=== PATIENT | male | born 1960 | race Caucasian/White ===

== ENCOUNTER 2018-08-31 09:31 | Observation (INO) | payer OTHER ==
--- OUTSIDE RECORDS SUMMARY | 2018-08-31 09:34 | XMS REPORT | Clinical Summary ---
:1960 Author Organization [facility] Address [address] [place] [address] Care Team Providers Name Role Phone Jorge Jo MD Primary Care Provider Allergies No Known Allergies Medications Medication Sig Dispensed Refills Start Date End Date Status TORSEMIDE ORAL Take 20 mg by 0 Active mouth 2 (two) times daily . sacubitril-valsarta Take 1 tablet 60 tablet 11 05/09/2018 Active n (ENTRESTO) 49-51 by mouth 2 mg Tab (two) times daily. atorvastatin Take 20 mg by 0 Discontinued (LIPITOR) 20 MG mouth daily. 8 tablet carvedilol (COREG) Take 1 tablet 60 tablet 3 07/30/2017 25 MG tablet (25 mg total) 9 by mouth 2 (two) times daily with breakfast and dinner. atorvastatin Take 1 tablet 30 tablet 2 07/30/2017 (LIPITOR) 20 MG (20 mg total) 9 tablet by mouth daily. acetaminophen Take 2 tablets 30 tablet 1 07/30/2017 Discontinued (TYLENOL) 325 MG (650 mg total) 9 tablet by mouth every 6 (six) hours as needed for up to 360 days. warfarin (COUMADIN) Take 1 tablet 30 tablet 2 07/30/2017 5 MG tablet (5 mg total) by 9 mouth every evening. losartan (COZAAR) Take 25 mg by 0 Discontinued 25 MG tablet mouth daily. 9 varenicline Take 1 mg by 0 Discontinued (CHANTIX) 1 mg mouth 2 (two) 9 tablet times daily Give with meals and with a full glass of water. . sacubitril-valsarta Take 1 tablet 60 tablet 11 04/21/2018 Discontinued n (ENTRESTO) 24-26 by mouth 2 9 mg Tab (two) times daily. 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 Encounters Date Type Specialty Care Team Description 06/03/2018 Documentation Central Scheduling Lashell Merino 05/23/2018 Documentation Transplant Lashell Merino 05/09/2018 Documentation Transplant Juan C Boucher RN 05/09/2018 Orders Only Transplant Juan C Boucher RN 04/21/2018 Office Visit Transplant Christopher Gongora Chronic systolic congestive heart failure (HCC) (Primary Dx); MD Prema NICAndria (nonischemic cardiomyopathy) (HCC); Essential hypertension; H/O mechanical aortic valve replacement; Chronic anticoagulation 04/21/2018 Orders Only Transplant Juan C Boucher RN 03/26/2018 Surgery Christopher Gongora R & L CATH / CORONARY MD Prema ANGIOS / PCI 03/26/2018 - Hospital Encounter Cardiology Christopher Gongora Acute diverticulitis; 03/27/2018 MD Prema Chronic systolic heart failure (HCC); Stage 3 chronic kidney disease (HCC); Coronary artery disease involving venetie ira heart without angina pectoris , unspecified vessel or lesion type; NICM (nonischemic cardiomyopathy) (HCC) after 08/30/2017 Social History Tobacco Use Types Packs/Day Years Used Date Former Smoker Cigarettes 1 40 Smokeless Tobacco: Never Used Tobacco Cessation: Ready to Quit: Yes; Counseling Given: Yes Comments: Quit 11/2016-05/2017 Alcohol Use Drinks/Week oz/Week Comments Yes 6 Cans of beer 3.6 Sex Assigned at Date Recorded Not on file Job Start Date Occupation Industry Not on file Not on file Not on file Travel History Travel Start Travel End No recent travel history available. Last Filed Vital Signs Vital Sign Reading Time Taken Blood Pressure 117/70 04/21/2018 10:07 AM CAMPAIGN MANAGER Pulse 69 04/21/2018 10:07 AM CAMPAIGN MANAGER Temperature 36.9 C (98.5 F) 04/21/2018 10:07 AM CAMPAIGN MANAGER Respiratory Rate 20 04/21/2018 10:07 AM CAMPAIGN MANAGER Oxygen Saturation 95% 04/21/2018 10:07 AM CAMPAIGN MANAGER Inhaled Oxygen Concentration 30% 03/27/2018 3:43 AM CAMPAIGN MANAGER Weight 102.3 kg (225 lb 9.6 oz) 04/21/2018 10:07 AM CAMPAIGN MANAGER Height 167.6 cm (5' 6") 04/21/2018 10:07 AM CAMPAIGN MANAGER Body Mass Index 36.41 04/21/2018 10:07 AM CAMPAIGN MANAGER Plan of Treatment Not on file Procedures Procedure Name Priority Date/Time Associated Diagnosis Comments RHYTHM STRIP - SCAN 07/18/2018 5:42 AM CDT ECG 12-LEAD Routine 04/21/2018 11:23 AM CAMPAIGN MANAGER Procedure Note - Interface, External Ris In - 04/21/2018 2:55 PM CAMPAIGN MANAGER Ventricular Rate 67 BPM Atrial Rate 67 BPM P-R Interval 170 ms QRS Duration 92 ms Q-T Interval 414 ms QTC Calculation(Bazett) 437 ms P [place] 49 degrees R [place] -29 degrees T [place] 116 degrees Normal sinus rhythm T wave abnormality, consider lateral ischemia Abnormal ECG When compared with ECG of 26-MAR-2018 12:25, No significant change was found ECG 12-LEAD Routine 04/21/2018 11:23 Chronic systolic Results for this AM CAMPAIGN MANAGER congestive heart procedure are in failure ([facility]) the results section. CBC W/PLT COUNT & AUTO STAT 04/21/2018 10:15 Chronic systolic Results for this DIFFERENTIAL AM CAMPAIGN MANAGER congestive heart procedure are in failure (HCC) the results section. COMPREHENSIVE STAT 04/21/2018 10:15 Chronic systolic Results for this METABOLIC PANEL AM CAMPAIGN MANAGER congestive heart procedure are in failure (HCC) the results section. B-TYPE NATRIURETIC STAT 04/21/2018 10:15 Chronic systolic Results for this FACTOR (BNP) AM CAMPAIGN MANAGER congestive heart procedure are in failure (HCC) the results section. TSH/FREE T4 IF Routine 04/21/2018 10:15 Chronic systolic Results for this INDICATED AM CAMPAIGN MANAGER congestive heart procedure are in failure ([facility]) the results Essential section. hypertension PREALBUMIN STAT 04/21/2018 10:15 Chronic systolic Results for this AM CAMPAIGN MANAGER congestive heart procedure are in failure (HCC) the results H/O mechanical section. aortic valve replacement MAGNESIUM STAT 04/21/2018 10:15 Chronic systolic Results for this AM CAMPAIGN MANAGER congestive heart procedure are in failure ([facility]) the results section. HEMOGLOBIN A1C Routine 04/21/2018 10:15 Chronic systolic Results for this AM CAMPAIGN MANAGER congestive heart procedure are in failure (HCC) the results NICM (nonischemic section. cardiomyopathy) (HCC) LIPID PANEL STAT 04/21/2018 10:15 Chronic systolic Results for this AM CAMPAIGN MANAGER congestive heart procedure are in failure (HCC) the results Essential section. hypertension URIC ACID STAT 04/21/2018 10:15 Chronic systolic Results for this AM CAMPAIGN MANAGER congestive heart procedure are in failure (HCC) the results section. PROTHROMBIN TIME/INR STAT 04/21/2018 10:15 Chronic systolic Results for this AM CAMPAIGN MANAGER congestive heart procedure are in failure (HCC) the results section. CBC W/PLT COUNT & AUTO STAT 04/21/2018 10:15 Chronic systolic Results for this DIFFERENTIAL AM CAMPAIGN MANAGER congestive heart procedure are in failure (HCC) the results section. VASCULAR DIAGRAM -SCAN 04/03/2018 10:01 AM CAMPAIGN MANAGER RHYTHM STRIP - SCAN 04/03/2018 10:01 AM CAMPAIGN MANAGER CARDIAC CATH REPORT - 04/03/2018 10:01 SCAN AM CAMPAIGN MANAGER TRANSFUSION SERVICE 03/27/2018 6:02 REPORT - SCAN PM CAMPAIGN MANAGER R & L CATH / CORONARY 03/26/2018 7:46 Chronic combined ANGIOS / PCI PM CAMPAIGN MANAGER systolic and diastolic heart failure (HCC) Cardiomyopathy, unspecified type ([facility]) Case Notes POP6 ECG 12-LEAD JOSEFA 03/26/2018 12:25 PM CAMPAIGN MANAGER CBC W/PLT COUNT & AUTO STAT 03/26/2018 11:57 AM CAMPAIGN MANAGER Results for this DIFFERENTIAL procedure are in the results section. TYPE AND SCREEN, AUTOMATED Routine 03/26/2018 11:57 AM CAMPAIGN MANAGER CBC W/PLT COUNT & AUTO STAT 03/26/2018 11:57 AM CAMPAIGN MANAGER Results for this DIFFERENTIAL procedure are in the results section. BASIC METABOLIC PANEL (7) STAT 03/26/2018 11:57 AM CAMPAIGN MANAGER PROTHROMBIN TIME/INR STAT 03/26/2018 11:57 AM CAMPAIGN MANAGER after 08/30/2017 Results RHYTHM STRIP - SCAN (07/18/2018 5:42 AM CDT)Only the most recent of2 resultswithin the time period is included. Narrative Performed At ECG 12 lead (04/21/2018 11:23 AM CAMPAIGN MANAGER)Only the most recent of2 resultswithin the time period is included. Specimen Narrative Performed At Ventricular Rate 67 BPM GE MUSE Atrial Rate 67 BPM P-R Interval 170 ms QRS Duration 92 ms Q-T Interval 414 ms QTC Calculation(Bazett) 437 ms P [place] 49 degrees R Montez[place] -29 degrees T [place] 116 degrees Normal sinus rhythm T wave inversion lateral leads consider postischemic changes Abnormal ECG When compared with ECG of 26-MAR-2018 12:25, No significant change was found Confirmed by MD CARRERO YOCHAI ([id number]) on 04/22/2018 6:15:24 AM Procedure Note Interface, External Ris In - 04/22/2018 6:15 AM CAMPAIGN MANAGER Ventricular Rate 67 BPM Atrial Rate 67 BPM P-R Interval 170 ms QRS Duration 92 ms Q-T Interval 414 ms QTC Calculation(Bazett) 437 ms P [place] 49 degrees R Montez[place] -29 degrees T [place] 116 degrees Normal sinus rhythm T wave inversion lateral leads consider postischemic changes Abnormal ECG When compared with ECG of 26-MAR-2018 12:25, No significant change was found Confirmed by MD CARRERO YOCHAI ([id number]) on 04/22/2018 6:15:24 AM Performing Organization Address City/State/Zipcode Phone Number GE MUSE TSH/Free T4 If Indicated (04/21/2018 10:15 AM CAMPAIGN MANAGER) TSH 1.36 0.35 - 4.94 uIU/mL [facility] Specimen Blood Performing Organization Address City/State/Zipcode Phone Number [facility] [address] [place] [address] [phone] CENTER CBC with platelet count + automated diff (04/21/2018 10:15 AM CAMPAIGN MANAGER)Only the most recent of2 resultswithin the time period is included. WBC 6.8 3.5 - 10.5 K/L [facility] RBC 4.40 (L) 4.63 - 6.08 M/L [facility] Hemoglobin 13.9 13.7 - 17.5 GM/DL [facility] Hematocrit 40.8 40.1 - 51.0 % [facility] MCV 92.7 (H) 79.0 - 92.2 fL [facility] MCH 31.6 25.7 - 32.2 pg [facility] MCHC 34.1 32.3 - 36.5 GM/DL [facility] RDW 13.2 11.6 - 14.4 % [facility] Platelets 225 150 - 450 K/CU MM [facility] MPV 9.7 9.4 - 12.4 fL [facility] nRBC 0 0 - 0 /100 WBC [facility] % Neutros 75 % [facility] % Lymphs 10 % [facility] % Monos 11 % [facility] % Eos 3 % [facility] % Baso 1 % [facility] # Neutros 5.10 1.78 - 5.38 K/L [facility] # Lymphs 0.71 (L) 1.32 - 3.57 K/L [facility] # Monos 0.74 0.30 - 0.82 K/L [facility] # Eos 0.20 0.04 - 0.54 K/L [facility] # Baso 0.05 0.01 - 0.08 K/L [facility] Immature Granulocytes-Relative 0 0 - 1 % [facility] Specimen Blood Performing Organization Address City/State/Zipcode Phone Number [facility] [address] [place] [address] CENTER Prothrombin time/INR (04/21/2018 10:15 AM CAMPAIGN MANAGER)Only the most recent of2 resultswithin the time period is included. Protime 29.4 (H) 11.7 - 14.7 seconds [facility] INR 2.8 <=5.9 [facility] Specimen Blood Narrative Performed At RECOMMENDED COUMADIN/WARFARIN INR THERAPY [facility] RANGES STANDARD DOSE: 2.0 - 3.0 Includes: PROPHYLAXIS for venous thrombosis, systemic embolization; TREATMENT for venous thrombosis and/or pulmonary embolus. HIGH RISK: Target INR is 2.5-3.5 for patients with mechanical heart valves. Performing Organization Address City/State/[facility] Phone Number [address] [address] CENTER Uric acid (04/21/2018 10:15 AM CAMPAIGN MANAGER) Uric Acid 12.7 (H) 2.6 - 7.2 mg/dL [facility] Specimen Blood Performing Organization Address [facility] Phone Number [address] [address] CENTER Prealbumin (04/21/2018 10:15 AM CAMPAIGN MANAGER) Prealbumin 27Comment: Specimen slightly 14 - 45 mg/dL [facility] hemolyzed [facility] Specimen Blood Performing Organization Address [facility] Phone Number [address] [address] CENTER B-type Natriuretic Factor (BNP) (04/21/2018 10:15 AM CAMPAIGN MANAGER) BNP 443 (H) 0 - 100 pg/mL [facility] Specimen Blood Performing Organization Address [facility] Cent[facility]ode Phone Number [address] [address] CENTER Magnesium (04/21/2018 10:15 AM CAMPAIGN MANAGER) Magnesium 2.1 1.6 - 2.6 mg/dL [facility] Specimen Blood Performing Organization Address [facility] Cent[facility]ode Phone Number [address] [address] [phone] CENTER Hemoglobin A1c (04/21/2018 10:15 AM CAMPAIGN MANAGER) Hemoglobin A1C 5.7 4.3 - 6.1 % [facility] Specimen Blood Performing Organization Address City/[facility]/Zipcode Phone Number [address] [address] [phone] [place] Lipid panel (04/21/2018 10:15 AM CAMPAIGN MANAGER) Triglycerides 166 mg/dL [facility] Cholesterol 203 mg/dL [facility] HDL 47 mg/dL [facility] LDL Calculated 123 mg/dL [facility] Specimen Blood Narrative Performed At Triglyceride Reference Range: [facility] Low Risk <150 [id number] High Risk 200-499 Very High Risk>=500 Cholesterol Reference Range: Low Risk <200 [id number] High Risk>240 HDL Cholesterol Reference Range: Low Risk >=60 High Risk <40 LDL Cholesterol Reference Range: Optimal<100 Near [id number] Very High >=190 Performing Organization Address City/[facility]/Zipcode Phone Number [place] [phone] [place] [address] [place] Comprehensive metabolic panel (04/21/2018 10:15 AM CAMPAIGN MANAGER) Protein, Total 7.6 6.0 - 8.3 gm/dL [facility] Albumin 3.3 (L) 3.5 - 5.0 g/dL [facility] Alkaline Phosphatase 85 40 - 150 U/L [facility] Total Bilirubin 0.9 0.2 - 1.2 mg/dL [facility] Sodium 136 136 - 145 meq/L [facility] Potassium 4.4 3.5 - 5.1 meq/L [facility] Chloride 100 98 - 107 meq/L [facility] CO2 31 (H) 22 - 29 meq/L [facility] BUN 39 (H) 7 - 21 mg/dL [facility] Creatinine 1.93 (H) 0.57 - 1.25 mg/dL [facility] Glucose 104 70 - 105 mg/dL [facility] Calcium 9.2 8.4 - 10.2 mg/dL [facility] AST 59 (H) 5 - 34 U/L [facility] ALT 34 6 - 55 U/L [facility] EGFR 36Comment: ESTIMATED GFR mL/min/1.73 sq m [facility] IS NOT ACCURATE [facility] CREATININE CLEARANCE IN PREDICTING GLOMERULAR FILTRATION RATE. ESTIMATED GFR IS NOT APPLICABLE FOR DIALYSIS PATIENTS. Specimen Blood Performing Organization Address City/[facility]/Zipcode Phone Number [address] [address] [phone] CENTER VASCULAR DIAGRAM -SCAN (04/03/2018 10:01 AM CAMPAIGN MANAGER) Narrative Performed At CARDIAC CATH REPORT - SCAN (04/03/2018 10:01 AM CAMPAIGN MANAGER) Narrative Performed At TRANSFUSION SERVICE REPORT - SCAN (03/27/2018 6:02 PM CAMPAIGN MANAGER) Narrative Performed At Type and screen, automated (03/26/2018 11:57 AM CAMPAIGN MANAGER) ABO/RH AUTOMATED (BEAKER) O POSITIVE [facility] Ab Scrn NEGATIVE [facility] Specimen Blood Performing Organization Address City/State/Zipcode Phone Number [facility] [address] [place] [address] [phone] Basic Metabolic Panel (03/26/2018 11:57 AM CAMPAIGN MANAGER) Sodium 136 136 - 145 meq/L [facility] Potassium 4.1 3.5 - 5.1 meq/L [facility] Chloride 100 98 - 107 meq/L [facility] CO2 27 22 - 29 meq/L [facility] BUN 36 (H) 7 - 21 mg/dL [facility] Creatinine 1.66 (H) 0.57 - 1.25 mg/dL [facility] Glucose 103 70 - 105 mg/dL [facility] Calcium 9.5 8.4 - 10.2 mg/dL [facility] EGFR 43Comment: ESTIMATED GFR IS mL/min/1.73 sq m [facility] NOT ACCURATE [facility] CLEARANCE IN PREDICTING GLOMERULAR FILTRATION RATE. ESTIMATED GFR IS NOT APPLICABLE FOR DIALYSIS PATIENTS. Specimen Blood Performing Organization Address City/State/Zipcode Phone Number [facility] [address], [place] [phone] CENTER after 08/30/2017 Insurance Payer Benefit Plan / Subscriber ID Type Phone Address Group MEDICAID - MEDICAID [employer] xxxxxxxxx Medicaid Contracted MGD CARE PLAN Advance Directives For more information, please contact:[address] [phone] Code Status Date Activated Date Inactivated Comments Full Code 03/26/2018 11:04 AM This code status was determined by: Patient Full Code 07/18/2017 5:10 PM 07/19/2017 2:43 PM This code status was determined by: Patient Full Code 03/27/2017 2:12 AM 04/08/2017 10:28 PM This code status was determined by: Patient
--- OUTSIDE RECORDS SUMMARY | 2018-08-31 09:39 | XMS REPORT ---
:1960 [facility] Address [address] [place] [address] Care Team Providers Name Role Phone LUCIA OLIVARES Prema Unavailable Unavailable KATHI BENTON Unavailable Unavailable HASMUKH CRANDALL Unavailable Unavailable Problems This patient has no known problems. Allergies, Adverse Reactions, Alerts This patient has no known allergies or adverse reactions. Medications This patient has no known medications. Results Test Description Test Time Test Comments Text Results Atomic Results Result Comments HEMOGLOBIN A1C 2018-04-21 12:46:00 Test Item Value Reference Range Comments HEMOGLOBIN A1C (BEAKER) (test moqd=358) 5.7 % 4.3-6.1 TSH/FREE T4 IF [id number] 12:35:00 Test Item Value Reference Range Comments THYROID STIMULATING HORMONE (BEAKER) (test 1.36 uIU/mL 0.35-4.94 jnzf=201) [id number] 11:07:00 Test Item Value Reference Range Comments PREALBUMIN (BEAKER) (test 27 mg/dL 14-45 Specimen slightly hemolyzed xbae=271) URIC [id number] 11:05:00 Test Item Value Reference Range Comments URIC ACID (BEAKER) (test lsfi=834) 12.7 mg/dL 2.6-7.2 [id number] 11:05:00 Test Item Value Reference Range Comments MAGNESIUM (BEAKER) (test fztd=827) 2.1 mg/dL 1.6-2.6 COMPREHENSIVE METABOLIC [id number] 11:05:00 Test Item Value Reference Range Comments TOTAL PROTEIN (BEAKER) 7.6 gm/dL 6.0-8.3 (test dklr=603) ALBUMIN (BEAKER) (test 3.3 g/dL 3.5-5.0 qqke=2292) ALKALINE PHOSPHATASE 85 U/L 40-150 (BEAKER) (test lvlo=015) BILIRUBIN TOTAL (BEAKER) 0.9 mg/dL 0.2-1.2 (test mljh=997) SODIUM (BEAKER) (test 136 meq/L 136-145 zfvm=666) POTASSIUM (BEAKER) (test 4.4 meq/L 3.5-5.1 rmzl=630) CHLORIDE (BEAKER) (test 100 meq/L 98-107 snod=253) CO2 (BEAKER) (test 31 meq/L 22-29 velf=270) BLOOD UREA NITROGEN 39 mg/dL 7-21 (BEAKER) (test fbyj=162) CREATININE (BEAKER) (test 1.93 mg/dL 0.57-1.25 ktrs=875) GLUCOSE RANDOM (BEAKER) 104 mg/dL 70-105 (test ljfs=933) CALCIUM (BEAKER) (test 9.2 mg/dL 8.4-10.2 dfxe=699) AST (SGOT) (BEAKER) (test 59 U/L 5-34 nkmb=499) ALT (SGPT) (BEAKER) (test 34 U/L 6-55 vckm=034) EGFR (BEAKER) (test 36 mL/min/1.73 sq m ESTIMATED GFR IS NOT sgew=2625) ACCURATE CREATININE CLEARANCE IN PREDICTING GLOMERULAR FILTRATION RATE. ESTIMATED GFR IS NOT APPLICABLE FOR DIALYSIS PATIENTS. LIPID [id number] 11:05:00 Test Item Value Reference Range Comments TRIGLYCERIDES (BEAKER) (test utcz=879) 166 mg/dL CHOLESTEROL (BEAKER) (test fikn=696) 203 mg/dL HDL CHOLESTEROL (BEAKER) (test cktm=583) 47 mg/dL LDL CHOLESTEROL CALCULATED (BEAKER) (test 123 mg/dL qcng=711) Triglyceride Reference Range: Low Risk <150 Borderline 150- 199 High Risk 200-499 Very High Risk >=500Cholesterol Reference Range: Low Risk <200 Borderline 200-239 High Risk > 240HDL Cholesterol Reference Range: Low Risk >=60 High Risk <40LDL Cholesterol Reference Range: Optimal <100 Near Optimal 100-129 Borderline 130-159 High 160-189 Very High >=190B-TYPE NATRIURETIC FACTOR (BNP)2018-04-21 11:01:00 Test Item Value Reference Range Comments B-TYPE NATRIURETIC PEPTIDE (BEAKER) (test 443 pg/mL 0-100 wpjx=390) PROTHROMBIN [id number] 10:48:00 Test Item Value Reference Range Comments PROTIME (BEAKER) (test tgkd=040) 29.4 seconds 11.7-14.7 INR (BEAKER) (test olsz=504) 2.8 <=5.9 RECOMMENDED COUMADIN/WARFARIN INR THERAPY RANGESSTANDARD DOSE: 2.0 - 3.0 Includes: PROPHYLAXIS forvenous thrombosis, systemic embolization; TREATMENT for venous thrombosis and/or pulmonary embolus.HIGH RISK: Target INR is 2.5-3.5 for patients with mechanical heart valves.CBC W/PLT COUNT & AUTO [id number] 10:38:00 Test Item Value Reference Range Comments WHITE BLOOD CELL COUNT (BEAKER) (test aufi=226) 6.8 K/ L 3.5-10.5 RED BLOOD CELL COUNT (BEAKER) (test eggb=226) 4.40 M/ L 4.63-6.08 HEMOGLOBIN (BEAKER) (test rzwe=927) 13.9 GM/DL 13.7-17.5 HEMATOCRIT (BEAKER) (test aeei=591) 40.8 % 40.1-51.0 MEAN CORPUSCULAR VOLUME (BEAKER) (test vqjd=492) 92.7 fL 79.0-92.2 MEAN CORPUSCULAR HEMOGLOBIN (BEAKER) (test 31.6 pg 25.7-32.2 qzgr=312) MEAN CORPUSCULAR HEMOGLOBIN CONC (BEAKER) (test 34.1 GM/DL 32.3-36.5 ytwa=989) RED CELL DISTRIBUTION WIDTH (BEAKER) (test 13.2 % 11.6-14.4 xdmv=182) PLATELET COUNT (BEAKER) (test xkub=488) 225 K/CU MM 150-450 MEAN PLATELET VOLUME (BEAKER) (test qlzh=169) 9.7 fL 9.4-12.4 NUCLEATED RED BLOOD CELLS (BEAKER) (test 0 /100 WBC 0-0 woqa=181) NEUTROPHILS RELATIVE PERCENT (BEAKER) (test 75 % vehw=901) LYMPHOCYTES RELATIVE PERCENT (BEAKER) (test 10 % gdpe=108) MONOCYTES RELATIVE PERCENT (BEAKER) (test 11 % hdqe=675) EOSINOPHILS RELATIVE PERCENT (BEAKER) (test 3 % utrd=380) BASOPHILS RELATIVE PERCENT (BEAKER) (test 1 % dash=885) NEUTROPHILS ABSOLUTE COUNT (BEAKER) (test 5.10 K/ L 1.78-5.38 rzds=376) LYMPHOCYTES ABSOLUTE COUNT (BEAKER) (test 0.71 K/ L 1.32-3.57 msox=720) MONOCYTES ABSOLUTE COUNT (BEAKER) (test 0.74 K/ L 0.30-0.82 xmng=095) EOSINOPHILS ABSOLUTE COUNT (BEAKER) (test 0.20 K/ L 0.04-0.54 leav=858) BASOPHILS ABSOLUTE COUNT (BEAKER) (test 0.05 K/ L 0.01-0.08 ujkv=478) IMMATURE GRANULOCYTES-RELATIVE PERCENT (BEAKER) 0 % 0-1 (test btsj=8312) BASIC METABOLIC [id number] 12:22:00 Test Item Value Reference Range Comments SODIUM (BEAKER) (test 136 meq/L 136-145 ppqt=115) POTASSIUM (BEAKER) (test 4.1 meq/L 3.5-5.1 myus=123) CHLORIDE (BEAKER) (test 100 meq/L 98-107 ctnv=187) CO2 (BEAKER) (test 27 meq/L 22-29 sqjz=398) BLOOD UREA NITROGEN 36 mg/dL 7-21 (BEAKER) (test hbim=294) CREATININE (BEAKER) (test 1.66 mg/dL 0.57-1.25 gzkb=029) GLUCOSE RANDOM (BEAKER) 103 mg/dL 70-105 (test erfh=515) CALCIUM (BEAKER) (test 9.5 mg/dL 8.4-10.2 xooh=196) EGFR (BEAKER) (test 43 mL/min/1.73 sq m ESTIMATED GFR IS NOT picn=8011) ACCURATE CREATININE CLEARANCE IN PREDICTING GLOMERULAR FILTRATION RATE. ESTIMATED GFR IS NOT APPLICABLE FOR DIALYSIS PATIENTS. PROTHROMBIN [id number] 12:11:00 Test Item Value Reference Range Comments PROTIME (BEAKER) (test mefc=603) 16.2 seconds 11.7-14.7 INR (BEAKER) (test fgkl=977) 1.3 <=5.9 RECOMMENDED COUMADIN/WARFARIN INR THERAPY RANGESSTANDARD DOSE: 2.0 - 3.0 Includes: PROPHYLAXIS forvenous thrombosis, systemic embolization; TREATMENT for venous thrombosis and/or pulmonary embolus.HIGH RISK: Target INR is 2.5-3.5 for patients with mechanical heart valves.Within 24 hours, if on CoumadinCBC W/ PLT COUNT & AUTO [id number] 12:06:00 Test Item Value Reference Range Comments WHITE BLOOD CELL COUNT (BEAKER) (test vqpt=046) 7.3 K/ L 3.5-10.5 RED BLOOD CELL COUNT (BEAKER) (test brht=240) 4.59 M/ L 4.63-6.08 HEMOGLOBIN (BEAKER) (test tkih=973) 14.4 GM/DL 13.7-17.5 HEMATOCRIT (BEAKER) (test rwci=156) 42.3 % 40.1-51.0 MEAN CORPUSCULAR VOLUME (BEAKER) (test lxoh=309) 92.2 fL 79.0-92.2 MEAN CORPUSCULAR HEMOGLOBIN (BEAKER) (test 31.4 pg 25.7-32.2 dfhq=846) MEAN CORPUSCULAR HEMOGLOBIN CONC (BEAKER) (test 34.0 GM/DL 32.3-36.5 iqrw=245) RED CELL DISTRIBUTION WIDTH (BEAKER) (test 13.8 % 11.6-14.4 tdyt=319) PLATELET COUNT (BEAKER) (test gtai=373) 182 K/CU MM 150-450 MEAN PLATELET VOLUME (BEAKER) (test zfpr=411) 10.1 fL 9.4-12.4 NUCLEATED RED BLOOD CELLS (BEAKER) (test 0 /100 WBC 0-0 mgpd=414) NEUTROPHILS RELATIVE PERCENT (BEAKER) (test 70 % oycn=190) LYMPHOCYTES RELATIVE PERCENT (BEAKER) (test 15 % phzq=855) MONOCYTES RELATIVE PERCENT (BEAKER) (test 11 % ibzz=326) EOSINOPHILS RELATIVE PERCENT (BEAKER) (test 3 % wrnp=098) BASOPHILS RELATIVE PERCENT (BEAKER) (test 1 % sawh=302) NEUTROPHILS ABSOLUTE COUNT (BEAKER) (test 5.11 K/ L 1.78-5.38 fdli=474) LYMPHOCYTES ABSOLUTE COUNT (BEAKER) (test 1.10 K/ L 1.32-3.57 give=004) MONOCYTES ABSOLUTE COUNT (BEAKER) (test 0.78 K/ L 0.30-0.82 biri=772) EOSINOPHILS ABSOLUTE COUNT (BEAKER) (test 0.24 K/ L 0.04-0.54 cgwj=685) BASOPHILS ABSOLUTE COUNT (BEAKER) (test 0.08 K/ L 0.01-0.08 zgry=770) IMMATURE GRANULOCYTES-RELATIVE PERCENT (BEAKER) 0 % 0-1 (test pdch=5880) AFB CULTURE + [id number] 11:21:00 Test Item Value Reference Range Comments CULTURE (BEAKER) (test MYCOBACTERIUM Mycobacterium zcqr=0653) [place] Fontenotdentification performed by:[facility], Dept. of Microbiology Research, [facility], [address] [place] [address], [place], [place] [address] Amikacin (test code=1) Cefoxitin (test code=68) Ciprofloxacin (test code=7) Clarithromycin (test code=42) Doxycycline (test code=15) Imipenem (test code=19) Linezolid (test code=40) Minocycline (test code=35) Moxifloxacin (test code=36) Tobramycin (test code=25) Trimethoprim + Sulfamethoxazole (test code=47) AFB SMEAR (BEAKER) No acid fast (test fnak=384) bacilli seen 99.59 match to M. chelonae type strain by rpoB gene sequencing. M. chelonae does not have a functional erm gene and hence will be macrolide susceptible unless mutationally resistant.FUNGUS CULTURE + [id number] 11:21:00 Test Item Value Reference Range Comments CULTURE (BEAKER) (test No fungus isolated in 28 days zfdr=9769) FUNGUS SMEAR (BEAKER) (test No fungi seen uqfm=6726) POCT-GLUCOSE [id number] 11:44:00 Test Item Value Reference Range Comments POC-GLUCOSE METER (BEAKER) 96 mg/dL 70-110 TESTED AT [facility] [address] (test rtbq=3923) [facility] [place] [address] PROTHROMBIN [id number] 09:22:00 Test Item Value Reference Range Comments PROTIME (BEAKER) (test lybr=804) 29.1 seconds 11.7-14.7 INR (BEAKER) (test mpbq=644) 2.8 <=5.9 RECOMMENDED COUMADIN/WARFARIN INR THERAPY RANGESSTANDARD DOSE: 2.0 - 3.0 Includes: PROPHYLAXIS forvenous thrombosis, systemic embolization; TREATMENT for venous thrombosis and/or pulmonary embolus.HIGH RISK: Target INR is 2.5-3.5 for patients with mechanical heart valves.CBC (HEMOGRAM ONLY)2017-07-30 07:40:00 Test Item Value Reference Range Comments WHITE BLOOD CELL COUNT (BEAKER) (test deee=572) 7.1 K/ L 3.5-10.5 RED BLOOD CELL COUNT (BEAKER) (test jluj=902) 3.34 M/ L 4.63-6.08 HEMOGLOBIN (BEAKER) (test kojk=743) 10.1 GM/DL 13.7-17.5 HEMATOCRIT (BEAKER) (test vyww=855) 31.4 % 40.1-51.0 MEAN CORPUSCULAR VOLUME (BEAKER) (test jair=139) 94.0 fL 79.0-92.2 MEAN CORPUSCULAR HEMOGLOBIN (BEAKER) (test 30.2 pg 25.7-32.2 tsui=389) MEAN CORPUSCULAR HEMOGLOBIN CONC (BEAKER) (test 32.2 GM/DL 32.3-36.5 vbwf=562) RED CELL DISTRIBUTION WIDTH (BEAKER) (test 14.6 % 11.6-14.4 blnh=368) PLATELET COUNT (BEAKER) (test fnll=988) 264 K/CU MM 150-450 MEAN PLATELET VOLUME (BEAKER) (test bjbg=384) 11.1 fL 9.4-12.4 NUCLEATED RED BLOOD CELLS (BEAKER) (test 0 /100 WBC 0-0 bjlg=507) POCT-GLUCOSE [id number] 07:23:00 Test Item Value Reference Range Comments POC-GLUCOSE METER (BEAKER) 112 mg/dL 70-110 TESTED AT [facility] [address] [facility] (test ylmy=2732) [facility] [place] [address] [id number] 05:35:00 Test Item Value Reference Range Comments PHOSPHORUS (BEAKER) (test wqhj=428) 3.3 mg/dL 2.3-4.7 [id number] 05:35:00 Test Item Value Reference Range Comments MAGNESIUM (BEAKER) (test hymx=641) 1.9 mg/dL 1.6-2.6 BASIC METABOLIC [id number] 05:35:00 Test Item Value Reference Range Comments SODIUM (BEAKER) (test 137 meq/L 136-145 ojog=209) POTASSIUM (BEAKER) (test 5.0 meq/L 3.5-5.1 dkmr=900) CHLORIDE (BEAKER) (test 105 meq/L 98-107 ubsl=885) CO2 (BEAKER) (test 26 meq/L 22-29 azwp=181) BLOOD UREA NITROGEN 25 mg/dL 7-21 (BEAKER) (test zlbw=412) CREATININE (BEAKER) (test 1.69 mg/dL 0.57-1.25 laeo=833) GLUCOSE RANDOM (BEAKER) 95 mg/dL 70-105 (test dmip=372) CALCIUM (BEAKER) (test 9.1 mg/dL 8.4-10.2 gkay=994) EGFR (BEAKER) (test 42 mL/min/1.73 sq m ESTIMATED GFR IS NOT ylqt=7453) ACCURATE CREATININE CLEARANCE IN PREDICTING GLOMERULAR FILTRATION RATE. ESTIMATED GFR IS NOT APPLICABLE FOR DIALYSIS PATIENTS. POCT-GLUCOSE [id number] 21:17:00 Test Item Value Reference Range Comments POC-GLUCOSE METER (BEAKER) 139 mg/dL 70-110 TESTED AT [address] (test nkcw=1400) [place] [address] POCT-GLUCOSE [id number] 18:23:00 Test Item Value Reference Range Comments POC-GLUCOSE METER (BEAKER) 118 mg/dL 70-110 TESTED AT [address] (test dcvf=1789) [place] [id number] POCT-GLUCOSE [id number] 12:33:00 Test Item Value Reference Range Comments POC-GLUCOSE METER (BEAKER) 157 mg/dL 70-110 TESTED AT [address] (test xiqx=1635) [place] [id number] 11:34:00 Test Item Value Reference Range Comments PARTIAL THROMBOPLASTIN TIME (BEAKER) (test 49.4 seconds 22.5-36.0 pvdl=883) POCT-GLUCOSE [id number] 07:27:00 Test Item Value Reference Range Comments POC-GLUCOSE METER (BEAKER) 99 mg/dL 70-110 TESTED AT [address] (test jpvt=5880) [facility] [place] [address] [id number] 03:55:00 Test Item Value Reference Range Comments PHOSPHORUS (BEAKER) (test xino=050) 3.9 mg/dL 2.3-4.7 [id number] 03:55:00 Test Item Value Reference Range Comments MAGNESIUM (BEAKER) (test glit=473) 1.7 mg/dL 1.6-2.6 BASIC METABOLIC [id number] 03:55:00 Test Item Value Reference Range Comments SODIUM (BEAKER) (test 136 meq/L 136-145 jjlq=056) POTASSIUM (BEAKER) (test 4.6 meq/L 3.5-5.1 alcc=038) CHLORIDE (BEAKER) (test 103 meq/L 98-107 chwt=181) CO2 (BEAKER) (test 26 meq/L 22-29 hjrm=392) BLOOD UREA NITROGEN 27 mg/dL 7-21 (BEAKER) (test uzbm=753) CREATININE (BEAKER) (test 1.80 mg/dL 0.57-1.25 fyzr=733) GLUCOSE RANDOM (BEAKER) 120 mg/dL 70-105 (test xvkn=018) CALCIUM (BEAKER) (test 9.0 mg/dL 8.4-10.2 bdbm=958) EGFR (BEAKER) (test 39 mL/min/1.73 sq m ESTIMATED GFR IS NOT jlwj=2311) ACCURATE CREATININE CLEARANCE IN PREDICTING GLOMERULAR FILTRATION RATE. ESTIMATED GFR IS NOT APPLICABLE FOR DIALYSIS PATIENTS. [id number] 03:40:00 Test Item Value Reference Range Comments PARTIAL THROMBOPLASTIN TIME (BEAKER) (test 74.2 seconds 22.5-36.0 weei=135) PROTHROMBIN [id number] 03:39:00 Test Item Value Reference Range Comments PROTIME (BEAKER) (test glhq=218) 24.1 seconds 11.7-14.7 INR (BEAKER) (test xgdj=464) 2.2 <=5.9 RECOMMENDED COUMADIN/WARFARIN INR THERAPY RANGESSTANDARD DOSE: 2.0 - 3.0 Includes: PROPHYLAXIS forvenous thrombosis, systemic embolization; TREATMENT for venous thrombosis and/or pulmonary embolus.HIGH RISK: Target INR is 2.5-3.5 for patients with mechanical heart valves.CBC (HEMOGRAM ONLY)2017-07-29 03:29:00 Test Item Value Reference Range Comments WHITE BLOOD CELL COUNT (BEAKER) (test beuj=483) 6.5 K/ L 3.5-10.5 RED BLOOD CELL COUNT (BEAKER) (test qllp=546) 3.25 M/ L 4.63-6.08 HEMOGLOBIN (BEAKER) (test xbnh=771) 9.7 GM/DL 13.7-17.5 HEMATOCRIT (BEAKER) (test hifc=903) 30.4 % 40.1-51.0 MEAN CORPUSCULAR VOLUME (BEAKER) (test kdwc=401) 93.5 fL 79.0-92.2 MEAN CORPUSCULAR HEMOGLOBIN (BEAKER) (test 29.8 pg 25.7-32.2 fwnb=629) MEAN CORPUSCULAR HEMOGLOBIN CONC (BEAKER) (test 31.9 GM/DL 32.3-36.5 jqjs=308) RED CELL DISTRIBUTION WIDTH (BEAKER) (test 14.3 % 11.6-14.4 lijy=387) PLATELET COUNT (BEAKER) (test aakd=073) 242 K/CU MM 150-450 MEAN PLATELET VOLUME (BEAKER) (test gabv=594) 10.4 fL 9.4-12.4 NUCLEATED RED BLOOD CELLS (BEAKER) (test 0 /100 WBC 0-0 rdwy=224) POCT-GLUCOSE [id number] 22:23:00 Test Item Value Reference Range Comments POC-GLUCOSE METER (BEAKER) 133 mg/dL 70-110 TESTED AT [address] (test qdgc=1498) [place] [id number] [id number] 20:19:00 Test Item Value Reference Range Comments PARTIAL THROMBOPLASTIN TIME (BEAKER) (test 58.9 seconds 22.5-36.0 ecmw=524) On Heparin dripPOCT-GLUCOSE [id number] 16:12:00 Test Item Value Reference Range Comments POC-GLUCOSE METER (BEAKER) 132 mg/dL 70-110 TESTED AT [address] (test uxcj=7116) [place] [id number] [id number] 13:01:00 Test Item Value Reference Range Comments PARTIAL THROMBOPLASTIN TIME (BEAKER) (test 72.3 seconds 22.5-36.0 dpnm=582) POCT-GLUCOSE [id number] 11:56:00 Test Item Value Reference Range Comments POC-GLUCOSE METER (BEAKER) 115 mg/dL 70-110 TESTED AT [facility] [address] [facility] (test puey=3306) [facility] [place] [address] POCT-GLUCOSE [id number] 08:19:00 Test Item Value Reference Range Comments POC-GLUCOSE METER (BEAKER) 112 mg/dL 70-110 TESTED AT [address] (test nbdn=4585) [facility] [place] [address] [id number] 05:14:00 Test Item Value Reference Range Comments PARTIAL THROMBOPLASTIN TIME (BEAKER) (test 106.7 seconds 22.5-36.0 gfhj=326) While on warfarin.[id number] 04:48:00 Test Item Value Reference Range Comments PHOSPHORUS (BEAKER) (test xpsf=043) 4.1 mg/dL 2.3-4.7 [id number] 04:48:00 Test Item Value Reference Range Comments MAGNESIUM (BEAKER) (test lgne=672) 1.6 mg/dL 1.6-2.6 BASIC METABOLIC [id number] 04:48:00 Test Item Value Reference Range Comments SODIUM (BEAKER) (test 137 meq/L 136-145 nyuu=601) POTASSIUM (BEAKER) (test 4.5 meq/L 3.5-5.1 rqwp=387) CHLORIDE (BEAKER) (test 103 meq/L 98-107 ktmp=908) CO2 (BEAKER) (test 27 meq/L 22-29 cqjm=383) BLOOD UREA NITROGEN 25 mg/dL 7-21 (BEAKER) (test brdo=556) CREATININE (BEAKER) (test 1.91 mg/dL 0.57-1.25 hsnw=666) GLUCOSE RANDOM (BEAKER) 103 mg/dL 70-105 (test rknb=578) CALCIUM (BEAKER) (test 9.2 mg/dL 8.4-10.2 opzv=486) EGFR (BEAKER) (test 36 mL/min/1.73 sq m ESTIMATED GFR IS NOT qorr=5542) ACCURATE CREATININE CLEARANCE IN PREDICTING GLOMERULAR FILTRATION RATE. ESTIMATED GFR IS NOT APPLICABLE FOR DIALYSIS PATIENTS. PROTHROMBIN [id number] 04:43:00 Test Item Value Reference Range Comments PROTIME (BEAKER) (test cufj=863) 22.0 seconds 11.7-14.7 INR (BEAKER) (test qhkt=239) 1.9 <=5.9 RECOMMENDED COUMADIN/WARFARIN INR THERAPY RANGESSTANDARD DOSE: 2.0 - 3.0 Includes: PROPHYLAXIS forvenous thrombosis, systemic embolization; TREATMENT for venous thrombosis and/or pulmonary embolus.HIGH RISK: Target INR is 2.5-3.5 for patients with mechanical heart valves.While on warfarin.CBC (HEMOGRAM ONLY) 2017-07-28 04:43:00 Test Item Value Reference Range Comments WHITE BLOOD CELL COUNT 6.4 K/ L 3.5-10.5 (BEAKER) (test ycwa=784) RED BLOOD CELL COUNT (BEAKER) 3.28 M/ L 4.63-6.08 (test heje=184) HEMOGLOBIN (BEAKER) (test 10.0 GM/DL 13.7-17.5 mwvs=968) HEMATOCRIT (BEAKER) (test 30.8 % 40.1-51.0 rjwm=513) MEAN CORPUSCULAR VOLUME 93.9 fL 79.0-92.2 (BEAKER) (test kwsj=858) MEAN CORPUSCULAR HEMOGLOBIN 30.5 pg 25.7-32.2 (BEAKER) (test ixji=385) MEAN CORPUSCULAR HEMOGLOBIN 32.5 GM/DL 32.3-36.5 CONC (BEAKER) (test aqhv=365) RED CELL DISTRIBUTION WIDTH 14.5 % 11.6-14.4 (BEAKER) (test xnlx=091) PLATELET COUNT (BEAKER) (test 231 K/CU MM 150-450 Discordant Plt result avzo=319) Compare to previous result, Clinical correlation recommended. MEAN PLATELET VOLUME (BEAKER) 9.9 fL 9.4-12.4 (test lppm=554) NUCLEATED RED BLOOD CELLS 0 /100 WBC 0-0 (BEAKER) (test lcoi=911) POCT-GLUCOSE [id number] 22:49:00 Test Item Value Reference Range Comments POC-GLUCOSE METER (BEAKER) 123 mg/dL 70-110 TESTED AT [facility] [address] [facility] (test gzjq=8085) [facility] [place] [address] [id number] 18:42:00 Test Item Value Reference Range Comments PARTIAL THROMBOPLASTIN TIME (BEAKER) (test 84.8 seconds 22.5-36.0 smjo=964) POCT-GLUCOSE [id number] 16:58:00 Test Item Value Reference Range Comments POC-GLUCOSE METER (BEAKER) 123 mg/dL 70-110 TESTED AT [address] (test nlcd=1098) [facility] [place] [address] POCT-GLUCOSE [id number] 12:40:00 Test Item Value Reference Range Comments POC-GLUCOSE METER (BEAKER) 116 mg/dL 70-110 TESTED AT [address] (test elid=5355) [place] [id number] 12:18:00 Test Item Value Reference Range Comments PARTIAL THROMBOPLASTIN TIME (BEAKER) (test 85.0 seconds 22.5-36.0 alhl=835) POCT-GLUCOSE [id number] 08:16:00 Test Item Value Reference Range Comments POC-GLUCOSE METER (BEAKER) 110 mg/dL 70-110 TESTED AT [address] (test pksh=3363) [facility] [place] [address] [id number] 06:05:00 Test Item Value Reference Range Comments PARTIAL THROMBOPLASTIN TIME (BEAKER) (test 89.9 seconds 22.5-36.0 wray=553) While on warfarin.PROTHROMBIN [id number] 06:03:00 Test Item Value Reference Range Comments PROTIME (BEAKER) (test wtbc=744) 19.7 seconds 11.7-14.7 INR (BEAKER) (test tgoy=210) 1.7 <=5.9 RECOMMENDED COUMADIN/WARFARIN INR THERAPY RANGESSTANDARD DOSE: 2.0 - 3.0 Includes: PROPHYLAXIS forvenous thrombosis, systemic embolization; TREATMENT for venous thrombosis and/or pulmonary embolus.HIGH RISK: Target INR is 2.5-3.5 for patients with mechanical heart valves.While on warfarin.[id number] 05:54:00 Test Item Value Reference Range Comments PHOSPHORUS (BEAKER) (test azun=406) 4.1 mg/dL 2.3-4.7 [id number] 05:54:00 Test Item Value Reference Range Comments MAGNESIUM (BEAKER) (test zzze=280) 1.6 mg/dL 1.6-2.6 BASIC METABOLIC [id number] 05:54:00 Test Item Value Reference Range Comments SODIUM (BEAKER) (test 138 meq/L 136-145 ykhm=962) POTASSIUM (BEAKER) (test 4.5 meq/L 3.5-5.1 byzd=882) CHLORIDE (BEAKER) (test 103 meq/L 98-107 mxxs=998) CO2 (BEAKER) (test 28 meq/L 22-29 lfoy=165) BLOOD UREA NITROGEN 21 mg/dL 7-21 (BEAKER) (test ozus=740) CREATININE (BEAKER) (test 1.94 mg/dL 0.57-1.25 zufh=396) GLUCOSE RANDOM (BEAKER) 100 mg/dL 70-105 (test scii=708) CALCIUM (BEAKER) (test 9.4 mg/dL 8.4-10.2 yybv=307) EGFR (BEAKER) (test 36 mL/min/1.73 sq m ESTIMATED GFR IS NOT pmed=4876) ACCURATE CREATININE CLEARANCE IN PREDICTING GLOMERULAR FILTRATION RATE. ESTIMATED GFR IS NOT APPLICABLE FOR DIALYSIS PATIENTS. CBC (HEMOGRAM ONLY)2017-07-27 05:28:00 Test Item Value Reference Range Comments WHITE BLOOD CELL COUNT (BEAKER) (test epcr=882) 5.6 K/ L 3.5-10.5 RED BLOOD CELL COUNT (BEAKER) (test hrnp=494) 3.56 M/ L 4.63-6.08 HEMOGLOBIN (BEAKER) (test bihp=617) 10.5 GM/DL 13.7-17.5 HEMATOCRIT (BEAKER) (test qmmg=971) 33.6 % 40.1-51.0 MEAN CORPUSCULAR VOLUME (BEAKER) (test kbdg=133) 94.4 fL 79.0-92.2 MEAN CORPUSCULAR HEMOGLOBIN (BEAKER) (test 29.5 pg 25.7-32.2 kuaj=536) MEAN CORPUSCULAR HEMOGLOBIN CONC (BEAKER) (test 31.3 GM/DL 32.3-36.5 jjxp=897) RED CELL DISTRIBUTION WIDTH (BEAKER) (test 14.5 % 11.6-14.4 ibdb=512) PLATELET COUNT (BEAKER) (test sdgt=207) 283 K/CU MM 150-450 MEAN PLATELET VOLUME (BEAKER) (test phpl=435) 10.4 fL 9.4-12.4 NUCLEATED RED BLOOD CELLS (BEAKER) (test 0 /100 WBC 0-0 tbys=190) POCT-GLUCOSE [id number] 21:35:00 Test Item Value Reference Range Comments POC-GLUCOSE METER (BEAKER) 127 mg/dL 70-110 TESTED AT [address] (test rvze=3638) [facility] [place] [address] POCT-GLUCOSE [id number] 16:40:00 Test Item Value Reference Range Comments POC-GLUCOSE METER (BEAKER) 152 mg/dL 70-110 TESTED AT [address] (test gvme=6506) [facility] [place] [address] POCT-GLUCOSE [id number] 12:52:00 Test Item Value Reference Range Comments POC-GLUCOSE METER (BEAKER) 120 mg/dL 70-110 TESTED AT [address] (test zldp=7882) [facility] [place] [address] POCT-GLUCOSE [id number] 08:23:00 Test Item Value Reference Range Comments POC-GLUCOSE METER (BEAKER) 117 mg/dL 70-110 TESTED AT [address] (test hstq=0338) [facility] [place] [address] [id number] 03:38:00 Test Item Value Reference Range Comments PARTIAL THROMBOPLASTIN TIME (BEAKER) (test 71.4 seconds 22.5-36.0 exzr=280) While on warfarin.[id number] 02:41:00 Test Item Value Reference Range Comments PHOSPHORUS (BEAKER) (test aowp=945) 4.2 mg/dL 2.3-4.7 [id number] 02:41:00 Test Item Value Reference Range Comments MAGNESIUM (BEAKER) (test qycq=855) 1.7 mg/dL 1.6-2.6 BASIC METABOLIC [id number] 02:41:00 Test Item Value Reference Range Comments SODIUM (BEAKER) (test 139 meq/L 136-145 zibm=441) POTASSIUM (BEAKER) (test 4.0 meq/L 3.5-5.1 vwnp=063) CHLORIDE (BEAKER) (test 104 meq/L 98-107 rzbu=404) CO2 (BEAKER) (test 26 meq/L 22-29 cjiv=649) BLOOD UREA NITROGEN 21 mg/dL 7-21 (BEAKER) (test jdnn=772) CREATININE (BEAKER) (test 1.74 mg/dL 0.57-1.25 ejsb=954) GLUCOSE RANDOM (BEAKER) 115 mg/dL 70-105 (test qtqh=927) CALCIUM (BEAKER) (test 9.4 mg/dL 8.4-10.2 aymi=967) EGFR (BEAKER) (test 41 mL/min/1.73 sq m ESTIMATED GFR IS NOT najt=2888) ACCURATE CREATININE CLEARANCE IN PREDICTING GLOMERULAR FILTRATION RATE. ESTIMATED GFR IS NOT APPLICABLE FOR DIALYSIS PATIENTS. PROTHROMBIN [id number] 02:37:00 Test Item Value Reference Range Comments PROTIME (BEAKER) (test fsqq=126) 18.0 seconds 11.7-14.7 INR (BEAKER) (test xltw=852) 1.5 <=5.9 RECOMMENDED COUMADIN/WARFARIN INR THERAPY RANGESSTANDARD DOSE: 2.0 - 3.0 Includes: PROPHYLAXIS forvenous thrombosis, systemic embolization; TREATMENT for venous thrombosis and/or pulmonary embolus.HIGH RISK: Target INR is 2.5-3.5 for patients with mechanical heart valves.While on warfarin.CBC (HEMOGRAM ONLY) 2017-07-26 02:23:00 Test Item Value Reference Range Comments WHITE BLOOD CELL COUNT (BEAKER) (test pmxe=426) 6.0 K/ L 3.5-10.5 RED BLOOD CELL COUNT (BEAKER) (test gukp=058) 3.57 M/ L 4.63-6.08 HEMOGLOBIN (BEAKER) (test ntam=557) 10.8 GM/DL 13.7-17.5 HEMATOCRIT (BEAKER) (test jawp=729) 33.4 % 40.1-51.0 MEAN CORPUSCULAR VOLUME (BEAKER) (test xfql=481) 93.6 fL 79.0-92.2 MEAN CORPUSCULAR HEMOGLOBIN (BEAKER) (test 30.3 pg 25.7-32.2 kdow=152) MEAN CORPUSCULAR HEMOGLOBIN CONC (BEAKER) (test 32.3 GM/DL 32.3-36.5 ukeg=731) RED CELL DISTRIBUTION WIDTH (BEAKER) (test 14.5 % 11.6-14.4 eqrf=925) PLATELET COUNT (BEAKER) (test rzhy=160) 259 K/CU MM 150-450 MEAN PLATELET VOLUME (BEAKER) (test vsri=399) 9.6 fL 9.4-12.4 NUCLEATED RED BLOOD CELLS (BEAKER) (test 0 /100 WBC 0-0 mwwp=719) POCT-GLUCOSE [id number] 21:18:00 Test Item Value Reference Range Comments POC-GLUCOSE METER (BEAKER) 138 mg/dL 70-110 TESTED AT [address] (test indc=1478) [place] [address] [id number] 20:08:00 Test Item Value Reference Range Comments PARTIAL THROMBOPLASTIN TIME (BEAKER) (test 69.3 seconds 22.5-36.0 liah=949) POCT-GLUCOSE [id number] 17:37:00 Test Item Value Reference Range Comments POC-GLUCOSE METER (BEAKER) 126 mg/dL 70-110 TESTED AT [address] (test mbnb=0405) [place] [address] [id number] 13:05:00 Test Item Value Reference Range Comments PARTIAL THROMBOPLASTIN TIME (BEAKER) (test 46.5 seconds 22.5-36.0 vczp=470) PROTHROMBIN [id number] 13:04:00 Test Item Value Reference Range Comments PROTIME (BEAKER) (test mjpw=521) 16.7 seconds 11.7-14.7 INR (BEAKER) (test xmtq=787) 1.4 <=5.9 RECOMMENDED COUMADIN/WARFARIN INR THERAPY RANGESSTANDARD DOSE: 2.0 - 3.0 Includes: PROPHYLAXIS forvenous thrombosis, systemic embolization; TREATMENT for venous thrombosis and/or pulmonary embolus.HIGH RISK: Target INR is 2.5-3.5 for patients with mechanical heart valves.POCT-GLUCOSE [id number] 12:13:00 Test Item Value Reference Range Comments POC-GLUCOSE METER (BEAKER) 141 mg/dL 70-110 TESTED AT [address] (test pbhj=3668) [place] [id number] POCT-GLUCOSE [id number] 08:26:00 Test Item Value Reference Range Comments POC-GLUCOSE METER (BEAKER) 266 mg/dL 70-110 TESTED AT [facility] [address] (test gcbs=0621) [facility] [place] [address] [id number] 05:09:00 Test Item Value Reference Range Comments PHOSPHORUS (BEAKER) (test cksf=146) 3.9 mg/dL 2.3-4.7 [id number] 05:09:00 Test Item Value Reference Range Comments MAGNESIUM (BEAKER) (test unxa=949) 1.9 mg/dL 1.6-2.6 BASIC METABOLIC [id number] 05:09:00 Test Item Value Reference Range Comments SODIUM (BEAKER) (test 139 meq/L 136-145 vpwj=195) POTASSIUM (BEAKER) (test 3.6 meq/L 3.5-5.1 dwcb=335) CHLORIDE (BEAKER) (test 105 meq/L 98-107 ggxy=562) CO2 (BEAKER) (test 25 meq/L 22-29 jvya=494) BLOOD UREA NITROGEN 22 mg/dL 7-21 (BEAKER) (test sfnu=280) CREATININE (BEAKER) (test 1.57 mg/dL 0.57-1.25 dpio=809) GLUCOSE RANDOM (BEAKER) 109 mg/dL 70-105 (test txjd=617) CALCIUM (BEAKER) (test 8.8 mg/dL 8.4-10.2 dhlm=974) EGFR (BEAKER) (test 46 mL/min/1.73 sq m ESTIMATED GFR IS NOT pnen=3988) ACCURATE CREATININE CLEARANCE IN PREDICTING GLOMERULAR FILTRATION RATE. ESTIMATED GFR IS NOT APPLICABLE FOR DIALYSIS PATIENTS. [id number] 04:43:00 Test Item Value Reference Range Comments PARTIAL THROMBOPLASTIN TIME (BEAKER) (test 78.6 seconds 22.5-36.0 xkky=565) While on warfarin.PROTHROMBIN TIME/[id number] 04:41:00 Test Item Value Reference Range Comments PROTIME (BEAKER) (test jqcz=901) 17.6 seconds 11.7-14.7 INR (BEAKER) (test pgpi=221) 1.5 <=5.9 RECOMMENDED COUMADIN/WARFARIN INR THERAPY RANGESSTANDARD DOSE: 2.0 - 3.0 Includes: PROPHYLAXIS forvenous thrombosis, systemic embolization; TREATMENT for venous thrombosis and/or pulmonary embolus.HIGH RISK: Target INR is 2.5-3.5 for patients with mechanical heart valves.While on warfarin.CBC (HEMOGRAM ONLY) 2017-07-25 04:26:00 Test Item Value Reference Range Comments WHITE BLOOD CELL COUNT (BEAKER) (test skkb=393) 6.0 K/ L 3.5-10.5 RED BLOOD CELL COUNT (BEAKER) (test qpwy=823) 3.32 M/ L 4.63-6.08 HEMOGLOBIN (BEAKER) (test oqbc=238) 9.7 GM/DL 13.7-17.5 HEMATOCRIT (BEAKER) (test fvwh=733) 31.2 % 40.1-51.0 MEAN CORPUSCULAR VOLUME (BEAKER) (test smgs=272) 94.0 fL 79.0-92.2 MEAN CORPUSCULAR HEMOGLOBIN (BEAKER) (test 29.2 pg 25.7-32.2 jjaq=256) MEAN CORPUSCULAR HEMOGLOBIN CONC (BEAKER) (test 31.1 GM/DL 32.3-36.5 ugmq=990) RED CELL DISTRIBUTION WIDTH (BEAKER) (test 14.5 % 11.6-14.4 lvil=993) PLATELET COUNT (BEAKER) (test prwc=394) 232 K/CU MM 150-450 MEAN PLATELET VOLUME (BEAKER) (test nsok=726) 9.7 fL 9.4-12.4 NUCLEATED RED BLOOD CELLS (BEAKER) (test 0 /100 WBC 0-0 xqtm=361) ANAEROBIC [id number] 03:17:00 Test Item Value Reference Range Comments CULTURE (BEAKER) (test zzll=7672) <1+ Bacteroides vulgatus POCT-GLUCOSE [id number] 21:45:00 Test Item Value Reference Range Comments POC-GLUCOSE METER (BEAKER) 136 mg/dL 70-110 TESTED AT [facility] [address] [facility] (test fyxv=3744) [facility] [place] [address] [id number] 20:49:00 Test Item Value Reference Range Comments PARTIAL THROMBOPLASTIN TIME (BEAKER) (test 62.1 seconds 22.5-36.0 ojvn=931) PROTHROMBIN [id number] 18:47:00 Test Item Value Reference Range Comments PROTIME (BEAKER) (test nveq=279) 18.3 seconds 11.7-14.7 INR (BEAKER) (test nqtr=358) 1.5 <=5.9 RECOMMENDED COUMADIN/WARFARIN INR THERAPY RANGESSTANDARD DOSE: 2.0 - 3.0 Includes: PROPHYLAXIS forvenous thrombosis, systemic embolization; TREATMENT for venous thrombosis and/or pulmonary embolus.HIGH RISK: Target INR is 2.5-3.5 for patients with mechanical heart valves.POCT-GLUCOSE [id number] 17:23:00 Test Item Value Reference Range Comments POC-GLUCOSE METER (BEAKER) 133 mg/dL 70-110 TESTED AT [address] (test mpmv=8724) [place] [address] [id number] 13:40:00 Test Item Value Reference Range Comments PARTIAL THROMBOPLASTIN TIME (BEAKER) (test 58.1 seconds 22.5-36.0 idnd=792) POCT-GLUCOSE [id number] 12:51:00 Test Item Value Reference Range Comments POC-GLUCOSE METER (BEAKER) 138 mg/dL 70-110 TESTED AT [address] (test usim=2297) [place] [address] POCT-GLUCOSE [id number] 07:59:00 Test Item Value Reference Range Comments POC-GLUCOSE METER (BEAKER) 96 mg/dL 70-110 TESTED AT [address] (test kyes=7826) [place] [address] [id number] 06:26:00 Test Item Value Reference Range Comments PARTIAL THROMBOPLASTIN TIME (BEAKER) (test 72.1 seconds 22.5-36.0 aonp=562) POCT-GLUCOSE [id number] 06:06:00 Test Item Value Reference Range Comments POC-GLUCOSE METER (BEAKER) 123 mg/dL 70-110 TESTED AT [address] (test ycmu=2989) [place] [address] BASIC METABOLIC [id number] 04:32:00 Test Item Value Reference Range Comments SODIUM (BEAKER) (test 141 meq/L 136-145 icbm=266) POTASSIUM (BEAKER) (test 3.2 meq/L 3.5-5.1 ladv=157) CHLORIDE (BEAKER) (test 106 meq/L 98-107 gjke=792) CO2 (BEAKER) (test 26 meq/L 22-29 onfg=630) BLOOD UREA NITROGEN 24 mg/dL 7-21 (BEAKER) (test mkqo=188) CREATININE (BEAKER) (test 1.56 mg/dL 0.57-1.25 iaym=083) GLUCOSE RANDOM (BEAKER) 89 mg/dL 70-105 (test hqqk=848) CALCIUM (BEAKER) (test 8.6 mg/dL 8.4-10.2 phfx=571) EGFR (BEAKER) (test 46 mL/min/1.73 sq m ESTIMATED GFR IS NOT viyf=1893) ACCURATE CREATININE CLEARANCE IN PREDICTING GLOMERULAR FILTRATION RATE. ESTIMATED GFR IS NOT APPLICABLE FOR DIALYSIS PATIENTS. [id number] 04:31:00 Test Item Value Reference Range Comments PHOSPHORUS (BEAKER) (test jwia=524) 3.4 mg/dL 2.3-4.7 [id number] 04:31:00 Test Item Value Reference Range Comments MAGNESIUM (BEAKER) (test rzce=671) 1.6 mg/dL 1.6-2.6 CBC (HEMOGRAM ONLY)2017-07-24 04:15:00 Test Item Value Reference Range Comments WHITE BLOOD CELL COUNT (BEAKER) (test jfdq=679) 6.3 K/ L 3.5-10.5 RED BLOOD CELL COUNT (BEAKER) (test aohm=436) 3.26 M/ L 4.63-6.08 HEMOGLOBIN (BEAKER) (test reap=606) 9.7 GM/DL 13.7-17.5 HEMATOCRIT (BEAKER) (test lwow=213) 31.0 % 40.1-51.0 MEAN CORPUSCULAR VOLUME (BEAKER) (test aqki=247) 95.1 fL 79.0-92.2 MEAN CORPUSCULAR HEMOGLOBIN (BEAKER) (test 29.8 pg 25.7-32.2 caoi=182) MEAN CORPUSCULAR HEMOGLOBIN CONC (BEAKER) (test 31.3 GM/DL 32.3-36.5 bens=521) RED CELL DISTRIBUTION WIDTH (BEAKER) (test 14.6 % 11.6-14.4 omsg=565) PLATELET COUNT (BEAKER) (test rurb=563) 234 K/CU MM 150-450 MEAN PLATELET VOLUME (BEAKER) (test qeov=515) 9.4 fL 9.4-12.4 NUCLEATED RED BLOOD CELLS (BEAKER) (test 0 /100 WBC 0-0 zfwe=171) [id number] 00:27:00 Test Item Value Reference Range Comments PARTIAL THROMBOPLASTIN TIME (BEAKER) (test 99.8 seconds 22.5-36.0 nivy=618) POCT-GLUCOSE [id number] 00:14:00 Test Item Value Reference Range Comments POC-GLUCOSE METER (BEAKER) 101 mg/dL 70-110 TESTED AT [address] (test tsie=5086) [place] [id number] POCT-GLUCOSE [id number] 16:58:00 Test Item Value Reference Range Comments POC-GLUCOSE METER (BEAKER) 231 mg/dL 70-110 TESTED AT [address] (test cszf=1745) [facility] [place] [address] POCT-GLUCOSE [id number] 13:23:00 Test Item Value Reference Range Comments POC-GLUCOSE METER (BEAKER) 111 mg/dL 70-110 TESTED AT [address] (test ijjn=0867) [facility] [place] [address] [id number] 13:14:00 Test Item Value Reference Range Comments PARTIAL THROMBOPLASTIN TIME (BEAKER) (test 75.7 seconds 22.5-36.0 jqok=172) TISSUE [id number] 12:06:00Surgical Pathology Report Case: [id number] Authorizing Provider: Nicole Tanner MD Collected: 07/19/2017 1247 Ordering Location: [facility] Received: 07/19/2017 1452 SERVICES Pathologist: Lacy De Souza MD Specimen: Large Intestine, Colon - Sigmoid COLON, SIGMOID, RESECTION:- RUPTURED DIVERTICULITIS WITH ACUTE SEROSITIS, ABSCESSES ,GRANULATION TISSUE AND FOREIGN BODYGIANT CELL REACTION TO POLARIZABLE MATERIAL IN THE PERICOLONIC TISSUES- DRAINAGE SITE IDENTIFIED WITH GRANULATION TISSUE , INFLAMMATION AND EPIDERMAL HYPERPLASIA- DIVERTICULOSIS- UNREMARKABLE DONUTS- PROXIMAL AND DISTAL MARGINS ARE UNREMARKABLE- NEGATIVE FOR MALIGNANCY Signing Pathologist DirectPhone Line: [phone] fistulaSigmoid colonThe specimen is received in a formalin- filled container and labeled with the patient's information labeled "sigmoid colon" and consists of a sigmoid colectomy measuring 14.5 cm in length x 3.5 cm in circumference. A drainage site with navarro-sue skin measuring 3 x 1cm with a depth of 7 cm, consisting of two navarro-red colon donuts both measuring 1.6 cm in diameter. The colon serosa is navarro-red dull and indurated. The drainage site ends in a hemorrhagic abscess-like formation attached to the colon wall. Adjacent to this area is another perforation site and they are both located 4 and 7 cm from the resection margin. The remainder of the colon has a few diverticula that all grossly appear to be intact. Grossly, no other abnormalities are seen. Section code: A1, resection margins en face; A2 and 3, perforation bisected; A4 to A7, area of abscess formation attached tothe drainage site; A8, farm loan representative drainage site with skin; A9 through A11, diverticula; A12 and A13, entire colon donut submitted. CG/pl Performed.SURGICALLY OBTAINED CULTURE + GRAM [id number] 11:23:00 Test Item Value Reference Range Comments CULTURE (BEAKER) (test ESCHERICHIA COLI <1+ Escherichia coli cjtj=5580) Amikacin (test code=1) Ampicillin + Sulbactam (test code=6) Aztreonam (test code=32) Cefepime (test code=51) Cefoxitin (test code=68) Ceftazidime (test code=27) Ceftriaxone (test code=52) Ertapenem (test code=38) Gentamicin (test code=18) Levofloxacin (test code=22) Meropenem (test code=34) Nitrofurantoin (test code=23) Piperacillin + Tazobactam (test code=29) Tetracycline (test code=2) Tobramycin (test code=25) Trimethoprim + Sulfamethoxazole (test code=47) CULTURE (BEAKER) (test 1+ Streptococcus ycrg=7630) constellatus GRAM STAIN RESULT (BEAKER) <1+ WBCs (test ilae=0481) GRAM STAIN RESULT (BEAKER) No organisms seen (test tawz=244242) SODIUM, RANDOM [id number] 07:27:00 Test Item Value Reference Range Comments SODIUM URINE (BEAKER) (test qlmd=703) 91 meq/L Reference Range: No [id number] 07:19:00 Test Item Value Reference Range Comments PARTIAL THROMBOPLASTIN TIME (BEAKER) (test 74.0 seconds 22.5-36.0 vxhs=070) POCT-GLUCOSE [id number] 07:07:00 Test Item Value Reference Range Comments POC-GLUCOSE METER (BEAKER) 111 mg/dL 70-110 TESTED AT [facility] [address] [facility] (test qpal=9823) [facility] [place] [address] [id number] 06:50:00 Test Item Value Reference Range Comments PHOSPHORUS (BEAKER) (test roqh=198) 2.6 mg/dL 2.3-4.7 [id number] 06:50:00 Test Item Value Reference Range Comments MAGNESIUM (BEAKER) (test kfod=971) 2.0 mg/dL 1.6-2.6 BASIC METABOLIC [id number] 06:50:00 Test Item Value Reference Range Comments SODIUM (BEAKER) (test 146 meq/L 136-145 rtzt=704) POTASSIUM (BEAKER) (test 3.9 meq/L 3.5-5.1 qdqj=137) CHLORIDE (BEAKER) (test 110 meq/L 98-107 spcu=666) CO2 (BEAKER) (test 27 meq/L 22-29 fsab=277) BLOOD UREA NITROGEN 26 mg/dL 7-21 (BEAKER) (test juno=056) CREATININE (BEAKER) (test 1.65 mg/dL 0.57-1.25 myjg=770) GLUCOSE RANDOM (BEAKER) 82 mg/dL 70-105 (test aucf=769) CALCIUM (BEAKER) (test 9.5 mg/dL 8.4-10.2 jeuj=075) EGFR (BEAKER) (test 43 mL/min/1.73 sq m ESTIMATED GFR IS NOT mege=9046) ACCURATE CREATININE CLEARANCE IN PREDICTING GLOMERULAR FILTRATION RATE. ESTIMATED GFR IS NOT APPLICABLE FOR DIALYSIS PATIENTS. CBC (HEMOGRAM ONLY)2017-07-23 06:38:00 Test Item Value Reference Range Comments WHITE BLOOD CELL COUNT (BEAKER) (test khqk=136) 9.4 K/ L 3.5-10.5 RED BLOOD CELL COUNT (BEAKER) (test rphr=498) 3.57 M/ L 4.63-6.08 HEMOGLOBIN (BEAKER) (test deex=130) 10.9 GM/DL 13.7-17.5 HEMATOCRIT (BEAKER) (test gftk=817) 34.5 % 40.1-51.0 MEAN CORPUSCULAR VOLUME (BEAKER) (test soee=667) 96.6 fL 79.0-92.2 MEAN CORPUSCULAR HEMOGLOBIN (BEAKER) (test 30.5 pg 25.7-32.2 swlz=309) MEAN CORPUSCULAR HEMOGLOBIN CONC (BEAKER) (test 31.6 GM/DL 32.3-36.5 riqf=425) RED CELL DISTRIBUTION WIDTH (BEAKER) (test 14.8 % 11.6-14.4 ltoy=365) PLATELET COUNT (BEAKER) (test bfxn=117) 262 K/CU MM 150-450 MEAN PLATELET VOLUME (BEAKER) (test okzg=487) 9.7 fL 9.4-12.4 NUCLEATED RED BLOOD CELLS (BEAKER) (test 0 /100 WBC 0-0 nybm=248) POCT-GLUCOSE [id number] 01:29:00 Test Item Value Reference Range Comments POC-GLUCOSE METER (BEAKER) 106 mg/dL 70-110 TESTED AT [address] (test jqey=9291) [place] [id number] POCT-GLUCOSE [id number] 17:55:00 Test Item Value Reference Range Comments POC-GLUCOSE METER (BEAKER) 84 mg/dL 70-110 TESTED AT [address] (test gosq=1886) [place] [id number] POCT-GLUCOSE [id number] 11:28:00 Test Item Value Reference Range Comments POC-GLUCOSE METER (BEAKER) 90 mg/dL 70-110 TESTED AT [address] (test tshx=8813) [place] [id number] SPIN/CONCENTRATION [id number] 06:33:00 Test Item Value Reference Range Comments CONCENTRATION CHARGED (BEAKER) (test qksm=2629) Done [id number] 06:22:00 Test Item Value Reference Range Comments PHOSPHORUS (BEAKER) (test sfgd=731) 2.5 mg/dL 2.3-4.7 [id number] 06:22:00 Test Item Value Reference Range Comments MAGNESIUM (BEAKER) (test twyp=017) 2.0 mg/dL 1.6-2.6 BASIC METABOLIC [id number] 06:22:00 Test Item Value Reference Range Comments SODIUM (BEAKER) (test 143 meq/L 136-145 xsrd=806) POTASSIUM (BEAKER) (test 3.9 meq/L 3.5-5.1 hjtr=719) CHLORIDE (BEAKER) (test 109 meq/L 98-107 nssv=629) CO2 (BEAKER) (test 25 meq/L 22-29 dhfe=986) BLOOD UREA NITROGEN 24 mg/dL 7-21 (BEAKER) (test wnof=855) CREATININE (BEAKER) (test 1.60 mg/dL 0.57-1.25 fndq=787) GLUCOSE RANDOM (BEAKER) 88 mg/dL 70-105 (test tthb=480) CALCIUM (BEAKER) (test 9.2 mg/dL 8.4-10.2 peql=334) EGFR (BEAKER) (test 45 mL/min/1.73 sq m ESTIMATED GFR IS NOT znlz=3436) ACCURATE CREATININE CLEARANCE IN PREDICTING GLOMERULAR FILTRATION RATE. ESTIMATED GFR IS NOT APPLICABLE FOR DIALYSIS PATIENTS. [id number] 05:57:00 Test Item Value Reference Range Comments PARTIAL THROMBOPLASTIN TIME (BEAKER) (test 82.5 seconds 22.5-36.0 wnwq=087) CBC (HEMOGRAM ONLY)2017-07-22 05:44:00 Test Item Value Reference Range Comments WHITE BLOOD CELL COUNT (BEAKER) (test abtx=323) 11.3 K/ L 3.5-10.5 RED BLOOD CELL COUNT (BEAKER) (test ilqq=119) 3.59 M/ L 4.63-6.08 HEMOGLOBIN (BEAKER) (test bvwd=032) 10.7 GM/DL 13.7-17.5 HEMATOCRIT (BEAKER) (test ypwe=449) 33.9 % 40.1-51.0 MEAN CORPUSCULAR VOLUME (BEAKER) (test lfqt=127) 94.4 fL 79.0-92.2 MEAN CORPUSCULAR HEMOGLOBIN (BEAKER) (test 29.8 pg 25.7-32.2 lfvq=352) MEAN CORPUSCULAR HEMOGLOBIN CONC (BEAKER) (test 31.6 GM/DL 32.3-36.5 rtda=483) RED CELL DISTRIBUTION WIDTH (BEAKER) (test 15.1 % 11.6-14.4 lzqs=049) PLATELET COUNT (BEAKER) (test ijei=510) 245 K/CU MM 150-450 MEAN PLATELET VOLUME (BEAKER) (test ygkn=412) 10.0 fL 9.4-12.4 NUCLEATED RED BLOOD CELLS (BEAKER) (test 0 /100 WBC 0-0 davq=730) POCT-GLUCOSE [id number] 05:22:00 Test Item Value Reference Range Comments POC-GLUCOSE METER (BEAKER) 90 mg/dL 70-110 TESTED AT [address] (test ukdj=5298) [place] [id number] POCT-GLUCOSE [id number] 23:23:00 Test Item Value Reference Range Comments POC-GLUCOSE METER (BEAKER) 93 mg/dL 70-110 TESTED AT [address] (test ajei=1227) [place] [id number] POCT-GLUCOSE [id number] 18:24:00 Test Item Value Reference Range Comments POC-GLUCOSE METER (BEAKER) 106 mg/dL 70-110 TESTED AT [address] (test mwer=2511) [place] [id number] POCT-GLUCOSE [id number] 12:19:00 Test Item Value Reference Range Comments POC-GLUCOSE METER (BEAKER) 126 mg/dL 70-110 TESTED AT [address] (test bhnw=0971) [place] [id number] POCT-GLUCOSE [id number] 06:48:00 Test Item Value Reference Range Comments POC-GLUCOSE METER (BEAKER) 112 mg/dL 70-110 TESTED AT [address] (test ongt=5095) [place] [id number] [id number] 04:10:00 Test Item Value Reference Range Comments PARTIAL THROMBOPLASTIN TIME (BEAKER) (test 81.1 seconds 22.5-36.0 ndxz=270) [id number] 03:59:00 Test Item Value Reference Range Comments PHOSPHORUS (BEAKER) (test jsyk=412) 2.9 mg/dL 2.3-4.7 [id number] 03:59:00 Test Item Value Reference Range Comments MAGNESIUM (BEAKER) (test bvsa=158) 2.3 mg/dL 1.6-2.6 BASIC METABOLIC [id number] 03:59:00 Test Item Value Reference Range Comments SODIUM (BEAKER) (test 140 meq/L 136-145 cuhw=734) POTASSIUM (BEAKER) (test 4.2 meq/L 3.5-5.1 yqij=130) CHLORIDE (BEAKER) (test 106 meq/L 98-107 fyxq=108) CO2 (BEAKER) (test 24 meq/L 22-29 fqlb=883) BLOOD UREA NITROGEN 24 mg/dL 7-21 (BEAKER) (test pwcq=852) CREATININE (BEAKER) (test 1.61 mg/dL 0.57-1.25 qook=275) GLUCOSE RANDOM (BEAKER) 103 mg/dL 70-105 (test refy=904) CALCIUM (BEAKER) (test 8.8 mg/dL 8.4-10.2 bhqv=819) EGFR (BEAKER) (test 44 mL/min/1.73 sq m ESTIMATED GFR IS NOT kmnc=7499) ACCURATE CREATININE CLEARANCE IN PREDICTING GLOMERULAR FILTRATION RATE. ESTIMATED GFR IS NOT APPLICABLE FOR DIALYSIS PATIENTS. CBC (HEMOGRAM ONLY)2017-07-21 03:47:00 Test Item Value Reference Range Comments WHITE BLOOD CELL COUNT (BEAKER) (test rqwy=924) 12.7 K/ L 3.5-10.5 RED BLOOD CELL COUNT (BEAKER) (test eeaa=607) 3.85 M/ L 4.63-6.08 HEMOGLOBIN (BEAKER) (test ulpu=795) 11.5 GM/DL 13.7-17.5 HEMATOCRIT (BEAKER) (test zllx=174) 36.1 % 40.1-51.0 MEAN CORPUSCULAR VOLUME (BEAKER) (test itmq=318) 93.8 fL 79.0-92.2 MEAN CORPUSCULAR HEMOGLOBIN (BEAKER) (test 29.9 pg 25.7-32.2 yyuh=773) MEAN CORPUSCULAR HEMOGLOBIN CONC (BEAKER) (test 31.9 GM/DL 32.3-36.5 rznt=365) RED CELL DISTRIBUTION WIDTH (BEAKER) (test 14.8 % 11.6-14.4 fulh=580) PLATELET COUNT (BEAKER) (test hlij=974) 225 K/CU MM 150-450 MEAN PLATELET VOLUME (BEAKER) (test cdfs=218) 9.8 fL 9.4-12.4 NUCLEATED RED BLOOD CELLS (BEAKER) (test 0 /100 WBC 0-0 ytam=112) POCT-GLUCOSE [id number] 00:12:00 Test Item Value Reference Range Comments POC-GLUCOSE METER (BEAKER) 81 mg/dL 70-110 TESTED AT [address] (test bixa=5567) [place] [address] [id number] 21:21:00 Test Item Value Reference Range Comments PARTIAL THROMBOPLASTIN TIME (BEAKER) (test 74.7 seconds 22.5-36.0 whpk=179) POCT-GLUCOSE [id number] 17:14:00 Test Item Value Reference Range Comments POC-GLUCOSE METER (BEAKER) 102 mg/dL 70-110 TESTED AT [address] (test bsib=7207) [place] [address] TISSUE [id number] 13:53:00Surgical Pathology Report Case: [id number] Authorizing Provider: Kathi Benton MD Collected: 07/18/2017 1400 Ordering Location: [facility] Received: 07/19/2017 0811 Pathologist: Joshua Decker MD Specimens: A) - Polyp, Colon - Transverse, polyp removed using hot snare B) - Polyp, Colon - Right/Ascending, removed using hot snare C ) -Polyp, Colon - Transverse, removed using hot snare X2 D) - Polyp, Colon - Left/Descending, polyp removed by hot snare X 2 A. COLON, TRANSVERSE, POLYPECTOMY- TUBULAR ADENOMAB. COLON, RIGHT/ASCENDING POLYPECTOMY: - TUBULAR ADENOMAC. COLON, TRANSVERSE, POLYPECTOMY- TUBULAR ADENOMA (MULTIPLE FRAGMENTS)D. COLON, LEFT/DESCENDING, POLYPECTOMY- TUBULAR ADENOMA X2 Signing Pathologist Direct Phone Line: [phone] [id number]. Transverse colon polyp. B. Right ascendingcolon polyp. C. Transverse colon polyp x2. D. Left descending colon polyp [id number] is received in four containers of formalin all labeled with the patient's information.Specimen A: Labeled "transverse colon polyp" consists of a navarro-red polyp measuring 0.7 x 0.4 x 0.3 cm. The resection margin is inked blue. The specimen is bisected and submitted entirely in A1.Specimen B: Labeled "right ascending colon polyp" consists of a 0.3 cm round fragment of navarro tissue submitted entirely in B1.Specimen C: Labeled "transverse colon polyp" consists of two navarro polyps measuring up to 0.8 cm. The larger polyp is inked blue with the resection margin bisected and submitted with the remaining fragmentx in C1.Specimen D: Labeled "left descending colon polyps x2" consists of two round fragments of navarro tissue measuring 0.4 and 0.5, submitted entirely in D1. CG/ew A -D. There is no high grade dysplasia or carcinoma.BASIC METABOLIC [id number] 13:26:00 Test Item Value Reference Range Comments SODIUM (BEAKER) (test 139 meq/L 136-145 fyzm=847) POTASSIUM (BEAKER) (test 4.3 meq/L 3.5-5.1 cqyu=315) CHLORIDE (BEAKER) (test 106 meq/L 98-107 qkwg=067) CO2 (BEAKER) (test 23 meq/L 22-29 uvfq=284) BLOOD UREA NITROGEN 24 mg/dL 7-21 (BEAKER) (test vcvx=092) CREATININE (BEAKER) (test 1.78 mg/dL 0.57-1.25 vmke=575) GLUCOSE RANDOM (BEAKER) 106 mg/dL 70-105 (test vyqy=676) CALCIUM (BEAKER) (test 8.8 mg/dL 8.4-10.2 wtfx=307) EGFR (BEAKER) (test 40 mL/min/1.73 sq m ESTIMATED GFR IS NOT yhdr=4150) ACCURATE CREATININE CLEARANCE IN PREDICTING GLOMERULAR FILTRATION RATE. ESTIMATED GFR IS NOT APPLICABLE FOR DIALYSIS PATIENTS. [id number] 13:13:00 Test Item Value Reference Range Comments PARTIAL THROMBOPLASTIN TIME (BEAKER) (test 40.3 seconds 22.5-36.0 mtmy=014) Prior to initiating heparinPOCT-GLUCOSE [id number] 12:43:00 Test Item Value Reference Range Comments POC-GLUCOSE METER (BEAKER) 99 mg/dL 70-110 TESTED AT [address] (test hiki=4672) [facility] [place] [address] POCT-GLUCOSE [id number] 05:54:00 Test Item Value Reference Range Comments POC-GLUCOSE METER (BEAKER) 117 mg/dL 70-110 TESTED AT [facility] [address] [facility] (test lhbd=7922) [facility] [place] [address] [id number] 04:03:00 Test Item Value Reference Range Comments PHOSPHORUS (BEAKER) (test lxck=530) 4.6 mg/dL 2.3-4.7 [id number] 04:03:00 Test Item Value Reference Range Comments MAGNESIUM (BEAKER) (test ttrm=723) 1.7 mg/dL 1.6-2.6 BASIC METABOLIC [id number] 04:03:00 Test Item Value Reference Range Comments SODIUM (BEAKER) (test 138 meq/L 136-145 jtjy=058) POTASSIUM (BEAKER) (test 5.1 meq/L 3.5-5.1 adyv=186) CHLORIDE (BEAKER) (test 107 meq/L 98-107 agrq=213) CO2 (BEAKER) (test 21 meq/L 22-29 ksoh=968) BLOOD UREA NITROGEN 21 mg/dL 7-21 (BEAKER) (test dsea=174) CREATININE (BEAKER) (test 1.82 mg/dL 0.57-1.25 hjjp=580) GLUCOSE RANDOM (BEAKER) 124 mg/dL 70-105 (test afzt=754) CALCIUM (BEAKER) (test 8.6 mg/dL 8.4-10.2 xdrn=489) EGFR (BEAKER) (test 39 mL/min/1.73 sq m ESTIMATED GFR IS NOT pnma=0759) ACCURATE CREATININE CLEARANCE IN PREDICTING GLOMERULAR FILTRATION RATE. ESTIMATED GFR IS NOT APPLICABLE FOR DIALYSIS PATIENTS. CBC (HEMOGRAM ONLY)2017-07-20 03:39:00 Test Item Value Reference Range Comments WHITE BLOOD CELL COUNT (BEAKER) (test yrep=634) 10.9 K/ L 3.5-10.5 RED BLOOD CELL COUNT (BEAKER) (test agwu=997) 4.06 M/ L 4.63-6.08 HEMOGLOBIN (BEAKER) (test yqbe=578) 12.2 GM/DL 13.7-17.5 HEMATOCRIT (BEAKER) (test rujr=021) 37.4 % 40.1-51.0 MEAN CORPUSCULAR VOLUME (BEAKER) (test iyzs=000) 92.1 fL 79.0-92.2 MEAN CORPUSCULAR HEMOGLOBIN (BEAKER) (test 30.0 pg 25.7-32.2 wsub=717) MEAN CORPUSCULAR HEMOGLOBIN CONC (BEAKER) (test 32.6 GM/DL 32.3-36.5 evau=332) RED CELL DISTRIBUTION WIDTH (BEAKER) (test 14.6 % 11.6-14.4 xzoz=374) PLATELET COUNT (BEAKER) (test syxh=007) 221 K/CU MM 150-450 MEAN PLATELET VOLUME (BEAKER) (test ztao=355) 9.4 fL 9.4-12.4 NUCLEATED RED BLOOD CELLS (BEAKER) (test 0 /100 WBC 0-0 qfkz=984) POCT-GLUCOSE [id number] 23:03:00 Test Item Value Reference Range Comments POC-GLUCOSE METER (BEAKER) 115 mg/dL 70-110 TESTED AT [address] (test qhjv=6587) [place] [id number] POCT-GLUCOSE [id number] 18:00:00 Test Item Value Reference Range Comments POC-GLUCOSE METER (BEAKER) 100 mg/dL 70-110 TESTED AT [address] (test vori=9411) [facility] [place] [id number] RAD, CHEST, 1 VIEW, NON [id number] 16:00:00Reason for exam:->Post operative intubationShould this be performed at the bedside?->YesFINAL REPORT Chest one view compared to April 07, 2017 Discussion: There is interstitial edema. No effusion or pneumothorax. Support tubes and cardiac valve placement are present. Signed: Tahmina Marquez Verified Date/Time: 07/19/2017 16:00:05 Reading Location: [facility] [id number] Consult Reading Room 04 :00 [id number] 15:22:00 Test Item Value Reference Range Comments PHOSPHORUS (BEAKER) (test xdik=133) 3.1 mg/dL 2.3-4.7 [id number] 15:22:00 Test Item Value Reference Range Comments MAGNESIUM (BEAKER) (test jxbq=462) 1.5 mg/dL 1.6-2.6 BASIC METABOLIC [id number] 15:22:00 Test Item Value Reference Range Comments SODIUM (BEAKER) (test 137 meq/L 136-145 audb=572) POTASSIUM (BEAKER) (test 4.7 meq/L 3.5-5.1 gvgi=310) CHLORIDE (BEAKER) (test 109 meq/L 98-107 bjsj=604) CO2 (BEAKER) (test 20 meq/L 22-29 fdwv=353) BLOOD UREA NITROGEN 18 mg/dL 7-21 (BEAKER) (test xnwx=371) CREATININE (BEAKER) (test 1.77 mg/dL 0.57-1.25 xkin=292) GLUCOSE RANDOM (BEAKER) 111 mg/dL 70-105 (test pykr=126) CALCIUM (BEAKER) (test 8.5 mg/dL 8.4-10.2 bsqk=514) EGFR (BEAKER) (test 40 mL/min/1.73 sq m ESTIMATED GFR IS NOT liyq=9232) ACCURATE CREATININE CLEARANCE IN PREDICTING GLOMERULAR FILTRATION RATE. ESTIMATED GFR IS NOT APPLICABLE FOR DIALYSIS PATIENTS. HEPATIC FUNCTION [id number] 15:22:00 Test Item Value Reference Range Comments TOTAL PROTEIN (BEAKER) (test rzak=819) 6.5 gm/dL 6.0-8.3 ALBUMIN (BEAKER) (test dzus=1367) 3.1 g/dL 3.5-5.0 BILIRUBIN TOTAL (BEAKER) (test qfqw=521) 1.0 mg/dL 0.2-1.2 BILIRUBIN DIRECT (BEAKER) (test vnol=554) 0.5 mg/dL 0.1-0.5 ALKALINE PHOSPHATASE (BEAKER) (test ctgw=459) 61 U/L 40-150 AST (SGOT) (BEAKER) (test amoc=562) 148 U/L 5-34 ALT (SGPT) (BEAKER) (test lbtg=158) 88 U/L 6-55 CBC W/PLT COUNT & AUTO [id number] 15:13:00 Test Item Value Reference Range Comments WHITE BLOOD CELL COUNT (BEAKER) (test ahph=581) 9.5 K/ L 3.5-10.5 RED BLOOD CELL COUNT (BEAKER) (test cajm=434) 3.94 M/ L 4.63-6.08 HEMOGLOBIN (BEAKER) (test ofap=439) 11.8 GM/DL 13.7-17.5 HEMATOCRIT (BEAKER) (test qccv=380) 36.0 % 40.1-51.0 MEAN CORPUSCULAR VOLUME (BEAKER) (test pskn=169) 91.4 fL 79.0-92.2 MEAN CORPUSCULAR HEMOGLOBIN (BEAKER) (test 29.9 pg 25.7-32.2 uyyw=550) MEAN CORPUSCULAR HEMOGLOBIN CONC (BEAKER) (test 32.8 GM/DL 32.3-36.5 xzgx=590) RED CELL DISTRIBUTION WIDTH (BEAKER) (test 14.4 % 11.6-14.4 yijd=358) PLATELET COUNT (BEAKER) (test vzsg=189) 217 K/CU MM 150-450 MEAN PLATELET VOLUME (BEAKER) (test prge=004) 9.5 fL 9.4-12.4 NUCLEATED RED BLOOD CELLS (BEAKER) (test 0 /100 WBC 0-0 vcac=184) NEUTROPHILS RELATIVE PERCENT (BEAKER) (test 84 % dstu=681) LYMPHOCYTES RELATIVE PERCENT (BEAKER) (test 7 % ksiq=409) MONOCYTES RELATIVE PERCENT (BEAKER) (test 7 % srcs=530) EOSINOPHILS RELATIVE PERCENT (BEAKER) (test 1 % xhjj=684) BASOPHILS RELATIVE PERCENT (BEAKER) (test 0 % wyze=212) NEUTROPHILS ABSOLUTE COUNT (BEAKER) (test 8.00 K/ L 1.78-5.38 gifs=550) LYMPHOCYTES ABSOLUTE COUNT (BEAKER) (test 0.69 K/ L 1.32-3.57 ygbe=561) MONOCYTES ABSOLUTE COUNT (BEAKER) (test 0.63 K/ L 0.30-0.82 vssv=061) EOSINOPHILS ABSOLUTE COUNT (BEAKER) (test 0.11 K/ L 0.04-0.54 fcxu=835) BASOPHILS ABSOLUTE COUNT (BEAKER) (test 0.04 K/ L 0.01-0.08 jvhg=860) IMMATURE GRANULOCYTES-RELATIVE PERCENT (BEAKER) 0 % 0-1 (test auoj=1250) [id number] 15:12:00 Test Item Value Reference Range Comments PARTIAL THROMBOPLASTIN TIME (BEAKER) (test 32.3 seconds 22.5-36.0 kiku=764) PROTHROMBIN [id number] 15:11:00 Test Item Value Reference Range Comments PROTIME (BEAKER) (test fdee=063) 14.5 seconds 11.7-14.7 INR (BEAKER) (test twdt=888) 1.1 <=5.9 RECOMMENDED COUMADIN/WARFARIN INR THERAPY RANGESSTANDARD DOSE: 2.0 - 3.0 Includes: PROPHYLAXIS forvenous thrombosis, systemic embolization; TREATMENT for venous thrombosis and/or pulmonary embolus.HIGH RISK: Target INR is 2.5-3.5 for patients with mechanical heart valves.[id number] 15:11:00 Test Item Value Reference Range Comments FIBRINOGEN LEVEL (BEAKER) (test vstk=401) 471 mg/dl 225-434 BLOOD GAS, [id number] 15:01:00 Test Item Value Reference Range Comments PH ARTERIAL (BEAKER) (test kqho=168) 7.37 7.35-7.45 PCO2 ARTERIAL (BEAKER) (test bqas=036) 38 mmHg 35-45 PO2 ARTERIAL (BEAKER) (test adyy=268) 79 mmHg 80-90 O2 SATURATION ARTERIAL (BEAKER) (test xihd=944) 95.4 % 96.0-97.0 HCO3 ARTERIAL (BEAKER) (test cjeb=772) 22 mmol/L 21-29 BASE EXCESS ARTERIAL (BEAKER) (test gudd=258) -3.4 mmol/L -2.0-3.0 PATIENT TEMPERATURE (BEAKER) (test vzll=1721) 37.0 C FIO2 (BEAKER) (test xqxu=5495) 40.0 % CALCIUM, [id number] 15:01:00 Test Item Value Reference Range Comments CALCIUM IONIZED (BEAKER) (test cxnu=012) 1.06 mmol/L 1.12-1.27 PH, BLOOD (BEAKER) (test knge=8633) 7.37 BLOOD GAS, [id number] 13:54:00 Test Item Value Reference Range Comments PH ARTERIAL (BEAKER) (test xjjh=599) 7.37 7.35-7.45 PCO2 ARTERIAL (BEAKER) (test lxxx=493) 40 mmHg 35-45 PO2 ARTERIAL (BEAKER) (test rgtb=865) 261 mmHg 80-90 O2 SATURATION ARTERIAL (BEAKER) (test nkfl=387) 99.6 % 96.0-97.0 HCO3 ARTERIAL (BEAKER) (test grec=749) 22 mmol/L 21-29 BASE EXCESS ARTERIAL (BEAKER) (test ewcw=100) -2.8 mmol/L -2.0-3.0 PATIENT TEMPERATURE (BEAKER) (test wqmp=6687) 37.0 C FIO2 (BEAKER) (test gaio=4932) 21.0 % CALCIUM, [id number] 13:54:00 Test Item Value Reference Range Comments CALCIUM IONIZED (BEAKER) (test wbpr=128) 1.06 mmol/L 1.12-1.27 PH, BLOOD (BEAKER) (test afvv=0356) 7.37 GLUCOSE-STAT [id number] 13:53:00 Test Item Value Reference Range Comments GLUCOSE RANDOM (BEAKER) (test aqii=439) 109 mg/dL 70-110 SODIUM NA-STAT [id number] 13:53:00 Test Item Value Reference Range Comments SODIUM (BEAKER) (test nkik=097) 135 meq/L 135-148 POTASSIUM-STAT [id number] 13:53:00 Test Item Value Reference Range Comments POTASSIUM (BEAKER) (test rrhi=958) 4.8 meq/L 3.6-5.5 HGB/HCT (H&H) - STAT [id number] 13:53:00 Test Item Value Reference Range Comments HEMOGLOBIN (BEAKER) (test whib=630) 13.6 g/dL 13.0-16.8 HEMATOCRIT (BEAKER) (test joft=504) 40.0 % 40.0-50.0 BLOOD GAS, [id number] 11:42:00 Test Item Value Reference Range Comments PH ARTERIAL (BEAKER) (test lrkj=471) 7.40 7.35-7.45 PCO2 ARTERIAL (BEAKER) (test amnx=511) 38 mmHg 35-45 PO2 ARTERIAL (BEAKER) (test vakr=561) 108 mmHg 80-90 O2 SATURATION ARTERIAL (BEAKER) (test bphr=791) 98.0 % 96.0-97.0 HCO3 ARTERIAL (BEAKER) (test xfmj=487) 23 mmol/L 21-29 BASE EXCESS ARTERIAL (BEAKER) (test ddwu=329) -1.6 mmol/L -2.0-3.0 PATIENT TEMPERATURE (BEAKER) (test uncs=1485) 36.5 C FIO2 (BEAKER) (test sqem=7124) 80.0 % CALCIUM, [id number] 11:41:00 Test Item Value Reference Range Comments CALCIUM IONIZED (BEAKER) (test xjmu=452) 1.12 mmol/L 1.12-1.27 PH, BLOOD (BEAKER) (test axuf=8031) 7.39 GLUCOSE-STAT [id number] 11:40:00 Test Item Value Reference Range Comments GLUCOSE RANDOM (BEAKER) (test mwdy=652) 104 mg/dL 70-110 SODIUM NA-STAT [id number] 11:40:00 Test Item Value Reference Range Comments SODIUM (BEAKER) (test zotq=083) 135 meq/L 135-148 POTASSIUM-STAT [id number] 11:40:00 Test Item Value Reference Range Comments POTASSIUM (BEAKER) (test lgtq=171) 4.6 meq/L 3.6-5.5 HGB/HCT (H&H) - STAT [id number] 11:40:00 Test Item Value Reference Range Comments HEMOGLOBIN (BEAKER) (test zdas=758) 13.6 g/dL 13.0-16.8 HEMATOCRIT (BEAKER) (test pgei=360) 40.0 % 40.0-50.0 [id number] 12:20:00 Test Item Value Reference Range Comments PROTIME (BEAKER) (test vxgk=038) 15.0 seconds 11.7-14.7 INR (BEAKER) (test qlos=311) 1.2 <=5.9 PARTIAL THROMBOPLASTIN TIME (BEAKER) (test 39.7 seconds 22.5-36.0 cndh=826) RECOMMENDED COUMADIN/WARFARIN INR THERAPY RANGESSTANDARD DOSE: 2.0 - 3.0 Includes: PROPHYLAXIS forvenous thrombosis, systemic embolization; TREATMENT for venous thrombosis and/or pulmonary embolus.HIGH RISK: Target INR is 2.5-3.5 for patients with mechanical heart valves.POTASSIUM-STAT [id number] 11:50:00 Test Item Value Reference Range Comments POTASSIUM (BEAKER) (test vucl=576) 4.3 meq/L 3.6-5.5 URINE PROTEIN ELECTROPHORESIS, [id number] 12:54:00 Test Item Value Reference Range Comments PROTEIN, URINE (BEAKER) (test 23 mg/dL 0-14 mpjq=8143) ALBUMIN URINE ELP (BEAKER) 67.0 % (test oxtu=9812) GAMMA GLOBULIN URINE (BEAKER) 33.0 % (test swzc=7378) UPEP, ID-438 (BEAKER) (test No monoclonal bands detected. cdwu=6107) [id number] (BEAKER) Melisa Hunt MD (test qbay=5709) (electronic signature) PROTEIN ELECTROPHORESIS, [id number] 09:23:00 Test Item Value Reference Range Comments ALBUMIN FRACTION (BEAKER) 2.2 g/dL 3.5-5.5 (test fdra=497) ALPHA 1 FRACTION (BEAKER) 0.5 g/dL 0.2-0.4 (test ktpq=897) ALPHA 2 FRACTION (BEAKER) 0.7 g/dL 0.5-0.9 (test wrao=659) BETA FRACTION (BEAKER) (test 1.0 g/dL 0.6-1.1 qpcp=746) GAMMA GLOBULIN FRACTION 1.4 g/dL 0.7-1.7 (BEAKER) (test bvqc=344) INTERPRETATION-119 (BEAKER) Decrease in albumin with (test ufqv=4833) concurrent nonspecific relative increases in alpha globulin fractions. No monoclonal bands detected. [id number] (BEAKER) Melisa Hunt MD (test artk=9792) (electronic signature) PROTEIN TOTAL SERUM, SPEP 5.9 gm/dL 6.0-8.3 (BEAKER) (test hkki=7929) BASIC METABOLIC [id number] 07:56:00 Test Item Value Reference Range Comments SODIUM (BEAKER) (test 131 meq/L 136-145 gtyt=064) POTASSIUM (BEAKER) (test 4.4 meq/L 3.5-5.1 ogbp=050) CHLORIDE (BEAKER) (test 91 meq/L 98-107 rqto=399) CO2 (BEAKER) (test 29 meq/L 22-29 iwfd=588) BLOOD UREA NITROGEN 44 mg/dL 7-21 (BEAKER) (test peyo=950) CREATININE (BEAKER) (test 2.82 mg/dL 0.57-1.25 wbdc=669) GLUCOSE RANDOM (BEAKER) 104 mg/dL 70-105 (test jcfl=406) CALCIUM (BEAKER) (test 9.6 mg/dL 8.4-10.2 rahy=608) EGFR (BEAKER) (test 23 mL/min/1.73 sq m ESTIMATED GFR IS NOT ukgm=5482) ACCURATE CREATININE CLEARANCE IN PREDICTING GLOMERULAR FILTRATION RATE. ESTIMATED GFR IS NOT APPLICABLE FOR DIALYSIS PATIENTS. CBC (HEMOGRAM ONLY)2017-04-08 07:54:00 Test Item Value Reference Range Comments WHITE BLOOD CELL COUNT (BEAKER) (test rikd=267) 12.5 K/ L 3.5-10.5 RED BLOOD CELL COUNT (BEAKER) (test xapk=010) 3.94 M/ L 4.63-6.08 HEMOGLOBIN (BEAKER) (test yrwc=066) 11.1 GM/DL 13.7-17.5 HEMATOCRIT (BEAKER) (test oscx=589) 35.1 % 40.1-51.0 MEAN CORPUSCULAR VOLUME (BEAKER) (test xjlc=939) 89.1 fL 79.0-92.2 MEAN CORPUSCULAR HEMOGLOBIN (BEAKER) (test 28.2 pg 25.7-32.2 uand=894) MEAN CORPUSCULAR HEMOGLOBIN CONC (BEAKER) (test 31.6 GM/DL 32.3-36.5 daah=112) RED CELL DISTRIBUTION WIDTH (BEAKER) (test 14.8 % 11.6-14.4 ielo=728) PLATELET COUNT (BEAKER) (test khuj=830) 557 K/CU MM 150-450 MEAN PLATELET VOLUME (BEAKER) (test bnet=780) 9.4 fL 9.4-12.4 NUCLEATED RED BLOOD CELLS (BEAKER) (test 0 /100 WBC 0-0 baqa=593) [id number] 07:16:00 Test Item Value Reference Range Comments PHOSPHORUS (BEAKER) (test lexo=083) 4.4 mg/dL 2.3-4.7 [id number] 07:16:00 Test Item Value Reference Range Comments MAGNESIUM (BEAKER) (test jzvd=650) 2.1 mg/dL 1.6-2.6 PROTHROMBIN [id number] 06:29:00 Test Item Value Reference Range Comments PROTIME (BEAKER) (test nfmm=264) 35.0 seconds 11.7-14.7 INR (BEAKER) (test qpom=807) 3.5 <=5.9 RECOMMENDED COUMADIN/WARFARIN INR THERAPY RANGESSTANDARD DOSE: 2.0 - 3.0 Includes: PROPHYLAXIS forvenous thrombosis, systemic embolization; TREATMENT for venous thrombosis and/or pulmonary embolus.HIGH RISK: Target INR is 2.5-3.5 for patients with mechanical heart valves.While on warfarin.CT, [id number] 19:34:00Give PO contrastFINAL REPORT CT, ABDOMEN \\T\\ PELVIS, WITHOUT IV CONTRAST INDICATION: "Abd pain, fever, abscess suspected" COMPARISON: CT abdomen and pelvis 03/30/2017 TECHNIQUE: Noncontrast axially oriented images were obtained from the diaphragms through the pelvis. Coronal and sagittal reformats were provided. . DOSE REDUCTION: Dose modulation, iterative reconstruction, and/or weight-based adjustment of the mA/kV was utilized to reduce the radiation dose to as low as reasonably achievable.FINDINGS: Small right and moderate left-sided pleural effusion with adjacent airspace disease. Findings have improved in the right lung base and worsened in the left lung base since the prior CT. No acute abnormality of the solid abdominal viscera. Prior CT demonstrated a perforated sigmoid diverticulitis with anterior midline lower abdomen abscess formation.In the interim, there has been placement of an anterior, midline drain. The pigtail is appropriately positioned in the fluid and air collection has significantly decreased in size since the prior exam, previously 12.8 x 4.8 cm x 6 and now 10 x 4.4 x 4.8 cm.There is a persistent focal contained perforation along the mesenteric/posterolateral margin of the mid to proximal sigmoid colon. This collection of fluid and air is stable in size.Reactive inflammatory change along the dome of the bladder.No new intra-abdominal abscess. No focal lytic or destructive bony process. IMPRESSION:Persistent focal contained perforation from sigmoid diverticulitis.Interval placement of an anterior approach abdominal drain with decrease in size of the intraperitoneal abscess.Persistent reactive inflammatory change of the dome of the bladder.No new abscess or perforation.No new areas of diverticulitis. Signed: Maria E Beck MDReport Verified Date/Time: 04/07/2017 19:34:43 Reading Location: [place] [id number] Ortho Consult Reading Room Electronically signed by: MARIA E BECK MD on 2016 07:34 PMRAD, ABDOMEN/KUB, 1 VIEW [id number] 13:51:00Reason for exam:-> left upper abdomen pain,Should this be performed at the bedside?->YesFINAL REPORT Comparison: CT of the abdomen and pelvis, 2016 Discussion: Abdomen: Bowel gas pattern is nonobstructed. There is no free intraperitoneal air. Catheter projects over the right pelvis. No acute skeletal abnormality. Impression: 1. Nonspecific bowel gas pattern. Signed: Kip Monzonort Verified Date/Time: 04/07/2017 13:51:31 Reading Location: [address] Transitional Reading Room RAD, CHEST, 1 VIEW, NON [id number] 13:07: 00Reason for exam:->Pleuritic chest pain at the right lower lung field, concern for parapneumonic effusionShould this be performed at the bedside?-> YesFINAL REPORT Comparison: 03/31/2017 TECHNIQUE: Single view of the chest FINDINGS: Small left pleural effusion with nonspecific adjacent airspace disease suspected. Lungs otherwise grossly clear. Cardiac silhouette is enlarged. Postsurgical changes in the mediastinum with aortic calcifications are seen. No acute skeletal abnormality. Signed: Kip Monzonort Verified Date/Time: 04/07/2017 13:07:06 Reading Location: [address] Transitional Reading Room Electronicallysigned by: KIP MONZON M.D. on 04/07/2017 01:07 PMBASIC METABOLIC [id number] 07:44:00 Test Item Value Reference Range Comments SODIUM (BEAKER) (test 132 meq/L 136-145 bghd=423) POTASSIUM (BEAKER) (test 4.2 meq/L 3.5-5.1 exjz=324) CHLORIDE (BEAKER) (test 89 meq/L 98-107 jygh=828) CO2 (BEAKER) (test 33 meq/L 22-29 rqft=074) BLOOD UREA NITROGEN 42 mg/dL 7-21 (BEAKER) (test icvf=307) CREATININE (BEAKER) (test 3.02 mg/dL 0.57-1.25 oezp=470) GLUCOSE RANDOM (BEAKER) 103 mg/dL 70-105 (test vqdw=144) CALCIUM (BEAKER) (test 9.3 mg/dL 8.4-10.2 ibmu=598) EGFR (BEAKER) (test 22 mL/min/1.73 sq m ESTIMATED GFR IS NOT xmjt=4561) ACCURATE CREATININE CLEARANCE IN PREDICTING GLOMERULAR FILTRATION RATE. ESTIMATED GFR IS NOT APPLICABLE FOR DIALYSIS PATIENTS. [id number] 07:14:00 Test Item Value Reference Range Comments PHOSPHORUS (BEAKER) (test menl=861) 4.3 mg/dL 2.3-4.7 [id number] 07:14:00 Test Item Value Reference Range Comments MAGNESIUM (BEAKER) (test mabc=592) 2.0 mg/dL 1.6-2.6 PROTHROMBIN TIME/[id number] 06:31:00 Test Item Value Reference Range Comments PROTIME (BEAKER) (test uxyl=210) 32.6 seconds 11.7-14.7 INR (BEAKER) (test ecyn=661) 3.2 <=5.9 RECOMMENDED COUMADIN/WARFARIN INR THERAPY RANGESSTANDARD DOSE: 2.0 - 3.0 Includes: PROPHYLAXIS forvenous thrombosis, systemic embolization; TREATMENT for venous thrombosis and/or pulmonary embolus.HIGH RISK: Target INR is 2.5-3.5 for patients with mechanical heart valves.While on warfarin.CBC (HEMOGRAM ONLY) 2017-04-07 06:23:00 Test Item Value Reference Range Comments WHITE BLOOD CELL COUNT (BEAKER) (test sqdf=636) 10.5 K/ L 3.5-10.5 RED BLOOD CELL COUNT (BEAKER) (test yemz=072) 3.66 M/ L 4.63-6.08 HEMOGLOBIN (BEAKER) (test zqfy=534) 10.3 GM/DL 13.7-17.5 HEMATOCRIT (BEAKER) (test vauf=408) 32.4 % 40.1-51.0 MEAN CORPUSCULAR VOLUME (BEAKER) (test wyyd=039) 88.5 fL 79.0-92.2 MEAN CORPUSCULAR HEMOGLOBIN (BEAKER) (test 28.1 pg 25.7-32.2 kdrj=391) MEAN CORPUSCULAR HEMOGLOBIN CONC (BEAKER) (test 31.8 GM/DL 32.3-36.5 dkfm=463) RED CELL DISTRIBUTION WIDTH (BEAKER) (test 14.6 % 11.6-14.4 ahwq=415) PLATELET COUNT (BEAKER) (test myqt=013) 491 K/CU MM 150-450 MEAN PLATELET VOLUME (BEAKER) (test kmtg=750) 9.8 fL 9.4-12.4 NUCLEATED RED BLOOD CELLS (BEAKER) (test 0 /100 WBC 0-0 wjzq=994) BASIC METABOLIC [id number] 07:20:00 Test Item Value Reference Range Comments SODIUM (BEAKER) (test 134 meq/L 136-145 uekn=540) POTASSIUM (BEAKER) (test 3.8 meq/L 3.5-5.1 ceip=643) CHLORIDE (BEAKER) (test 90 meq/L 98-107 nbny=055) CO2 (BEAKER) (test 35 meq/L 22-29 zppv=824) BLOOD UREA NITROGEN 39 mg/dL 7-21 (BEAKER) (test sxqh=907) CREATININE (BEAKER) (test 2.59 mg/dL 0.57-1.25 qmzw=237) GLUCOSE RANDOM (BEAKER) 108 mg/dL 70-105 (test ogah=872) CALCIUM (BEAKER) (test 9.7 mg/dL 8.4-10.2 pudv=690) EGFR (BEAKER) (test 26 mL/min/1.73 sq m ESTIMATED GFR IS NOT yiju=9150) ACCURATE CREATININE CLEARANCE IN PREDICTING GLOMERULAR FILTRATION RATE. ESTIMATED GFR IS NOT APPLICABLE FOR DIALYSIS PATIENTS. [id number] 07:10:00 Test Item Value Reference Range Comments PHOSPHORUS (BEAKER) (test lkla=542) 4.1 mg/dL 2.3-4.7 [id number] 07:10:00 Test Item Value Reference Range Comments MAGNESIUM (BEAKER) (test tfnf=045) 1.8 mg/dL 1.6-2.6 CBC (HEMOGRAM ONLY)2017-04-06 06:19:00 Test Item Value Reference Range Comments WHITE BLOOD CELL COUNT (BEAKER) (test zzbd=976) 10.9 K/ L 3.5-10.5 RED BLOOD CELL COUNT (BEAKER) (test vtka=507) 3.72 M/ L 4.63-6.08 HEMOGLOBIN (BEAKER) (test mwxx=516) 10.5 GM/DL 13.7-17.5 HEMATOCRIT (BEAKER) (test vzee=041) 33.2 % 40.1-51.0 MEAN CORPUSCULAR VOLUME (BEAKER) (test jbyg=171) 89.2 fL 79.0-92.2 MEAN CORPUSCULAR HEMOGLOBIN (BEAKER) (test 28.2 pg 25.7-32.2 feop=008) MEAN CORPUSCULAR HEMOGLOBIN CONC (BEAKER) (test 31.6 GM/DL 32.3-36.5 zfpn=744) RED CELL DISTRIBUTION WIDTH (BEAKER) (test 14.5 % 11.6-14.4 pfjk=231) PLATELET COUNT (BEAKER) (test ifyo=875) 538 K/CU MM 150-450 MEAN PLATELET VOLUME (BEAKER) (test pquw=979) 9.6 fL 9.4-12.4 NUCLEATED RED BLOOD CELLS (BEAKER) (test 0 /100 WBC 0-0 ihoy=005) PROTHROMBIN [id number] 06:19:00 Test Item Value Reference Range Comments PROTIME (BEAKER) (test ruye=867) 26.9 seconds 11.7-14.7 INR (BEAKER) (test vqqo=874) 2.5 <=5.9 RECOMMENDED COUMADIN/WARFARIN INR THERAPY RANGESSTANDARD DOSE: 2.0 - 3.0 Includes: PROPHYLAXIS forvenous thrombosis, systemic embolization; TREATMENT for venous thrombosis and/or pulmonary embolus.HIGH RISK: Target INR is 2.5-3.5 for patients with mechanical heart valves.While on warfarin.CALCIUM, [id number] 06:18:00 Test Item Value Reference Range Comments CALCIUM IONIZED (BEAKER) (test xktx=080) 1.01 mmol/L 1.12-1.27 PH, BLOOD (BEAKER) (test hown=4931) 7.44 CALCIUM, [id number] 07:01:00 Test Item Value Reference Range Comments CALCIUM IONIZED (BEAKER) (test xtah=840) 0.88 mmol/L 1.12-1.27 PH, BLOOD (BEAKER) (test qivb=5199) 7.50 BASIC METABOLIC [id number] 06:19:00 Test Item Value Reference Range Comments SODIUM (BEAKER) (test 133 meq/L 136-145 gwip=600) POTASSIUM (BEAKER) (test 3.9 meq/L 3.5-5.1 dodx=809) CHLORIDE (BEAKER) (test 93 meq/L 98-107 gjrw=512) CO2 (BEAKER) (test 31 meq/L 22-29 gauy=297) BLOOD UREA NITROGEN 37 mg/dL 7-21 (BEAKER) (test csyt=475) CREATININE (BEAKER) (test 2.30 mg/dL 0.57-1.25 xoiq=121) GLUCOSE RANDOM (BEAKER) 116 mg/dL 70-105 (test yjwp=125) CALCIUM (BEAKER) (test 9.7 mg/dL 8.4-10.2 vvmm=184) EGFR (BEAKER) (test 29 mL/min/1.73 sq m ESTIMATED GFR IS NOT piqp=4605) ACCURATE CREATININE CLEARANCE IN PREDICTING GLOMERULAR FILTRATION RATE. ESTIMATED GFR IS NOT APPLICABLE FOR DIALYSIS PATIENTS. [id number] 06:15:00 Test Item Value Reference Range Comments PHOSPHORUS (BEAKER) (test vuxe=859) 4.6 mg/dL 2.3-4.7 [id number] 06:15:00 Test Item Value Reference Range Comments MAGNESIUM (BEAKER) (test mzwi=278) 1.8 mg/dL 1.6-2.6 PROTHROMBIN [id number] 06:00:00 Test Item Value Reference Range Comments PROTIME (BEAKER) (test egaw=019) 24.6 seconds 11.7-14.7 INR (BEAKER) (test uebw=514) 2.2 <=5.9 RECOMMENDED COUMADIN/WARFARIN INR THERAPY RANGESSTANDARD DOSE: 2.0 - 3.0 Includes: PROPHYLAXIS forvenous thrombosis, systemic embolization; TREATMENT for venous thrombosis and/or pulmonary embolus.HIGH RISK: Target INR is 2.5-3.5 for patients with mechanical heart valves.While on warfarin.CBC (HEMOGRAM ONLY) 2017-04-05 05:47:00 Test Item Value Reference Range Comments WHITE BLOOD CELL COUNT (BEAKER) (test hkmq=170) 9.8 K/ L 3.5-10.5 RED BLOOD CELL COUNT (BEAKER) (test vutg=968) 3.74 M/ L 4.63-6.08 HEMOGLOBIN (BEAKER) (test lygf=600) 10.6 GM/DL 13.7-17.5 HEMATOCRIT (BEAKER) (test yaml=462) 33.4 % 40.1-51.0 MEAN CORPUSCULAR VOLUME (BEAKER) (test dywt=724) 89.3 fL 79.0-92.2 MEAN CORPUSCULAR HEMOGLOBIN (BEAKER) (test 28.3 pg 25.7-32.2 nnmk=696) MEAN CORPUSCULAR HEMOGLOBIN CONC (BEAKER) (test 31.7 GM/DL 32.3-36.5 xilq=978) RED CELL DISTRIBUTION WIDTH (BEAKER) (test 14.2 % 11.6-14.4 utxq=443) PLATELET COUNT (BEAKER) (test qtyl=830) 447 K/CU MM 150-450 MEAN PLATELET VOLUME (BEAKER) (test eony=578) 9.3 fL 9.4-12.4 NUCLEATED RED BLOOD CELLS (BEAKER) (test 0 /100 WBC 0-0 yvpx=144) BLOOD [id number] 17:00:00 Test Item Value Reference Range Comments CULTURE (BEAKER) (test uwqv=0211) No growth in 5 days BLOOD [id number] 17:00:00 Test Item Value Reference Range Comments CULTURE (BEAKER) (test fdkd=3121) No growth in 5 days WOUND CULTURE + GRAM [id number] 15:25:00 Test Item Value Reference Range Comments CULTURE (BEAKER) (test ebuc=8050) 5-Flurocytosine (test Susceptible 0-4 , byyq=230) Intermediate <0 or >4 , Resistant >16 Amphotericin B (test Susceptible >0-0 , No qjqb=058) Interpretations Established <=0 or >0 Caspofungin acetate Susceptible 0-0.12 , Non (test wtby=212) Fluconazole (test Susceptible 0-0 , Dose zsai=123) Dependent Susceptible <0 or >0 , Resi Itraconazole (test Susceptible 0-0.125 , nlxp=358) Dose Dependent Susceptible <0 or >.125 Micafungin (test Susceptible 0-0.06 , Non dzee=210) Posaconazole (test Susceptible >0-0 , No amgp=380) Interpretations Established <=0 or >0 Voriconazole (test Susceptible >0-0 , Dose gqab=701) Dependent Susceptible <=0 or >0 , No CULTURE (BEAKER) (test NARGIS TROPICALIS 4+ Nargis glabrata mujf=9617) 5-Flurocytosine (test Susceptible 0-4 , wxfv=376) Intermediate <0 or >4 , Resistant >16 Amphotericin B (test Susceptible >0-0 , No jwny=8633) Interpretations Established <=0 or >0 Caspofungin acetate Susceptible 0-0.25 , Non (test etqb=154) Fluconazole (test Susceptible 0-2 , Dose sofi=268) Dependent Susceptible <0 or >2 , Resi Itraconazole (test Susceptible 0-0.125 , yzrd=636) Dose Dependent Susceptible <0 or >.125 Micafungin (test Susceptible 0-0.25 , Non fhuk=989) Posaconazole (test Susceptible >0-0 , No tjli=9385) Interpretations Established <=0 or >0 Voriconazole (test Susceptible 0-0.12 , dyhf=5694) Dose Dependent Susceptible <0 or >.12 , CULTURE (BEAKER) (test 2+ Nargis tkcq=6323) tropicalis GRAM STAIN RESULT 4+ WBCs (BEAKER) (test fjvj=9100) GRAM STAIN RESULT 3+ gram negative (BEAKER) (test rods nyui=883931) GRAM STAIN RESULT 3+ yeast (BEAKER) (test lytf=476929) 3+ skin floraOCCULT BLOOD, [id number] 13:51:00 Test Item Value Reference Range Comments FECAL OCCULT BLOOD (BEAKER) (test psum=828) Positive Negative CALCIUM, [id number] 11:41:00 Test Item Value Reference Range Comments CALCIUM IONIZED (BEAKER) (test imge=295) 1.17 mmol/L 1.12-1.27 PH, BLOOD (BEAKER) (test kech=6540) 7.39 B-TYPE NATRIURETIC FACTOR (BNP)2017-04-04 07:25:00 Test Item Value Reference Range Comments B-TYPE NATRIURETIC PEPTIDE (BEAKER) (test 1487 pg/mL 0-100 lfxg=740) [id number] 07:24:00 Test Item Value Reference Range Comments PHOSPHORUS (BEAKER) (test wmly=226) 4.3 mg/dL 2.3-4.7 [id number] 07:24:00 Test Item Value Reference Range Comments MAGNESIUM (BEAKER) (test cyyy=809) 1.9 mg/dL 1.6-2.6 BASIC METABOLIC [id number] 07:24:00 Test Item Value Reference Range Comments SODIUM (BEAKER) (test 136 meq/L 136-145 wzit=027) POTASSIUM (BEAKER) (test 3.9 meq/L 3.5-5.1 yczq=414) CHLORIDE (BEAKER) (test 95 meq/L 98-107 caem=783) CO2 (BEAKER) (test 32 meq/L 22-29 excc=439) BLOOD UREA NITROGEN 35 mg/dL 7-21 (BEAKER) (test sisy=871) CREATININE (BEAKER) (test 2.19 mg/dL 0.57-1.25 qgvk=128) GLUCOSE RANDOM (BEAKER) 102 mg/dL 70-105 (test apma=384) CALCIUM (BEAKER) (test 9.6 mg/dL 8.4-10.2 zgnz=130) EGFR (BEAKER) (test 31 mL/min/1.73 sq m ESTIMATED GFR IS NOT dtdv=7638) ACCURATE CREATININE CLEARANCE IN PREDICTING GLOMERULAR FILTRATION RATE. ESTIMATED GFR IS NOT APPLICABLE FOR DIALYSIS PATIENTS. VANCOMYCIN LEVEL, [id number] 07:14:00 Test Item Value Reference Range Comments VANCOMYCIN TROUGH (BEAKER) (test ieog=173) 10.2 ug/mL 10.0-20.0 PROTHROMBIN [id number] 06:57:00 Test Item Value Reference Range Comments PROTIME (BEAKER) (test ujxx=093) 20.7 seconds 11.7-14.7 INR (BEAKER) (test aprm=113) 1.8 <=5.9 RECOMMENDED COUMADIN/WARFARIN INR THERAPY RANGESSTANDARD DOSE: 2.0 - 3.0 Includes: PROPHYLAXIS forvenous thrombosis, systemic embolization; TREATMENT for venous thrombosis and/or pulmonary embolus.HIGH RISK: Target INR is 2.5-3.5 for patients with mechanical heart valves.While on warfarin.CBC W/PLT COUNT &amp ; AUTO [id number] 06:50:00 Test Item Value Reference Range Comments WHITE BLOOD CELL COUNT (BEAKER) (test swsu=319) 9.9 K/ L 3.5-10.5 RED BLOOD CELL COUNT (BEAKER) (test dbkd=979) 3.71 M/ L 4.63-6.08 HEMOGLOBIN (BEAKER) (test iuty=679) 10.6 GM/DL 13.7-17.5 HEMATOCRIT (BEAKER) (test eplb=153) 33.2 % 40.1-51.0 MEAN CORPUSCULAR VOLUME (BEAKER) (test veyz=011) 89.5 fL 79.0-92.2 MEAN CORPUSCULAR HEMOGLOBIN (BEAKER) (test 28.6 pg 25.7-32.2 nryk=373) MEAN CORPUSCULAR HEMOGLOBIN CONC (BEAKER) (test 31.9 GM/DL 32.3-36.5 ieci=355) RED CELL DISTRIBUTION WIDTH (BEAKER) (test 14.2 % 11.6-14.4 aoky=620) PLATELET COUNT (BEAKER) (test eeqi=968) 444 K/CU MM 150-450 MEAN PLATELET VOLUME (BEAKER) (test rjfh=540) 9.5 fL 9.4-12.4 NUCLEATED RED BLOOD CELLS (BEAKER) (test 0 /100 WBC 0-0 kusr=697) NEUTROPHILS RELATIVE PERCENT (BEAKER) (test 73 % wlvy=107) LYMPHOCYTES RELATIVE PERCENT (BEAKER) (test 10 % lwix=829) MONOCYTES RELATIVE PERCENT (BEAKER) (test 12 % mszs=747) EOSINOPHILS RELATIVE PERCENT (BEAKER) (test 5 % ulcs=164) BASOPHILS RELATIVE PERCENT (BEAKER) (test 1 % xrho=476) NEUTROPHILS ABSOLUTE COUNT (BEAKER) (test 7.17 K/ L 1.78-5.38 isqs=224) LYMPHOCYTES ABSOLUTE COUNT (BEAKER) (test 0.99 K/ L 1.32-3.57 caeh=135) MONOCYTES ABSOLUTE COUNT (BEAKER) (test 1.14 K/ L 0.30-0.82 ozub=678) EOSINOPHILS ABSOLUTE COUNT (BEAKER) (test 0.44 K/ L 0.04-0.54 swul=139) BASOPHILS ABSOLUTE COUNT (BEAKER) (test 0.09 K/ L 0.01-0.08 yspc=146) IMMATURE GRANULOCYTES-RELATIVE PERCENT (BEAKER) 1 % 0-1 (test wobo=7726) CBC (HEMOGRAM ONLY)2017-04-04 06:49:00 Test Item Value Reference Range Comments WHITE BLOOD CELL COUNT (BEAKER) (test bxix=123) 9.9 K/ L 3.5-10.5 RED BLOOD CELL COUNT (BEAKER) (test srlp=196) 3.73 M/ L 4.63-6.08 HEMOGLOBIN (BEAKER) (test znar=248) 10.6 GM/DL 13.7-17.5 HEMATOCRIT (BEAKER) (test wqfe=295) 33.4 % 40.1-51.0 MEAN CORPUSCULAR VOLUME (BEAKER) (test wklp=758) 89.5 fL 79.0-92.2 MEAN CORPUSCULAR HEMOGLOBIN (BEAKER) (test 28.4 pg 25.7-32.2 ipek=439) MEAN CORPUSCULAR HEMOGLOBIN CONC (BEAKER) (test 31.7 GM/DL 32.3-36.5 jiij=312) RED CELL DISTRIBUTION WIDTH (BEAKER) (test 14.2 % 11.6-14.4 hnpr=734) PLATELET COUNT (BEAKER) (test xkmk=434) 447 K/CU MM 150-450 MEAN PLATELET VOLUME (BEAKER) (test atle=390) 9.7 fL 9.4-12.4 NUCLEATED RED BLOOD CELLS (BEAKER) (test 0 /100 WBC 0-0 hnuz=855) CBC W/PLT COUNT & AUTO [id number] 15:25:00 Test Item Value Reference Range Comments WHITE BLOOD CELL COUNT (BEAKER) (test ysqz=394) 8.4 K/ L 3.5-10.5 RED BLOOD CELL COUNT (BEAKER) (test sfub=658) 3.21 M/ L 4.63-6.08 HEMOGLOBIN (BEAKER) (test mmbn=274) 9.3 GM/DL 13.7-17.5 HEMATOCRIT (BEAKER) (test kufz=937) 29.0 % 40.1-51.0 MEAN CORPUSCULAR VOLUME (BEAKER) (test ggzd=267) 90.3 fL 79.0-92.2 MEAN CORPUSCULAR HEMOGLOBIN (BEAKER) (test 29.0 pg 25.7-32.2 bxqj=348) MEAN CORPUSCULAR HEMOGLOBIN CONC (BEAKER) (test 32.1 GM/DL 32.3-36.5 icpc=557) RED CELL DISTRIBUTION WIDTH (BEAKER) (test 13.9 % 11.6-14.4 jufq=985) PLATELET COUNT (BEAKER) (test ynig=393) 360 K/CU MM 150-450 MEAN PLATELET VOLUME (BEAKER) (test imnq=604) 9.7 fL 9.4-12.4 NUCLEATED RED BLOOD CELLS (BEAKER) (test 0 /100 WBC 0-0 amdn=134) NEUTROPHILS RELATIVE PERCENT (BEAKER) (test 76 % jira=213) LYMPHOCYTES RELATIVE PERCENT (BEAKER) (test 4 % zcxe=696) MONOCYTES RELATIVE PERCENT (BEAKER) (test 8 % evev=079) EOSINOPHILS RELATIVE PERCENT (BEAKER) (test 5 % khdd=621) BASOPHILS RELATIVE PERCENT (BEAKER) (test 1 % rnbj=456) NEUTROPHILS ABSOLUTE COUNT (BEAKER) (test 6.36 K/ L 1.78-5.38 pvyv=918) LYMPHOCYTES ABSOLUTE COUNT (BEAKER) (test 0.35 K/ L 1.32-3.57 qbxn=935) MONOCYTES ABSOLUTE COUNT (BEAKER) (test 0.68 K/ L 0.30-0.82 jtjb=498) EOSINOPHILS ABSOLUTE COUNT (BEAKER) (test 0.38 K/ L 0.04-0.54 nrtj=949) BASOPHILS ABSOLUTE COUNT (BEAKER) (test 0.06 K/ L 0.01-0.08 uxss=413) IMMATURE GRANULOCYTES-RELATIVE PERCENT (BEAKER) 6 % 0-1 (test wief=7661) (MANUAL DIFFERENTIAL)2017-04-03 15:25:00 Test Item Value Reference Range Comments TOTAL COUNTED (BEAKER) (test vfbh=8888) WBC MORPHOLOGY (BEAKER) (test ogod=454) Normal GIANT PLATELETS (BEAKER) (test gdjj=722) Present POLYCHROMATOPHILLIC RBCS(BEAKER) (test mqkx=720) 1+ few CBC (HEMOGRAM ONLY)2017-04-03 07:03:00 Test Item Value Reference Range Comments WHITE BLOOD CELL COUNT (BEAKER) (test blio=632) 8.4 K/ L 3.5-10.5 RED BLOOD CELL COUNT (BEAKER) (test alqk=441) 3.21 M/ L 4.63-6.08 HEMOGLOBIN (BEAKER) (test bjap=280) 9.3 GM/DL 13.7-17.5 HEMATOCRIT (BEAKER) (test sfum=111) 29.0 % 40.1-51.0 MEAN CORPUSCULAR VOLUME (BEAKER) (test wxds=926) 90.3 fL 79.0-92.2 MEAN CORPUSCULAR HEMOGLOBIN (BEAKER) (test 29.0 pg 25.7-32.2 efkx=145) MEAN CORPUSCULAR HEMOGLOBIN CONC (BEAKER) (test 32.1 GM/DL 32.3-36.5 ojji=625) RED CELL DISTRIBUTION WIDTH (BEAKER) (test 13.9 % 11.6-14.4 rqqh=263) PLATELET COUNT (BEAKER) (test tidm=906) 360 K/CU MM 150-450 MEAN PLATELET VOLUME (BEAKER) (test tnuz=693) 9.7 fL 9.4-12.4 NUCLEATED RED BLOOD CELLS (BEAKER) (test 0 /100 WBC 0-0 wbtv=048) [id number] 07:00:00 Test Item Value Reference Range Comments PHOSPHORUS (BEAKER) (test ujip=506) 3.7 mg/dL 2.3-4.7 [id number] 07:00:00 Test Item Value Reference Range Comments MAGNESIUM (BEAKER) (test rklv=514) 1.7 mg/dL 1.6-2.6 BASIC METABOLIC [id number] 07:00:00 Test Item Value Reference Range Comments SODIUM (BEAKER) (test 134 meq/L 136-145 rney=666) POTASSIUM (BEAKER) (test 4.0 meq/L 3.5-5.1 ifuy=936) CHLORIDE (BEAKER) (test 98 meq/L 98-107 uivj=371) CO2 (BEAKER) (test 28 meq/L 22-29 xyzu=183) BLOOD UREA NITROGEN 29 mg/dL 7-21 (BEAKER) (test vkcd=038) CREATININE (BEAKER) (test 1.93 mg/dL 0.57-1.25 syfh=948) GLUCOSE RANDOM (BEAKER) 98 mg/dL 70-105 (test osgx=693) CALCIUM (BEAKER) (test 8.8 mg/dL 8.4-10.2 plvb=868) EGFR (BEAKER) (test 36 mL/min/1.73 sq m ESTIMATED GFR IS NOT wfse=7576) ACCURATE CREATININE CLEARANCE IN PREDICTING GLOMERULAR FILTRATION RATE. ESTIMATED GFR IS NOT APPLICABLE FOR DIALYSIS PATIENTS. PROTHROMBIN TIME/[id number] 06:29:00 Test Item Value Reference Range Comments PROTIME (BEAKER) (test lwsv=340) 18.1 seconds 11.7-14.7 INR (BEAKER) (test ivvt=621) 1.5 <=5.9 RECOMMENDED COUMADIN/WARFARIN INR THERAPY RANGESSTANDARD DOSE: 2.0 - 3.0 Includes: PROPHYLAXIS forvenous thrombosis, systemic embolization; TREATMENT for venous thrombosis and/or pulmonary embolus.HIGH RISK: Target INR is 2.5-3.5 for patients with mechanical heart valves.While on warfarin.CALCIUM, [id number] 05:33:00 Test Item Value Reference Range Comments CALCIUM IONIZED (BEAKER) (test fkoc=533) 1.06 mmol/L 1.12-1.27 PH, BLOOD (BEAKER) (test insn=6364) 7.47 CALCIUM, [id number] 06:50:00 Test Item Value Reference Range Comments CALCIUM IONIZED (BEAKER) (test tqna=562) 1.05 mmol/L 1.12-1.27 PH, BLOOD (BEAKER) (test fdwt=9440) 7.39 PROTHROMBIN [id number] 06:32:00 Test Item Value Reference Range Comments PROTIME (BEAKER) (test gcnt=729) 23.9 seconds 11.7-14.7 INR (BEAKER) (test agxh=819) 2.1 <=5.9 RECOMMENDED COUMADIN/WARFARIN INR THERAPY RANGESSTANDARD DOSE: 2.0 - 3.0 Includes: PROPHYLAXIS forvenous thrombosis, systemic embolization; TREATMENT for venous thrombosis and/or pulmonary embolus.HIGH RISK: Target INR is 2.5-3.5 for patients with mechanical heart valves.While on warfarin.[id number] 06:20:00 Test Item Value Reference Range Comments PHOSPHORUS (BEAKER) (test nsol=079) 3.5 mg/dL 2.3-4.7 [id number] 06:20:00 Test Item Value Reference Range Comments MAGNESIUM (BEAKER) (test uvek=006) 1.9 mg/dL 1.6-2.6 BASIC METABOLIC [id number] 06:20:00 Test Item Value Reference Range Comments SODIUM (BEAKER) (test 136 meq/L 136-145 jttg=549) POTASSIUM (BEAKER) (test 3.8 meq/L 3.5-5.1 ljuv=893) CHLORIDE (BEAKER) (test 100 meq/L 98-107 exkh=046) CO2 (BEAKER) (test 28 meq/L 22-29 qsoa=624) BLOOD UREA NITROGEN 27 mg/dL 7-21 (BEAKER) (test debx=342) CREATININE (BEAKER) (test 1.84 mg/dL 0.57-1.25 lrkk=937) GLUCOSE RANDOM (BEAKER) 117 mg/dL 70-105 (test npyk=670) CALCIUM (BEAKER) (test 8.7 mg/dL 8.4-10.2 oluy=284) EGFR (BEAKER) (test 38 mL/min/1.73 sq m ESTIMATED GFR IS NOT aodw=2861) ACCURATE CREATININE CLEARANCE IN PREDICTING GLOMERULAR FILTRATION RATE. ESTIMATED GFR IS NOT APPLICABLE FOR DIALYSIS PATIENTS. CBC (HEMOGRAM ONLY)2017-04-02 06:14:00 Test Item Value Reference Range Comments WHITE BLOOD CELL COUNT (BEAKER) (test mxgf=743) 8.1 K/ L 3.5-10.5 RED BLOOD CELL COUNT (BEAKER) (test pppe=817) 3.36 M/ L 4.63-6.08 HEMOGLOBIN (BEAKER) (test dlkv=189) 9.6 GM/DL 13.7-17.5 HEMATOCRIT (BEAKER) (test xbpk=128) 30.5 % 40.1-51.0 MEAN CORPUSCULAR VOLUME (BEAKER) (test tqhk=008) 90.8 fL 79.0-92.2 MEAN CORPUSCULAR HEMOGLOBIN (BEAKER) (test 28.6 pg 25.7-32.2 piqr=374) MEAN CORPUSCULAR HEMOGLOBIN CONC (BEAKER) (test 31.5 GM/DL 32.3-36.5 vpdh=470) RED CELL DISTRIBUTION WIDTH (BEAKER) (test 13.5 % 11.6-14.4 flpq=793) PLATELET COUNT (BEAKER) (test xlyr=272) 314 K/CU MM 150-450 MEAN PLATELET VOLUME (BEAKER) (test mkbj=276) 9.9 fL 9.4-12.4 NUCLEATED RED BLOOD CELLS (BEAKER) (test 0 /100 WBC 0-0 rase=581) OCCULT BLOOD, [id number] 10:54:00 Test Item Value Reference Range Comments FECAL OCCULT BLOOD (BEAKER) (test ifzr=526) Negative Negative [id number] 07:23:00 Test Item Value Reference Range Comments PHOSPHORUS (BEAKER) (test hqnm=249) 2.7 mg/dL 2.3-4.7 [id number] 07:23:00 Test Item Value Reference Range Comments MAGNESIUM (BEAKER) (test blyy=331) 1.5 mg/dL 1.6-2.6 BASIC METABOLIC [id number] 07:23:00 Test Item Value Reference Range Comments SODIUM (BEAKER) (test 133 meq/L 136-145 nnuv=838) POTASSIUM (BEAKER) (test 3.6 meq/L 3.5-5.1 ccug=197) CHLORIDE (BEAKER) (test 98 meq/L 98-107 awxv=155) CO2 (BEAKER) (test 27 meq/L 22-29 ncwj=282) BLOOD UREA NITROGEN 24 mg/dL 7-21 (BEAKER) (test wceu=517) CREATININE (BEAKER) (test 1.70 mg/dL 0.57-1.25 gtfy=958) GLUCOSE RANDOM (BEAKER) 95 mg/dL 70-105 (test aodv=644) CALCIUM (BEAKER) (test 8.8 mg/dL 8.4-10.2 myih=923) EGFR (BEAKER) (test 42 mL/min/1.73 sq m ESTIMATED GFR IS NOT bani=5932) ACCURATE CREATININE CLEARANCE IN PREDICTING GLOMERULAR FILTRATION RATE. ESTIMATED GFR IS NOT APPLICABLE FOR DIALYSIS PATIENTS. B-TYPE NATRIURETIC FACTOR (BNP)2017-04-01 07:04:00 Test Item Value Reference Range Comments B-TYPE NATRIURETIC PEPTIDE (BEAKER) (test 1358 pg/mL 0-100 tcsu=416) CBC (HEMOGRAM ONLY)2017-04-01 06:41:00 Test Item Value Reference Range Comments WHITE BLOOD CELL COUNT (BEAKER) (test ilhq=312) 9.0 K/ L 3.5-10.5 RED BLOOD CELL COUNT (BEAKER) (test syvm=658) 3.55 M/ L 4.63-6.08 HEMOGLOBIN (BEAKER) (test plxt=156) 10.2 GM/DL 13.7-17.5 HEMATOCRIT (BEAKER) (test uipe=928) 32.3 % 40.1-51.0 MEAN CORPUSCULAR VOLUME (BEAKER) (test xaow=872) 91.0 fL 79.0-92.2 MEAN CORPUSCULAR HEMOGLOBIN (BEAKER) (test 28.7 pg 25.7-32.2 imom=015) MEAN CORPUSCULAR HEMOGLOBIN CONC (BEAKER) (test 31.6 GM/DL 32.3-36.5 bddb=414) RED CELL DISTRIBUTION WIDTH (BEAKER) (test 13.3 % 11.6-14.4 pvno=106) PLATELET COUNT (BEAKER) (test ypdx=085) 330 K/CU MM 150-450 MEAN PLATELET VOLUME (BEAKER) (test tzle=788) 9.6 fL 9.4-12.4 NUCLEATED RED BLOOD CELLS (BEAKER) (test 0 /100 WBC 0-0 whwe=904) PROTHROMBIN [id number] 06:40:00 Test Item Value Reference Range Comments PROTIME (BEAKER) (test pfzv=434) 22.3 seconds 11.7-14.7 INR (BEAKER) (test lolk=422) 2.0 <=5.9 RECOMMENDED COUMADIN/WARFARIN INR THERAPY RANGESSTANDARD DOSE: 2.0 - 3.0 Includes: PROPHYLAXIS forvenous thrombosis, systemic embolization; TREATMENT for venous thrombosis and/or pulmonary embolus.HIGH RISK: Target INR is 2.5-3.5 for patients with mechanical heart valves.While on warfarin.CALCIUM, [id number] 05:45:00 Test Item Value Reference Range Comments CALCIUM IONIZED (BEAKER) (test isqw=148) 1.00 mmol/L 1.12-1.27 PH, BLOOD (BEAKER) (test ewbr=2914) 7.43 CT, DRAINAGE W/ CATH [id number] 16:34:00Reason for exam:->Pelvic fluid collection from diverticulitis, elevated wbc and feverFINAL REPORT CT guided anterior pelvic fluid collection drainage History: Pelvic fluid collection from diverticulitis, elevated wbc and fever Modality: CT, CT fluoroscopy DOSE REDUCTION: The examination was performed according to departmental dose-optimization program which includes automated exposure control, adjustment of the mA and/or kV according to patient size and/ or use of iterative reconstruction technique. Approach: Anterior percutaneous Sedation: Moderate sedation was administered. 1 mg of Versed and 50 mcg of fentanyl IV was used for moderate sedation monitored under my direction. Total intra-servicetime of sedation was 30 minutes. The patient's vital signs were monitored throughout the procedureand recorded in the patient's medical record by the nurse. Technique: Informed written consent was obtained. Discussion of risks, benefits, and alternatives were made with the patient. The patient expressed understanding and agreed to proceed. A universal timeout was performed prior to starting the procedure. All elements maximal sterile barrier technique was utilized for this procedure, includingutilization of sterile scrub solution for skin prep, a large sterile sheet to cover the areas of thepatient that were not prepped, and hand hygiene, mask, head covering, and sterile gown for performing radiologist and scrub technologist. The patient was placed supine in the CT scanner. The anterior pelvic fluid collection was localized using CT and CT fluoroscopy. Using CT guidance, a 5 Tajik Yueh needle was advanced into the anterior pelvic fluid collection. There is return of thick, purulent fluid which was sent for microbiology. A 0.035 Luevano wire was advanced through the Yueh catheter and coiled within the collection. The tract was serially dilated. A 10 Tajik all-purpose drainage catheter was advanced over wire with pigtail formed within the collection. The drain was fixed to the skin with silk suture. A sterile dressing was applied. Post procedure CT images demonstrate pigtail within the collection and no evidence for hematoma or other complication. The patient tolerated the procedure well and left the department in stable condition. IMPRESSION: Successful CT-guided anterior pelvic fluid collection drainage with aspiration of thick, purulent fluid was sent for microbiology. PLAN:Follow-up microbiology. Keep drain to bulb suction and monitor outputs. Given thickness of fluid, recommend flushing drain with 10 cc of saline twice a day. Signed: George Orr MDReport Verified Date/Time: 03/31/2017 16:34:29 Reading Location: [facility] P048 Angio Body Reading Room 04 :34 PMRAD, CHEST, 1 VIEW, NON [id number] 09:24:00Reason for exam:-> edemaShould this be performed at the bedside?->YesFINAL REPORT Portable chest. CLINICAL HISTORY: Edema. COMPARISON STUDY: None available. FINDINGS: The cardiac silhouette is enlarged. The patient is status post sternotomy and valve placement. There are mild increased interstitial markings with mild right costophrenic angle blunting. No pneumothorax is seen. Degenerative changes are noted. IMPRESSION: Mild volume overload. Signed: Gallito Harrell MDReport Verified Date/Time: 03/31/2017 09:24:39 Reading Location: [facility] C013X Ortho Consult Reading Room TSH/FREE T4 IF [id number] 05:04:00 Test Item Value Reference Range Comments THYROID STIMULATING HORMONE (BEAKER) (test 3.55 uIU/mL 0.35-4.94 mokz=942) U/S, RENAL, [id number] 04:00:00Reason for exam:->AKIShould this be performed at the bedside?->NoFINAL REPORT U/S, RENAL, COMPLETE CLINICAL INDICATION: VALENTIN COMPARISON: Correlation to noncontrast abdomen pelvis CT obtained 12 hours prior TECHNIQUE: The kidneys and urinary bladder were evaluated using real time sue scale and color Doppler sonography. FINDINGS:Right kidney: Size: 10.9 x 6.5 x 5.8 cm. Parenchyma: Normal echogenicity. No cysts. No stones. Hydronephrosis: None. Left kidney: Size: 12.1 x 6.3 x 5.6 cm. Parenchyma: Normal echogenicity. No cysts. No stones. Low-attenuation lesion in the interpolar region measures 2.6 x 2.4 x 1.6 cm. Vascular flow is noted on Doppler interrogation. Hydronephrosis: None. Renal Vasculature: Doppler interrogation reveals preserved vascular flow in the main renal arteries and veins bilaterally. Urinary bladder: Unremarkable. Ureteric jets were demonstrated bilaterally. Additional findings: None. IMPRESSION: Interpolar region lesion on the left with internal flow. Findings are concerning for the presence of primary renal carcinoma. Renal mass protocol CT or MRI is recommended for additional characterization. Signed: JR Schulte Robert MDReport Verified Date/Time: 03/31/2017 04:00:06 Reading Location: [facility] C013Y CT Body Reading Room CALCIUM, [id number] 03:45: 00 Test Item Value Reference Range Comments CALCIUM IONIZED (BEAKER) (test bdkc=842) 1.05 mmol/L 1.12-1.27 PH, BLOOD (BEAKER) (test jori=0663) 7.35 B-TYPE NATRIURETIC FACTOR (BNP)2017-03-31 03:25:00 Test Item Value Reference Range Comments B-TYPE NATRIURETIC PEPTIDE (BEAKER) (test 1963 pg/mL 0-100 oxql=509) URIC [id number] 03:19:00 Test Item Value Reference Range Comments URIC ACID (BEAKER) (test qrpt=986) 8.4 mg/dL 2.6-7.2 [id number] 03:19:00 Test Item Value Reference Range Comments MAGNESIUM (BEAKER) (test dfkk=408) 1.6 mg/dL 1.6-2.6 [id number] 03:19:00 Test Item Value Reference Range Comments PHOSPHORUS (BEAKER) (test tciz=468) 3.1 mg/dL 2.3-4.7 BASIC METABOLIC [id number] 03:19:00 Test Item Value Reference Range Comments SODIUM (BEAKER) (test 133 meq/L 136-145 jysl=486) POTASSIUM (BEAKER) (test 3.9 meq/L 3.5-5.1 jitc=038) CHLORIDE (BEAKER) (test 98 meq/L 98-107 btop=124) CO2 (BEAKER) (test 27 meq/L 22-29 svrw=429) BLOOD UREA NITROGEN 21 mg/dL 7-21 (BEAKER) (test vaun=967) CREATININE (BEAKER) (test 1.73 mg/dL 0.57-1.25 scqu=982) GLUCOSE RANDOM (BEAKER) 103 mg/dL 70-105 (test tqil=770) CALCIUM (BEAKER) (test 9.0 mg/dL 8.4-10.2 vurf=923) EGFR (BEAKER) (test 41 mL/min/1.73 sq m ESTIMATED GFR IS NOT spra=8153) ACCURATE CREATININE CLEARANCE IN PREDICTING GLOMERULAR FILTRATION RATE. ESTIMATED GFR IS NOT APPLICABLE FOR DIALYSIS PATIENTS. CREATINE KINASE (CK)2017-03-31 03:19:00 Test Item Value Reference Range Comments CREATINE KINASE TOTAL (BEAKER) (test digz=862) 40 U/L 29-200 PROTHROMBIN [id number] 03:00:00 Test Item Value Reference Range Comments PROTIME (BEAKER) (test mlcf=653) 21.3 seconds 11.7-14.7 INR (BEAKER) (test ilvu=063) 1.9 <=5.9 RECOMMENDED COUMADIN/WARFARIN INR THERAPY RANGESSTANDARD DOSE: 2.0 - 3.0 Includes: PROPHYLAXIS forvenous thrombosis, systemic embolization; TREATMENT for venous thrombosis and/or pulmonary embolus.HIGH RISK: Target INR is 2.5-3.5 for patients with mechanical heart valves.CBC W/PLT COUNT & AUTO [id number] 02:54:00 Test Item Value Reference Range Comments WHITE BLOOD CELL COUNT (BEAKER) (test zhup=830) 8.3 K/ L 3.5-10.5 RED BLOOD CELL COUNT (BEAKER) (test fuye=059) 3.58 M/ L 4.63-6.08 HEMOGLOBIN (BEAKER) (test hlbk=193) 10.5 GM/DL 13.7-17.5 HEMATOCRIT (BEAKER) (test bxwf=170) 32.7 % 40.1-51.0 MEAN CORPUSCULAR VOLUME (BEAKER) (test ibsu=993) 91.3 fL 79.0-92.2 MEAN CORPUSCULAR HEMOGLOBIN (BEAKER) (test 29.3 pg 25.7-32.2 blsr=092) MEAN CORPUSCULAR HEMOGLOBIN CONC (BEAKER) (test 32.1 GM/DL 32.3-36.5 mpiz=885) RED CELL DISTRIBUTION WIDTH (BEAKER) (test 13.3 % 11.6-14.4 ahdl=213) PLATELET COUNT (BEAKER) (test wivb=907) 290 K/CU MM 150-450 MEAN PLATELET VOLUME (BEAKER) (test pugg=305) 9.2 fL 9.4-12.4 NUCLEATED RED BLOOD CELLS (BEAKER) (test 0 /100 WBC 0-0 rsnm=526) NEUTROPHILS RELATIVE PERCENT (BEAKER) (test 80 % aqhh=035) LYMPHOCYTES RELATIVE PERCENT (BEAKER) (test 9 % iuxe=817) MONOCYTES RELATIVE PERCENT (BEAKER) (test 9 % mhtt=656) EOSINOPHILS RELATIVE PERCENT (BEAKER) (test 2 % fcnf=389) BASOPHILS RELATIVE PERCENT (BEAKER) (test 1 % etqp=441) NEUTROPHILS ABSOLUTE COUNT (BEAKER) (test 6.59 K/ L 1.78-5.38 dmbk=958) LYMPHOCYTES ABSOLUTE COUNT (BEAKER) (test 0.77 K/ L 1.32-3.57 wsjq=619) MONOCYTES ABSOLUTE COUNT (BEAKER) (test 0.70 K/ L 0.30-0.82 fdfy=487) EOSINOPHILS ABSOLUTE COUNT (BEAKER) (test 0.14 K/ L 0.04-0.54 yhht=584) BASOPHILS ABSOLUTE COUNT (BEAKER) (test 0.06 K/ L 0.01-0.08 uwbz=185) IMMATURE GRANULOCYTES-RELATIVE PERCENT (BEAKER) 0 % 0-1 (test ngvo=4756) EOSINOPHIL SMEAR, [id number] 21:09:00 Test Item Value Reference Range Comments EOSINOPHIL SMEAR, URINE (BEAKER) (test No EOS seen No EOS seen iqqm=6731) CREATININE, RANDOM [id number] 20:44:00 Test Item Value Reference Range Comments CREATININE URINE (BEAKER) (test yggq=829) 67.9 mg/dL Reference Range: No NormalsPROTEIN, RANDOM [id number] 20:44:00 Test Item Value Reference Range Comments PROTEIN, URINE (BEAKER) (test eqnj=7047) 150 mg/dL 0-14 SODIUM, RANDOM [id number] 20:44:00 Test Item Value Reference Range Comments SODIUM URINE (BEAKER) (test byhb=669) 41 meq/L Reference Range: No NormalsURINALYSIS W/ [id number] 20:22:00 Test Item Value Reference Range Comments COLOR (BEAKER) (test hcsc=155) Yellow CLARITY (BEAKER) (test xzgl=100) Clear SPECIFIC GRAVITY UA (BEAKER) (test sjhg=031) 1.007 1.001-1.035 PH UA (BEAKER) (test jugx=266) 5.5 5.0-8.0 PROTEIN UA (BEAKER) (test sepo=458) 100 mg/dL Negative GLUCOSE UA (BEAKER) (test noku=648) Negative Negative KETONES UA (BEAKER) (test yswh=337) Negative Negative BILIRUBIN UA (BEAKER) (test aibh=215) Negative Negative BLOOD UA (BEAKER) (test qmhk=823) Small Negative NITRITE UA (BEAKER) (test kdho=675) Negative Negative LEUKOCYTE ESTERASE UA (BEAKER) (test rkdy=054) Negative Negative UROBILINOGEN UA (BEAKER) (test heev=386) 0.2 mg/dL 0.2-1.0 RBC UA (BEAKER) (test heqo=540) 1 /HPF WBC UA (BEAKER) (test jksf=689) < /HPF BACTERIA (BEAKER) (test cijq=809) Rare MUCUS (BEAKER) (test bxaq=3272) Rare HYALINE CASTS (BEAKER) (test xvkq=701) 1 /LPF SOURCE(BEAKER) (test avgt=0848) Urine, Voided PROTHROMBIN [id number] 17:48:00 Test Item Value Reference Range Comments PROTIME (BEAKER) (test aouw=666) 22.2 seconds 11.7-14.7 INR (BEAKER) (test cpth=891) 1.9 <=5.9 RECOMMENDED COUMADIN/WARFARIN INR THERAPY RANGESSTANDARD DOSE: 2.0 - 3.0 Includes: PROPHYLAXIS forvenous thrombosis, systemic embolization; TREATMENT for venous thrombosis and/or pulmonary embolus.HIGH RISK: Target INR is 2.5-3.5 for patients with mechanical heart valves.After transfusionPOCT-LACTIC ACID, [id number] 16:35:00 Test Item Value Reference Range Comments POC-LACTIC ACID, VENOUS 1.5 mmol/L 0.9-1.7 TESTED AT [facility] [address]) (test ivfw=8241) [facility] [place] [address] [address], [id number] 13:44:00FINAL REPORT CT scan of the abdomen and pelvis. CLINICAL HISTORY: Abdominal pain, gastroenteritis or colitis. COMPARISON STUDY: Outside CT scan dated March 26, 2017. TECHNIQUE: Contiguous helical slices were acquired through the abdomen and pelvis posted ministration of oral contrast. No intravenous contrast was administered. This exam was performed according to our department dose optimization program which includes automated exposure control, adjustment of the mA and/or kV according to the patient's size and/or use of iterative reconstruction technique. FINDINGS : There is a trace left-sided and wbxt-kx-yazcpljk right-sided pleural effusion with adjacent atelectasis or consolidation. Reticulonodular markings are also seen in the lung bases. The abdomen and pelvis are limited by lack of intravenous contrast. The liver, spleen, pancreas and adrenal glands are unremarkable. Mild bilateral perinephric stranding is seen. The gallbladder is contracted. No biliary dilatationis seen. There are no dilated loops of bowel seen to suggest obstruction. A normal appendix is seen.Diverticulosis is noted with evidence of diverticulitis of the mid sigmoid colon and a large peridiverticular abscess containing air and fluid extending from the anterior sigmoid mesocolon to the anterior abdominal wall measuring 10.6 x 6.0 cm in maximal transverse diameter. The abscess sits atop the bladder and may be communicating with this structure. Bladder wall thickening is noted. Presacral edema is present. Posterior to the sigmoid colon is a 4.9 x 2.7 cm soft tissue opacity, likely a phlegmon. Mesenteric stranding is seen with fascial thickening. The aorta is normal in caliber. Atherosclerosis is seen. Bone windows demonstrate degenerative changes. IMPRESSION:1. Extensive sigmoid diverticulitis with large peridiverticular abscess sitting atop the bladder with bladder wall thickening.2. Trace left-sided and eqfx-zp-jnpvmwic right- sided pleural effusion with adjacent atelectasis or consolidation. Reticulonodular markings are also seen in the lung bases which could be followed up. This is similar to previous.3. Study limited by lack of intravenous contrast.4. Other findings as described above. Signed: Gallito Harrell MDReport Verified Date/Time: 03/30/2017 13:44:14 Reading Location: [address] Consult Reading Room [id number] 12:03:00 Test Item Value Reference Range Comments PARTIAL THROMBOPLASTIN TIME (BEAKER) (test 46.3 seconds 22.5-36.0 pgyn=106) Prior to initiating heparinPLATELET [id number] 11:52:00 Test Item Value Reference Range Comments PLATELET COUNT (BEAKER) (test wltv=619) 310 K/CU MM 150-450 BASIC METABOLIC [id number] 08:15:00 Test Item Value Reference Range Comments SODIUM (BEAKER) (test 132 meq/L 136-145 fyok=438) POTASSIUM (BEAKER) (test 3.8 meq/L 3.5-5.1 wnpe=765) CHLORIDE (BEAKER) (test 98 meq/L 98-107 ensi=254) CO2 (BEAKER) (test 27 meq/L 22-29 gqht=476) BLOOD UREA NITROGEN 23 mg/dL 7-21 (BEAKER) (test lgyq=341) CREATININE (BEAKER) (test 1.65 mg/dL 0.57-1.25 hmyb=931) GLUCOSE RANDOM (BEAKER) 113 mg/dL 70-105 (test ozcr=377) CALCIUM (BEAKER) (test 8.6 mg/dL 8.4-10.2 iipy=263) EGFR (BEAKER) (test 43 mL/min/1.73 sq m ESTIMATED GFR IS NOT vsoe=4761) ACCURATE CREATININE CLEARANCE IN PREDICTING GLOMERULAR FILTRATION RATE. ESTIMATED GFR IS NOT APPLICABLE FOR DIALYSIS PATIENTS. CBC W/PLT COUNT & AUTO [id number] 07:05:00 Test Item Value Reference Range Comments WHITE BLOOD CELL COUNT (BEAKER) (test wfbg=908) 11.0 K/ L 3.5-10.5 RED BLOOD CELL COUNT (BEAKER) (test ihsp=433) 3.52 M/ L 4.63-6.08 HEMOGLOBIN (BEAKER) (test dnop=171) 10.3 GM/DL 13.7-17.5 HEMATOCRIT (BEAKER) (test zzzw=522) 31.8 % 40.1-51.0 MEAN CORPUSCULAR VOLUME (BEAKER) (test vhbz=379) 90.3 fL 79.0-92.2 MEAN CORPUSCULAR HEMOGLOBIN (BEAKER) (test 29.3 pg 25.7-32.2 sejj=743) MEAN CORPUSCULAR HEMOGLOBIN CONC (BEAKER) (test 32.4 GM/DL 32.3-36.5 xmdg=662) RED CELL DISTRIBUTION WIDTH (BEAKER) (test 13.2 % 11.6-14.4 rveg=126) PLATELET COUNT (BEAKER) (test bled=715) 325 K/CU MM 150-450 MEAN PLATELET VOLUME (BEAKER) (test twdh=164) 9.6 fL 9.4-12.4 NUCLEATED RED BLOOD CELLS (BEAKER) (test 0 /100 WBC 0-0 qpfy=086) NEUTROPHILS RELATIVE PERCENT (BEAKER) (test 83 % aizf=044) LYMPHOCYTES RELATIVE PERCENT (BEAKER) (test 7 % upxj=590) MONOCYTES RELATIVE PERCENT (BEAKER) (test 8 % diln=292) EOSINOPHILS RELATIVE PERCENT (BEAKER) (test 2 % fswk=448) BASOPHILS RELATIVE PERCENT (BEAKER) (test 0 % kcsb=732) NEUTROPHILS ABSOLUTE COUNT (BEAKER) (test 9.13 K/ L 1.78-5.38 gukc=339) LYMPHOCYTES ABSOLUTE COUNT (BEAKER) (test 0.73 K/ L 1.32-3.57 wkkx=352) MONOCYTES ABSOLUTE COUNT (BEAKER) (test 0.90 K/ L 0.30-0.82 hksb=392) EOSINOPHILS ABSOLUTE COUNT (BEAKER) (test 0.16 K/ L 0.04-0.54 bzyz=727) BASOPHILS ABSOLUTE COUNT (BEAKER) (test 0.04 K/ L 0.01-0.08 abpp=302) IMMATURE GRANULOCYTES-RELATIVE PERCENT (BEAKER) 0 % 0-1 (test dnaz=6679) PROTHROMBIN [id number] 07:01:00 Test Item Value Reference Range Comments PROTIME (BEAKER) (test ookl=205) 23.9 seconds 11.7-14.7 INR (BEAKER) (test hlrj=634) 2.1 <=5.9 RECOMMENDED COUMADIN/WARFARIN INR THERAPY RANGESSTANDARD DOSE: 2.0 - 3.0 Includes: PROPHYLAXIS forvenous thrombosis, systemic embolization; TREATMENT for venous thrombosis and/or pulmonary embolus.HIGH RISK: Target INR is 2.5-3.5 for patients with mechanical heart valves.While on warfarin.CBC W/PLT COUNT &amp ; AUTO [id number] 07:25:00 Test Item Value Reference Range Comments WHITE BLOOD CELL COUNT (BEAKER) (test azzo=699) 7.7 K/ L 3.5-10.5 RED BLOOD CELL COUNT (BEAKER) (test zoap=235) 3.51 M/ L 4.63-6.08 HEMOGLOBIN (BEAKER) (test igex=950) 10.2 GM/DL 13.7-17.5 HEMATOCRIT (BEAKER) (test qdby=264) 31.9 % 40.1-51.0 MEAN CORPUSCULAR VOLUME (BEAKER) (test okwk=087) 90.9 fL 79.0-92.2 MEAN CORPUSCULAR HEMOGLOBIN (BEAKER) (test 29.1 pg 25.7-32.2 tcjs=058) MEAN CORPUSCULAR HEMOGLOBIN CONC (BEAKER) (test 32.0 GM/DL 32.3-36.5 kytb=334) RED CELL DISTRIBUTION WIDTH (BEAKER) (test 13.2 % 11.6-14.4 zzii=648) PLATELET COUNT (BEAKER) (test upls=135) 296 K/CU MM 150-450 MEAN PLATELET VOLUME (BEAKER) (test mdnp=337) 9.6 fL 9.4-12.4 NUCLEATED RED BLOOD CELLS (BEAKER) (test 0 /100 WBC 0-0 diqo=946) NEUTROPHILS RELATIVE PERCENT (BEAKER) (test 79 % uofv=807) LYMPHOCYTES RELATIVE PERCENT (BEAKER) (test 7 % qqcd=805) MONOCYTES RELATIVE PERCENT (BEAKER) (test 10 % bwab=614) EOSINOPHILS RELATIVE PERCENT (BEAKER) (test 3 % umvd=499) BASOPHILS RELATIVE PERCENT (BEAKER) (test 0 % aefk=547) NEUTROPHILS ABSOLUTE COUNT (BEAKER) (test 6.09 K/ L 1.78-5.38 xenk=748) LYMPHOCYTES ABSOLUTE COUNT (BEAKER) (test 0.57 K/ L 1.32-3.57 byds=442) MONOCYTES ABSOLUTE COUNT (BEAKER) (test 0.79 K/ L 0.30-0.82 upzx=883) EOSINOPHILS ABSOLUTE COUNT (BEAKER) (test 0.19 K/ L 0.04-0.54 uvid=566) BASOPHILS ABSOLUTE COUNT (BEAKER) (test 0.03 K/ L 0.01-0.08 ffwi=460) IMMATURE GRANULOCYTES-RELATIVE PERCENT (BEAKER) 0 % 0-1 (test sykh=3671) BASIC METABOLIC [id number] 06:39:00 Test Item Value Reference Range Comments SODIUM (BEAKER) (test 135 meq/L 136-145 nacl=923) POTASSIUM (BEAKER) (test 3.9 meq/L 3.5-5.1 nuxt=574) CHLORIDE (BEAKER) (test 104 meq/L 98-107 hnqt=310) CO2 (BEAKER) (test 23 meq/L 22-29 dpjq=166) BLOOD UREA NITROGEN 27 mg/dL 7-21 (BEAKER) (test oqpa=008) CREATININE (BEAKER) (test 1.83 mg/dL 0.57-1.25 lyru=768) GLUCOSE RANDOM (BEAKER) 129 mg/dL 70-105 (test ycou=062) CALCIUM (BEAKER) (test 8.4 mg/dL 8.4-10.2 gmoq=414) EGFR (BEAKER) (test 38 mL/min/1.73 sq m ESTIMATED GFR IS NOT zwwm=8351) ACCURATE CREATININE CLEARANCE IN PREDICTING GLOMERULAR FILTRATION RATE. ESTIMATED GFR IS NOT APPLICABLE FOR DIALYSIS PATIENTS. PROTHROMBIN [id number] 05:57:00 Test Item Value Reference Range Comments PROTIME (BEAKER) (test gxwj=582) 28.4 seconds 11.7-14.7 INR (BEAKER) (test vsvq=624) 2.7 <=5.9 RECOMMENDED COUMADIN/WARFARIN INR THERAPY RANGESSTANDARD DOSE: 2.0 - 3.0 Includes: PROPHYLAXIS forvenous thrombosis, systemic embolization; TREATMENT for venous thrombosis and/or pulmonary embolus.HIGH RISK: Target INR is 2.5-3.5 for patients with mechanical heart valves.While on warfarin.SODIUM, RANDOM [id number] 15:25:00 Test Item Value Reference Range Comments SODIUM URINE (BEAKER) (test epor=702) < meq/L Reference Range: No NormalsURINALYSIS W/ REFLEX URINE [id number] 15:22:00 Test Item Value Reference Range Comments COLOR (BEAKER) (test hxhn=370) Yellow CLARITY (BEAKER) (test kyjn=096) Clear SPECIFIC GRAVITY UA (BEAKER) (test gwve=229) 1.021 1.001-1.035 PH UA (BEAKER) (test tzgc=632) 6.0 5.0-8.0 PROTEIN UA (BEAKER) (test qpyk=136) 300 mg/dL Negative GLUCOSE UA (BEAKER) (test bqul=503) Negative Negative KETONES UA (BEAKER) (test qwal=774) Negative Negative BILIRUBIN UA (BEAKER) (test gdet=758) Negative Negative BLOOD UA (BEAKER) (test iqiy=341) Moderate Negative NITRITE UA (BEAKER) (test gbqe=185) Negative Negative LEUKOCYTE ESTERASE UA (BEAKER) (test bziw=063) Trace Negative UROBILINOGEN UA (BEAKER) (test knmp=140) 2.0 mg/dL 0.2-1.0 RBC UA (BEAKER) (test vtth=365) 5 /HPF WBC UA (BEAKER) (test hmpa=095) 3 /HPF MUCUS (BEAKER) (test lvcd=8273) Rare HYALINE CASTS (BEAKER) (test efkq=778) 25 /LPF GRANULAR CASTS (BEAKER) (test emfx=744) 7 /LPF SOURCE(BEAKER) (test tfxd=7156) BASIC METABOLIC [id number] 05:49:00 Test Item Value Reference Range Comments SODIUM (BEAKER) (test 133 meq/L 136-145 gyts=324) POTASSIUM (BEAKER) (test 4.3 meq/L 3.5-5.1 knji=631) CHLORIDE (BEAKER) (test 101 meq/L 98-107 qejz=254) CO2 (BEAKER) (test 24 meq/L 22-29 wodk=930) BLOOD UREA NITROGEN 24 mg/dL 7-21 (BEAKER) (test vvyf=604) CREATININE (BEAKER) (test 1.88 mg/dL 0.57-1.25 uiqu=667) GLUCOSE RANDOM (BEAKER) 92 mg/dL 70-105 (test xsoj=150) CALCIUM (BEAKER) (test 8.2 mg/dL 8.4-10.2 cauq=852) EGFR (BEAKER) (test 37 mL/min/1.73 sq m ESTIMATED GFR IS NOT fsia=4390) ACCURATE CREATININE CLEARANCE IN PREDICTING GLOMERULAR FILTRATION RATE. ESTIMATED GFR IS NOT APPLICABLE FOR DIALYSIS PATIENTS. PROTHROMBIN [id number] 05:16:00 Test Item Value Reference Range Comments PROTIME (BEAKER) (test pqjw=136) 25.5 seconds 11.7-14.7 INR (BEAKER) (test lpkn=416) 2.3 <=5.9 RECOMMENDED COUMADIN/WARFARIN INR THERAPY RANGESSTANDARD DOSE: 2.0 - 3.0 Includes: PROPHYLAXIS forvenous thrombosis, systemic embolization; TREATMENT for venous thrombosis and/or pulmonary embolus.HIGH RISK: Target INR is 2.5-3.5 for patients with mechanical heart valves.While on warfarin.PROTHROMBIN TIME/ [id number] 14:02:00 Test Item Value Reference Range Comments PROTIME (BEAKER) (test venl=907) 22.5 seconds 11.7-14.7 INR (BEAKER) (test iqbs=985) 2.0 <=5.9 RECOMMENDED COUMADIN/WARFARIN INR THERAPY RANGESSTANDARD DOSE: 2.0 - 3.0 Includes: PROPHYLAXIS forvenous thrombosis, systemic embolization; TREATMENT for venous thrombosis and/or pulmonary embolus.HIGH RISK: Target INR is 2.5-3.5 for patients with mechanical heart valves.BASIC METABOLIC [id number] 05:21: 00 Test Item Value Reference Range Comments SODIUM (BEAKER) (test 136 meq/L 136-145 wksc=711) POTASSIUM (BEAKER) (test 4.2 meq/L 3.5-5.1 cyfu=243) CHLORIDE (BEAKER) (test 102 meq/L 98-107 gfor=895) CO2 (BEAKER) (test 25 meq/L 22-29 zkie=504) BLOOD UREA NITROGEN 21 mg/dL 7-21 (BEAKER) (test ajhn=995) CREATININE (BEAKER) (test 1.56 mg/dL 0.57-1.25 jicy=435) GLUCOSE RANDOM (BEAKER) 95 mg/dL 70-105 (test mxol=890) CALCIUM (BEAKER) (test 8.6 mg/dL 8.4-10.2 cuom=339) EGFR (BEAKER) (test 46 mL/min/1.73 sq m ESTIMATED GFR IS NOT ntpb=7513) ACCURATE CREATININE CLEARANCE IN PREDICTING GLOMERULAR FILTRATION RATE. ESTIMATED GFR IS NOT APPLICABLE FOR DIALYSIS PATIENTS. CBC W/PLT COUNT & AUTO [id number] 05:03:00 Test Item Value Reference Range Comments WHITE BLOOD CELL COUNT (BEAKER) (test ppdk=826) 6.2 K/ L 3.5-10.5 RED BLOOD CELL COUNT (BEAKER) (test euzn=160) 3.82 M/ L 4.63-6.08 HEMOGLOBIN (BEAKER) (test atxw=520) 11.1 GM/DL 13.7-17.5 HEMATOCRIT (BEAKER) (test txcf=736) 35.1 % 40.1-51.0 MEAN CORPUSCULAR VOLUME (BEAKER) (test tqvg=978) 91.9 fL 79.0-92.2 MEAN CORPUSCULAR HEMOGLOBIN (BEAKER) (test 29.1 pg 25.7-32.2 fadv=603) MEAN CORPUSCULAR HEMOGLOBIN CONC (BEAKER) (test 31.6 GM/DL 32.3-36.5 llwz=257) RED CELL DISTRIBUTION WIDTH (BEAKER) (test 13.0 % 11.6-14.4 hson=608) PLATELET COUNT (BEAKER) (test ndry=647) 346 K/CU MM 150-450 MEAN PLATELET VOLUME (BEAKER) (test mfkj=574) 9.5 fL 9.4-12.4 NUCLEATED RED BLOOD CELLS (BEAKER) (test 0 /100 WBC 0-0 owjj=534) NEUTROPHILS RELATIVE PERCENT (BEAKER) (test 68 % ewkw=020) LYMPHOCYTES RELATIVE PERCENT (BEAKER) (test 16 % hdax=669) MONOCYTES RELATIVE PERCENT (BEAKER) (test 13 % kjya=765) EOSINOPHILS RELATIVE PERCENT (BEAKER) (test 2 % fxdn=684) BASOPHILS RELATIVE PERCENT (BEAKER) (test 1 % mxeo=491) NEUTROPHILS ABSOLUTE COUNT (BEAKER) (test 4.21 K/ L 1.78-5.38 hymb=928) LYMPHOCYTES ABSOLUTE COUNT (BEAKER) (test 0.99 K/ L 1.32-3.57 nmvb=712) MONOCYTES ABSOLUTE COUNT (BEAKER) (test 0.82 K/ L 0.30-0.82 jfrn=448) EOSINOPHILS ABSOLUTE COUNT (BEAKER) (test 0.11 K/ L 0.04-0.54 hjow=706) BASOPHILS ABSOLUTE COUNT (BEAKER) (test 0.06 K/ L 0.01-0.08 uzqo=845) IMMATURE GRANULOCYTES-RELATIVE PERCENT (BEAKER) 0 % 0-1 (test orzs=6981)
[2018-08-31 10:50] LABS: Absolute Lymphocytes (CBC) 0.5 K/uL (0.7-4.9); Absolute Monocytes 0.7 K/uL (0.1-1.3); Basophils % 0.6 % (0-1.3); Eosinophils % 1.9 % (0-4.4); Hematocrit 43.1 % (39.6-49.0); Lymphocytes % 5.7 % (15.3-44.8); MPV 8.8 fL (7.6-11.3); Monocytes % 7.9 % (3.3-12.3); Protime INR 1.2; RBC Red Blood Cell Count 4.32 M/uL (4.33-5.43)
[2018-08-31] MEDS ORDERED: FUROSEMIDE 20 MG/ 2ML VIAL ONE (10:51)
[2018-08-31] MEDS ORDERED: LEVALBUTEROL 1.25 MG/3 ML NEB ONE (10:51)
[2018-08-31 11:06] LABS: Albumin 2.7 g/dL (3.4-5.0); Bilirubin Direct 0.3 mg/dL (0-0.2); Bilirubin Total 1.3 mg/dL (0.2-1.0); Magnesium 1.8 mg/dL (1.8-2.4); Potassium 4.5 mmol/L (3.5-5.1); Protein, Total 6.7 g/dL (6.4-8.2); Troponin (Emerg Dept Use Only) 0.06 ng/mL (0.0-0.045)
--- NOTE | 2018-08-31 12:00 | RAD REPORT ---
EXAM DESCRIPTION: RAD - Chest Single View - 08/31/2018 10:43 am CLINICAL HISTORY: shortness of breath Chest pain. COMPARISON: Chest Single View dated 05/02/2016; Chest Single View dated 05/01/2016 FINDINGS: Portable technique limits examination quality. Mild bilateral interstitial prominence is present suggesting mild interstitial pneumonia/ bronchitis. The heart is moderately enlarged. No displaced fractures.Sternotomy wires present.
[2018-08-31 12:15] LABS: Urine Blood TRACE (NEG); Urine Glucose NEGATIVE (NEG); Urine Protein 3+ (NEG)
--- NOTE | 2018-08-31 12:34 | ER ---
Nurse's Notes [facility] Name: Nixon Gamboa Age: 58 yrs Sex: Male : 1960 Arrival Date: 08/31/2018 Time: 09:34 Bed 8 Private MD: Diagnosis: Acute combined systolic (congestive) and diastolic (congestive) heart failure;Pneumonia Presentation: 08/31 10:00 Presenting complaint: Patient states: SOB, cough, congestion X 3-4 days, productive iw cough with clear thick sputum, denies fever but was sweaty last night. Transition of care: patient was not received from another setting of care. Onset of symptoms was August 28, 2018. Risk Assessment: Do you want to hurt yourself or someone else? Patient reports no desire to harm self or others. Initial Sepsis Screen: Does the patient meet any 2 criteria? RR > 20 per min. No. Patient's initial sepsis screen is negative. Does the patient have a suspected source of infection? Yes: Productive cough/pneumonia. 10:00 Method Of Arrival: Wheelchair iw 10:00 Acuity: JUAQUIN 2 iw 10:02 Care prior to arrival: None. iw Historical: - Allergies: 10:03 No Known Allergies; iw - Home Meds: 10:03 warfarin 5 mg Oral tab 1 tab once daily [Active]; carvedilol 12.5 mg oral tab 1 tab 2 iw times per day [Active]; Entresto 49-51 mg oral tab 1 tab 2 times per day [Active]; torsemide oral oral once daily [Active]; Chantix oral oral once daily [Active]; - PMHx: 10:03 artificial valve in heart; CHF; Hepatitis C; Sleep Apnea; iw - PSHx: 10:03 valve replacement; iw - Immunization history:: Adult Immunizations up to date. - Social history:: Smoking status: Patient uses tobacco products, smokes one-half pack cigarettes per day. - Ebola Screening: : Patient negative for fever greater than or equal to 101.5 degrees Fahrenheit, and additional compatible Ebola Virus Disease symptoms Patient denies exposure to infectious person Patient denies travel to an Ebola-affected area in the 21 days before illness onset No symptoms or risks identified at this time. Screenin:09 Abuse screen: Denies threats or abuse. Denies injuries from another. Nutritional ph screening: No deficits noted. Tuberculosis screening: No symptoms or risk factors identified. Fall Risk None identified. Assessment: 10:40 General: Appears in no apparent distress. uncomfortable, well groomed, Behavior is ph calm, cooperative, appropriate for age, Reports night sweats Denies fever, chills. Pain: Denies pain. Neuro: Level of Consciousness is awake, alert, obeys commands, Oriented to person, place, time, situation. Cardiovascular: Reports diaphoresis, shortness of breath, Denies chest pain, nausea, palpitations, vomiting, Capillary refill < 3 seconds in bilateral fingers Patient's skin is warm and dry. Edema is 1+ to left ankle, left foot, right ankle and right foot Rhythm is sinus rhythm. Respiratory: Reports shortness of breath at rest cough that is productive, Airway is patent Respiratory effort is labored, Respiratory pattern is tachypnea. GI: Patient currently denies abdominal pain, diarrhea, nausea, vomiting. EENT: Reports nasal congestion nasal discharge that is watery. Derm: Skin is intact, Skin is pink, warm \T\ dry. Musculoskeletal: Circulation, motion, and sensation intact. Range of motion: intact in all extremities. 11:32 Reassessment: Patient appears in no apparent distress at this time. Patient and/or hb family updated on plan of care and expected duration. Pain level reassessed. Reports mild SOB, improved from previous assessment. R22, SpO2 96% on RA. 12:30 Reassessment: Patient appears in no apparent distress at this time. No changes from hb previously documented assessment. Patient and/or family updated on plan of care and expected duration. Pain level reassessed. 13:30 Reassessment: Patient appears in no apparent distress at this time. Patient and/or hb family updated on plan of care and expected duration. Pain level reassessed. Admission ordered, awaiting room assignment at this time Patient denies pain at this time. 14:30 Reassessment: Patient appears in no apparent distress at this time. No changes from hb previously documented assessment. Patient and/or family updated on plan of care and expected duration. Pain level reassessed. Vital Signs: 09:58 BP 152 / 102; Pulse 88; Resp 31; Temp 97.5(O); Pulse Ox 95% on R/A; Weight 99.79 kg; iw Height 5 ft. 7 in. (170.18 cm); Pain 0/10; 10:30 BP 139 / 96; Pulse 83; Resp 23; Pulse Ox 96% ; sv 11:00 BP 144 / 94; Pulse 76; Resp 25; Pulse Ox 99% ; sv 11:30 BP 147 / 89; Pulse 83; Resp 21; Pulse Ox 96% ; sv 12:30 BP 146 / 90; Pulse 80; Resp 23; Pulse Ox 96% on NC; hb 13:30 BP 147 / 93; Pulse 84; Resp 24; Pulse Ox 96% on 2 lpm NC; hb 14:30 BP 131 / 98; Pulse 88; Resp 21; Pulse Ox 97% on R/A; Pain 0/10; hb 09:58 Body Mass Index 34.46 (99.79 kg, 170.18 cm) iw ED Course: 09:34 Patient arrived in ED. tw3 10:01 Triage completed. iw 10:03 Arm band placed on. iw 10:06 Vin Villa PA is PHCP. jmm 10:06 Kamari Nolasco MD is Attending Physician. jmm 10:09 Coco Haynes, RN is Primary Nurse. ph 10:11 Patient has correct armband on for positive identification. Placed in gown. Bed in low ph position. Call light in reach. Side rails up X 1. monitoring and evaluation advisor on. Pulse ox on. NIBP on. 10:30 Initial lab(s) drawn, by me, sent to lab. First set of blood cultures drawn Flu and/or ph RSV swab sent to lab. Inserted saline lock: 22 gauge in right antecubital area, using aseptic technique. Blood collected. 10:40 X-ray completed. Portable x-ray completed in exam room. Patient tolerated procedure kw well. 10:43 XRAY Chest (1 view) In Process Unspecified. EDMS 11:13 EKG done, by ED staff, reviewed by Kamari Nolasco MD. ms 11:22 Primary Nurse role handed off by Coco Haynes RN hb 11:22 Irish Stack RN is Primary Nurse. hb 12:32 Flores Benson MD is Hospitalizing Provider. jmm 14:44 No provider procedures requiring assistance completed. Patient admitted, IV remains in hb place. Administered Medications: 10:43 Drug: Lasix 20 mg Route: IVP; Site: right antecubital; hb 11:22 Follow up: Response: No adverse reaction hb 10:44 Drug: Xopenex (3) 1.25 mg Route: Inhalation; hb 11:33 Follow up: Response: No adverse reaction hb Outcome: 12:34 Decision to Hospitalize by Provider. m 14:44 Admitted to Tele accompanied by tech, via wheelchair, room 408, with chart, Report hb called to Celia RN 14:44 Condition: stable 14:44 Instructed on the need for admit, Demonstrated understanding of instructions. 14:44 Patient left the ED. hb Signatures: Dispatcher [employer] EDMS Franchesca Schulte, RN RN sv Vin Villa PA PA jmm Williams, Irene, RN RN iw Solis, Maria ms Whitley, Kimberlee kw Hall, Patricia RN RN Irish Stack RN RN hb Jacobo, Tiffani tw3 Corrections: (The following items were deleted from the chart) 10:01 09:58 BP 152 / 102; Pulse 92bpm; Resp 31bpm; Pulse Ox 95% RA; Temp 97.5F Oral; sv iw 10:02 10:00 Initial Sepsis Screen: Does the patient meet any 2 criteria? RR > 20 per min. iw iw 11:57 11:32 Reassessment: Patient appears in no apparent distress at this time. Patient hb and/or family updated on plan of care and expected duration. Pain level reassessed. Reports mile SOB, improved from previous assessment. R22, SpO2 96% on RA. hb
--- NOTE | 2018-08-31 12:34 | EDPHYS ---
Physician Documentation [facility] Name: Nixon Gamboa Age: 58 yrs Sex: Male : 1960 Arrival Date: 08/31/2018 Time: 09:34 Bed 8 Private MD: ED Physician Kamari Nolasco HPI: 08/31 10:19 This 58 yrs old Male presents to ER via Wheelchair with complaints of jmm Shortness Of Breath. 10:19 The patient has shortness of breath with light activity. Onset: The symptoms/episode jmm began/occurred gradually, 3 day(s) ago. Duration: The symptoms are continuous. The patient's shortness of breath is aggravated by nothing, is alleviated by nothing. The patient has experienced similar episodes in the past. This is a 58 year old male with a history of CHF, Hep C, that presents to the ED with complaints of shortness of breath beginning this past . Patient states he has been off his furosemide for approximately 1 month. Patient denies chest pain. Denies fever but states having night sweats over the past 2 night. . Historical: - Allergies: 10:03 No Known Allergies; iw - Home Meds: 10:03 warfarin 5 mg Oral tab 1 tab once daily [Active]; carvedilol 12.5 mg oral tab 1 tab 2 iw times per day [Active]; Entresto 49-51 mg oral tab 1 tab 2 times per day [Active]; torsemide oral oral once daily [Active]; Chantix oral oral once daily [Active]; - PMHx: 10:03 artificial valve in heart; CHF; Hepatitis C; Sleep Apnea; iw - PSHx: 10:03 valve replacement; iw - Immunization history:: Adult Immunizations up to date. - Social history:: Smoking status: Patient uses tobacco products, smokes one-half pack cigarettes per day. - Ebola Screening: : Patient negative for fever greater than or equal to 101.5 degrees Fahrenheit, and additional compatible Ebola Virus Disease symptoms Patient denies exposure to infectious person Patient denies travel to an Ebola-affected area in the 21 days before illness onset No symptoms or risks identified at this time. ROS: 10:19 Constitutional: Negative for fever, chills, and weight loss, Cardiovascular: Negative jmm for chest pain, palpitations, and edema. 10:19 Abdomen/GI: Negative for abdominal pain, nausea, vomiting, diarrhea, and constipation, Back: Negative for injury and pain, Skin: Negative for injury, rash, and discoloration, Neuro: Negative for headache, weakness, numbness, tingling, and seizure. 10:19 Respiratory: Positive for shortness of breath. 10:19 All other systems are negative. Exam: 10:19 Constitutional: This is a well developed, well nourished patient who is awake, alert, jmm and in no acute distress. Head/Face: atraumatic. Eyes: EOMI, no conjunctival erythema appreciated ENT: Moist Mucus Membranes Neck: Trachea midline, Supple Chest/axilla: Normal chest wall appearance and motion. Cardiovascular: Regular rate and rhythm. No edema appreciated Respiratory: Normal respirations, no respiratory distress appreciated 10:19 Back: Normal ROM Skin: General appearance color normal MS/ Extremity: Moves all extremities, no obvious deformities appreciated, no edema noted to the lower extremities Neuro: Awake and alert, normal gait Psych: Behavior is normal, Mood is normal, Patient is cooperative and pleasant 10:19 Respiratory: the patient does not display signs of respiratory distress, Respirations: normal, Breath sounds: are clear throughout. Vital Signs: 09:58 BP 152 / 102; Pulse 88; Resp 31; Temp 97.5(O); Pulse Ox 95% on R/A; Weight 99.79 kg; iw Height 5 ft. 7 in. (170.18 cm); Pain 0/10; 10:30 BP 139 / 96; Pulse 83; Resp 23; Pulse Ox 96% ; sv 11:00 BP 144 / 94; Pulse 76; Resp 25; Pulse Ox 99% ; sv 11:30 BP 147 / 89; Pulse 83; Resp 21; Pulse Ox 96% ; sv 12:30 BP 146 / 90; Pulse 80; Resp 23; Pulse Ox 96% on NC; hb 13:30 BP 147 / 93; Pulse 84; Resp 24; Pulse Ox 96% on 2 lpm NC; hb 14:30 BP 131 / 98; Pulse 88; Resp 21; Pulse Ox 97% on R/A; Pain 0/10; hb 09:58 Body Mass Index 34.46 (99.79 kg, 170.18 cm) iw MDM: 10:15 Patient medically screened. [facility] 12:31 Data reviewed: vital signs, nurses notes, lab test result(s), EKG, radiologic studies, [facility] plain films. ED course: I discussed the patient with Dr. Benson whom accepted admission. . 08/31 10:17 Order name: Basic Metabolic Panel [facility] 08/31 10:17 Order name: CBC with Diff [facility] 08/31 10:17 Order name: LFT's [facility] 08/31 10:17 Order name: Magnesium [facility] 08/31 10:17 Order name: NT PRO-BNP [facility] 08/31 10:17 Order name: PT-INR; Complete Time: 11:11 [facility] 08/31 10:17 Order name: Troponin (emerg Dept Use Only); Complete Time: 11:11 [facility] 08/31 10:17 Order name: Flu; Complete Time: 11:11 [facility] 08/31 10:17 Order name: Blood Culture Adult (2) [facility] 08/31 10:17 Order name: Lactate; Complete Time: 11:11 [facility] 08/31 10:18 Order name: Basic Metabolic Panel; Complete Time: 11:11 [facility] 08/31 10:18 Order name: CBC with Automated Diff; Complete Time: 11:11 [facility] 08/31 10:18 Order name: Liver (Hepatic) Function; Complete Time: 11:11 [facility] 08/31 10:18 Order name: Magnesium; Complete Time: 11:11 [facility] 08/31 10:17 Order name: XRAY Chest (1 view); Complete Time: 12:18 [facility] 08/31 10:17 Order name: EKG; Complete Time: 10:18 [facility] 08/31 10:17 Order name: Cardiac monitoring; Complete Time: 10:34 [facility] 08/31 10:17 Order name: EKG - Nurse/Tech; Complete Time: 10:53 [facility] 08/31 10:17 Order name: IV Saline Lock; Complete Time: 10: [facility] 08/31 10:17 Order name: Labs collected and sent; Complete Time: 10: [facility] 08/31 10:17 Order name: O2 Per Protocol; Complete Time: : [facility] 08/31 10:17 Order name: O2 Sat Monitoring; Complete Time: 10:34 [facility] 08/31 10:18 Order name: NT PRO-BNP; Complete Time: 11:11 [facility] 08/31 11:30 Order name: Urine Dipstick-Ancillary (obtain specimen); Complete Time: 11:30 [facility] 08/31 11:46 Order name: Urine Dipstick--Ancillary (enter results); Complete Time: 12:18 bd Administered Medications: 10:43 Drug: Lasix 20 mg Route: IVP; Site: right antecubital; hb 11:22 Follow up: Response: No adverse reaction hb 10:44 Drug: Xopenex (3) 1.25 mg Route: Inhalation; hb 11:33 Follow up: Response: No adverse reaction hb Disposition: 08/31/18 12:34 Hospitalization ordered by Flores Benson for Observation. Preliminary diagnosis are Acute combined systolic (congestive) and diastolic (congestive) heart failure, Pneumonia. - Bed requested for Telemetry/MedSurg (observation). - Status is Observation. hb - Condition is Stable. - Problem is an acute exacerbation. - Symptoms are unchanged. UTI on Admission? No Addendum: 09/04/2018 20:47 Co-signature as Attending Physician, Kamari Nolasco MD. g s Signatures: Dispatcher [employer] EDMS Ni Cano Joel, PA PA [facility] Layla Olivas RN RN Irish Stack RN RN Kamari Nolasco MD MD Corrections: (The following items were deleted from the chart) 08/31 13:55 12:34 Hospitalization Ordered by Flores Benson MD for Observation. Preliminary bd diagnosis is Acute combined systolic (congestive) and diastolic (congestive) heart failure; Pneumonia. Bed requested for Telemetry/MedSurg (observation). Status is Observation. Condition is Stable. Problem is an acute exacerbation. Symptoms are unchanged. UTI on Admission? No. [facility] 14:44 13:55 08/31/2018 12:34 Hospitalization Ordered by Flores Benson MD for Observation. hb Preliminary diagnosis is Acute combined systolic (congestive) and diastolic (congestive) heart failure; Pneumonia. Bed requested for Telemetry/MedSurg (observation). Status is Observation. Condition is Stable. Problem is an acute exacerbation. Symptoms are unchanged. UTI on Admission? No. bd
[2018-08-31] MEDS ORDERED: ALBUTEROL 2.5 MG/3 ML NEB SOL NEB PRN (14:24)
[2018-08-31] MEDS ORDERED: ONDANSETRON 4 MG/2 ML VIAL IV PRN (14:24)
[2018-08-31] MEDS ORDERED: ACETAMINOPHEN 500 MG TAB PO PRN (14:24)
[2018-08-31] MEDS ORDERED: IPRATROPIUM BROM 0.5MG/2.5ML NEB PRN (14:24)
[2018-08-31] MEDS: AZITHROMYCIN IV 500 MG in NA CHLORIDE 0.9% 250 ML IVPB SCH (16:25)
[2018-08-31] MEDS: ENOXAPARIN 100 MG/ML SYR SQ SCH (16:25)
[2018-08-31] MEDS: CEFTRIAXONE/SWI 1gm 1 GM/10 ML SYR IVP SCH (16:25)
[2018-08-31] MEDS: FUROSEMIDE 40 MG/4 ML VIAL IV SCH (16:26)
[2018-08-31] MEDS: CARVEDILOL 12.5 MG TAB PO SCH (16:26)
[2018-08-31] MEDS: SACUBITRIL/VALSARTAN 49/51 MG TAB PO SCH (20:57)
--- NOTE | 2018-08-31 22:27 | HP ---
Date of Admission: 08/31/2018 Primary Care Physician: Dr. Goodson. Chief Complaint: Shortness of breath, generalized weakness. Consultants: Dr. So with Cardiology. History Of Present Illness: The patient is a 58-year-old male with past medical history of congestiv e heart failure, hepatitis C, aortic valve replacement, mechanical hypertension, chronic kidney disea se, who comes in with shortness of breath. The patient states that 4 days ago, the patient had binge drink some alcohol and thought he over did it. The patient continues to smoke as well and had been feeling bad since then. The patient reports some congestion, night sweats, chills. No fevers report ed. The patient also reports shortness of breath with cough and clear sputum production. The patien t also reports recent worsening of his lower extremity edema along with weight gain. The patient's s ymptoms are constant, moderate, progressively worsening. He denied any ill contacts. Therefore, the patient came into the ER for further evaluation. In the ER, his workup revealed temperature 97.5, O 2 saturations 95% on room air, blood pressure elevated slightly. The patient was tachypneic, breathi ng 31 times a minute. The patient's BNP was 12,000 and troponin of 0.06. Lactate was normal. Creat inine was 1.42, which is around his baseline. The patient was given Lasix and then referred for admi ssion. Flu screen was negative. When seen in the ER, he was awake, alert, oriented x3, some mild di stress. Past Medical History: Congestive heart failure, hypertension, aortic valve replacement, mechanical C OPD, nicotine dependence, hepatitis C, chronic kidney disease stage 3. Past Surgical History: The patient had porcine valve and now mechanical aortic valve. Allergies: NO KNOWN DRUG ALLERGIES. Medications: List reviewed. Social History: The patient smokes approximately half a pack per day, has been smoking for over 40 y ears. Does binge on beer. Lives alone by himself. 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 The patient is single, has 1 child. Family History: The patient denies any early or premature coronary artery disease in the family. Review of Systems: An 11-point system reviewed, negative except as per HPI. Physical Examination: Vital Signs: Blood pressure 159/102, pulse 88, respirations 31, temperature 97.5, O2 95% on room air . General: Awake, alert, oriented x3, somewhat ill-appearing male, obese. HEENT: Normocephalic, atraumatic. PERRLA. EOMI. Moist mucous membranes. Oropharynx is clear. Po or dentition. Conjunctivae anicteric. Neck: Supple. Trachea midline. CV: S1, S2. Regular rate and rhythm. Mechanical murmur is present. Peripheral pulses present. Respiratory: Diminished breath sounds. Some crackles present. The patient is tachypneic. No use o f accessory muscles. Gastrointestinal: Abdomen is soft, nontender, nondistended. Positive bowel sounds. No guarding or rigidity. Extremities: No clubbing or cyanosis. The patient has 2+ edema in bilateral lower extremities. No calf tenderness. Neurologic: Cranial nerves II through XII intact grossly. No focal neurological deficit. Speech is normal. Strength is 5/5 in bilateral upper and lower extremities. Skin: No rashes. Normal skin turgor. Psychiatric: Mood is okay. Affect is full. Insight and judgment are fair. Laboratory Data: Sodium 136, potassium 4.5, chloride 104, CO2 26, BUN 17, creatinine 1.42, glucose 9 7, lactate 0.9, calcium 8.4, magnesium 1.8, AST 68, ALT 35. Troponin 0.06. BNP 12,823. Albumin 2.7 . INR 1.2. WBC 8.4, H and H 14.5/43.1, platelets 169, neutrophils 83%. Lactate 0.9. UA with trace blood, negative nitrite, negative leukocyte esterase. Influenza screen is negative. Chest x-ray wi th mild bilateral interstitial prominence present suggesting mild interstitial pneumonia, bronchitis, heart is moderately enlarged. Assessment: A 58-year-old male with: 1.Acute congestive heart failure exacerbation, systolic dysfunction. We will continue on congestive heart failure guidelines. The patient takes Coreg and is on Entresto. We will consult Cardiology. Monitor I's and O's strictly, daily weights, 1500 mL fluid restriction. 2.Pneumonia. We will start on IV antibiotics. Obtain blood cultures and sputum cultures. 3.Status post mechanical aortic valve with subtherapeutic INR at 1.25. The patient is at risk for t hrombus formation; therefore, we will start on Lovenox renally dosed 1 mg/kg q.24 hours and resume hi s Coumadin. The patient states that he is not taking his Coumadin in a couple of days and goal is IN R of 2.5-3.5. 4.Chronic kidney disease stage 3. We will monitor creatinine. We will consult Nephrology. Avoid N SAIDs. 5.Hepatitis C, chronic without coma. 6.Essential hypertension. Resume home medications as appropriate. 7.Chronic obstructive pulmonary disease, currently with acute bronchitis. We will continue with neb ulizer treatments and supplemental O2 as needed. 8.Nicotine dependence with cigarette smoking. Counseled. 9.Alcohol abuse. Counseled. 10.Obesity. 11.Elevated liver enzymes, likely secondary to alcohol abuse and hepatitis C. 12.Elevated troponin level, likely due to demand mismatch from congestive heart failure and pneumoni a. We will obtain echocardiogram to rule out lung wall motion abnormality. 13.Deep venous thrombosis prophylaxis, Lovenox. Plan: Admit the patient to Med-Surg, place as inpatient. Length of stay greater than 2 midnights. VIC Voice ID: [id number]
[2018-09-01 06:04] LABS: Absolute Lymphocytes (CBC) 0.8 K/uL (0.7-4.9); Absolute Monocytes 0.6 K/uL (0.1-1.3); Absolute Neutrophil 4.3 K/uL (1.8-8.0); Basophils % 0.8 % (0-1.3); Eosinophils % 3.3 % (0-4.4); Hematocrit 43.4 % (39.6-49.0); Lymphocytes % 12.7 % (15.3-44.8); MPV 9.1 fL (7.6-11.3); Monocytes % 9.9 % (3.3-12.3); RBC Red Blood Cell Count 4.34 M/uL (4.33-5.43)
[2018-09-01 06:09] LABS: Protime INR 1.14
[2018-09-01 06:17] LABS: Albumin 2.5 g/dL (3.4-5.0); Potassium 3.9 mmol/L (3.5-5.1); Protein, Total 6.7 g/dL (6.4-8.2)
[2018-09-01] MEDS: CARVEDILOL 12.5 MG TAB PO SCH ×2 (06:42→17:24)
[2018-09-01] MEDS: CEFTRIAXONE/SWI 1gm 1 GM/10 ML SYR IVP SCH (09:33)
[2018-09-01] MEDS: ENOXAPARIN 100 MG/ML SYR SQ SCH (09:33)
[2018-09-01] MEDS: AZITHROMYCIN IV 500 MG in NA CHLORIDE 0.9% 250 ML IVPB SCH (09:33)
[2018-09-01] MEDS: SACUBITRIL/VALSARTAN 49/51 MG TAB PO SCH ×2 (09:33→21:24)
[2018-09-01] MEDS: FUROSEMIDE 40 MG/4 ML VIAL IV SCH ×2 (09:33→17:24)
--- NOTE | 2018-09-01 10:26 | ECHO ---
HEIGHT: 5 ft 7 in WEIGHT: 216 lb 0 oz DATE OF STUDY: 09/01/[address]: Patti Gurrola MD 2-DIMENSIONAL: YES M.MODE: YES DOPPLER: YES COLOR FLOW: YES TDS: NO PORTABLE: NO DEFINITY: NO BUBBLE STUDY: NO DIAGNOSIS: CONGESTIVE HEART FAILURE CARDIAC HISTORY: CATHERIZATION: NO SURGERY: YES PROSTHETIC VALVE: YES PACEMAKER: NO MEASUREMENTS (cm) DIASTOLIC (NORMALS) SYSTOLIC (NORMALS) IVSd 1.1 (0.6-1.2) LA Diam 4.7 (1.9-4.0) LVEF 47% LVIDd 5.3 (3.5-5.7) LVIDs 4.0 (2.0-3.5) %FS 24% LVPWd 1.1 (0.6-1.2) Ao Diam 2.7 (2.0-3.7) 2 DIMENSIONAL ASSESSMENT: RIGHT ATRIUM: DILATED LEFT ATRIUM: DILATED RIGHT VENTRICLE: NORMAL LEFT VENTRICLE: NORMAL TRICUSPID VALVE: NORMAL MITRAL VALVE: NORMAL PULMONIC VALVE: NORMAL AORTIC VALVE: MECHANICAL PROSTHETIC PERICARDIAL EFFUSION: NONE AORTIC ROOT: NORMAL LEFT VENTRICULAR WALL MOTION: GLOBAL HYPOKINESIS. DOPPLER/COLOR FLOW: NO AORTIC STENOSIS OR AORTIC REGURGITATION. COMMENTS: MILDLY DEPRESSED LEFT VENTRICULAR EJECTION FRACTION. DILATED LEFT ATRIUM AND RIGHT ATRIUM. NORMALLY FUNCTIONING PROSTHETIC AORTIC VALVE. TECHNOLOGIST: Saloni NAVARRETE
--- NOTE | 2018-09-01 12:54 | EKG ---
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
--- NOTE | 2018-09-01 13:58 | CON ---
History Of Present Illness: Mr. Gamboa came into the hospital with dyspnea. He had been on a drin zbigniew binge. He is a heavy tobacco user and he has stopped taking some of his usual medications, and came to the hospital because of dyspnea. He is now better with breathing treatments. He has been on a BiPAP machine. Mr. Gamboa has a history of aortic valve surgery that was done in 1995. He has been on Coumadin since then, but he has not been on Coumadin for about 5 days and his INR is very muc h diminished from what it should be. He has had a cardiac cath within the last year that showed his coronary arteries were still normal. He has always had normal ejection fraction. He is followed by a nuclear auxiliary operator at [facility], those are the people who likewise do all of the followups for his INR. His INR this morning is 1.14. Physical Examination: General: He is 5 feet 7 inches, 216 pounds; obese, alert, oriented, pleasant, not in distress. Lungs: Clear. Cardiac: Normal. Abdomen: Soft. Extremities: Normal. Cardiac: Reveals typical prosthetic heart tones. No significant murmur. Impression: I think the patient probably has bronchitis, maybe a slight amount of pulmonary edema. With a little diuresis, pulmonary toilet, he should be well enough to be discharged home soon. Plan: He will probably have to be on a Lovenox bridge at home since his INR is still very, very subt herapeutic. The patient is very poorly compliant with the medication regimen. CHAKA Voice ID: [id number] Report ID: [id number]
[2018-09-01] MEDS: WARFARIN SODIUM 5 MG TAB PO SCH (17:24)
--- NOTE | 2018-09-01 18:40 | PN ---
Date of Progress Note: 09/01/2018 Subjective: The patient is seen and examined. Chart was reviewed and case was discussed with RN and Dr. So. The patient states that he feels better. Shortness of breath has improved. Still havi ng some minimal cough. Medications: List reviewed. Objective: Vital Signs: Temperature 97.4, heart rate 65, blood pressure 119/76, respirations 18, O2 saturation 94% on room air. General: Awake, alert, oriented x3, not in any acute distress. Obese male. CV: S1, S2. Peripheral pulses present. Regular rate and rhythm. Respiratory: Diminished breath sounds. No wheezing or stridor. Gastrointestinal: Abdomen is soft, nontender, nondistended. Positive bowel sounds. Extremities: No clubbing or cyanosis. The patient has pedal edema. Neurologic: Nonfocal. Laboratory Data: INR 1.14. Sodium 140, potassium 3.9, chloride 105, CO2 30, BUN 19, creatinine 1.47 , glucose 89, calcium 8.5. WBC 5.9, H and H 15.1, 43.4, platelets 170, neutrophils 73%. Blood cultu res, no growth to date. Assessment And Plan: A 58-year-old male with, 1.Acute congestive heart failure exacerbation, systolic dysfunction. Continue congestive heart fail ure guidelines. The patient is on Coreg, Entresto. I appreciate Dr. So' input. Monitor I's and O's. Daily weights. The patient has lost 2 pounds since yesterday. Continue fluid restriction. 2.Pneumonia. Continue IV antibiotics. Cultures negative to date, improving. 3.Status post mechanical aortic valve with subtherapeutic INR. Continue Coumadin and Lovenox 1 mg/k g q.24 hours. The patient is high risk for thrombus formation, which may lead to sudden . 4.Chronic kidney disease stage 3. Monitor creatinine. Avoid NSAIDs. Currently at baseline. 5.Hepatitis C, chronic without coma, stable. 6.Essential hypertension, stable, on home medications. 7.Chronic obstructive pulmonary disease with acute bronchitis. Continue nebulizer treatments and alexandre pplemental O2. 8.Nicotine dependence with cigarette smoking continuous. The patient has been counseled. 9.Alcohol abuse, counseled. 10.Obesity, BMI 33.8, counseled. 11.Elevated liver enzymes, likely secondary to alcohol abuse, improving. 12.Elevated troponin level, likely due to demand mismatch from congestive heart failure and pneumoni a. Echocardiogram is pending. We will follow up with cardiology recommendations. 13.Deep venous thrombosis prophylaxis. The patient is on Lovenox. Plan: Continue Lovenox therapeutic dose until INR is 2.5. Adjust Coumadin dose as needed. /KEITH Voice ID: [id number] Report ID: [id number]
[2018-09-02 04:20] LABS: Absolute Lymphocytes (CBC) 0.9 K/uL (0.7-4.9); Absolute Monocytes 0.7 K/uL (0.1-1.3); Absolute Neutrophil 3.1 K/uL (1.8-8.0); Basophils % 1.1 % (0-1.3); Eosinophils % 5.1 % (0-4.4); Hematocrit 42.1 % (39.6-49.0); Lymphocytes % 18.1 % (15.3-44.8); MPV 9.2 fL (7.6-11.3); Monocytes % 14.3 % (3.3-12.3); RBC Red Blood Cell Count 4.23 M/uL (4.33-5.43)
[2018-09-02 04:55] LABS: Protime INR 1.04
[2018-09-02 05:09] LABS: Albumin 2.5 g/dL (3.4-5.0); Bilirubin Total 0.8 mg/dL (0.2-1.0); Magnesium 1.7 mg/dL (1.8-2.4); Potassium 4.7 mmol/L (3.5-5.1); Protein, Total 6.4 g/dL (6.4-8.2)
[2018-09-02] MEDS: CARVEDILOL 12.5 MG TAB PO SCH (05:30)
[2018-09-02] MEDS: CEFTRIAXONE/SWI 1gm 1 GM/10 ML SYR IVP SCH (09:03)
[2018-09-02] MEDS: FUROSEMIDE 40 MG/4 ML VIAL IV SCH ×2 (09:03→16:05)
[2018-09-02] MEDS: ENOXAPARIN 100 MG/ML SYR SQ SCH (09:03)
[2018-09-02] MEDS: SACUBITRIL/VALSARTAN 49/51 MG TAB PO SCH (09:04)
[2018-09-02] MEDS: AZITHROMYCIN IV 500 MG in NA CHLORIDE 0.9% 250 ML IVPB SCH (09:13)
[2018-09-02] MEDS ORDERED: MAGNESIUM SULFATE 1 gm IVPB 1 GM/100 ML BAG IV ONE (10:13)
--- NOTE | 2018-09-02 14:24 | P.DS ---
Admission Date: 08/31/18 Discharge Date: 09/02/18 Primary Care Provider: Dr. Cornell Disposition: ROUTINE DISCHARGE Discharge Condition: GOOD Reason for Admission: Dyspnea Consultations: Cardiology Brief History of Present Illness: The patient is a 58-year-old male with past medical history of congestive heart failure, hepatitis C, aortic valve replacement, mechanical hypertension, chronic kidney disease, who comes in with shortness of breath. The patient states that 4 days ago, the patient had binge drink some alcohol and thought he over did it. The patient continues to smoke as well and had been feeling bad since then. The patient reports some congestion, night sweats, chills. No fevers reported. The patient also reports shortness of breath with cough and clear sputum production. The patient also reports recent worsening of his lower extremity edema along with weight gain. The patient's symptoms are constant, moderate, progressively worsening. He denied any ill contacts. Therefore, the patient came into the ER for further evaluation. In the ER, his workup revealed temperature 97.5, O2 saturations 95% on room air, blood pressure elevated slightly. The patient was tachypneic, breathing 31 times a minute. The patient's BNP was 12,000 and troponin of 0.06. Lactate was normal. Creatinine was 1.42, which is around his baseline. The patient was given Lasix and then referred for admission. Flu screen was negative. When seen in the ER, he was awake, alert, oriented x3, some mild distress. Hospital Course: Patient was admitted with acute congestive heart failure exacerbation with systolic dysfunction. He was started on CHF guidelines. he was restarted on coreg and entresto, along with IV lasix. His I&Os were monitored along with daily weights. His fluid was restricted to 1500 mL. He was started in IV antibiotics for his pneumonia. sputum cultures and blood cultures remained negative. His antibiotics were converted to PO. His symptoms improved with these interventions. His warfarin was restarted but his INR was found to be subtherapeutic. Therefore, he was started on lovenox, bridge to warfarin. He has been non complaint with his medications and does not take warfarin consistently. His INR goal of 2.5-3.5 was not met but he was discharged home on Lovenox and warfarin with a repeat INR check on . results will be sent to Cardiology (Dr. Bravo). He was cleared for discharge by cardiology point of view. He was educated/counseled on importance of medication compliance. For his elevated troponins, likely secondary to demand mismatch from CHF and Pneumonia, cardiology was consulted but no further cardiac workup was planned and he was subsequently cleared for discharge by cardiology. He was counseled on smoking and alcohol cessation. He otherwise remained stable throughout the stay. Prior to discharge, he was AAOx4, ambulating without concerns, tolerating PO and was in no acute distress. His symptoms had improved. His diagnosis/treatment plan was explained to him. All questions were answered and he verbalized understanding. He was then discharged home in a safe and stable manner. He was discharged home on Azithromycin PO to complete a 7 day course. He was also discharged on Lovenox injections (education was provided prior to discharge ) and warfarin with instructions to recheck INR on am. Follow up with Dr. bravo. Vital Signs/Physical Exam: Temp Pulse Resp BP Pulse Ox 97.6 F 77 17 123/94 H 92 09/02/18 12:00 09/02/18 12:00 09/02/18 12:00 09/02/18 12:00 09/02/18 12:00 General: Alert, In no apparent distress, Oriented x3 HEENT: Atraumatic, PERRLA, EOMI Neck: Supple, JVD not distended Respiratory: Clear to auscultation bilaterally, Diminished Cardiovascular: Regular rate/rhythm, Normal S1 S2 Gastrointestinal: Normal bowel sounds, No tenderness Musculoskeletal: No tenderness Integumentary: No rashes Neurological: Normal speech, Normal tone, Normal affect Lymphatics: No axilla or inguinal lymphadenopathy Laboratory Data at Discharge: WBC 5.1 K/uL (4.3-10.9) 09/02/18 03:45 Hgb 14.3 g/dL (13.6-17.9) 09/02/18 03:45 Hct 42.1 % (39.6-49.0) 09/02/18 03:45 Plt Count 167 K/uL (152-406) 09/02/18 03:45 PT 12.2 SECONDS (9.5-12.5) 09/02/18 03:45 INR 1.04 09/02/18 03:45 Sodium 142 mmol/L (136-145) 09/02/18 03:45 Potassium 4.7 mmol/L (3.5-5.1) 09/02/18 03:45 BUN 21 mg/dL (7-18) H 09/02/18 03:45 Creatinine 1.67 mg/dL (0.55-1.3) H 09/02/18 03:45 Glucose 85 mg/dL (74-106) 09/02/18 03:45 Magnesium 1.7 mg/dL (1.8-2.4) L 09/02/18 03:45 Total Bilirubin 0.8 mg/dL (0.2-1.0) 09/02/18 03:45 AST 53 U/L (15-37) H 09/02/18 03:45 ALT 29 U/L (12-78) 09/02/18 03:45 Alkaline Phosphatase 68 U/L (45-117) 09/02/18 03:45 Home Medications: Carvedilol [Coreg*] 12.5 mg PO BID 08/31/18 Sacubitril/Valsartan [Entresto 49 mg-51 mg Tablet] 1 tab PO BID 08/31/18 Torsemide [Demadex*] 20 mg PO BIDL 08/31/18 Warfarin Sodium [Coumadin*] 5 mg PO DAILY 5 PM 08/31/18 Azithromycin [Zithromax] 500 mg PO DAILY #5 tablet 09/02/18 Enoxaparin Sodium [Lovenox 100 MG INJ*] 100 mg SQ DAILY 5 Days syr 09/02/18 New Medications: Azithromycin [Zithromax] 500 mg PO DAILY #5 tablet Enoxaparin Sodium [Lovenox 100 MG INJ*] 100 mg SQ DAILY 5 Days syr Patient Discharge Instructions: Please follow up with your primary care physician in 2-3 days. As dicussed, you will need to take the warfarin along with lovenox injections for the next few days. You will have to get your bkood work done and INR checfked on . The results with go to Dr. Bravo's office and they should contact you. Please call their office if you do not hear from them. New medications: Lovenox injection, Azithromycin (antibiotic for your pneumonia). Please call us back at the hospital if you have any trouble getting your medications. Please return to the Emergency room for worsening symptoms. Diet: Fluid restriction Activity: Ad diana Followup: Jorge Jo DO [Primary Care Provider] - Noman Bravo MD [ACTIVE - CAN ADMIT] - Time spent managing pt's care (in minutes): 55
[2018-09-02] MEDS: WARFARIN SODIUM 5 MG TAB PO SCH (16:05)
--- NOTE | 2018-09-03 00:24 | PN ---
Mr. Gamboa was admitted on 08/31/2018 and has been followed by Dr. So for Coumadin therapy for AVR, congestive heart failure with normal coronaries. He had an echocardiogram yesterday showing nor mal function of his mechanical valve, ejection fraction of 47%. He continues to diurese. His INR re mained low. I think he can still go home, but he needs to still be bridged with Lovenox. I would alexandre ggest we continue his Coumadin dose as is. Continue the Lovenox. He can go home, have another PT an d INR in 48 hours and then we will decide what to do with his Coumadin dose. Case was discussed with Dr. Lai. KLAUS/KEITH Voice ID: [id number] Report ID: [id number]
[2018-09-03] MEDS ORDERED: AZITHROMYCIN 250 MG TAB PO SCH (09:00)
== END 2018-09-02 17:08 | disposition home or self-care (01) ==
LOC: ER 09:31 → ERHOLD 12:43 → INTOOBSV 12:43 → 4TH 14:30
PROVIDERS: ADMIT Family Medicine; ATTEND Family Medicine
DX: I13.0 Hypertensive heart and chronic kidney disease with heart failure and stage 1 through stage 4 chronic kidney disease, or unspecified chronic kidney disease (principal); I50.21 Acute systolic (congestive) heart failure; N18.3 Chronic kidney disease, stage 3 (moderate); J18.9 Pneumonia, unspecified organism; J44.1 Chronic obstructive pulmonary disease with (acute) exacerbation; B18.2 Chronic viral hepatitis C; E66.9 Obesity, unspecified; Z68.34 Body mass index [BMI] 34.0-34.9, adult; F17.210 Nicotine dependence, cigarettes, uncomplicated; F10.10 Alcohol abuse, uncomplicated; Z79.01 Long term (current) use of anticoagulants; Z79.899 Other long term (current) drug therapy; Z95.2 Presence of prosthetic heart valve; Z91.14 Patient's other noncompliance with medication regimen
CPT/HCPCS: 36415; 71045; 80048; 80053; 80076; 81003; 83605; 83735; 83880; 84484; 85025; 85610; 87040; 87804; 93005; 93306; 94660; 94760; 96365; 96374; 99285; G0378; J0456; J0696; J1650; J1940; J3475

== ENCOUNTER 2020-07-29 11:16 | Inpatient (IN) | payer OTHER ==
--- OUTSIDE RECORDS SUMMARY | 2020-07-29 11:22 | XMS REPORT | Continuity of Care Document ---
:1960 Author Organization [facility] t Address [address] [place] [address] Care Team Providers Name Role Phone Sandro MARIN, Shravan Primary Care Physician Srinath MARIN Attending Clinician Prema OLIVARES Attending Clinician Unavailable Dona BENTON Attending Clinician Unavailable JAMA CRANDALL Attending Clinician Unavailable Prema OLIVARES Admitting Clinician Unavailable Dona BETNON Admitting Clinician Unavailable JAMA CRANDALL Admitting Clinician Unavailable Problems Condition Condition Condition Status Onset Resolution Last Treating Co mments Source Name Details Category Date Date Treatment Clinician Date Chronic Chronic Disease Active 2017-[address] [facility] systolic systolic [facility] Center diastolic diastolic CHF CHF (congestiv (congestiv e heart e heart failure) failure) Acute Acute Disease Active 2016-[address] diverticul diverticul 2-13 [facility] - itis itis 00:[facility]: [facility] 00 [facility] [place] Disease Active 2016-[address] l fistula l fistula 2-13 [facility] - [facility] 00 Center Allergies, Adverse Reactions, Alerts This patient has no known allergies or adverse reactions. Social History Social Habit Start Date Stop Date Quantity Comments Source Sex Assigned At [facility] History of tobacco Cigarette Smoker [facility] - use [facility] Cigarettes smoked 2018-04-21 2018-04-21 [facility] - current (pack per 00:00:00 00:00:00 [facility] Center day) - Reported Cigarette 2018-04-21 2018-04-21 [facility]00 [facility] Tobacco use and 2018-04-21 2018-04-[address] [facility] [address] [facility] - exposure 00:00:00 00:00:00 [facility] Alcohol intake 2018-04-21 2018-04-21 Current drinker STEPHAN guzman [facility]00 [facility] (finding) Tobacco Comment 2017-07-11 2017-07-[address] [facility] [address] [facility] - 00:00:00 00:00:00 11/2016-05/[address] Smoking Status Start Date Stop Date Source Former smoker 2018-04-21 00:00:00 2018-04-21 00:00:00 [facility] Medications Ordered Filled Start Stop Current Ordering Indication Dosage Frequency Signature Comments Components Source Medication Medication Date Date Medication? Clinician (SIG) Name Name sacubitril- Yes 1{tbl} Q.5D Take [address] valsartan 1-25 tablet by [facility] - (ENTRESTO) 00:00: mouth 2 Medi edilberto 49-51 mg 00 (two) Center Tab times daily. TORSEMIDE Yes 20mg Q.5D Take [address] ORAL 1-07 by mouth 2 [facility] - 10:07: (two) Medical 03 times Center daily . Procedures This patient has no known procedures. Plan of Care Planned Activity Planned Date Details Comments Source Future Scheduled 2021-04-[address] [facility] - Test 00:00:00 (procedure) [code = [facility] 41540466] Future Scheduled 2019-12-[address] [facility] - Test 00:00:00 (#1) [code = [facility] INFLUENZA VACCINE (#1)] Future Scheduled 2018-04-[address] [facility] - Test 00:00:00 malignant neoplasm Medical C enter of colon (procedure) [code = 445767694] Encounters Start End Encounter Admission Attending Care Care Encounter Source Date/Time Date/Time Type Type Clinicians Facility Department ID 2020-07-11 2020-07-11 Office CHRISTIN Yo [id number] 87 13:24:51 13:44:51 Visit Sara AMBULATOR [id number] Results Test Description Test Time Test Comments Results Result Comments Source HEMOGLOBIN A1C 2018-04-21 12:46:00 Test Item Value Reference Range Interpretation Comme nts HEMOGLOBIN A1C (BEAKER) (test code = 368) 5.7 % 4.3-6.1 TSH/FREE T4 IF [id number] 12:35:00 Test Item Value Reference Range Interpretation Comments THYROID STIMULATING HORMONE 1.36 uIU/mL 0.35-4.94 (BEAKER) (test code = 772) [id number] 11:07:00 Test Item Value Reference Range Interpretation Comments PREALBUMIN (BEAKER) 27 mg/dL 14-45 Specimen slightly (test code = 586) hemolyzed URIC [id number] 11:05:00 Test Item Value Reference Range Interpretation Comments URIC ACID (BEAKER) (test code = 12.7 mg/dL 2.6-7.2 H 773) [id number] 11:05:00 Test Item Value Reference Range Interpretation Comments MAGNESIUM (BEAKER) (test code = 2.1 mg/dL 1.6-2.6 627) COMPREHENSIVE METABOLIC [id number] 11:05:00 Test Item Value Reference Range Interpretation Comments TOTAL PROTEIN 7.6 gm/dL 6.0-8.3 (BEAKER) (test code = 770) ALBUMIN (BEAKER) 3.3 g/dL 3.5-5.0 L (test code = 1145) ALKALINE PHOSPHATASE 85 U/L 40-150 (BEAKER) (test code = 346) BILIRUBIN TOTAL 0.9 mg/dL 0.2-1.2 (BEAKER) (test code = 377) SODIUM (BEAKER) (test 136 meq/L 136-145 code = 381) POTASSIUM (BEAKER) 4.4 meq/L 3.5-5.1 (test code = 379) CHLORIDE (BEAKER) 100 meq/L 98-107 (test code = 382) CO2 (BEAKER) (test 31 meq/L 22-29 H code = 355) BLOOD UREA NITROGEN 39 mg/dL 7-21 H (BEAKER) (test code = 354) CREATININE (BEAKER) 1.93 mg/dL 0.57-1.25 H (test code = 358) GLUCOSE RANDOM 104 mg/dL 70-105 (BEAKER) (test code = 652) CALCIUM (BEAKER) 9.2 mg/dL 8.4-10.2 (test code = 697) AST (SGOT) (BEAKER) 59 U/L 5-34 H (test code = 353) ALT (SGPT) (BEAKER) 34 U/L 6-55 (test code = 347) EGFR (BEAKER) (test 36 mL/min/1.73 ESTIMA LUIS GFR IS code = 1092) sq m NOT ACCURATE CREATININE CLEARANCE IN PREDICTING GLOMERULAR FILTRATION RATE . ESTIMATED GFR I S NOT APPLICABLE FOR DIALYSIS PATILARS TS. LIPID [id number] 11:05:00 Test Item Value Reference Range Interpretation Comments TRIGLYCERIDES (BEAKER) (test code = 166 mg/dL 540) CHOLESTEROL (BEAKER) (test code = 203 mg/dL 631) HDL CHOLESTEROL (BEAKER) (test code 47 mg/dL = 976) LDL CHOLESTEROL CALCULATED (BEAKER) 123 mg/dL (test code = 633) Triglyceride Reference Range: Low Risk <150 Borderline 150-199 High Risk 200-499 Very High Risk >=500Cholesterol Reference Range: Low Risk <200 Borderline 200-239 High Risk >240HDL Cholesterol Reference Range: Low Risk >=60 High Risk <40LDL Cholesterol Reference Range: Optimal <100 Near Optimal 100-129 Borderline 130-159 High 160-189 Very High >=190B-TYPE NATRIURETIC FACTOR (BNP)2018-04-21 11:01:00 Test Item Value Reference Range Interpretation Comments B-TYPE NATRIURETIC PEPTIDE (BEAKER) 443 pg/mL 0-100 H (test code = 700) PROTHROMBIN [id number] 10:48:00 Test Item Value Reference Range Interpretation Comments PROTIME (BEAKER) (test code = 29.4 seconds 11.7-14.7 H 759) INR (BEAKER) (test code = 370) 2.8 <=5.9 RECOMMENDED COUMADIN/WARFARIN INR THERAPY RANGESSTANDARD DOSE: 2.0 - 3.0 Includes: PROPHYLAXIS forvenous thrombosis, systemic embolization; TREATMENT for venous thrombosis and/or pulmonary embolus.HIGH RISK: Target INR is 2.5-3.5 for patients with mechanical heart valves.CBC W/PLT COUNT & AUTO DIFFERENTIAL 2018-04-21 10:38:00 Test Item Value Reference Range Interpretation Comments WHITE BLOOD CELL COUNT (BEAKER) 6.8 K/ L 3.5-10.5 (test code = 775) RED BLOOD CELL COUNT (BEAKER) 4.40 M/ L 4.63-6.08 L (test code = 761) HEMOGLOBIN (BEAKER) (test code = 13.9 GM/DL 13.7-17.5 410) HEMATOCRIT (BEAKER) (test code = 40.8 % 40.1-51.0 411) MEAN CORPUSCULAR VOLUME (BEAKER) 92.7 fL 79.0-92.2 H (test code = 753) MEAN CORPUSCULAR HEMOGLOBIN 31.6 pg 25.7-32.2 (BEAKER) (test code = 751) MEAN CORPUSCULAR HEMOGLOBIN CONC 34.1 GM/DL 32.3-36.5 (BEAKER) (test code = 752) RED CELL DISTRIBUTION WIDTH 13.2 % 11.6-14.4 (BEAKER) (test code = 412) PLATELET COUNT (BEAKER) (test 225 K/CU MM 150-450 code = 756) MEAN PLATELET VOLUME (BEAKER) 9.7 fL 9.4-12.4 (test code = 754) NUCLEATED RED BLOOD CELLS 0 /100 WBC 0-0 (BEAKER) (test code = 413) NEUTROPHILS RELATIVE PERCENT 75 % (BEAKER) (test code = 429) LYMPHOCYTES RELATIVE PERCENT 10 % (BEAKER) (test code = 430) MONOCYTES RELATIVE PERCENT 11 % (BEAKER) (test code = 431) EOSINOPHILS RELATIVE PERCENT 3 % (BEAKER) (test code = 432) BASOPHILS RELATIVE PERCENT 1 % (BEAKER) (test code = 437) NEUTROPHILS ABSOLUTE COUNT 5.10 K/ L 1.78-5.38 (BEAKER) (test code = 670) LYMPHOCYTES ABSOLUTE COUNT 0.71 K/ L 1.32-3.57 L (BEAKER) (test code = 414) MONOCYTES ABSOLUTE COUNT (BEAKER) 0.74 K/ L 0.30-0.82 (test code = 415) EOSINOPHILS ABSOLUTE COUNT 0.20 K/ L 0.04-0.54 (BEAKER) (test code = 416) BASOPHILS ABSOLUTE COUNT (BEAKER) 0.05 K/ L 0.01-0.08 (test code = 417) IMMATURE GRANULOCYTES-RELATIVE 0 % 0-1 PERCENT (BEAKER) (test code = 2802) BASIC METABOLIC [id number] 12:22:00 Test Item Value Reference Range Interpretation Comments SODIUM (BEAKER) 136 meq/L 136-145 (test code = 381) POTASSIUM (BEAKER) 4.1 meq/L 3.5-5.1 (test code = 379) CHLORIDE (BEAKER) 100 meq/L 98-107 (test code = 382) CO2 (BEAKER) (test 27 meq/L 22-29 code = 355) BLOOD UREA NITROGEN 36 mg/dL 7-21 H (BEAKER) (test code = 354) CREATININE (BEAKER) 1.66 mg/dL 0.57-1.25 H (test code = 358) GLUCOSE RANDOM 103 mg/dL 70-105 (BEAKER) (test code = 652) CALCIUM (BEAKER) 9.5 mg/dL 8.4-10.2 (test code = 697) EGFR (BEAKER) (test 43 mL/min/1.73 ESTIMA LUIS GFR IS code = 1092) sq m NOT ACCURATE CREATININE CLEARANCE IN PREDICTING GLOMERULAR FILTRATION RATE . ESTIMATED GFR I S NOT APPLICABLE FOR DIALYSIS PATIEN TS. PROTHROMBIN [id number] 12:11:00 Test Item Value Reference Range Interpretation Comments PROTIME (BEAKER) (test code = 16.2 seconds 11.7-14.7 H 759) INR (BEAKER) (test code = 370) 1.3 <=5.9 RECOMMENDED COUMADIN/WARFARIN INR THERAPY RANGESSTANDARD DOSE: 2.0 - 3.0 Includes: PROPHYLAXIS forvenous thrombosis, systemic embolization; TREATMENT for venous thrombosis and/or pulmonary embolus.HIGH RISK: Target INR is 2.5-3.5 for patients with mechanical heart valves.Within 24 hours, if on CoumadinCBC W/PLT COUNT & AUTO [id number] 12:06:00 Test Item Value Reference Range Interpretation Comments WHITE BLOOD CELL COUNT (BEAKER) 7.3 K/ L 3.5-10.5 (test code = 775) RED BLOOD CELL COUNT (BEAKER) 4.59 M/ L 4.63-6.08 L (test code = 761) HEMOGLOBIN (BEAKER) (test code = 14.4 GM/DL 13.7-17.5 410) HEMATOCRIT (BEAKER) (test code = 42.3 % 40.1-51.0 411) MEAN CORPUSCULAR VOLUME (BEAKER) 92.2 fL 79.0-92.2 (test code = 753) MEAN CORPUSCULAR HEMOGLOBIN 31.4 pg 25.7-32.2 (BEAKER) (test code = 751) MEAN CORPUSCULAR HEMOGLOBIN CONC 34.0 GM/DL 32.3-36.5 (BEAKER) (test code = 752) RED CELL DISTRIBUTION WIDTH 13.8 % 11.6-14.4 (BEAKER) (test code = 412) PLATELET COUNT (BEAKER) (test 182 K/CU MM 150-450 code = 756) MEAN PLATELET VOLUME (BEAKER) 10.1 fL 9.4-12.4 (test code = 754) NUCLEATED RED BLOOD CELLS 0 /100 WBC 0-0 (BEAKER) (test code = 413) NEUTROPHILS RELATIVE PERCENT 70 % (BEAKER) (test code = 429) LYMPHOCYTES RELATIVE PERCENT 15 % (BEAKER) (test code = 430) MONOCYTES RELATIVE PERCENT 11 % (BEAKER) (test code = 431) EOSINOPHILS RELATIVE PERCENT 3 % (BEAKER) (test code = 432) BASOPHILS RELATIVE PERCENT 1 % (BEAKER) (test code = 437) NEUTROPHILS ABSOLUTE COUNT 5.11 K/ L 1.78-5.38 (BEAKER) (test code = 670) LYMPHOCYTES ABSOLUTE COUNT 1.10 K/ L 1.32-3.57 L (BEAKER) (test code = 414) MONOCYTES ABSOLUTE COUNT (BEAKER) 0.78 K/ L 0.30-0.82 (test code = 415) EOSINOPHILS ABSOLUTE COUNT 0.24 K/ L 0.04-0.54 (BEAKER) (test code = 416) BASOPHILS ABSOLUTE COUNT (BEAKER) 0.08 K/ L 0.01-0.08 (test code = 417) IMMATURE GRANULOCYTES-RELATIVE 0 % 0-1 PERCENT (BEAKER) (test code = 2801) AFB CULTURE + [id number] 11:21:00 Test Item Value Reference Interpretation Comments Range CULTURE (BEAKER) MYCOBACTERIUM A Mycobacter ium (test code = 1095) CHELONAE chelonaeI dentification performed by:[facility], Dept. of Microb iology Research, [facility], [address] [facility] [address], [place], [place] [address] Amikacin (test code S = 1) Cefoxitin (test R code = 68) Ciprofloxacin (test R code = 7) Clarithromycin S (test code = 42) Doxycycline (test R code = 15) Imipenem (test code R = 19) Linezolid (test S code = 40) Minocycline (test R code = 35) Moxifloxacin (test R code = 36) Tobramycin (test S code = 25) Trimethoprim + R Sulfamethoxazole (test code = 47) AFB SMEAR ([facility]) No acid fast (test code = 994) bacilli seen 99.59 match to M. chelonae type strain by rpoB gene sequencing. M. chelonae does not have a functional erm gene and hence will be macrolide susceptible unless mutationally resistant.FUNGUS CULTURE + [id number] 11:21:00 Test Item Value Reference Range Interpretation Comments CULTURE ([facility]) (test No fungus isolated in code = 1095) 28 days FUNGUS SMEAR ([facility]) No fungi seen (test code = 1406) POCT-GLUCOSE [id number] 11:44:00 Test Item Value Reference Range Interpretation Comments POC-GLUCOSE METER 96 mg/dL 70-110 TESTED AT [facility] 67[address] ([facility]) (test code = ZACK Lea [facility] [address] 1538) PROTHROMBIN [id number] 09:22:00 Test Item Value Reference Range Interpretation Comments PROTIME ([facility]) (test code = 29.1 seconds 11.7-14.7 H 759) INR ([facility]) (test code = 370) 2.8 <=5.9 RECOMMENDED COUMADIN/WARFARIN INR THERAPY RANGESSTANDARD DOSE: 2.0 - 3.0 Includes: PROPHYLAXIS forvenous thrombosis, systemic embolization; TREATMENT for venous thrombosis and/or pulmonary embolus.HIGH RISK: Target INR is 2.5-3.5 for patients with mechanical heart valves.CBC (HEMOGRAM ONLY)2017-07-30 07:40:00 Test Item Value Reference Range Interpretation Comments WHITE BLOOD CELL COUNT (BEAKER) 7.1 K/ L 3.5-10.5 (test code = 775) RED BLOOD CELL COUNT (BEAKER) 3.34 M/ L 4.63-6.08 L (test code = 761) HEMOGLOBIN (BEAKER) (test code = 10.1 GM/DL 13.7-17.5 L 410) HEMATOCRIT (BEAKER) (test code = 31.4 % 40.1-51.0 L 411) MEAN CORPUSCULAR VOLUME (BEAKER) 94.0 fL 79.0-92.2 H (test code = 753) MEAN CORPUSCULAR HEMOGLOBIN 30.2 pg 25.7-32.2 (BEAKER) (test code = 751) MEAN CORPUSCULAR HEMOGLOBIN CONC 32.2 GM/DL 32.3-36.5 L (BEAKER) (test code = 752) RED CELL DISTRIBUTION WIDTH 14.6 % 11.6-14.4 H (BEAKER) (test code = 412) PLATELET COUNT (BEAKER) (test 264 K/CU MM 150-450 code = 756) MEAN PLATELET VOLUME (BEAKER) 11.1 fL 9.4-12.4 (test code = 754) NUCLEATED RED BLOOD CELLS 0 /100 WBC 0-0 (BEAKER) (test code = 413) POCT-GLUCOSE [id number] 07:23:00 Test Item Value Reference Range Interpretation Comments POC-GLUCOSE METER 112 mg/dL 70-110 H TESTED AT [facility] [address] (BEAKER) (test code = [place] 1538) [id number] 05:35:00 Test Item Value Reference Range Interpretation Comments PHOSPHORUS (BEAKER) (test code = 3.3 mg/dL 2.3-4.7 604) [id number] 05:35:00 Test Item Value Reference Range Interpretation Comments MAGNESIUM (BEAKER) (test code = 1.9 mg/dL 1.6-2.6 627) BASIC METABOLIC [id number] 05:35:00 Test Item Value Reference Range Interpretation Comments SODIUM (BEAKER) 137 meq/L 136-145 (test code = 381) POTASSIUM (BEAKER) 5.0 meq/L 3.5-5.1 (test code = 379) CHLORIDE (BEAKER) 105 meq/L 98-107 (test code = 382) CO2 ([facility]) (test 26 meq/L 22-29 code = 355) BLOOD UREA NITROGEN 25 mg/dL 7-21 H ([facility]) (test code = 354) CREATININE ([facility]) 1.69 mg/dL 0.57-1.25 H (test code = 358) GLUCOSE RANDOM 95 mg/dL 70-105 ([facility]) (test code = 652) CALCIUM ([facility]) 9.1 mg/dL 8.4-10.2 (test code = 697) EGFR ([facility]) (test 42 mL/min/1.73 ESTIMA LUIS GFR IS code = 1092) sq m NOT ACCURATE CREATININE CLEARANCE IN PREDICTING GLOMERULAR FILTRATION RATE . ESTIMATED GFR I S NOT APPLICABLE FOR DIALYSIS PATIEN TS. POCT-GLUCOSE [id number] 21:17:00 Test Item Value Reference Range Interpretation Comments POC-GLUCOSE METER 139 mg/dL 70-110 H TESTED AT [place] [address] ([facility]) (test code = [facility] Venu [facility] 1538) [id number] POCT-GLUCOSE [id number] 18:23:00 Test Item Value Reference Range Interpretation Comments POC-GLUCOSE METER 118 mg/dL 70-110 H TESTED AT [place] [address] ([facility]) (test code = [facility] Venu [facility] 1538) [id number] POCT-GLUCOSE [id number] 12:33:00 Test Item Value Reference Range Interpretation Comments POC-GLUCOSE METER 157 mg/dL 70-110 H TESTED AT [place] [address] ([facility]) (test code = [facility] 1538) [address] [id number] 11:34:00 Test Item Value Reference Range Interpretation Comments PARTIAL THROMBOPLASTIN TIME 49.4 seconds 22.5-36.0 H ([facility]) (test code = 760) POCT-GLUCOSE [id number] 07:27:00 Test Item Value Reference Range Interpretation Comments POC-GLUCOSE METER 99 mg/dL 70-110 TESTED AT [place] [address] ([facility]) (test code = [facility] [address]) [id number] 03:55:00 Test Item Value Reference Range Interpretation Comments PHOSPHORUS ([facility]) (test code = 3.9 mg/dL 2.3-4.7 604) [id number] 03:55:00 Test Item Value Reference Range Interpretation Comments MAGNESIUM (BEAKER) (test code = 1.7 mg/dL 1.6-2.6 627) BASIC METABOLIC [id number] 03:55:00 Test Item Value Reference Range Interpretation Comments SODIUM (BEAKER) 136 meq/L 136-145 (test code = 381) POTASSIUM (BEAKER) 4.6 meq/L 3.5-5.1 (test code = 379) CHLORIDE (BEAKER) 103 meq/L 98-107 (test code = 382) CO2 (BEAKER) (test 26 meq/L 22-29 code = 355) BLOOD UREA NITROGEN 27 mg/dL 7-21 H (BEAKER) (test code = 354) CREATININE (BEAKER) 1.80 mg/dL 0.57-1.25 H (test code = 358) GLUCOSE RANDOM 120 mg/dL 70-105 H (BEAKER) (test code = 652) CALCIUM (BEAKER) 9.0 mg/dL 8.4-10.2 (test code = 697) EGFR (BEAKER) (test 39 mL/min/1.73 ESTIMA LUIS GFR IS code = 1092) sq m NOT ACCURATE CREATININE CLEARANCE IN PREDICTING GLOMERULAR FILTRATION RATE . ESTIMATED GFR I S NOT APPLICABLE FOR DIALYSIS PATIEN TS. [id number] 03:40:00 Test Item Value Reference Range Interpretation Comments PARTIAL THROMBOPLASTIN TIME 74.2 seconds 22.5-36.0 H (BEAKER) (test code = 760) PROTHROMBIN [id number] 03:39:00 Test Item Value Reference Range Interpretation Comments PROTIME (BEAKER) (test code = 24.1 seconds 11.7-14.7 H 759) INR (BEAKER) (test code = 370) 2.2 <=5.9 RECOMMENDED COUMADIN/WARFARIN INR THERAPY RANGESSTANDARD DOSE: 2.0 - 3.0 Includes: PROPHYLAXIS forvenous thrombosis, systemic embolization; TREATMENT for venous thrombosis and/or pulmonary embolus.HIGH RISK: Target INR is 2.5-3.5 for patients with mechanical heart valves.CBC (HEMOGRAM ONLY)2017-07-29 03:29:00 Test Item Value Reference Range Interpretation Comments WHITE BLOOD CELL COUNT (BEAKER) 6.5 K/ L 3.5-10.5 (test code = 775) RED BLOOD CELL COUNT (BEAKER) 3.25 M/ L 4.63-6.08 L (test code = 761) HEMOGLOBIN (BEAKER) (test code = 9.7 GM/DL 13.7-17.5 L 410) HEMATOCRIT (BEAKER) (test code = 30.4 % 40.1-51.0 L 411) MEAN CORPUSCULAR VOLUME (BEAKER) 93.5 fL 79.0-92.2 H (test code = 753) MEAN CORPUSCULAR HEMOGLOBIN 29.8 pg 25.7-32.2 (BEAKER) (test code = 751) MEAN CORPUSCULAR HEMOGLOBIN CONC 31.9 GM/DL 32.3-36.5 L (BEAKER) (test code = 752) RED CELL DISTRIBUTION WIDTH 14.3 % 11.6-14.4 (BEAKER) (test code = 412) PLATELET COUNT (BEAKER) (test 242 K/CU MM 150-450 code = 756) MEAN PLATELET VOLUME (BEAKER) 10.4 fL 9.4-12.4 (test code = 754) NUCLEATED RED BLOOD CELLS 0 /100 WBC 0-0 (AKER) (test code = 413) POCT-GLUCOSE [id number] 22:23:00 Test Item Value Reference Range Interpretation Comments POC-GLUCOSE METER 133 mg/dL 70-110 H TESTED AT [place] [address] ([facility]) (test code = [place] 1538) [address] [id number] 20:19:00 Test Item Value Reference Range Interpretation Comments PARTIAL THROMBOPLASTIN TIME 58.9 seconds 22.5-36.0 H ([facility]) (test code = 760) On Heparin dripPOCT-GLUCOSE [id number] 16:12:00 Test Item Value Reference Range Interpretation Comments POC-GLUCOSE METER 132 mg/dL 70-110 H TESTED AT [place] [address] ([facility]) (test code = [place] 1538) [address] [id number] 13:01:00 Test Item Value Reference Range Interpretation Comments PARTIAL THROMBOPLASTIN TIME 72.3 seconds 22.5-36.0 H ([facility]) (test code = 760) POCT-GLUCOSE [id number] 11:56:00 Test Item Value Reference Range Interpretation Comments POC-GLUCOSE METER 115 mg/dL 70-110 H TESTED AT [facility] 6720 (BEAKER) (test code = ZACK Le[place] 1538) [address] POCT-GLUCOSE [id number] 08:19:00 Test Item Value Reference Range Interpretation Comments POC-GLUCOSE METER 112 mg/dL 70-110 H TESTED AT [facility] 67[address] (BEAKER) (test code = [place] Le[place] 1538) [address] [id number] 05:14:00 Test Item Value Reference Range Interpretation Comments PARTIAL THROMBOPLASTIN TIME 106.7 seconds 22.5-36.0 H (BEAKER) (test code = 760) While on warfarin.[id number] 04:48:00 Test Item Value Reference Range Interpretation Comments PHOSPHORUS (BEAKER) (test code = 4.1 mg/dL 2.3-4.7 604) [id number] 04:48:00 Test Item Value Reference Range Interpretation Comments MAGNESIUM (BEAKER) (test code = 1.6 mg/dL 1.6-2.6 627) BASIC METABOLIC [id number] 04:48:00 Test Item Value Reference Range Interpretation Comments SODIUM (BEAKER) 137 meq/L 136-145 (test code = 381) POTASSIUM (BEAKER) 4.5 meq/L 3.5-5.1 (test code = 379) CHLORIDE (BEAKER) 103 meq/L 98-107 (test code = 382) CO2 (BEAKER) (test 27 meq/L 22-29 code = 355) BLOOD UREA NITROGEN 25 mg/dL 7-21 H (BEAKER) (test code = 354) CREATININE (BEAKER) 1.91 mg/dL 0.57-1.25 H (test code = 358) GLUCOSE RANDOM 103 mg/dL 70-105 (BEAKER) (test code = 652) CALCIUM (BEAKER) 9.2 mg/dL 8.4-10.2 (test code = 697) EGFR (BEAKER) (test 36 mL/min/1.73 ESTIMA LUIS GFR IS code = 1092) sq m NOT ACCURATE CREATININE CLEARANCE IN PREDICTING GLOMERULAR FILTRATION RATE . ESTIMATED GFR I S NOT APPLICABLE FOR DIALYSIS PATIEN TS. PROTHROMBIN TIME/[id number] 04:43:00 Test Item Value Reference Range Interpretation Comments PROTIME (BEAKER) (test code = 22.0 seconds 11.7-14.7 H 759) INR (BEAKER) (test code = 370) 1.9 <=5.9 RECOMMENDED COUMADIN/WARFARIN INR THERAPY RANGESSTANDARD DOSE: 2.0 - 3.0 Includes: PROPHYLAXIS forvenous thrombosis, systemic embolization; TREATMENT for venous thrombosis and/or pulmonary embolus.HIGH RISK: Target INR is 2.5-3.5 for patients with mechanical heart valves.While on warfarin.CBC (HEMOGRAM ONLY) 2017-07-28 04:43:00 Test Item Value Reference Range Interpretation Comments WHITE BLOOD CELL COUNT 6.4 K/ L 3.5-10.5 (BEAKER) (test code = 775) RED BLOOD CELL COUNT 3.28 M/ L 4.63-6.08 L (BEAKER) (test code = 761) HEMOGLOBIN (BEAKER) 10.0 GM/DL 13.7-17.5 L (test code = 410) HEMATOCRIT (BEAKER) 30.8 % 40.1-51.0 L (test code = 411) MEAN CORPUSCULAR 93.9 fL 79.0-92.2 H VOLUME (BEAKER) (test code = 753) MEAN CORPUSCULAR 30.5 pg 25.7-32.2 HEMOGLOBIN (BEAKER) (test code = 751) MEAN CORPUSCULAR 32.5 GM/DL 32.3-36.5 HEMOGLOBIN CONC (BEAKER) (test code = 752) RED CELL DISTRIBUTION 14.5 % 11.6-14.4 H WIDTH (BEAKER) (test code = 412) PLATELET COUNT 231 K/CU MM 150-[address] (BEAKER) (test code = result Compare to 756) previous result , Clinical correl ation recommended. MEAN PLATELET VOLUME 9.9 fL 9.4-12.4 (BEAKER) (test code = 754) NUCLEATED RED BLOOD 0 /100 WBC 0-0 CELLS (BEAKER) (test code = 413) POCT-GLUCOSE [id number] 22:49:00 Test Item Value Reference Range Interpretation Comments POC-GLUCOSE METER 123 mg/dL 70-110 H TESTED AT [facility] 67[address] (BEAKER) (test code = [place] 1538) [id number] 18:42:00 Test Item Value Reference Range Interpretation Comments PARTIAL THROMBOPLASTIN TIME 84.8 seconds 22.5-36.0 H ([facility]) (test code = 760) POCT-GLUCOSE [id number] 16:58:00 Test Item Value Reference Range Interpretation Comments POC-GLUCOSE METER 123 mg/dL 70-110 H TESTED AT [place] [address] ([facility]) (test code = [place] 1538) [id number] POCT-GLUCOSE [id number] 12:40:00 Test Item Value Reference Range Interpretation Comments POC-GLUCOSE METER 116 mg/dL 70-110 H TESTED AT [place] [address] ([facility]) (test code = [place] 1538) [address] [id number] 12:18:00 Test Item Value Reference Range Interpretation Comments PARTIAL THROMBOPLASTIN TIME 85.0 seconds 22.5-36.0 H ([facility]) (test code = 760) POCT-GLUCOSE [id number] 08:16:00 Test Item Value Reference Range Interpretation Comments POC-GLUCOSE METER 110 mg/dL 70-110 TESTED AT [place] [address] ([facility]) (test code = ZACK [place] 1538) [address] [id number] 06:05:00 Test Item Value Reference Range Interpretation Comments PARTIAL THROMBOPLASTIN TIME 89.9 seconds 22.5-36.0 H ([facility]) (test code = 760) While on warfarin.PROTHROMBIN [id number] 06:03:00 Test Item Value Reference Range Interpretation Comments PROTIME ([facility]) (test code = 19.7 seconds 11.7-14.7 H 759) INR ([facility]) (test code = 370) 1.7 <=5.9 RECOMMENDED COUMADIN/WARFARIN INR THERAPY RANGESSTANDARD DOSE: 2.0 - 3.0 Includes: PROPHYLAXIS forvenous thrombosis, systemic embolization; TREATMENT for venous thrombosis and/or pulmonary embolus.HIGH RISK: Target INR is 2.5-3.5 for patients with mechanical heart valves.While on warfarin.[id number] 05:54:00 Test Item Value Reference Range Interpretation Comments PHOSPHORUS ([facility]) (test code = 4.1 mg/dL 2.3-4.7 604) [id number] 05:54:00 Test Item Value Reference Range Interpretation Comments MAGNESIUM (BEAKER) (test code = 1.6 mg/dL 1.6-2.6 627) BASIC METABOLIC [id number] 05:54:00 Test Item Value Reference Range Interpretation Comments SODIUM (BEAKER) 138 meq/L 136-145 (test code = 381) POTASSIUM (BEAKER) 4.5 meq/L 3.5-5.1 (test code = 379) CHLORIDE (BEAKER) 103 meq/L 98-107 (test code = 382) CO2 (BEAKER) (test 28 meq/L 22-29 code = 355) BLOOD UREA NITROGEN 21 mg/dL 7-21 (BEAKER) (test code = 354) CREATININE (BEAKER) 1.94 mg/dL 0.57-1.25 H (test code = 358) GLUCOSE RANDOM 100 mg/dL 70-105 (BEAKER) (test code = 652) CALCIUM (BEAKER) 9.4 mg/dL 8.4-10.2 (test code = 697) EGFR (BEAKER) (test 36 mL/min/1.73 ESTIMA LUIS GFR IS code = 1092) sq m NOT ACCURATE CREATININE CLEARANCE IN PREDICTING GLOMERULAR FILTRATION RATE . ESTIMATED GFR I S NOT APPLICABLE FOR DIALYSIS PATIEN TS. CBC (HEMOGRAM ONLY)2017-07-27 05:28:00 Test Item Value Reference Range Interpretation Comments WHITE BLOOD CELL COUNT (BEAKER) 5.6 K/ L 3.5-10.5 (test code = 775) RED BLOOD CELL COUNT (BEAKER) 3.56 M/ L 4.63-6.08 L (test code = 761) HEMOGLOBIN (BEAKER) (test code = 10.5 GM/DL 13.7-17.5 L 410) HEMATOCRIT (BEAKER) (test code = 33.6 % 40.1-51.0 L 411) MEAN CORPUSCULAR VOLUME (BEAKER) 94.4 fL 79.0-92.2 H (test code = 753) MEAN CORPUSCULAR HEMOGLOBIN 29.5 pg 25.7-32.2 (BEAKER) (test code = 751) MEAN CORPUSCULAR HEMOGLOBIN CONC 31.3 GM/DL 32.3-36.5 L (BEAKER) (test code = 752) RED CELL DISTRIBUTION WIDTH 14.5 % 11.6-14.4 H ([facility]) (test code = 412) PLATELET COUNT ([facility]) (test 283 K/CU MM 150-450 code = 756) MEAN PLATELET VOLUME (AKER) 10.4 fL 9.4-12.4 (test code = 754) NUCLEATED RED BLOOD CELLS 0 /100 WBC 0-0 ([facility]) (test code = 413) POCT-GLUCOSE [id number] 21:35:00 Test Item Value Reference Range Interpretation Comments POC-GLUCOSE METER 127 mg/dL 70-110 H TESTED AT [place] [address] ([facility]) [facility] 1538) [address] POCT-GLUCOSE [id number] 16:40:00 Test Item Value Reference Range Interpretation Comments POC-GLUCOSE METER 152 mg/dL 70-110 H TESTED AT [place] [address] ([facility]) (test code = [facility] Venu [facility] 1538) [address] POCT-GLUCOSE [id number] 12:52:00 Test Item Value Reference Range Interpretation Comments POC-GLUCOSE METER 120 mg/dL 70-110 H TESTED AT [place] [address] ([facility]) (test code = [facility] Venu [facility] 1538) [address] POCT-GLUCOSE [id number] 08:23:00 Test Item Value Reference Range Interpretation Comments POC-GLUCOSE METER 117 mg/dL 70-110 H TESTED AT [place] [address] ([facility]) (test code = [facility] Venu [facility] 1538) [address] [id number] 03:38:00 Test Item Value Reference Range Interpretation Comments PARTIAL THROMBOPLASTIN TIME 71.4 seconds 22.5-36.0 H ([facility]) (test code = 760) While on warfarin.[id number] 02:41:00 Test Item Value Reference Range Interpretation Comments PHOSPHORUS (BEAKER) (test code = 4.2 mg/dL 2.3-4.7 604) [id number] 02:41:00 Test Item Value Reference Range Interpretation Comments MAGNESIUM (BEAKER) (test code = 1.7 mg/dL 1.6-2.6 627) BASIC METABOLIC [id number] 02:41:00 Test Item Value Reference Range Interpretation Comments SODIUM (BEAKER) 139 meq/L 136-145 (test code = 381) POTASSIUM (BEAKER) 4.0 meq/L 3.5-5.1 (test code = 379) CHLORIDE (BEAKER) 104 meq/L 98-107 (test code = 382) CO2 (BEAKER) (test 26 meq/L 22-29 code = 355) BLOOD UREA NITROGEN 21 mg/dL 7-21 (BEAKER) (test code = 354) CREATININE (BEAKER) 1.74 mg/dL 0.57-1.25 H (test code = 358) GLUCOSE RANDOM 115 mg/dL 70-105 H (BEAKER) (test code = 652) CALCIUM (BEAKER) 9.4 mg/dL 8.4-10.2 (test code = 697) EGFR (BEAKER) (test 41 mL/min/1.73 ESTIMA LUIS GFR IS code = 1092) sq m NOT ACCURATE CREATININE CLEARANCE IN PREDICTING GLOMERULAR FILTRATION RATE . ESTIMATED GFR I S NOT APPLICABLE FOR DIALYSIS PATIEN TS. PROTHROMBIN [id number] 02:37:00 Test Item Value Reference Range Interpretation Comments PROTIME (BEAKER) (test code = 18.0 seconds 11.7-14.7 H 759) INR (BEAKER) (test code = 370) 1.5 <=5.9 RECOMMENDED COUMADIN/WARFARIN INR THERAPY RANGESSTANDARD DOSE: 2.0 - 3.0 Includes: PROPHYLAXIS forvenous thrombosis, systemic embolization; TREATMENT for venous thrombosis and/or pulmonary embolus.HIGH RISK: Target INR is 2.5-3.5 for patients with mechanical heart valves.While on warfarin.CBC (HEMOGRAM ONLY) 2017-07-26 02:23:00 Test Item Value Reference Range Interpretation Comments WHITE BLOOD CELL COUNT (BEAKER) 6.0 K/ L 3.5-10.5 (test code = 775) RED BLOOD CELL COUNT (BEAKER) 3.57 M/ L 4.63-6.08 L (test code = 761) HEMOGLOBIN (BEAKER) (test code = 10.8 GM/DL 13.7-17.5 L 410) HEMATOCRIT (BEAKER) (test code = 33.4 % 40.1-51.0 L 411) MEAN CORPUSCULAR VOLUME (BEAKER) 93.6 fL 79.0-92.2 H (test code = 753) MEAN CORPUSCULAR HEMOGLOBIN 30.3 pg 25.7-32.2 ([facility]) (test code = 751) MEAN CORPUSCULAR HEMOGLOBIN CONC 32.3 GM/DL 32.3-36.5 ([facility]) (test code = 752) RED CELL DISTRIBUTION WIDTH 14.5 % 11.6-14.4 H ([facility]) (test code = 412) PLATELET COUNT ([facility]) (test 259 K/CU MM 150-450 code = 756) MEAN PLATELET VOLUME ([facility]) 9.6 fL 9.4-12.4 (test code = 754) NUCLEATED RED BLOOD CELLS 0 /100 WBC 0-0 ([facility]) (test code = 413) POCT-GLUCOSE [id number] 21:18:00 Test Item Value Reference Range Interpretation Comments POC-GLUCOSE METER 138 mg/dL 70-110 H TESTED AT [place] [address] ([facility]) (test code = ZACK [place] 1538) [address] [id number] 20:08:00 Test Item Value Reference Range Interpretation Comments PARTIAL THROMBOPLASTIN TIME 69.3 seconds 22.5-36.0 H ([facility]) (test code = 760) POCT-GLUCOSE [id number] 17:37:00 Test Item Value Reference Range Interpretation Comments POC-GLUCOSE METER 126 mg/dL 70-110 H TESTED AT [place] [address] ([facility]) (test code = ZACK Lea [facility] 1538) [address] [id number] 13:05:00 Test Item Value Reference Range Interpretation Comments PARTIAL THROMBOPLASTIN TIME 46.5 seconds 22.5-36.0 H ([facility]) (test code = 760) PROTHROMBIN [id number] 13:04:00 Test Item Value Reference Range Interpretation Comments PROTIME ([facility]) (test code = 16.7 seconds 11.7-14.7 H 759) INR ([facility]) (test code = 370) 1.4 <=5.9 RECOMMENDED COUMADIN/WARFARIN INR THERAPY RANGESSTANDARD DOSE: 2.0 - 3.0 Includes: PROPHYLAXIS forvenous thrombosis, systemic embolization; TREATMENT for venous thrombosis and/or pulmonary embolus.HIGH RISK: Target INR is 2.5-3.5 for patients with mechanical heart valves.POCT-GLUCOSE [id number] 12:13:00 Test Item Value Reference Range Interpretation Comments POC-GLUCOSE METER 141 mg/dL 70-110 H TESTED AT [facility] 6720 (BEAKER) (test code = ZACK Lea [facility] 1538) [address] POCT-GLUCOSE [id number] 08:26:00 Test Item Value Reference Range Interpretation Comments POC-GLUCOSE METER 266 mg/dL 70-110 H TESTED AT [facility] 6720 (BEAKER) (test code = ZACK Lea [facility] 1538) [address] [id number] 05:09:00 Test Item Value Reference Range Interpretation Comments PHOSPHORUS (BEAKER) (test code = 3.9 mg/dL 2.3-4.7 604) [id number] 05:09:00 Test Item Value Reference Range Interpretation Comments MAGNESIUM (BEAKER) (test code = 1.9 mg/dL 1.6-2.6 627) BASIC METABOLIC [id number] 05:09:00 Test Item Value Reference Range Interpretation Comments SODIUM (BEAKER) 139 meq/L 136-145 (test code = 381) POTASSIUM (BEAKER) 3.6 meq/L 3.5-5.1 (test code = 379) CHLORIDE (BEAKER) 105 meq/L 98-107 (test code = 382) CO2 (BEAKER) (test 25 meq/L 22-29 code = 355) BLOOD UREA NITROGEN 22 mg/dL 7-21 H (BEAKER) (test code = 354) CREATININE (BEAKER) 1.57 mg/dL 0.57-1.25 H (test code = 358) GLUCOSE RANDOM 109 mg/dL 70-105 H (BEAKER) (test code = 652) CALCIUM (BEAKER) 8.8 mg/dL 8.4-10.2 (test code = 697) EGFR (BEAKER) (test 46 mL/min/1.73 ESTIMA LUIS GFR IS code = 1092) sq m NOT ACCURATE CREATININE CLEARANCE IN PREDICTING GLOMERULAR FILTRATION RATE . ESTIMATED GFR I S NOT APPLICABLE FOR DIALYSIS PATIEN TS. [id number] 04:43:00 Test Item Value Reference Range Interpretation Comments PARTIAL THROMBOPLASTIN TIME 78.6 seconds 22.5-36.0 H (BEAKER) (test code = 760) While on warfarin.PROTHROMBIN [id number] 04:41:00 Test Item Value Reference Range Interpretation Comments PROTIME (BEAKER) (test code = 17.6 seconds 11.7-14.7 H 759) INR (BEAKER) (test code = 370) 1.5 <=5.9 RECOMMENDED COUMADIN/WARFARIN INR THERAPY RANGESSTANDARD DOSE: 2.0 - 3.0 Includes: PROPHYLAXIS forvenous thrombosis, systemic embolization; TREATMENT for venous thrombosis and/or pulmonary embolus.HIGH RISK: Target INR is 2.5-3.5 for patients with mechanical heart valves.While on warfarin.CBC (HEMOGRAM ONLY) 2017-07-25 04:26:00 Test Item Value Reference Range Interpretation Comments WHITE BLOOD CELL COUNT (BEAKER) 6.0 K/ L 3.5-10.5 (test code = 775) RED BLOOD CELL COUNT (BEAKER) 3.32 M/ L 4.63-6.08 L (test code = 761) HEMOGLOBIN (BEAKER) (test code = 9.7 GM/DL 13.7-17.5 L 410) HEMATOCRIT (BEAKER) (test code = 31.2 % 40.1-51.0 L 411) MEAN CORPUSCULAR VOLUME (BEAKER) 94.0 fL 79.0-92.2 H (test code = 753) MEAN CORPUSCULAR HEMOGLOBIN 29.2 pg 25.7-32.2 (BEAKER) (test code = 751) MEAN CORPUSCULAR HEMOGLOBIN CONC 31.1 GM/DL 32.3-36.5 L (BEAKER) (test code = 752) RED CELL DISTRIBUTION WIDTH 14.5 % 11.6-14.4 H (BEAKER) (test code = 412) PLATELET COUNT (BEAKER) (test 232 K/CU MM 150-450 code = 756) MEAN PLATELET VOLUME (BEAKER) 9.7 fL 9.4-12.4 (test code = 754) NUCLEATED RED BLOOD CELLS 0 /100 WBC 0-0 (BEAKER) (test code = 413) ANAEROBIC [id number] 03:17:00 Test Item Value Reference Range Interpretation Comments CULTURE (BEAKER) (test A <1+ B acteroides vulgatus code = 1095) POCT-GLUCOSE [id number] 21:45:00 Test Item Value Reference Range Interpretation Comments POC-GLUCOSE METER 136 mg/dL 70-110 H TESTED AT [place] [address] ([facility]) (test code = ZACK Lea [facility] 1538) [address] [id number] 20:49:00 Test Item Value Reference Range Interpretation Comments PARTIAL THROMBOPLASTIN TIME 62.1 seconds 22.5-36.0 H ([facility]) (test code = 760) PROTHROMBIN [id number] 18:47:00 Test Item Value Reference Range Interpretation Comments PROTIME ([facility]) (test code = 18.3 seconds 11.7-14.7 H 759) INR ([facility]) (test code = 370) 1.5 <=5.9 RECOMMENDED COUMADIN/WARFARIN INR THERAPY RANGESSTANDARD DOSE: 2.0 - 3.0 Includes: PROPHYLAXIS forvenous thrombosis, systemic embolization; TREATMENT for venous thrombosis and/or pulmonary embolus.HIGH RISK: Target INR is 2.5-3.5 for patients with mechanical heart valves.POCT-GLUCOSE [id number] 17:23:00 Test Item Value Reference Range Interpretation Comments POC-GLUCOSE METER 133 mg/dL 70-110 H TESTED AT [place] [address] ([facility]) (test code = ZACK Lea [facility] 1538) [address] [id number] 13:40:00 Test Item Value Reference Range Interpretation Comments PARTIAL THROMBOPLASTIN TIME 58.1 seconds 22.5-36.0 H ([facility]) (test code = 760) POCT-GLUCOSE [id number] 12:51:00 Test Item Value Reference Range Interpretation Comments POC-GLUCOSE METER 138 mg/dL 70-110 H TESTED AT [place] [address] ([facility]) (test code = ZACK Lea [facility] 1538) [address] POCT-GLUCOSE [id number] 07:59:00 Test Item Value Reference Range Interpretation Comments POC-GLUCOSE METER 96 mg/dL 70-110 TESTED AT [place] [address] ([facility]) (test code = ZACK Lea [facility] [address] 1538) [id number] 06:26:00 Test Item Value Reference Range Interpretation Comments PARTIAL THROMBOPLASTIN TIME 72.1 seconds 22.5-36.0 H ([facility]) (test code = 760) POCT-GLUCOSE [id number] 06:06:00 Test Item Value Reference Range Interpretation Comments POC-GLUCOSE METER 123 mg/dL 70-110 H TESTED AT [facility] 6720 (BEAKER) (test code = Z[place] 1538) [address] BASIC METABOLIC [id number] 04:32:00 Test Item Value Reference Range Interpretation Comments SODIUM (BEAKER) 141 meq/L 136-145 (test code = 381) POTASSIUM (BEAKER) 3.2 meq/L 3.5-5.1 L (test code = 379) CHLORIDE (BEAKER) 106 meq/L 98-107 (test code = 382) CO2 (BEAKER) (test 26 meq/L 22-29 code = 355) BLOOD UREA NITROGEN 24 mg/dL 7-21 H (BEAKER) (test code = 354) CREATININE (BEAKER) 1.56 mg/dL 0.57-1.25 H (test code = 358) GLUCOSE RANDOM 89 mg/dL 70-105 (BEAKER) (test code = 652) CALCIUM (BEAKER) 8.6 mg/dL 8.4-10.2 (test code = 697) EGFR (BEAKER) (test 46 mL/min/1.73 ESTIMA LUIS GFR IS code = 1092) sq m NOT ACCURATE CREATININE CLEARANCE IN PREDICTING GLOMERULAR FILTRATION RATE . ESTIMATED GFR I S NOT APPLICABLE FOR DIALYSIS PATIEN TS. [id number] 04:31:00 Test Item Value Reference Range Interpretation Comments PHOSPHORUS (BEAKER) (test code = 3.4 mg/dL 2.3-4.7 604) [id number] 04:31:00 Test Item Value Reference Range Interpretation Comments MAGNESIUM (BEAKER) (test code = 1.6 mg/dL 1.6-2.6 627) CBC (HEMOGRAM ONLY)2017-07-24 04:15:00 Test Item Value Reference Range Interpretation Comments WHITE BLOOD CELL COUNT (BEAKER) 6.3 K/ L 3.5-10.5 (test code = 775) RED BLOOD CELL COUNT (BEAKER) 3.26 M/ L 4.63-6.08 L (test code = 761) HEMOGLOBIN (BEAKER) (test code = 9.7 GM/DL 13.7-17.5 L 410) HEMATOCRIT (BEAKER) (test code = 31.0 % 40.1-51.0 L 411) MEAN CORPUSCULAR VOLUME (BEAKER) 95.1 fL 79.0-92.2 H (test code = 753) MEAN CORPUSCULAR HEMOGLOBIN 29.8 pg 25.7-32.2 (BEAKER) (test code = 751) MEAN CORPUSCULAR HEMOGLOBIN CONC 31.3 GM/DL 32.3-36.5 L (BEAKER) (test code = 752) RED CELL DISTRIBUTION WIDTH 14.6 % 11.6-14.4 H (BEAKER) (test code = 412) PLATELET COUNT (BEAKER) (test 234 K/CU MM 150-450 code = 756) MEAN PLATELET VOLUME (BEAKER) 9.4 fL 9.4-12.4 (test code = 754) NUCLEATED RED BLOOD CELLS 0 /100 WBC 0-0 ([facility]) (test code = 413) [id number] 00:27:00 Test Item Value Reference Range Interpretation Comments PARTIAL THROMBOPLASTIN TIME 99.8 seconds 22.5-36.0 H ([facility]) (test code = 760) POCT-GLUCOSE [id number] 00:14:00 Test Item Value Reference Range Interpretation Comments POC-GLUCOSE METER 101 mg/dL 70-110 TESTED AT [place] [address] ([facility]) (test code = Z[place] 1538) [address] POCT-GLUCOSE [id number] 16:58:00 Test Item Value Reference Range Interpretation Comments POC-GLUCOSE METER 231 mg/dL 70-110 H TESTED AT [place] [address] ([facility]) (test code = Z[place] 1538) [address] POCT-GLUCOSE [id number] 13:23:00 Test Item Value Reference Range Interpretation Comments POC-GLUCOSE METER 111 mg/dL 70-110 H TESTED AT [facility] 67 ([facility]) (test code = ZACK [place] 1538) [address] [id number] 13:14:00 Test Item Value Reference Range Interpretation Comments PARTIAL THROMBOPLASTIN TIME 75.7 seconds 22.5-36.0 H ([facility]) (test code = 760) TISSUE [id number] 12:06:00Surgical Pathology Report Case: [id number] Authorizing Provider: Nicole Tanner MD Collected: 07/19/2017 6037 Ordering Location: [facility] PERI[facility] Received: 07/19/2017 1452 SERVICES Pathologist: Lacy [...] NEGATIVE FOR MALIGNANCY Signing Pathologist DirectPhone Line: [phone] signed by Lacy De Souza MD on 07/23/2017 at 12:06 [id number] fistulaSigmoid colonThe specimen is received in a formalin-filled container and labeled with the patient's information [...] abscess formation attached tothe drainage site; A8, community representative drainage site with skin; A9 through A11, diverticula; A12 and A13, entire colon donut submitted. CG/pl Performed.SURGICALLY OBTAINED CULTURE + GRAM STAIN 2017-07-23 11:23:00 Test Item Value Reference Interpretation Comments Range CULTURE (BEAKER) (test ESCHERICHIA COLI A < 1+ Escherichia code = 1095) coli Amikacin (test code = S 1) Ampicillin + Sulbactam S (test code = 6) Aztreonam (test code = S 32) Cefepime (test code = S 51) Cefoxitin (test code = S 68) Ceftazidime (test code S = 27) Ceftriaxone (test code S = 52) Ertapenem (test code = S 38) Gentamicin (test code S = 18) Levofloxacin (test S code = 22) Meropenem (test code = S 34) Nitrofurantoin (test S code = 23) Piperacillin + S Tazobactam (test code = 29) Tetracycline (test S code = 2) Tobramycin (test code S = 25) Trimethoprim + S Sulfamethoxazole (test code = 47) CULTURE ([facility]) (test A 1+ St reptococcus code = 1095) constellatus GRAM STAIN RESULT <1+ WBCs (BEAKER) (test code = 1123) GRAM STAIN RESULT No organisms (BEAKER) (test code = seen 153962) SODIUM, RANDOM [id number] 07:27:00 Test Item Value Reference Range Interpretation Comments SODIUM URINE (BEAKER) (test code = 91 meq/L 243) Reference Range: No [id number] 07:19:00 Test Item Value Reference Range Interpretation Comments PARTIAL THROMBOPLASTIN TIME 74.0 seconds 22.5-36.0 H (BEAKER) (test code = 760) POCT-GLUCOSE [id number] 07:07:00 Test Item Value Reference Range Interpretation Comments POC-GLUCOSE METER 111 mg/dL 70-110 H TESTED AT [facility] 6720 ([facility]) (test code = [place] 1538) [address] [id number] 06:50:00 Test Item Value Reference Range Interpretation Comments PHOSPHORUS (BEAKER) (test code = 2.6 mg/dL 2.3-4.7 604) [id number] 06:50:00 Test Item Value Reference Range Interpretation Comments MAGNESIUM (BEAKER) (test code = 2.0 mg/dL 1.6-2.6 627) BASIC METABOLIC [id number] 06:50:00 Test Item Value Reference Range Interpretation Comments SODIUM (BEAKER) 146 meq/L 136-145 H (test code = 381) POTASSIUM (BEAKER) 3.9 meq/L 3.5-5.1 (test code = 379) CHLORIDE (BEAKER) 110 meq/L 98-107 H (test code = 382) CO2 (BEAKER) (test 27 meq/L 22-29 code = 355) BLOOD UREA NITROGEN 26 mg/dL 7-21 H (BEAKER) (test code = 354) CREATININE (BEAKER) 1.65 mg/dL 0.57-1.25 H (test code = 358) GLUCOSE RANDOM 82 mg/dL 70-105 (BEAKER) (test code = 652) CALCIUM (BEAKER) 9.5 mg/dL 8.4-10.2 (test code = 697) EGFR (BEAKER) (test 43 mL/min/1.73 ESTIMA LIUS GFR IS code = 1092) sq m NOT ACCURATE CREATININE CLEARANCE IN PREDICTING GLOMERULAR FILTRATION RATE . ESTIMATED GFR I S NOT APPLICABLE FOR DIALYSIS PATIEN TS. CBC (HEMOGRAM ONLY)2017-07-23 06:38:00 Test Item Value Reference Range Interpretation Comments WHITE BLOOD CELL COUNT (BEAKER) 9.4 K/ L 3.5-10.5 (test code = 775) RED BLOOD CELL COUNT (BEAKER) 3.57 M/ L 4.63-6.08 L (test code = 761) HEMOGLOBIN (BEAKER) (test code = 10.9 GM/DL 13.7-17.5 L 410) HEMATOCRIT (BEAKER) (test code = 34.5 % 40.1-51.0 L 411) MEAN CORPUSCULAR VOLUME (BEAKER) 96.6 fL 79.0-92.2 H (test code = 753) MEAN CORPUSCULAR HEMOGLOBIN 30.5 pg 25.7-32.2 (BEAKER) (test code = 751) MEAN CORPUSCULAR HEMOGLOBIN CONC 31.6 GM/DL 32.3-36.5 L (BEAKER) (test code = 752) RED CELL DISTRIBUTION WIDTH 14.8 % 11.6-14.4 H (BEAKER) (test code = 412) PLATELET COUNT (BEAKER) (test 262 K/CU MM 150-450 code = 756) MEAN PLATELET VOLUME (BEAKER) 9.7 fL 9.4-12.4 (test code = 754) NUCLEATED RED BLOOD CELLS 0 /100 WBC 0-0 (BEAKER) (test code = 413) POCT-GLUCOSE [id number] 01:29:00 Test Item Value Reference Range Interpretation Comments POC-GLUCOSE METER 106 mg/dL 70-110 TESTED AT [facility] 6720 (BEAKER) (test code = ZACK OLMOS 1538) [id number] POCT-GLUCOSE [id number] 17:55:00 Test Item Value Reference Range Interpretation Comments POC-GLUCOSE METER 84 mg/dL 70-110 TESTED AT [facility] 6720 (BEAKER) (test code = ZACK Lea [facility] [id number] 1538) POCT-GLUCOSE [id number] 11:28:00 Test Item Value Reference Range Interpretation Comments POC-GLUCOSE METER 90 mg/dL 70-110 TESTED AT [facility] 6720 (BEAKER) (test code = ZACK Lea [facility] [id number] 1538) SPIN/CONCENTRATION [id number] 06:33:00 Test Item Value Reference Range Interpretation Comments CONCENTRATION CHARGED (BEAKER) (test Done code = 2657) [id number] 06:22:00 Test Item Value Reference Range Interpretation Comments PHOSPHORUS (BEAKER) (test code = 2.5 mg/dL 2.3-4.7 604) [id number] 06:22:00 Test Item Value Reference Range Interpretation Comments MAGNESIUM (BEAKER) (test code = 2.0 mg/dL 1.6-2.6 627) BASIC METABOLIC [id number] 06:22:00 Test Item Value Reference Range Interpretation Comments SODIUM (BEAKER) 143 meq/L 136-145 (test code = 381) POTASSIUM (BEAKER) 3.9 meq/L 3.5-5.1 (test code = 379) CHLORIDE (BEAKER) 109 meq/L 98-107 H (test code = 382) CO2 (BEAKER) (test 25 meq/L 22-29 code = 355) BLOOD UREA NITROGEN 24 mg/dL 7-21 H (BEAKER) (test code = 354) CREATININE (BEAKER) 1.60 mg/dL 0.57-1.25 H (test code = 358) GLUCOSE RANDOM 88 mg/dL 70-105 (BEAKER) (test code = 652) CALCIUM (BEAKER) 9.2 mg/dL 8.4-10.2 (test code = 697) EGFR (BEAKER) (test 45 mL/min/1.73 ESTIMA LUIS GFR IS code = 1092) sq m NOT ACCURATE CREATININE CLEARANCE IN PREDICTING GLOMERULAR FILTRATION RATE . ESTIMATED GFR I S NOT APPLICABLE FOR DIALYSIS PATIEN KWAME. [id number] 05:57:00 Test Item Value Reference Range Interpretation Comments PARTIAL THROMBOPLASTIN TIME 82.5 seconds 22.5-36.0 H (BEAKER) (test code = 760) CBC (HEMOGRAM ONLY)2017-07-22 05:44:00 Test Item Value Reference Range Interpretation Comments WHITE BLOOD CELL COUNT (BEAKER) 11.3 K/ L 3.5-10.5 H (test code = 775) RED BLOOD CELL COUNT (BEAKER) 3.59 M/ L 4.63-6.08 L (test code = 761) HEMOGLOBIN (BEAKER) (test code = 10.7 GM/DL 13.7-17.5 L 410) HEMATOCRIT (BEAKER) (test code = 33.9 % 40.1-51.0 L 411) MEAN CORPUSCULAR VOLUME (BEAKER) 94.4 fL 79.0-92.2 H (test code = 753) MEAN CORPUSCULAR HEMOGLOBIN 29.8 pg 25.7-32.2 (BEAKER) (test code = 751) MEAN CORPUSCULAR HEMOGLOBIN CONC 31.6 GM/DL 32.3-36.5 L (BEAKER) (test code = 752) RED CELL DISTRIBUTION WIDTH 15.1 % 11.6-14.4 H (BEAKER) (test code = 412) PLATELET COUNT (BEAKER) (test 245 K/CU MM 150-450 code = 756) MEAN PLATELET VOLUME (BEAKER) 10.0 fL 9.4-12.4 (test code = 754) NUCLEATED RED BLOOD CELLS 0 /100 WBC 0-0 (BEAKER) (test code = 413) POCT-GLUCOSE [id number] 05:22:00 Test Item Value Reference Range Interpretation Comments POC-GLUCOSE METER 90 mg/dL 70-110 TESTED AT [place] [address] ([facility]) (test code = ZACK Lea [facility] [id number] 1538) POCT-GLUCOSE [id number] 23:23:00 Test Item Value Reference Range Interpretation Comments POC-GLUCOSE METER 93 mg/dL 70-110 TESTED AT [facility] 6720 ([facility]) (test code = SGLUIS Lea [facility] [address] 1538) POCT-GLUCOSE [id number] 18:24:00 Test Item Value Reference Range Interpretation Comments POC-GLUCOSE METER 106 mg/dL 70-110 TESTED AT [place] [address] (BEAKER) (test code = ZACK Lea [facility] 1538) [address] POCT-GLUCOSE [id number] 12:19:00 Test Item Value Reference Range Interpretation Comments POC-GLUCOSE METER 126 mg/dL 70-110 H TESTED AT [place] [address] (BEAKER) (test code = ZACK Lea [facility] 1538) [address] POCT-GLUCOSE [id number] 06:48:00 Test Item Value Reference Range Interpretation Comments POC-GLUCOSE METER 112 mg/dL 70-110 H TESTED AT [place] [address] (BEAKER) (test code = ZACK Lea [facility] 1538) [address] [id number] 04:10:00 Test Item Value Reference Range Interpretation Comments PARTIAL THROMBOPLASTIN TIME 81.1 seconds 22.5-36.0 H (BEAKER) (test code = 760) [id number] 03:59:00 Test Item Value Reference Range Interpretation Comments PHOSPHORUS (BEAKER) (test code = 2.9 mg/dL 2.3-4.7 604) [id number] 03:59:00 Test Item Value Reference Range Interpretation Comments MAGNESIUM (BEAKER) (test code = 2.3 mg/dL 1.6-2.6 627) BASIC METABOLIC [id number] 03:59:00 Test Item Value Reference Range Interpretation Comments SODIUM (BEAKER) 140 meq/L 136-145 (test code = 381) POTASSIUM (BEAKER) 4.2 meq/L 3.5-5.1 (test code = 379) CHLORIDE (BEAKER) 106 meq/L 98-107 (test code = 382) CO2 (BEAKER) (test 24 meq/L 22-29 code = 355) BLOOD UREA NITROGEN 24 mg/dL 7-21 H (BEAKER) (test code = 354) CREATININE (BEAKER) 1.61 mg/dL 0.57-1.25 H (test code = 358) GLUCOSE RANDOM 103 mg/dL 70-105 (BEAKER) (test code = 652) CALCIUM (BEAKER) 8.8 mg/dL 8.4-10.2 (test code = 697) EGFR (BEAKER) (test 44 mL/min/1.73 ESTIMA LUIS GFR IS code = 1092) sq m NOT ACCURATE CREATININE CLEARANCE IN PREDICTING GLOMERULAR FILTRATION RATE . ESTIMATED GFR I S NOT APPLICABLE FOR DIALYSIS PATIEN TS. CBC (HEMOGRAM ONLY)2017-07-21 03:47:00 Test Item Value Reference Range Interpretation Comments WHITE BLOOD CELL COUNT (BEAKER) 12.7 K/ L 3.5-10.5 H (test code = 775) RED BLOOD CELL COUNT (BEAKER) 3.85 M/ L 4.63-6.08 L (test code = 761) HEMOGLOBIN (BEAKER) (test code = 11.5 GM/DL 13.7-17.5 L 410) HEMATOCRIT (BEAKER) (test code = 36.1 % 40.1-51.0 L 411) MEAN CORPUSCULAR VOLUME (BEAKER) 93.8 fL 79.0-92.2 H (test code = 753) MEAN CORPUSCULAR HEMOGLOBIN 29.9 pg 25.7-32.2 (BEAKER) (test code = 751) MEAN CORPUSCULAR HEMOGLOBIN CONC 31.9 GM/DL 32.3-36.5 L (BEAKER) (test code = 752) RED CELL DISTRIBUTION WIDTH 14.8 % 11.6-14.4 H (BEAKER) (test code = 412) PLATELET COUNT (BEAKER) (test 225 K/CU MM 150-450 code = 756) MEAN PLATELET VOLUME (BEAKER) 9.8 fL 9.4-12.4 (test code = 754) NUCLEATED RED BLOOD CELLS 0 /100 WBC 0-0 (BEAKER) (test code = 413) POCT-GLUCOSE [id number] 00:12:00 Test Item Value Reference Range Interpretation Comments POC-GLUCOSE METER 81 mg/dL 70-110 TESTED AT [place] [address] ([facility]) (test code = [place] [address] 1538) [id number] 21:21:00 Test Item Value Reference Range Interpretation Comments PARTIAL THROMBOPLASTIN TIME 74.7 seconds 22.5-36.0 H ([facility]) (test code = 760) POCT-GLUCOSE [id number] 17:14:00 Test Item Value Reference Range Interpretation Comments POC-GLUCOSE METER 102 mg/dL 70-110 TESTED AT [facility] 67[address] ([facility]) (test code = [place] 1538) [id number] TISSUE [id number] 13:53:00Surgical Pathology Report Case: [id number] Authorizing Provider: Kathi Benton MD Collected: 07/18/2017 1400 Ordering Location: [facility] Received: 07/19/2017 0811 Pathologist: Joshua Decker MD Specimens: A) - Polyp, Colon - Transverse, polyp removed using hot snare B) - Polyp, Colon - Right/Ascending, removed using hot snare C) -Polyp, Colon - Transverse, removed using hot snare X2 D) - Polyp, Colon - Left/Descending, polyp removed by hot snare X 2 A. COLON, TRANSVERSE, POLYPECTOMY- TUBULAR ADENOMAB. COLON, RIGHT/ASCENDING POLYPECTOMY: - TUBULAR ADENOMAC. COLON, TRANSVERSE, POLYPECTOMY- TUBULAR ADENOMA (MULTIPLE FRAGMENTS)D. COLON, LEFT/DESCENDING, POLYPECTOMY- TUBULAR ADENOMA X2 Signing Pathologist Direct Phone Line: [phone] signed by Joshua Decker MD on 07/20/2017 at 1:53 [id number]. Transverse colon polyp. B. Right ascendingcolon polyp. C. Transverse colon polyp x2. D. Left descending colon polyp [id number] is received in four containers of formalin [...] and 0.5, submitted entirely in D1. CG/ew A-D. There is no high grade dysplasia or carcinoma.BASIC METABOLIC PANEL 2017-07-20 13:26:00 Test Item Value Reference Range Interpretation Comments SODIUM (BEAKER) 139 meq/L 136-145 (test code = 381) POTASSIUM (BEAKER) 4.3 meq/L 3.5-5.1 (test code = 379) CHLORIDE (BEAKER) 106 meq/L 98-107 (test code = 382) CO2 (BEAKER) (test 23 meq/L 22-29 code = 355) BLOOD UREA NITROGEN 24 mg/dL 7-21 H (BEAKER) (test code = 354) CREATININE (BEAKER) 1.78 mg/dL 0.57-1.25 H (test code = 358) GLUCOSE RANDOM 106 mg/dL 70-105 H (BEAKER) (test code = 652) CALCIUM (BEAKER) 8.8 mg/dL 8.4-10.2 (test code = 697) EGFR (BEAKER) (test 40 mL/min/1.73 ESTIMA LUIS GFR IS code = 1092) sq m NOT ACCURATE CREATININE CLEARANCE IN PREDICTING GLOMERULAR FILTRATION RATE . ESTIMATED GFR I S NOT APPLICABLE FOR DIALYSIS PATILARS PUENTE. [id number] 13:13:00 Test Item Value Reference Range Interpretation Comments PARTIAL THROMBOPLASTIN TIME 40.3 seconds 22.5-36.0 H (BEAKER) (test code = 760) Prior to initiating heparinPOCT-GLUCOSE [id number] 12:43:00 Test Item Value Reference Range Interpretation Comments POC-GLUCOSE METER 99 mg/dL 70-110 TESTED AT [facility] 67 ([facility]) (test code = [facility] [address] 1538) POCT-GLUCOSE [id number] 05:54:00 Test Item Value Reference Range Interpretation Comments POC-GLUCOSE METER 117 mg/dL 70-110 H TESTED AT [facility] 6720 ([facility]) (test code = [facility] 1538) [address] [id number] 04:03:00 Test Item Value Reference Range Interpretation Comments PHOSPHORUS (BEAKER) (test code = 4.6 mg/dL 2.3-4.7 604) [id number] 04:03:00 Test Item Value Reference Range Interpretation Comments MAGNESIUM (BEAKER) (test code = 1.7 mg/dL 1.6-2.6 627) BASIC METABOLIC [id number] 04:03:00 Test Item Value Reference Range Interpretation Comments SODIUM (BEAKER) 138 meq/L 136-145 (test code = 381) POTASSIUM (BEAKER) 5.1 meq/L 3.5-5.1 (test code = 379) CHLORIDE (BEAKER) 107 meq/L 98-107 (test code = 382) CO2 (BEAKER) (test 21 meq/L 22-29 L code = 355) BLOOD UREA NITROGEN 21 mg/dL 7-21 (BEAKER) (test code = 354) CREATININE (BEAKER) 1.82 mg/dL 0.57-1.25 H (test code = 358) GLUCOSE RANDOM 124 mg/dL 70-105 H (BEAKER) (test code = 652) CALCIUM (BEAKER) 8.6 mg/dL 8.4-10.2 (test code = 697) EGFR (BEAKER) (test 39 mL/min/1.73 ESTIMA LUIS GFR IS code = 1092) sq m NOT ACCURATE CREATININE CLEARANCE IN PREDICTING GLOMERULAR FILTRATION RATE . ESTIMATED GFR I S NOT APPLICABLE FOR DIALYSIS PATIEN TS. CBC (HEMOGRAM ONLY)2017-07-20 03:39:00 Test Item Value Reference Range Interpretation Comments WHITE BLOOD CELL COUNT (BEAKER) 10.9 K/ L 3.5-10.5 H (test code = 775) RED BLOOD CELL COUNT (BEAKER) 4.06 M/ L 4.63-6.08 L (test code = 761) HEMOGLOBIN (BEAKER) (test code = 12.2 GM/DL 13.7-17.5 L 410) HEMATOCRIT (BEAKER) (test code = 37.4 % 40.1-51.0 L 411) MEAN CORPUSCULAR VOLUME (BEAKER) 92.1 fL 79.0-92.2 (test code = 753) MEAN CORPUSCULAR HEMOGLOBIN 30.0 pg 25.7-32.2 (BEAKER) (test code = 751) MEAN CORPUSCULAR HEMOGLOBIN CONC 32.6 GM/DL 32.3-36.5 (BEAKER) (test code = 752) RED CELL DISTRIBUTION WIDTH 14.6 % 11.6-14.4 H (BEAKER) (test code = 412) PLATELET COUNT (BEAKER) (test 221 K/CU MM 150-450 code = 756) MEAN PLATELET VOLUME (BEAKER) 9.4 fL 9.4-12.4 (test code = 754) NUCLEATED RED BLOOD CELLS 0 /100 WBC 0-0 (BEAKER) (test code = 413) POCT-GLUCOSE [id number] 23:03:00 Test Item Value Reference Range Interpretation Comments POC-GLUCOSE METER 115 mg/dL 70-110 H TESTED AT [facility] 6720 (BEAKER) (test code = ZACK [place] 1538) [id number] POCT-GLUCOSE [id number] 18:00:00 Test Item Value Reference Range Interpretation Comments POC-GLUCOSE METER 100 mg/dL 70-110 TESTED AT [facility] 6720 ([facility]) (test code = ZACK [place] 1538) [address] RAD, CHEST, 1 VIEW, NON [id number] 16:00:00Reason for exam:->Post operative intubationShould this be performed at the bedside?->YesFINAL REPORT Chest one view compared to April 07, 2017 Discussion: There is interstitial edema. No effusion or pneumothorax. Support tubes and cardiac valve placement are present. Signed: Tahmina Marquez Verified Date/Time: 07/19/2017 16:00:05 Reading Location: [facility] C0[facility] Consult Reading Room [id number] 15:22:00 Test Item Value Reference Range Interpretation Comments PHOSPHORUS (BEAKER) (test code = 3.1 mg/dL 2.3-4.7 604) [id number] 15:22:00 Test Item Value Reference Range Interpretation Comments MAGNESIUM (BEAKER) (test code = 1.5 mg/dL 1.6-2.6 L 627) BASIC METABOLIC [id number] 15:22:00 Test Item Value Reference Range Interpretation Comments SODIUM (BEAKER) 137 meq/L 136-145 (test code = 381) POTASSIUM (BEAKER) 4.7 meq/L 3.5-5.1 (test code = 379) CHLORIDE (BEAKER) 109 meq/L 98-107 H (test code = 382) CO2 (BEAKER) (test 20 meq/L 22-29 L code = 355) BLOOD UREA NITROGEN 18 mg/dL 7-21 (BEAKER) (test code = 354) CREATININE (BEAKER) 1.77 mg/dL 0.57-1.25 H (test code = 358) GLUCOSE RANDOM 111 mg/dL 70-105 H (BEAKER) (test code = 652) CALCIUM (BEAKER) 8.5 mg/dL 8.4-10.2 (test code = 697) EGFR (BEAKER) (test 40 mL/min/1.73 ESTIMA LUIS GFR IS code = 1092) sq m NOT ACCURATE CREATININE CLEARANCE IN PREDICTING GLOMERULAR FILTRATION RATE . ESTIMATED GFR I S NOT APPLICABLE FOR DIALYSIS PATIEN TS. HEPATIC FUNCTION [id number] 15:22:00 Test Item Value Reference Range Interpretation Comments TOTAL PROTEIN (BEAKER) (test code = 6.5 gm/dL 6.0-8.3 770) ALBUMIN (BEAKER) (test code = 1145) 3.1 g/dL 3.5-5.0 L BILIRUBIN TOTAL (BEAKER) (test code 1.0 mg/dL 0.2-1.2 = 377) BILIRUBIN DIRECT (BEAKER) (test 0.5 mg/dL 0.1-0.5 code = 706) ALKALINE PHOSPHATASE (BEAKER) (test 61 U/L 40-150 code = 346) AST (SGOT) (BEAKER) (test code = 148 U/L 5-34 H 353) ALT (SGPT) (BEAKER) (test code = 88 U/L 6-55 H 347) CBC W/PLT COUNT & AUTO [id number] 15:13:00 Test Item Value Reference Range Interpretation Comments WHITE BLOOD CELL COUNT (BEAKER) 9.5 K/ L 3.5-10.5 (test code = 775) RED BLOOD CELL COUNT (BEAKER) 3.94 M/ L 4.63-6.08 L (test code = 761) HEMOGLOBIN (BEAKER) (test code = 11.8 GM/DL 13.7-17.5 L 410) HEMATOCRIT (BEAKER) (test code = 36.0 % 40.1-51.0 L 411) MEAN CORPUSCULAR VOLUME (BEAKER) 91.4 fL 79.0-92.2 (test code = 753) MEAN CORPUSCULAR HEMOGLOBIN 29.9 pg 25.7-32.2 (BEAKER) (test code = 751) MEAN CORPUSCULAR HEMOGLOBIN CONC 32.8 GM/DL 32.3-36.5 (BEAKER) (test code = 752) RED CELL DISTRIBUTION WIDTH 14.4 % 11.6-14.4 (BEAKER) (test code = 412) PLATELET COUNT (BEAKER) (test 217 K/CU MM 150-450 code = 756) MEAN PLATELET VOLUME (BEAKER) 9.5 fL 9.4-12.4 (test code = 754) NUCLEATED RED BLOOD CELLS 0 /100 WBC 0-0 (BEAKER) (test code = 413) NEUTROPHILS RELATIVE PERCENT 84 % (BEAKER) (test code = 429) LYMPHOCYTES RELATIVE PERCENT 7 % (BEAKER) (test code = 430) MONOCYTES RELATIVE PERCENT 7 % (BEAKER) (test code = 431) EOSINOPHILS RELATIVE PERCENT 1 % (BEAKER) (test code = 432) BASOPHILS RELATIVE PERCENT 0 % (BEAKER) (test code = 437) NEUTROPHILS ABSOLUTE COUNT 8.00 K/ L 1.78-5.38 H (BEAKER) (test code = 670) LYMPHOCYTES ABSOLUTE COUNT 0.69 K/ L 1.32-3.57 L (BEAKER) (test code = 414) MONOCYTES ABSOLUTE COUNT (BEAKER) 0.63 K/ L 0.30-0.82 (test code = 415) EOSINOPHILS ABSOLUTE COUNT 0.11 K/ L 0.04-0.54 (BEAKER) (test code = 416) BASOPHILS ABSOLUTE COUNT (BEAKER) 0.04 K/ L 0.01-0.08 (test code = 417) IMMATURE GRANULOCYTES-RELATIVE 0 % 0-1 PERCENT (BEAKER) (test code = 2801) [id number] 15:12:00 Test Item Value Reference Range Interpretation Comments PARTIAL THROMBOPLASTIN TIME 32.3 seconds 22.5-36.0 (BEAKER) (test code = 760) PROTHROMBIN [id number] 15:11:00 Test Item Value Reference Range Interpretation Comments PROTIME (BEAKER) (test code = 14.5 seconds 11.7-14.7 759) INR (BEAKER) (test code = 370) 1.1 <=5.9 RECOMMENDED COUMADIN/WARFARIN INR THERAPY RANGESSTANDARD DOSE: 2.0 - 3.0 Includes: PROPHYLAXIS forvenous thrombosis, systemic embolization; TREATMENT for venous thrombosis and/or pulmonary embolus.HIGH RISK: Target INR is 2.5-3.5 for patients with mechanical heart valves.[id number] 15:11:00 Test Item Value Reference Range Interpretation Comments FIBRINOGEN LEVEL (BEAKER) (test 471 mg/dl 225-434 H code = 658) BLOOD GAS, [id number] 15:01:00 Test Item Value Reference Range Interpretation Comments PH ARTERIAL (BEAKER) (test code = 7.37 7.35-7.45 383) PCO2 ARTERIAL (BEAKER) (test code 38 mmHg 35-45 = 384) PO2 ARTERIAL (BEAKER) (test code 79 mmHg 80-90 L = 385) O2 SATURATION ARTERIAL (BEAKER) 95.4 % 96.0-97.0 L (test code = 386) HCO3 ARTERIAL (BEAKER) (test code 22 mmol/L 21-29 = 388) BASE EXCESS ARTERIAL (BEAKER) -3.4 mmol/L -2.0-3.0 L (test code = 387) PATIENT TEMPERATURE (BEAKER) 37.0 C (test code = 1818) FIO2 (BEAKER) (test code = 1819) 40.0 % CALCIUM, [id number] 15:01:00 Test Item Value Reference Range Interpretation Comments CALCIUM IONIZED (BEAKER) (test 1.06 mmol/L 1.12-1.27 L code = 698) PH, BLOOD (BEAKER) (test code = 7.37 1810) BLOOD GAS, [id number] 13:54:00 Test Item Value Reference Range Interpretation Comments PH ARTERIAL (BEAKER) (test code = 7.37 7.35-7.45 383) PCO2 ARTERIAL (BEAKER) (test code 40 mmHg 35-45 = 384) PO2 ARTERIAL (BEAKER) (test code 261 mmHg 80-90 H = 385) O2 SATURATION ARTERIAL (BEAKER) 99.6 % 96.0-97.0 H (test code = 386) HCO3 ARTERIAL (BEAKER) (test code 22 mmol/L 21-29 = 388) BASE EXCESS ARTERIAL (BEAKER) -2.8 mmol/L -2.0-3.0 L (test code = 387) PATIENT TEMPERATURE (BEAKER) 37.0 C (test code = 1818) FIO2 (BEAKER) (test code = 1819) 21.0 % CALCIUM, [id number] 13:54:00 Test Item Value Reference Range Interpretation Comments CALCIUM IONIZED (BEAKER) (test 1.06 mmol/L 1.12-1.27 L code = 698) PH, BLOOD (BEAKER) (test code = 7.37 1810) GLUCOSE-STAT [id number] 13:53:00 Test Item Value Reference Range Interpretation Comments GLUCOSE RANDOM (BEAKER) (test code 109 mg/dL 70-110 = 652) SODIUM NA-STAT [id number] 13:53:00 Test Item Value Reference Range Interpretation Comments SODIUM (BEAKER) (test code = 381) 135 meq/L 135-148 POTASSIUM-STAT [id number] 13:53:00 Test Item Value Reference Range Interpretation Comments POTASSIUM (BEAKER) (test code = 4.8 meq/L 3.6-5.5 379) HGB/HCT (H&H) - STAT [id number] 13:53:00 Test Item Value Reference Range Interpretation Comments HEMOGLOBIN (BEAKER) (test code = 13.6 g/dL 13.0-16.8 410) HEMATOCRIT (BEAKER) (test code = 40.0 % 40.0-50.0 411) BLOOD GAS, [id number] 11:42:00 Test Item Value Reference Range Interpretation Comments PH ARTERIAL (BEAKER) (test code = 7.40 7.35-7.45 383) PCO2 ARTERIAL (BEAKER) (test code 38 mmHg 35-45 = 384) PO2 ARTERIAL (BEAKER) (test code 108 mmHg 80-90 H = 385) O2 SATURATION ARTERIAL (BEAKER) 98.0 % 96.0-97.0 H (test code = 386) HCO3 ARTERIAL (BEAKER) (test code 23 mmol/L 21-29 = 388) BASE EXCESS ARTERIAL (BEAKER) -1.6 mmol/L -2.0-3.0 (test code = 387) PATIENT TEMPERATURE (BEAKER) 36.5 C (test code = 1818) FIO2 (BEAKER) (test code = 1819) 80.0 % CALCIUM, [id number] 11:41:00 Test Item Value Reference Range Interpretation Comments CALCIUM IONIZED (BEAKER) (test 1.12 mmol/L 1.12-1.27 code = 698) PH, BLOOD (BEAKER) (test code = 7.39 1810) GLUCOSE-STAT [id number] 11:40:00 Test Item Value Reference Range Interpretation Comments GLUCOSE RANDOM (BEAKER) (test code 104 mg/dL 70-110 = 652) SODIUM NA-STAT [id number] 11:40:00 Test Item Value Reference Range Interpretation Comments SODIUM (BEAKER) (test code = 381) 135 meq/L 135-148 POTASSIUM-STAT [id number] 11:40:00 Test Item Value Reference Range Interpretation Comments POTASSIUM (BEAKER) (test code = 4.6 meq/L 3.6-5.5 379) HGB/HCT (H&H) - STAT [id number] 11:40:00 Test Item Value Reference Range Interpretation Comments HEMOGLOBIN (BEAKER) (test code = 13.6 g/dL 13.0-16.8 410) HEMATOCRIT (BEAKER) (test code = 40.0 % 40.0-50.0 411) [id number] 12:20:00 Test Item Value Reference Range Interpretation Comments PROTIME (BEAKER) (test code = 15.0 seconds 11.7-14.7 H 759) INR (BEAKER) (test code = 370) 1.2 <=5.9 PARTIAL THROMBOPLASTIN TIME 39.7 seconds 22.5-36.0 H (BEAKER) (test code = 760) RECOMMENDED COUMADIN/WARFARIN INR THERAPY RANGESSTANDARD DOSE: 2.0 - 3.0 Includes: PROPHYLAXIS forvenous thrombosis, systemic embolization; TREATMENT for venous thrombosis and/or pulmonary embolus.HIGH RISK: Target INR is 2.5-3.5 for patients with mechanical heart valves.POTASSIUM-STAT [id number] 11:50:00 Test Item Value Reference Range Interpretation Comments POTASSIUM (BEAKER) (test code = 4.3 meq/L 3.6-5.5 379) URINE PROTEIN ELECTROPHORESIS, [id number] 12:54:00 Test Item Value Reference Range Interpretation Comments PROTEIN, URINE 23 mg/dL 0-14 H (BEAKER) (test code = 1569) ALBUMIN URINE ELP 67.0 % (BEAKER) (test code = 1018) GAMMA GLOBULIN URINE 33.0 % (BEAKER) (test code = 1015) UPEP, ID-438 (BEAKER) No monoclonal bands (test code = 2604) detected. [id number] Melisa Hunt MD (BEAKER) (test code = (electronic signature) 2608) PROTEIN ELECTROPHORESIS, [id number] 09:23:00 Test Item Value Reference Range Interpretation Comments ALBUMIN FRACTION 2.2 g/dL 3.5-5.5 L (BEAKER) (test code = 405) ALPHA 1 FRACTION 0.5 g/dL 0.2-0.4 H (BEAKER) (test code = 389) ALPHA 2 FRACTION 0.7 g/dL 0.5-0.9 (BEAKER) (test code = 390) BETA FRACTION 1.0 g/dL 0.6-1.1 (BEAKER) (test code = 392) GAMMA GLOBULIN 1.4 g/dL 0.7-1.7 FRACTION (BEAKER) (test code = 391) INTERPRETATION-119 Decrease in albumin with (BEAKER) (test code = concurrent nonspecific 2615) relative increases in alpha globulin fractions. No monoclonal bands detected. [id number] Melisa Hunt MD (BEAKER) (test code = (electronic signature) 2618) PROTEIN TOTAL SERUM, 5.9 gm/dL 6.0-8.3 L SPEP (BEAKER) (test code = 2660) BASIC METABOLIC [id number] 07:56:00 Test Item Value Reference Range Interpretation Comments SODIUM (BEAKER) 131 meq/L 136-145 L (test code = 381) POTASSIUM (BEAKER) 4.4 meq/L 3.5-5.1 (test code = 379) CHLORIDE (BEAKER) 91 meq/L 98-107 L (test code = 382) CO2 (BEAKER) (test 29 meq/L 22-29 code = 355) BLOOD UREA NITROGEN 44 mg/dL 7-21 H (BEAKER) (test code = 354) CREATININE (BEAKER) 2.82 mg/dL 0.57-1.25 H (test code = 358) GLUCOSE RANDOM 104 mg/dL 70-105 (BEAKER) (test code = 652) CALCIUM (BEAKER) 9.6 mg/dL 8.4-10.2 (test code = 697) EGFR (BEAKER) (test 23 mL/min/1.73 ESTIMA LUIS GFR IS code = 1092) sq m NOT ACCURATE CREATININE CLEARANCE IN PREDICTING GLOMERULAR FILTRATION RATE . ESTIMATED GFR I S NOT APPLICABLE FOR DIALYSIS PATIEN TS. CBC (HEMOGRAM ONLY)2017-04-08 07:54:00 Test Item Value Reference Range Interpretation Comments WHITE BLOOD CELL COUNT (BEAKER) 12.5 K/ L 3.5-10.5 H (test code = 775) RED BLOOD CELL COUNT (BEAKER) 3.94 M/ L 4.63-6.08 L (test code = 761) HEMOGLOBIN (BEAKER) (test code = 11.1 GM/DL 13.7-17.5 L 410) HEMATOCRIT (BEAKER) (test code = 35.1 % 40.1-51.0 L 411) MEAN CORPUSCULAR VOLUME (BEAKER) 89.1 fL 79.0-92.2 (test code = 753) MEAN CORPUSCULAR HEMOGLOBIN 28.2 pg 25.7-32.2 (BEAKER) (test code = 751) MEAN CORPUSCULAR HEMOGLOBIN CONC 31.6 GM/DL 32.3-36.5 L (BEAKER) (test code = 752) RED CELL DISTRIBUTION WIDTH 14.8 % 11.6-14.4 H (BEAKER) (test code = 412) PLATELET COUNT (BEAKER) (test 557 K/CU MM 150-450 H code = 756) MEAN PLATELET VOLUME (BEAKER) 9.4 fL 9.4-12.4 (test code = 754) NUCLEATED RED BLOOD CELLS 0 /100 WBC 0-0 (BEAKER) (test code = 413) [id number] 07:16:00 Test Item Value Reference Range Interpretation Comments PHOSPHORUS (BEAKER) (test code = 4.4 mg/dL 2.3-4.7 604) [id number] 07:16:00 Test Item Value Reference Range Interpretation Comments MAGNESIUM (BEAKER) (test code = 2.1 mg/dL 1.6-2.6 627) PROTHROMBIN [id number] 06:29:00 Test Item Value Reference Range Interpretation Comments PROTIME (BEAKER) (test code = 35.0 seconds 11.7-14.7 H 759) INR (BEAKER) (test code = 370) 3.5 <=5.9 RECOMMENDED COUMADIN/WARFARIN INR THERAPY RANGESSTANDARD DOSE: 2.0 - 3.0 Includes: PROPHYLAXIS forvenous thrombosis, systemic embolization; TREATMENT for venous thrombosis and/or pulmonary embolus.HIGH RISK: Target INR is 2.5-3.5 for patients with mechanical heart valves.While on warfarin.CT, [id number] 19:34:00Give PO contrastFINAL REPORT CT, ABDOMEN \\T\\ [...] radiation dose to as low as reasonably achievable. FINDINGS: Small right and moderate left-sided pleural effusion [...] or perforation.No new areas of diverticulitis. Signed: Aurora Beck MDReport Verified Date/Time: 04/07/2017 19:34:43 Reading Location: [facility] [id number] [facility] Consult Reading Room RAD, ABDOMEN/KUB, 1 VIEW [id number] 13:51:00Reason for exam:->left upper abdomen pain,Should this be performed at the bedside?->YesFINAL REPORT Comparison: CT of the abdomen and pelvis, 03/30/2017 Discussion: Abdomen: Bowel gas pattern is nonobstructed. There is no free intraperitoneal air. Catheter projects over the right pelvis. No acute skeletal abnormality. Impression: 1. Nonspecific bowel gas pattern. Signed: Kip Monzoneport Verified Date/Time: 04/07/2017 13:51:31 Reading Location: [address] Transitional Reading Room RAD, CHEST, 1 VIEW, NON [id number] 13:07:00Reason for exam:->Pleuritic chest pain at the right lower lung field, concern for parapneumonic effusionShould this be performed at the bedside?->YesFINAL REPORT Comparison: 03/31/2017 TECHNIQUE: Single view of the chest FINDINGS: Small left pleural effusion with nonspecific adjacent airspace disease suspected. Lungs otherwise grossly clear. Cardiac silhouette is enlarged. Postsurgical changes in the mediastinum with aortic calcifications are seen. No acute skeletal abnormality. Signed: Kip Monzonort Verified Date/Time: 04/07/2017 13:07:06 Reading Location: [address] Transitional Reading Room Electronicallysigned by: KIP MONZON M.D. on 04/07/2017 01:07 PMBASIC METABOLIC [id number] 07:44:00 Test Item Value Reference Range Interpretation Comments SODIUM (BEAKER) 132 meq/L 136-145 L (test code = 381) POTASSIUM (BEAKER) 4.2 meq/L 3.5-5.1 (test code = 379) CHLORIDE (BEAKER) 89 meq/L 98-107 L (test code = 382) CO2 (BEAKER) (test 33 meq/L 22-29 H code = 355) BLOOD UREA NITROGEN 42 mg/dL 7-21 H (BEAKER) (test code = 354) CREATININE (BEAKER) 3.02 mg/dL 0.57-1.25 H (test code = 358) GLUCOSE RANDOM 103 mg/dL 70-105 (BEAKER) (test code = 652) CALCIUM (BEAKER) 9.3 mg/dL 8.4-10.2 (test code = 697) EGFR (BEAKER) (test 22 mL/min/1.73 ESTIMA LUIS GFR IS code = 1092) sq m NOT ACCURATE CREATININE CLEARANCE IN PREDICTING GLOMERULAR FILTRATION RATE . ESTIMATED GFR I S NOT APPLICABLE FOR DIALYSIS PATIEN TS. [id number] 07:14:00 Test Item Value Reference Range Interpretation Comments PHOSPHORUS (BEAKER) (test code = 4.3 mg/dL 2.3-4.7 604) [id number] 07:14:00 Test Item Value Reference Range Interpretation Comments MAGNESIUM (BEAKER) (test code = 2.0 mg/dL 1.6-2.6 627) PROTHROMBIN [id number] 06:31:00 Test Item Value Reference Range Interpretation Comments PROTIME (BEAKER) (test code = 32.6 seconds 11.7-14.7 H 759) INR (BEAKER) (test code = 370) 3.2 <=5.9 RECOMMENDED COUMADIN/WARFARIN INR THERAPY RANGESSTANDARD DOSE: 2.0 - 3.0 Includes: PROPHYLAXIS forvenous thrombosis, systemic embolization; TREATMENT for venous thrombosis and/or pulmonary embolus.HIGH RISK: Target INR is 2.5-3.5 for patients with mechanical heart valves.While on warfarin.CBC (HEMOGRAM ONLY) 2017-04-07 06:23:00 Test Item Value Reference Range Interpretation Comments WHITE BLOOD CELL COUNT (BEAKER) 10.5 K/ L 3.5-10.5 (test code = 775) RED BLOOD CELL COUNT (BEAKER) 3.66 M/ L 4.63-6.08 L (test code = 761) HEMOGLOBIN (BEAKER) (test code = 10.3 GM/DL 13.7-17.5 L 410) HEMATOCRIT (BEAKER) (test code = 32.4 % 40.1-51.0 L 411) MEAN CORPUSCULAR VOLUME (BEAKER) 88.5 fL 79.0-92.2 (test code = 753) MEAN CORPUSCULAR HEMOGLOBIN 28.1 pg 25.7-32.2 (BEAKER) (test code = 751) MEAN CORPUSCULAR HEMOGLOBIN CONC 31.8 GM/DL 32.3-36.5 L (BEAKER) (test code = 752) RED CELL DISTRIBUTION WIDTH 14.6 % 11.6-14.4 H (BEAKER) (test code = 412) PLATELET COUNT (BEAKER) (test 491 K/CU MM 150-450 H code = 756) MEAN PLATELET VOLUME (BEAKER) 9.8 fL 9.4-12.4 (test code = 754) NUCLEATED RED BLOOD CELLS 0 /100 WBC 0-0 (BEAKER) (test code = 413) BASIC METABOLIC [id number] 07:20:00 Test Item Value Reference Range Interpretation Comments SODIUM (BEAKER) 134 meq/L 136-145 L (test code = 381) POTASSIUM (BEAKER) 3.8 meq/L 3.5-5.1 (test code = 379) CHLORIDE (BEAKER) 90 meq/L 98-107 L (test code = 382) CO2 (BEAKER) (test 35 meq/L 22-29 H code = 355) BLOOD UREA NITROGEN 39 mg/dL 7-21 H (BEAKER) (test code = 354) CREATININE (BEAKER) 2.59 mg/dL 0.57-1.25 H (test code = 358) GLUCOSE RANDOM 108 mg/dL 70-105 H (BEAKER) (test code = 652) CALCIUM (BEAKER) 9.7 mg/dL 8.4-10.2 (test code = 697) EGFR (BEAKER) (test 26 mL/min/1.73 ESTIMA LUIS GFR IS code = 1092) sq m NOT ACCURATE CREATININE CLEARANCE IN PREDICTING GLOMERULAR FILTRATION RATE . ESTIMATED GFR I S NOT APPLICABLE FOR DIALYSIS PATIEN TS. [id number] 07:10:00 Test Item Value Reference Range Interpretation Comments PHOSPHORUS (BEAKER) (test code = 4.1 mg/dL 2.3-4.7 604) [id number] 07:10:00 Test Item Value Reference Range Interpretation Comments MAGNESIUM (BEAKER) (test code = 1.8 mg/dL 1.6-2.6 627) CBC (HEMOGRAM ONLY)2017-04-06 06:19:00 Test Item Value Reference Range Interpretation Comments WHITE BLOOD CELL COUNT (BEAKER) 10.9 K/ L 3.5-10.5 H (test code = 775) RED BLOOD CELL COUNT (BEAKER) 3.72 M/ L 4.63-6.08 L (test code = 761) HEMOGLOBIN (BEAKER) (test code = 10.5 GM/DL 13.7-17.5 L 410) HEMATOCRIT (BEAKER) (test code = 33.2 % 40.1-51.0 L 411) MEAN CORPUSCULAR VOLUME (BEAKER) 89.2 fL 79.0-92.2 (test code = 753) MEAN CORPUSCULAR HEMOGLOBIN 28.2 pg 25.7-32.2 (BEAKER) (test code = 751) MEAN CORPUSCULAR HEMOGLOBIN CONC 31.6 GM/DL 32.3-36.5 L (BEAKER) (test code = 752) RED CELL DISTRIBUTION WIDTH 14.5 % 11.6-14.4 H (BEAKER) (test code = 412) PLATELET COUNT (BEAKER) (test 538 K/CU MM 150-450 H code = 756) MEAN PLATELET VOLUME (BEAKER) 9.6 fL 9.4-12.4 (test code = 754) NUCLEATED RED BLOOD CELLS 0 /100 WBC 0-0 (BEAKER) (test code = 413) PROTHROMBIN [id number] 06:19:00 Test Item Value Reference Range Interpretation Comments PROTIME (BEAKER) (test code = 26.9 seconds 11.7-14.7 H 759) INR (BEAKER) (test code = 370) 2.5 <=5.9 RECOMMENDED COUMADIN/WARFARIN INR THERAPY RANGESSTANDARD DOSE: 2.0 - 3.0 Includes: PROPHYLAXIS forvenous thrombosis, systemic embolization; TREATMENT for venous thrombosis and/or pulmonary embolus.HIGH RISK: Target INR is 2.5-3.5 for patients with mechanical heart valves.While on warfarin.CALCIUM, IONIZED 2017-04-06 06:18:00 Test Item Value Reference Range Interpretation Comments CALCIUM IONIZED (BEAKER) (test 1.01 mmol/L 1.12-1.27 L code = 698) PH, BLOOD (BEAKER) (test code = 7.44 1810) CALCIUM, [id number] 07:01:00 Test Item Value Reference Range Interpretation Comments CALCIUM IONIZED (BEAKER) (test 0.88 mmol/L 1.12-1.27 L code = 698) PH, BLOOD (BEAKER) (test code = 7.50 1810) BASIC METABOLIC [id number] 06:19:00 Test Item Value Reference Range Interpretation Comments SODIUM (BEAKER) 133 meq/L 136-145 L (test code = 381) POTASSIUM (BEAKER) 3.9 meq/L 3.5-5.1 (test code = 379) CHLORIDE (BEAKER) 93 meq/L 98-107 L (test code = 382) CO2 (BEAKER) (test 31 meq/L 22-29 H code = 355) BLOOD UREA NITROGEN 37 mg/dL 7-21 H (BEAKER) (test code = 354) CREATININE (BEAKER) 2.30 mg/dL 0.57-1.25 H (test code = 358) GLUCOSE RANDOM 116 mg/dL 70-105 H (BEAKER) (test code = 652) CALCIUM (BEAKER) 9.7 mg/dL 8.4-10.2 (test code = 697) EGFR (BEAKER) (test 29 mL/min/1.73 ESTIMA LUIS GFR IS code = 1092) sq m NOT ACCURATE CREATININE CLEARANCE IN PREDICTING GLOMERULAR FILTRATION RATE . ESTIMATED GFR I S NOT APPLICABLE FOR DIALYSIS PATIEN TS. [id number] 06:15:00 Test Item Value Reference Range Interpretation Comments PHOSPHORUS (BEAKER) (test code = 4.6 mg/dL 2.3-4.7 604) [id number] 06:15:00 Test Item Value Reference Range Interpretation Comments MAGNESIUM (BEAKER) (test code = 1.8 mg/dL 1.6-2.6 627) PROTHROMBIN [id number] 06:00:00 Test Item Value Reference Range Interpretation Comments PROTIME (BEAKER) (test code = 24.6 seconds 11.7-14.7 H 759) INR (BEAKER) (test code = 370) 2.2 <=5.9 RECOMMENDED COUMADIN/WARFARIN INR THERAPY RANGESSTANDARD DOSE: 2.0 - 3.0 Includes: PROPHYLAXIS forvenous thrombosis, systemic embolization; TREATMENT for venous thrombosis and/or pulmonary embolus.HIGH RISK: Target INR is 2.5-3.5 for patients with mechanical heart valves.While on warfarin.CBC (HEMOGRAM ONLY) 2017-04-05 05:47:00 Test Item Value Reference Range Interpretation Comments WHITE BLOOD CELL COUNT (BEAKER) 9.8 K/ L 3.5-10.5 (test code = 775) RED BLOOD CELL COUNT (BEAKER) 3.74 M/ L 4.63-6.08 L (test code = 761) HEMOGLOBIN (BEAKER) (test code = 10.6 GM/DL 13.7-17.5 L 410) HEMATOCRIT (BEAKER) (test code = 33.4 % 40.1-51.0 L 411) MEAN CORPUSCULAR VOLUME (BEAKER) 89.3 fL 79.0-92.2 (test code = 753) MEAN CORPUSCULAR HEMOGLOBIN 28.3 pg 25.7-32.2 (BEAKER) (test code = 751) MEAN CORPUSCULAR HEMOGLOBIN CONC 31.7 GM/DL 32.3-36.5 L (BEAKER) (test code = 752) RED CELL DISTRIBUTION WIDTH 14.2 % 11.6-14.4 (BEAKER) (test code = 412) PLATELET COUNT (BEAKER) (test 447 K/CU MM 150-450 code = 756) MEAN PLATELET VOLUME (BEAKER) 9.3 fL 9.4-12.4 L (test code = 754) NUCLEATED RED BLOOD CELLS 0 /100 WBC 0-0 (BEAKER) (test code = 413) BLOOD [id number] 17:00:00 Test Item Value Reference Range Interpretation Comments CULTURE (BEAKER) (test No growth in 5 days code = 1095) BLOOD [id number] 17:00:00 Test Item Value Reference Range Interpretation Comments CULTURE (BEAKER) (test No growth in 5 days code = 1095) WOUND CULTURE + GRAM [id number] 15:25:00 Test Item Value Reference Range Interpretation Comments CULTURE (BEAKER) (test code = 1095) 5-Flurocytosine Susceptible 0-4 , S (test code = 237) Intermediate <0 or >4 , Resistant >16 Amphotericin B Susceptible >0-0 , No (test code = 136) Interpretations Established <=0 or >0 Caspofungin Susceptible 0-0.12 , R acetate (test code Non = 141) Fluconazole (test Susceptible 0-0 , code = 143) Dose Dependent Susceptible <0 or >0 , Resi Itraconazole (test Susceptible 0-0.125 , R code = 146) Dose Dependent Susceptible <0 or >.125 Micafungin (test Susceptible 0-0.06 , S code = 148) Non Posaconazole (test Susceptible >0-0 , No code = 152) Interpretations Established <=0 or >0 Voriconazole (test Susceptible >0-0 , code = 153) Dose Dependent Susceptible <=0 or >0 , No CULTURE (BEAKER) NARGIS A 4+ Nargis (test code = 1095) TROPICALIS glabrata 5-Flurocytosine Susceptible 0-4 , S (test code = 237) Intermediate <0 or >4 , Resistant >16 Amphotericin B Susceptible >0-0 , No (test code = 1362) Interpretations Established <=0 or >0 Caspofungin Susceptible 0-0.25 , S acetate (test code Non = 141) Fluconazole (test Susceptible 0-2 , R code = 143) Dose Dependent Susceptible <0 or >2 , Resi Itraconazole (test Susceptible 0-0.125 , R code = 146) Dose Dependent Susceptible <0 or >.125 Micafungin (test Susceptible 0-0.25 , S code = 148) Non Posaconazole (test Susceptible >0-0 , No code = 1522) Interpretations Established <=0 or >0 Voriconazole (test Susceptible 0-0.12 , code = 1532) Dose Dependent Susceptible <0 or >.12 , CULTURE (BEAKER) A 2+ Nargis (test code = 1095) tropicali s GRAM STAIN RESULT 4+ WBCs (BEAKER) (test code = 1123) GRAM STAIN RESULT 3+ gram negative (BEAKER) (test rods code = 420296) GRAM STAIN RESULT 3+ yeast (BEAKER) (test code = 698738) 3+ skin floraOCCULT BLOOD, [id number] 13:51:00 Test Item Value Reference Range Interpretation Comments FECAL OCCULT BLOOD (BEAKER) (test Positive Negative A code = 618) CALCIUM, [id number] 11:41:00 Test Item Value Reference Range Interpretation Comments CALCIUM IONIZED (BEAKER) (test 1.17 mmol/L 1.12-1.27 code = 698) PH, BLOOD (BEAKER) (test code = 7.39 1810) B-TYPE NATRIURETIC FACTOR (BNP)2017-04-04 07:25:00 Test Item Value Reference Range Interpretation Comments B-TYPE NATRIURETIC PEPTIDE 1487 pg/mL 0-100 H (BEAKER) (test code = 700) [id number] 07:24:00 Test Item Value Reference Range Interpretation Comments PHOSPHORUS (BEAKER) (test code = 4.3 mg/dL 2.3-4.7 604) [id number] 07:24:00 Test Item Value Reference Range Interpretation Comments MAGNESIUM (BEAKER) (test code = 1.9 mg/dL 1.6-2.6 627) BASIC METABOLIC [id number] 07:24:00 Test Item Value Reference Range Interpretation Comments SODIUM (BEAKER) 136 meq/L 136-145 (test code = 381) POTASSIUM (BEAKER) 3.9 meq/L 3.5-5.1 (test code = 379) CHLORIDE (BEAKER) 95 meq/L 98-107 L (test code = 382) CO2 (BEAKER) (test 32 meq/L 22-29 H code = 355) BLOOD UREA NITROGEN 35 mg/dL 7-21 H (BEAKER) (test code = 354) CREATININE (BEAKER) 2.19 mg/dL 0.57-1.25 H (test code = 358) GLUCOSE RANDOM 102 mg/dL 70-105 (BEAKER) (test code = 652) CALCIUM (BEAKER) 9.6 mg/dL 8.4-10.2 (test code = 697) EGFR (BEAKER) (test 31 mL/min/1.73 ESTIMA LUIS GFR IS code = 1092) sq m NOT ACCURATE CREATININE CLEARANCE IN PREDICTING GLOMERULAR FILTRATION RATE . ESTIMATED GFR I S NOT APPLICABLE FOR DIALYSIS PATIEN TS. VANCOMYCIN LEVEL, [id number] 07:14:00 Test Item Value Reference Range Interpretation Comments VANCOMYCIN TROUGH (BEAKER) (test 10.2 ug/mL 10.0-20.0 code = 522) PROTHROMBIN [id number] 06:57:00 Test Item Value Reference Range Interpretation Comments PROTIME (BEAKER) (test code = 20.7 seconds 11.7-14.7 H 759) INR (BEAKER) (test code = 370) 1.8 <=5.9 RECOMMENDED COUMADIN/WARFARIN INR THERAPY RANGESSTANDARD DOSE: 2.0 - 3.0 Includes: PROPHYLAXIS forvenous thrombosis, systemic embolization; TREATMENT for venous thrombosis and/or pulmonary embolus.HIGH RISK: Target INR is 2.5-3.5 for patients with mechanical heart valves.While on warfarin.CBC W/PLT COUNT & AUTO [id number] 06:50:00 Test Item Value Reference Range Interpretation Comments WHITE BLOOD CELL COUNT (BEAKER) 9.9 K/ L 3.5-10.5 (test code = 775) RED BLOOD CELL COUNT (BEAKER) 3.71 M/ L 4.63-6.08 L (test code = 761) HEMOGLOBIN (BEAKER) (test code = 10.6 GM/DL 13.7-17.5 L 410) HEMATOCRIT (BEAKER) (test code = 33.2 % 40.1-51.0 L 411) MEAN CORPUSCULAR VOLUME (BEAKER) 89.5 fL 79.0-92.2 (test code = 753) MEAN CORPUSCULAR HEMOGLOBIN 28.6 pg 25.7-32.2 (BEAKER) (test code = 751) MEAN CORPUSCULAR HEMOGLOBIN CONC 31.9 GM/DL 32.3-36.5 L (BEAKER) (test code = 752) RED CELL DISTRIBUTION WIDTH 14.2 % 11.6-14.4 (BEAKER) (test code = 412) PLATELET COUNT (BEAKER) (test 444 K/CU MM 150-450 code = 756) MEAN PLATELET VOLUME (BEAKER) 9.5 fL 9.4-12.4 (test code = 754) NUCLEATED RED BLOOD CELLS 0 /100 WBC 0-0 (BEAKER) (test code = 413) NEUTROPHILS RELATIVE PERCENT 73 % (BEAKER) (test code = 429) LYMPHOCYTES RELATIVE PERCENT 10 % (BEAKER) (test code = 430) MONOCYTES RELATIVE PERCENT 12 % (BEAKER) (test code = 431) EOSINOPHILS RELATIVE PERCENT 5 % (BEAKER) (test code = 432) BASOPHILS RELATIVE PERCENT 1 % (BEAKER) (test code = 437) NEUTROPHILS ABSOLUTE COUNT 7.17 K/ L 1.78-5.38 H (BEAKER) (test code = 670) LYMPHOCYTES ABSOLUTE COUNT 0.99 K/ L 1.32-3.57 L (BEAKER) (test code = 414) MONOCYTES ABSOLUTE COUNT (BEAKER) 1.14 K/ L 0.30-0.82 H (test code = 415) EOSINOPHILS ABSOLUTE COUNT 0.44 K/ L 0.04-0.54 (BEAKER) (test code = 416) BASOPHILS ABSOLUTE COUNT (BEAKER) 0.09 K/ L 0.01-0.08 H (test code = 417) IMMATURE GRANULOCYTES-RELATIVE 1 % 0-1 PERCENT (BEAKER) (test code = 2801) CBC (HEMOGRAM ONLY)2017-04-04 06:49:00 Test Item Value Reference Range Interpretation Comments WHITE BLOOD CELL COUNT (BEAKER) 9.9 K/ L 3.5-10.5 (test code = 775) RED BLOOD CELL COUNT (BEAKER) 3.73 M/ L 4.63-6.08 L (test code = 761) HEMOGLOBIN (BEAKER) (test code = 10.6 GM/DL 13.7-17.5 L 410) HEMATOCRIT (BEAKER) (test code = 33.4 % 40.1-51.0 L 411) MEAN CORPUSCULAR VOLUME (BEAKER) 89.5 fL 79.0-92.2 (test code = 753) MEAN CORPUSCULAR HEMOGLOBIN 28.4 pg 25.7-32.2 (BEAKER) (test code = 751) MEAN CORPUSCULAR HEMOGLOBIN CONC 31.7 GM/DL 32.3-36.5 L (BEAKER) (test code = 752) RED CELL DISTRIBUTION WIDTH 14.2 % 11.6-14.4 (BEAKER) (test code = 412) PLATELET COUNT (BEAKER) (test 447 K/CU MM 150-450 code = 756) MEAN PLATELET VOLUME (BEAKER) 9.7 fL 9.4-12.4 (test code = 754) NUCLEATED RED BLOOD CELLS 0 /100 WBC 0-0 (BEAKER) (test code = 413) CBC W/PLT COUNT & AUTO [id number] 15:25:00 Test Item Value Reference Range Interpretation Comments WHITE BLOOD CELL COUNT (BEAKER) 8.4 K/ L 3.5-10.5 (test code = 775) RED BLOOD CELL COUNT (BEAKER) 3.21 M/ L 4.63-6.08 L (test code = 761) HEMOGLOBIN (BEAKER) (test code = 9.3 GM/DL 13.7-17.5 L 410) HEMATOCRIT (BEAKER) (test code = 29.0 % 40.1-51.0 L 411) MEAN CORPUSCULAR VOLUME (BEAKER) 90.3 fL 79.0-92.2 (test code = 753) MEAN CORPUSCULAR HEMOGLOBIN 29.0 pg 25.7-32.2 (BEAKER) (test code = 751) MEAN CORPUSCULAR HEMOGLOBIN CONC 32.1 GM/DL 32.3-36.5 L (BEAKER) (test code = 752) RED CELL DISTRIBUTION WIDTH 13.9 % 11.6-14.4 (BEAKER) (test code = 412) PLATELET COUNT (BEAKER) (test 360 K/CU MM 150-450 code = 756) MEAN PLATELET VOLUME (BEAKER) 9.7 fL 9.4-12.4 (test code = 754) NUCLEATED RED BLOOD CELLS 0 /100 WBC 0-0 (BEAKER) (test code = 413) NEUTROPHILS RELATIVE PERCENT 76 % (BEAKER) (test code = 429) LYMPHOCYTES RELATIVE PERCENT 4 % (BEAKER) (test code = 430) MONOCYTES RELATIVE PERCENT 8 % (BEAKER) (test code = 431) EOSINOPHILS RELATIVE PERCENT 5 % (BEAKER) (test code = 432) BASOPHILS RELATIVE PERCENT 1 % (BEAKER) (test code = 437) NEUTROPHILS ABSOLUTE COUNT 6.36 K/ L 1.78-5.38 H (BEAKER) (test code = 670) LYMPHOCYTES ABSOLUTE COUNT 0.35 K/ L 1.32-3.57 L (BEAKER) (test code = 414) MONOCYTES ABSOLUTE COUNT (BEAKER) 0.68 K/ L 0.30-0.82 (test code = 415) EOSINOPHILS ABSOLUTE COUNT 0.38 K/ L 0.04-0.54 (BEAKER) (test code = 416) BASOPHILS ABSOLUTE COUNT (BEAKER) 0.06 K/ L 0.01-0.08 (test code = 417) IMMATURE GRANULOCYTES-RELATIVE 6 % 0-1 H PERCENT (BEAKER) (test code = 2801) (MANUAL DIFFERENTIAL)2017-04-03 15:25:00 Test Item Value Reference Range Interpretation Comments TOTAL COUNTED (BEAKER) (test code = 1351) WBC MORPHOLOGY (BEAKER) (test code = Normal 487) GIANT PLATELETS (BEAKER) (test code = Present 313) POLYCHROMATOPHILLIC RBCS(BEAKER) 1+ few (test code = 478) CBC (HEMOGRAM ONLY)2017-04-03 07:03:00 Test Item Value Reference Range Interpretation Comments WHITE BLOOD CELL COUNT (BEAKER) 8.4 K/ L 3.5-10.5 (test code = 775) RED BLOOD CELL COUNT (BEAKER) 3.21 M/ L 4.63-6.08 L (test code = 761) HEMOGLOBIN (BEAKER) (test code = 9.3 GM/DL 13.7-17.5 L 410) HEMATOCRIT (BEAKER) (test code = 29.0 % 40.1-51.0 L 411) MEAN CORPUSCULAR VOLUME (BEAKER) 90.3 fL 79.0-92.2 (test code = 753) MEAN CORPUSCULAR HEMOGLOBIN 29.0 pg 25.7-32.2 (BEAKER) (test code = 751) MEAN CORPUSCULAR HEMOGLOBIN CONC 32.1 GM/DL 32.3-36.5 L (BEAKER) (test code = 752) RED CELL DISTRIBUTION WIDTH 13.9 % 11.6-14.4 (BEAKER) (test code = 412) PLATELET COUNT (BEAKER) (test 360 K/CU MM 150-450 code = 756) MEAN PLATELET VOLUME (BEAKER) 9.7 fL 9.4-12.4 (test code = 754) NUCLEATED RED BLOOD CELLS 0 /100 WBC 0-0 (BEAKER) (test code = 413) [id number] 07:00:00 Test Item Value Reference Range Interpretation Comments PHOSPHORUS (BEAKER) (test code = 3.7 mg/dL 2.3-4.7 604) [id number] 07:00:00 Test Item Value Reference Range Interpretation Comments MAGNESIUM (BEAKER) (test code = 1.7 mg/dL 1.6-2.6 627) BASIC METABOLIC [id number] 07:00:00 Test Item Value Reference Range Interpretation Comments SODIUM (BEAKER) 134 meq/L 136-145 L (test code = 381) POTASSIUM (BEAKER) 4.0 meq/L 3.5-5.1 (test code = 379) CHLORIDE (BEAKER) 98 meq/L 98-107 (test code = 382) CO2 (BEAKER) (test 28 meq/L 22-29 code = 355) BLOOD UREA NITROGEN 29 mg/dL 7-21 H (BEAKER) (test code = 354) CREATININE (BEAKER) 1.93 mg/dL 0.57-1.25 H (test code = 358) GLUCOSE RANDOM 98 mg/dL 70-105 (BEAKER) (test code = 652) CALCIUM (BEAKER) 8.8 mg/dL 8.4-10.2 (test code = 697) EGFR (BEAKER) (test 36 mL/min/1.73 ESTIMA LUIS GFR IS code = 1092) sq m NOT ACCURATE CREATININE CLEARANCE IN PREDICTING GLOMERULAR FILTRATION RATE . ESTIMATED GFR I S NOT APPLICABLE FOR DIALYSIS PATIEN TS. PROTHROMBIN [id number] 06:29:00 Test Item Value Reference Range Interpretation Comments PROTIME (BEAKER) (test code = 18.1 seconds 11.7-14.7 H 759) INR (BEAKER) (test code = 370) 1.5 <=5.9 RECOMMENDED COUMADIN/WARFARIN INR THERAPY RANGESSTANDARD DOSE: 2.0 - 3.0 Includes: PROPHYLAXIS forvenous thrombosis, systemic embolization; TREATMENT for venous thrombosis and/or pulmonary embolus.HIGH RISK: Target INR is 2.5-3.5 for patients with mechanical heart valves.While on warfarin.CALCIUM, IONIZED 2017-04-03 05:33:00 Test Item Value Reference Range Interpretation Comments CALCIUM IONIZED (BEAKER) (test 1.06 mmol/L 1.12-1.27 L code = 698) PH, BLOOD (BEAKER) (test code = 7.47 1810) CALCIUM, [id number] 06:50:00 Test Item Value Reference Range Interpretation Comments CALCIUM IONIZED (BEAKER) (test 1.05 mmol/L 1.12-1.27 L code = 698) PH, BLOOD (BEAKER) (test code = 7.39 1810) PROTHROMBIN [id number] 06:32:00 Test Item Value Reference Range Interpretation Comments PROTIME (BEAKER) (test code = 23.9 seconds 11.7-14.7 H 759) INR (BEAKER) (test code = 370) 2.1 <=5.9 RECOMMENDED COUMADIN/WARFARIN INR THERAPY RANGESSTANDARD DOSE: 2.0 - 3.0 Includes: PROPHYLAXIS forvenous thrombosis, systemic embolization; TREATMENT for venous thrombosis and/or pulmonary embolus.HIGH RISK: Target INR is 2.5-3.5 for patients with mechanical heart valves.While on warfarin.[id number] 06:20:00 Test Item Value Reference Range Interpretation Comments PHOSPHORUS (BEAKER) (test code = 3.5 mg/dL 2.3-4.7 604) [id number] 06:20:00 Test Item Value Reference Range Interpretation Comments MAGNESIUM (BEAKER) (test code = 1.9 mg/dL 1.6-2.6 627) BASIC METABOLIC [id number] 06:20:00 Test Item Value Reference Range Interpretation Comments SODIUM (BEAKER) 136 meq/L 136-145 (test code = 381) POTASSIUM (BEAKER) 3.8 meq/L 3.5-5.1 (test code = 379) CHLORIDE (BEAKER) 100 meq/L 98-107 (test code = 382) CO2 (BEAKER) (test 28 meq/L 22-29 code = 355) BLOOD UREA NITROGEN 27 mg/dL 7-21 H (BEAKER) (test code = 354) CREATININE (BEAKER) 1.84 mg/dL 0.57-1.25 H (test code = 358) GLUCOSE RANDOM 117 mg/dL 70-105 H (BEAKER) (test code = 652) CALCIUM (BEAKER) 8.7 mg/dL 8.4-10.2 (test code = 697) EGFR (BEAKER) (test 38 mL/min/1.73 ESTIMA LUIS GFR IS code = 1092) sq m NOT ACCURATE CREATININE CLEARANCE IN PREDICTING GLOMERULAR FILTRATION RATE . ESTIMATED GFR I S NOT APPLICABLE FOR DIALYSIS PATIEN TS. CBC (HEMOGRAM ONLY)2017-04-02 06:14:00 Test Item Value Reference Range Interpretation Comments WHITE BLOOD CELL COUNT (BEAKER) 8.1 K/ L 3.5-10.5 (test code = 775) RED BLOOD CELL COUNT (BEAKER) 3.36 M/ L 4.63-6.08 L (test code = 761) HEMOGLOBIN (BEAKER) (test code = 9.6 GM/DL 13.7-17.5 L 410) HEMATOCRIT (BEAKER) (test code = 30.5 % 40.1-51.0 L 411) MEAN CORPUSCULAR VOLUME (BEAKER) 90.8 fL 79.0-92.2 (test code = 753) MEAN CORPUSCULAR HEMOGLOBIN 28.6 pg 25.7-32.2 (BEAKER) (test code = 751) MEAN CORPUSCULAR HEMOGLOBIN CONC 31.5 GM/DL 32.3-36.5 L (BEAKER) (test code = 752) RED CELL DISTRIBUTION WIDTH 13.5 % 11.6-14.4 (BEAKER) (test code = 412) PLATELET COUNT (BEAKER) (test 314 K/CU MM 150-450 code = 756) MEAN PLATELET VOLUME (BEAKER) 9.9 fL 9.4-12.4 (test code = 754) NUCLEATED RED BLOOD CELLS 0 /100 WBC 0-0 (BEAKER) (test code = 413) OCCULT BLOOD, [id number] 10:54:00 Test Item Value Reference Range Interpretation Comments FECAL OCCULT BLOOD (BEAKER) (test Negative Negative code = 618) [id number] 07:23:00 Test Item Value Reference Range Interpretation Comments PHOSPHORUS (BEAKER) (test code = 2.7 mg/dL 2.3-4.7 604) [id number] 07:23:00 Test Item Value Reference Range Interpretation Comments MAGNESIUM (BEAKER) (test code = 1.5 mg/dL 1.6-2.6 L 627) BASIC METABOLIC [id number] 07:23:00 Test Item Value Reference Range Interpretation Comments SODIUM (BEAKER) 133 meq/L 136-145 L (test code = 381) POTASSIUM (BEAKER) 3.6 meq/L 3.5-5.1 (test code = 379) CHLORIDE (BEAKER) 98 meq/L 98-107 (test code = 382) CO2 (BEAKER) (test 27 meq/L 22-29 code = 355) BLOOD UREA NITROGEN 24 mg/dL 7-21 H (BEAKER) (test code = 354) CREATININE (BEAKER) 1.70 mg/dL 0.57-1.25 H (test code = 358) GLUCOSE RANDOM 95 mg/dL 70-105 (BEAKER) (test code = 652) CALCIUM (BEAKER) 8.8 mg/dL 8.4-10.2 (test code = 697) EGFR (BEAKER) (test 42 mL/min/1.73 ESTIMA LUIS GFR IS code = 1092) sq m NOT ACCURATE CREATININE CLEARANCE IN PREDICTING GLOMERULAR FILTRATION RATE . ESTIMATED GFR I S NOT APPLICABLE FOR DIALYSIS PATIEN TS. B-TYPE NATRIURETIC FACTOR (BNP)2017-04-01 07:04:00 Test Item Value Reference Range Interpretation Comments B-TYPE NATRIURETIC PEPTIDE 1358 pg/mL 0-100 H (BEAKER) (test code = 700) CBC (HEMOGRAM ONLY)2017-04-01 06:41:00 Test Item Value Reference Range Interpretation Comments WHITE BLOOD CELL COUNT (BEAKER) 9.0 K/ L 3.5-10.5 (test code = 775) RED BLOOD CELL COUNT (BEAKER) 3.55 M/ L 4.63-6.08 L (test code = 761) HEMOGLOBIN (BEAKER) (test code = 10.2 GM/DL 13.7-17.5 L 410) HEMATOCRIT (BEAKER) (test code = 32.3 % 40.1-51.0 L 411) MEAN CORPUSCULAR VOLUME (BEAKER) 91.0 fL 79.0-92.2 (test code = 753) MEAN CORPUSCULAR HEMOGLOBIN 28.7 pg 25.7-32.2 (BEAKER) (test code = 751) MEAN CORPUSCULAR HEMOGLOBIN CONC 31.6 GM/DL 32.3-36.5 L (BEAKER) (test code = 752) RED CELL DISTRIBUTION WIDTH 13.3 % 11.6-14.4 (BEAKER) (test code = 412) PLATELET COUNT (BEAKER) (test 330 K/CU MM 150-450 code = 756) MEAN PLATELET VOLUME (BEAKER) 9.6 fL 9.4-12.4 (test code = 754) NUCLEATED RED BLOOD CELLS 0 /100 WBC 0-0 (BEAKER) (test code = 413) PROTHROMBIN [id number] 06:40:00 Test Item Value Reference Range Interpretation Comments PROTIME (BEAKER) (test code = 22.3 seconds 11.7-14.7 H 759) INR (BEAKER) (test code = 370) 2.0 <=5.9 RECOMMENDED COUMADIN/WARFARIN INR THERAPY RANGESSTANDARD DOSE: 2.0 - 3.0 Includes: PROPHYLAXIS forvenous thrombosis, systemic embolization; TREATMENT for venous thrombosis and/or pulmonary embolus.HIGH RISK: Target INR is 2.5-3.5 for patients with mechanical heart valves.While on warfarin.CALCIUM, IONIZED 2017-04-01 05:45:00 Test Item Value Reference Range Interpretation Comments CALCIUM IONIZED (BEAKER) (test 1.00 mmol/L 1.12-1.27 L code = 698) PH, BLOOD (BEAKER) (test code = 7.43 1810) CT, DRAINAGE W/ CATH [id number] 16:34:00Reason for exam:->Pelvic fluid collection from diverticulitis, elevated wbc and feverFINAL REPORT CT guided anterior pelvic fluid collection drainage History: Pelv ic fluid collection from diverticulitis, elevated wbc and fever Modality: CT, CT fluoroscopy DOSE REDUCTION: The examination was performed according to departmental dose-optimization program which includes automated exposure control, adjustment of the mA and/or kV according to patient size and/or use of iterative reconstruction technique. Approach: Anterior percutaneous Sedation: Moderate sedation was administered. 1 mg of Versed and 50 mcg of fentanyl IV was used for moderate sedation monitored under my direction. Total intra-service time of sedation was 30 minutes. The patient's [...] CT fluoroscopy. Using CT guidance, a 5 [place] Yueh needle was advanced into the anterior pelvic fluid collection. There is return of thick, purulent fluid which was sent for microbiology. A 0.035 [place] wire was advanced through the Yueh catheter and coiled within the collection. The tract was serially dilated. A 10 [place] [employer] all-purpose drainage catheter was advanced over wire [...] MDReport Verified Date/Time: 03/31/2017 16:34:29 Reading Location: [facility] [id number] Angio Body Reading Room RAD, CHEST, 1 VIEW, NON DEPT 2017-03-31 09:24:00Reason for exam:->edemaShould this be performed at the bedside?->YesFINAL REPORT Portable chest. CLINICAL HISTORY: Edema. COMPARISON STUDY: None available. FINDINGS: The cardiac silhouette is enlarged. The patient is status post sternotomy and valve placement. There are mild increased interstitial markings with mild right costophrenic angle blunting. No pneumothorax is seen. Degenerative changes are noted. IMPRESSION: Mild volume overload. Signed: Gallito Harrellort Verified Date/Time: 03/31/2017 09:24:39 Reading Location: [facility] C013X Ortho Consult Reading Room TSH/FREE T4 IF [id number] 05:04:00 Test Item Value Reference Range Interpretation Comments THYROID STIMULATING HORMONE 3.55 uIU/mL 0.35-4.94 (BEAKER) (test code = 772) U/S, RENAL, [id number] 04:00:00Reason for exam:->AKIShould this be performed at the bedside?->NoFINAL REPORT U/S, RENAL, COMPLETE CLINICAL INDICATION: VALENTIN COMPARISON: Correlation to noncontrast abdomen pelvis CT obtained 12 hours prior TECHNIQUE: The kidneys and urinary bl adder were evaluated using real time sue scale [...] MDReport Verified Date/Time: 03/31/2017 04:00:06 Reading Location: [facility] C013Y CT Body Reading Room CALCIUM, [id number] 03:45:00 Test Item Value Reference Range Interpretation Comments CALCIUM IONIZED (BEAKER) (test 1.05 mmol/L 1.12-1.27 L code = 698) PH, BLOOD (BEAKER) (test code = 7.35 1810) B-TYPE NATRIURETIC FACTOR (BNP)2017-03-31 03:25:00 Test Item Value Reference Range Interpretation Comments B-TYPE NATRIURETIC PEPTIDE 1963 pg/mL 0-100 H (BEAKER) (test code = 700) URIC [id number] 03:19:00 Test Item Value Reference Range Interpretation Comments URIC ACID (BEAKER) (test code = 8.4 mg/dL 2.6-7.2 H 773) [id number] 03:19:00 Test Item Value Reference Range Interpretation Comments MAGNESIUM (BEAKER) (test code = 1.6 mg/dL 1.6-2.6 627) [id number] 03:19:00 Test Item Value Reference Range Interpretation Comments PHOSPHORUS (BEAKER) (test code = 3.1 mg/dL 2.3-4.7 604) BASIC METABOLIC [id number] 03:19:00 Test Item Value Reference Range Interpretation Comments SODIUM (BEAKER) 133 meq/L 136-145 L (test code = 381) POTASSIUM (BEAKER) 3.9 meq/L 3.5-5.1 (test code = 379) CHLORIDE (BEAKER) 98 meq/L 98-107 (test code = 382) CO2 (BEAKER) (test 27 meq/L 22-29 code = 355) BLOOD UREA NITROGEN 21 mg/dL 7-21 (BEAKER) (test code = 354) CREATININE (BEAKER) 1.73 mg/dL 0.57-1.25 H (test code = 358) GLUCOSE RANDOM 103 mg/dL 70-105 (BEAKER) (test code = 652) CALCIUM (BEAKER) 9.0 mg/dL 8.4-10.2 (test code = 697) EGFR (BEAKER) (test 41 mL/min/1.73 ESTIMA LUIS GFR IS code = 1092) sq m NOT ACCURATE CREATININE CLEARANCE IN PREDICTING GLOMERULAR FILTRATION RATE . ESTIMATED GFR I S NOT APPLICABLE FOR DIALYSIS PATIEN TS. CREATINE KINASE (CK)2017-03-31 03:19:00 Test Item Value Reference Range Interpretation Comments CREATINE KINASE TOTAL (BEAKER) (test 40 U/L 29-200 code = 380) PROTHROMBIN [id number] 03:00:00 Test Item Value Reference Range Interpretation Comments PROTIME (BEAKER) (test code = 21.3 seconds 11.7-14.7 H 759) INR (BEAKER) (test code = 370) 1.9 <=5.9 RECOMMENDED COUMADIN/WARFARIN INR THERAPY RANGESSTANDARD DOSE: 2.0 - 3.0 Includes: PROPHYLAXIS forvenous thrombosis, systemic embolization; TREATMENT for venous thrombosis and/or pulmonary embolus.HIGH RISK: Target INR is 2.5-3.5 for patients with mechanical heart valves.CBC W/PLT COUNT & AUTO DIFFERENTIAL 2017-03-31 02:54:00 Test Item Value Reference Range Interpretation Comments WHITE BLOOD CELL COUNT (BEAKER) 8.3 K/ L 3.5-10.5 (test code = 775) RED BLOOD CELL COUNT (BEAKER) 3.58 M/ L 4.63-6.08 L (test code = 761) HEMOGLOBIN (BEAKER) (test code = 10.5 GM/DL 13.7-17.5 L 410) HEMATOCRIT (BEAKER) (test code = 32.7 % 40.1-51.0 L 411) MEAN CORPUSCULAR VOLUME (BEAKER) 91.3 fL 79.0-92.2 (test code = 753) MEAN CORPUSCULAR HEMOGLOBIN 29.3 pg 25.7-32.2 (BEAKER) (test code = 751) MEAN CORPUSCULAR HEMOGLOBIN CONC 32.1 GM/DL 32.3-36.5 L (BEAKER) (test code = 752) RED CELL DISTRIBUTION WIDTH 13.3 % 11.6-14.4 (BEAKER) (test code = 412) PLATELET COUNT (BEAKER) (test 290 K/CU MM 150-450 code = 756) MEAN PLATELET VOLUME (BEAKER) 9.2 fL 9.4-12.4 L (test code = 754) NUCLEATED RED BLOOD CELLS 0 /100 WBC 0-0 (BEAKER) (test code = 413) NEUTROPHILS RELATIVE PERCENT 80 % (BEAKER) (test code = 429) LYMPHOCYTES RELATIVE PERCENT 9 % (BEAKER) (test code = 430) MONOCYTES RELATIVE PERCENT 9 % (BEAKER) (test code = 431) EOSINOPHILS RELATIVE PERCENT 2 % (BEAKER) (test code = 432) BASOPHILS RELATIVE PERCENT 1 % (BEAKER) (test code = 437) NEUTROPHILS ABSOLUTE COUNT 6.59 K/ L 1.78-5.38 H (BEAKER) (test code = 670) LYMPHOCYTES ABSOLUTE COUNT 0.77 K/ L 1.32-3.57 L (BEAKER) (test code = 414) MONOCYTES ABSOLUTE COUNT (BEAKER) 0.70 K/ L 0.30-0.82 (test code = 415) EOSINOPHILS ABSOLUTE COUNT 0.14 K/ L 0.04-0.54 (BEAKER) (test code = 416) BASOPHILS ABSOLUTE COUNT (BEAKER) 0.06 K/ L 0.01-0.08 (test code = 417) IMMATURE GRANULOCYTES-RELATIVE 0 % 0-1 PERCENT (BEAKER) (test code = 2801) EOSINOPHIL SMEAR, [id number] 21:09:00 Test Item Value Reference Range Interpretation Comments EOSINOPHIL SMEAR, URINE (BEAKER) No EOS seen No EOS seen (test code = 1851) CREATININE, RANDOM [id number] 20:44:00 Test Item Value Reference Range Interpretation Comments CREATININE URINE (BEAKER) (test 67.9 mg/dL code = 375) Reference Range: No NormalsPROTEIN, RANDOM [id number] 20:44:00 Test Item Value Reference Range Interpretation Comments PROTEIN, URINE (BEAKER) (test code 150 mg/dL 0-14 H = 1569) SODIUM, RANDOM [id number] 20:44:00 Test Item Value Reference Range Interpretation Comments SODIUM URINE (BEAKER) (test code = 41 meq/L 243) Reference Range: No NormalsURINALYSIS W/ [id number] 20:22:00 Test Item Value Reference Range Interpretation Comments COLOR (BEAKER) (test code = Yellow 470) CLARITY (BEAKER) (test code = Clear 469) SPECIFIC GRAVITY UA (BEAKER) 1.007 1.001-1.035 (test code = 468) PH UA (BEAKER) (test code = 5.5 5.0-8.0 467) PROTEIN UA (BEAKER) (test code 100 mg/dL Negative A = 464) GLUCOSE UA (BEAKER) (test code Negative Negative = 365) KETONES UA (BEAKER) (test code Negative Negative = 371) BILIRUBIN UA (BEAKER) (test Negative Negative code = 462) BLOOD UA (BEAKER) (test code = Small Negative A 461) NITRITE UA (BEAKER) (test code Negative Negative = 465) LEUKOCYTE ESTERASE UA (BEAKER) Negative Negative (test code = 466) UROBILINOGEN UA (BEAKER) (test 0.2 mg/dL 0.2-1.0 code = 463) RBC UA (BEAKER) (test code = 1 /HPF 519) WBC UA (BEAKER) (test code = < /HPF 520) BACTERIA (BEAKER) (test code = Rare 517) MUCUS (BEAKER) (test code = Rare 1574) HYALINE CASTS (BEAKER) (test 1 /LPF code = 514) SOURCE(BEAKER) (test code = Urine, Voided 9407) PROTHROMBIN [id number] 17:48:00 Test Item Value Reference Range Interpretation Comments PROTIME (BEAKER) (test code = 22.2 seconds 11.7-14.7 H 759) INR (JAGUAR) (test code = 370) 1.9 <=5.9 RECOMMENDED COUMADIN/WARFARIN INR THERAPY RANGESSTANDARD DOSE: 2.0 - 3.0 Includes: PROPHYLAXIS forvenous thrombosis, systemic embolization; TREATMENT for venous thrombosis and/or pulmonary embolus.HIGH RISK: Target INR is 2.5-3.5 for patients with mechanical heart valves.After transfusionPOCT-LACTIC ACID, VENOUS 2017-03-30 16:35:00 Test Item Value Reference Range Interpretation Comments POC-LACTIC ACID, 1.5 mmol/L 0.9-1.7 TESTED AT [facility] [address] VENOUS (JAGUAR) (test ZACK MEJÍA [place] code = 2805) [address] CT, [id number] 13:44:00FINAL REPORT CT scan of the abdomen [...] size and/or use of iterative reconstruction technique. FINDINGS: There is a trace left-sided and rgmg-cc-ulkqrxsv right-sided pleural effusion with adjacent atelectasis or [...] the mid sigmoid colon and a large peridive rticular abscess containing air and fluid extending from [...] with bladder wall thickening.2. Trace left-sided and tccl-hs-ygkllxwv right-sided pleural effusion with adjacent atelectasis or consolidation. Reticulonodular markings are also seen in the lung bases which could be followed up. This is similar to previous.3. Study limited by lack of intravenous contrast.4. Other findings as described above. Signed: Gallito Harrell MDReport Verified Date/Time: 03/30/2017 13:44:14 Reading Location: [address] Consult Reading Room APTT 2017-03-30 12:03:00 Test Item Value Reference Range Interpretation Comments PARTIAL THROMBOPLASTIN TIME 46.3 seconds 22.5-36.0 H (BEAKER) (test code = 760) Prior to initiating heparinPLATELET [id number] 11:52:00 Test Item Value Reference Range Interpretation Comments PLATELET COUNT (BEAKER) (test 310 K/CU MM 150-450 code = 756) BASIC METABOLIC [id number] 08:15:00 Test Item Value Reference Range Interpretation Comments SODIUM (BEAKER) 132 meq/L 136-145 L (test code = 381) POTASSIUM (BEAKER) 3.8 meq/L 3.5-5.1 (test code = 379) CHLORIDE (BEAKER) 98 meq/L 98-107 (test code = 382) CO2 (BEAKER) (test 27 meq/L 22-29 code = 355) BLOOD UREA NITROGEN 23 mg/dL 7-21 H (BEAKER) (test code = 354) CREATININE (BEAKER) 1.65 mg/dL 0.57-1.25 H (test code = 358) GLUCOSE RANDOM 113 mg/dL 70-105 H (BEAKER) (test code = 652) CALCIUM (BEAKER) 8.6 mg/dL 8.4-10.2 (test code = 697) EGFR (BEAKER) (test 43 mL/min/1.73 ESTIMA LUIS GFR IS code = 1092) sq m NOT ACCURATE CREATININE CLEARANCE IN PREDICTING GLOMERULAR FILTRATION RATE . ESTIMATED GFR I S NOT APPLICABLE FOR DIALYSIS PATIEN TS. CBC W/PLT COUNT & AUTO [id number] 07:05:00 Test Item Value Reference Range Interpretation Comments WHITE BLOOD CELL COUNT (BEAKER) 11.0 K/ L 3.5-10.5 H (test code = 775) RED BLOOD CELL COUNT (BEAKER) 3.52 M/ L 4.63-6.08 L (test code = 761) HEMOGLOBIN (BEAKER) (test code = 10.3 GM/DL 13.7-17.5 L 410) HEMATOCRIT (BEAKER) (test code = 31.8 % 40.1-51.0 L 411) MEAN CORPUSCULAR VOLUME (BEAKER) 90.3 fL 79.0-92.2 (test code = 753) MEAN CORPUSCULAR HEMOGLOBIN 29.3 pg 25.7-32.2 (BEAKER) (test code = 751) MEAN CORPUSCULAR HEMOGLOBIN CONC 32.4 GM/DL 32.3-36.5 (BEAKER) (test code = 752) RED CELL DISTRIBUTION WIDTH 13.2 % 11.6-14.4 (BEAKER) (test code = 412) PLATELET COUNT (BEAKER) (test 325 K/CU MM 150-450 code = 756) MEAN PLATELET VOLUME (BEAKER) 9.6 fL 9.4-12.4 (test code = 754) NUCLEATED RED BLOOD CELLS 0 /100 WBC 0-0 (BEAKER) (test code = 413) NEUTROPHILS RELATIVE PERCENT 83 % (BEAKER) (test code = 429) LYMPHOCYTES RELATIVE PERCENT 7 % (BEAKER) (test code = 430) MONOCYTES RELATIVE PERCENT 8 % (BEAKER) (test code = 431) EOSINOPHILS RELATIVE PERCENT 2 % (BEAKER) (test code = 432) BASOPHILS RELATIVE PERCENT 0 % (BEAKER) (test code = 437) NEUTROPHILS ABSOLUTE COUNT 9.13 K/ L 1.78-5.38 H (BEAKER) (test code = 670) LYMPHOCYTES ABSOLUTE COUNT 0.73 K/ L 1.32-3.57 L (BEAKER) (test code = 414) MONOCYTES ABSOLUTE COUNT (BEAKER) 0.90 K/ L 0.30-0.82 H (test code = 415) EOSINOPHILS ABSOLUTE COUNT 0.16 K/ L 0.04-0.54 (BEAKER) (test code = 416) BASOPHILS ABSOLUTE COUNT (BEAKER) 0.04 K/ L 0.01-0.08 (test code = 417) IMMATURE GRANULOCYTES-RELATIVE 0 % 0-1 PERCENT (BEAKER) (test code = 2801) PROTHROMBIN [id number] 07:01:00 Test Item Value Reference Range Interpretation Comments PROTIME (BEAKER) (test code = 23.9 seconds 11.7-14.7 H 759) INR (BEAKER) (test code = 370) 2.1 <=5.9 RECOMMENDED COUMADIN/WARFARIN INR THERAPY RANGESSTANDARD DOSE: 2.0 - 3.0 Includes: PROPHYLAXIS forvenous thrombosis, systemic embolization; TREATMENT for venous thrombosis and/or pulmonary embolus.HIGH RISK: Target INR is 2.5-3.5 for patients with mechanical heart valves.While on warfarin.CBC W/PLT COUNT & AUTO [id number] 07:25:00 Test Item Value Reference Range Interpretation Comments WHITE BLOOD CELL COUNT (BEAKER) 7.7 K/ L 3.5-10.5 (test code = 775) RED BLOOD CELL COUNT (BEAKER) 3.51 M/ L 4.63-6.08 L (test code = 761) HEMOGLOBIN (BEAKER) (test code = 10.2 GM/DL 13.7-17.5 L 410) HEMATOCRIT (BEAKER) (test code = 31.9 % 40.1-51.0 L 411) MEAN CORPUSCULAR VOLUME (BEAKER) 90.9 fL 79.0-92.2 (test code = 753) MEAN CORPUSCULAR HEMOGLOBIN 29.1 pg 25.7-32.2 (BEAKER) (test code = 751) MEAN CORPUSCULAR HEMOGLOBIN CONC 32.0 GM/DL 32.3-36.5 L (BEAKER) (test code = 752) RED CELL DISTRIBUTION WIDTH 13.2 % 11.6-14.4 (BEAKER) (test code = 412) PLATELET COUNT (BEAKER) (test 296 K/CU MM 150-450 code = 756) MEAN PLATELET VOLUME (BEAKER) 9.6 fL 9.4-12.4 (test code = 754) NUCLEATED RED BLOOD CELLS 0 /100 WBC 0-0 (BEAKER) (test code = 413) NEUTROPHILS RELATIVE PERCENT 79 % (BEAKER) (test code = 429) LYMPHOCYTES RELATIVE PERCENT 7 % (BEAKER) (test code = 430) MONOCYTES RELATIVE PERCENT 10 % (BEAKER) (test code = 431) EOSINOPHILS RELATIVE PERCENT 3 % (BEAKER) (test code = 432) BASOPHILS RELATIVE PERCENT 0 % (BEAKER) (test code = 437) NEUTROPHILS ABSOLUTE COUNT 6.09 K/ L 1.78-5.38 H (BEAKER) (test code = 670) LYMPHOCYTES ABSOLUTE COUNT 0.57 K/ L 1.32-3.57 L (BEAKER) (test code = 414) MONOCYTES ABSOLUTE COUNT (BEAKER) 0.79 K/ L 0.30-0.82 (test code = 415) EOSINOPHILS ABSOLUTE COUNT 0.19 K/ L 0.04-0.54 (BEAKER) (test code = 416) BASOPHILS ABSOLUTE COUNT (BEAKER) 0.03 K/ L 0.01-0.08 (test code = 417) IMMATURE GRANULOCYTES-RELATIVE 0 % 0-1 PERCENT (BEAKER) (test code = 2801) BASIC METABOLIC [id number] 06:39:00 Test Item Value Reference Range Interpretation Comments SODIUM (BEAKER) 135 meq/L 136-145 L (test code = 381) POTASSIUM (BEAKER) 3.9 meq/L 3.5-5.1 (test code = 379) CHLORIDE (BEAKER) 104 meq/L 98-107 (test code = 382) CO2 (BEAKER) (test 23 meq/L 22-29 code = 355) BLOOD UREA NITROGEN 27 mg/dL 7-21 H (BEAKER) (test code = 354) CREATININE (BEAKER) 1.83 mg/dL 0.57-1.25 H (test code = 358) GLUCOSE RANDOM 129 mg/dL 70-105 H (BEAKER) (test code = 652) CALCIUM (BEAKER) 8.4 mg/dL 8.4-10.2 (test code = 697) EGFR (BEAKER) (test 38 mL/min/1.73 ESTIMA LUIS GFR IS code = 1092) sq m NOT ACCURATE CREATININE CLEARANCE IN PREDICTING GLOMERULAR FILTRATION RATE . ESTIMATED GFR I S NOT APPLICABLE FOR DIALYSIS PATIEN TS. PROTHROMBIN [id number] 05:57:00 Test Item Value Reference Range Interpretation Comments PROTIME (BEAKER) (test code = 28.4 seconds 11.7-14.7 H 759) INR (BEAKER) (test code = 370) 2.7 <=5.9 RECOMMENDED COUMADIN/WARFARIN INR THERAPY RANGESSTANDARD DOSE: 2.0 - 3.0 Includes: PROPHYLAXIS forvenous thrombosis, systemic embolization; TREATMENT for venous thrombosis and/or pulmonary embolus.HIGH RISK: Target INR is 2.5-3.5 for patients with mechanical heart valves.While on warfarin.SODIUM, RANDOM URINE 2017-03-28 15:25:00 Test Item Value Reference Range Interpretation Comments SODIUM URINE (BEAKER) (test code = < meq/L 243) Reference Range: No NormalsURINALYSIS W/ REFLEX URINE [id number] 15:22:00 Test Item Value Reference Range Interpretation Comments COLOR (BEAKER) (test code = 470) Yellow CLARITY (BEAKER) (test code = 469) Clear SPECIFIC GRAVITY UA (BEAKER) (test 1.021 1.001-1.035 code = 468) PH UA (BEAKER) (test code = 467) 6.0 5.0-8.0 PROTEIN UA (BEAKER) (test code = 300 mg/dL Negative A 464) GLUCOSE UA (BEAKER) (test code = Negative Negative 365) KETONES UA (BEAKER) (test code = Negative Negative 371) BILIRUBIN UA (BEAKER) (test code = Negative Negative 462) BLOOD UA (BEAKER) (test code = 461) Moderate Negative A NITRITE UA (BEAKER) (test code = Negative Negative 465) LEUKOCYTE ESTERASE UA (BEAKER) Trace Negative A (test code = 466) UROBILINOGEN UA (BEAKER) (test code 2.0 mg/dL 0.2-1.0 H = 463) RBC UA (BEAKER) (test code = 519) 5 /HPF WBC UA (BEAKER) (test code = 520) 3 /HPF MUCUS (BEAKER) (test code = 1574) Rare HYALINE CASTS (BEAKER) (test code = 25 /LPF 514) GRANULAR CASTS (BEAKER) (test code 7 /LPF = 515) SOURCE(BEAKER) (test code = 2795) BASIC METABOLIC [id number] 05:49:00 Test Item Value Reference Range Interpretation Comments SODIUM (BEAKER) 133 meq/L 136-145 L (test code = 381) POTASSIUM (BEAKER) 4.3 meq/L 3.5-5.1 (test code = 379) CHLORIDE (BEAKER) 101 meq/L 98-107 (test code = 382) CO2 (BEAKER) (test 24 meq/L 22-29 code = 355) BLOOD UREA NITROGEN 24 mg/dL 7-21 H (BEAKER) (test code = 354) CREATININE (BEAKER) 1.88 mg/dL 0.57-1.25 H (test code = 358) GLUCOSE RANDOM 92 mg/dL 70-105 (BEAKER) (test code = 652) CALCIUM (BEAKER) 8.2 mg/dL 8.4-10.2 L (test code = 697) EGFR (BEAKER) (test 37 mL/min/1.73 ESTIMA LUIS GFR IS code = 1092) sq m NOT ACCURATE CREATININE CLEARANCE IN PREDICTING GLOMERULAR FILTRATION RATE . ESTIMATED GFR I S NOT APPLICABLE FOR DIALYSIS PATIEN TS. PROTHROMBIN [id number] 05:16:00 Test Item Value Reference Range Interpretation Comments PROTIME (BEAKER) (test code = 25.5 seconds 11.7-14.7 H 759) INR (BEAKER) (test code = 370) 2.3 <=5.9 RECOMMENDED COUMADIN/WARFARIN INR THERAPY RANGESSTANDARD DOSE: 2.0 - 3.0 Includes: PROPHYLAXIS forvenous thrombosis, systemic embolization; TREATMENT for venous thrombosis and/or pulmonary embolus.HIGH RISK: Target INR is 2.5-3.5 for patients with mechanical heart valves.While on warfarin.PROTHROMBIN TIME/INR 2017-03-27 14:02:00 Test Item Value Reference Range Interpretation Comments PROTIME (BEAKER) (test code = 22.5 seconds 11.7-14.7 H 759) INR (BEAKER) (test code = 370) 2.0 <=5.9 RECOMMENDED COUMADIN/WARFARIN INR THERAPY RANGESSTANDARD DOSE: 2.0 - 3.0 Includes: PROPHYLAXIS forvenous thrombosis, systemic embolization; TREATMENT for venous thrombosis and/or pulmonary embolus.HIGH RISK: Target INR is 2.5-3.5 for patients with mechanical heart valves.BASIC METABOLIC [id number] 05:21:00 Test Item Value Reference Range Interpretation Comments SODIUM (BEAKER) 136 meq/L 136-145 (test code = 381) POTASSIUM (BEAKER) 4.2 meq/L 3.5-5.1 (test code = 379) CHLORIDE (BEAKER) 102 meq/L 98-107 (test code = 382) CO2 (BEAKER) (test 25 meq/L 22-29 code = 355) BLOOD UREA NITROGEN 21 mg/dL 7-21 (BEAKER) (test code = 354) CREATININE (BEAKER) 1.56 mg/dL 0.57-1.25 H (test code = 358) GLUCOSE RANDOM 95 mg/dL 70-105 (BEAKER) (test code = 652) CALCIUM (BEAKER) 8.6 mg/dL 8.4-10.2 (test code = 697) EGFR (BEAKER) (test 46 mL/min/1.73 ESTIMA LUIS GFR IS code = 1092) sq m NOT ACCURATE CREATININE CLEARANCE IN PREDICTING GLOMERULAR FILTRATION RATE . ESTIMATED GFR I S NOT APPLICABLE FOR DIALYSIS PATIEN TS. CBC W/PLT COUNT & AUTO [id number] 05:03:00 Test Item Value Reference Range Interpretation Comments WHITE BLOOD CELL COUNT (BEAKER) 6.2 K/ L 3.5-10.5 (test code = 775) RED BLOOD CELL COUNT (BEAKER) 3.82 M/ L 4.63-6.08 L (test code = 761) HEMOGLOBIN (BEAKER) (test code = 11.1 GM/DL 13.7-17.5 L 410) HEMATOCRIT (BEAKER) (test code = 35.1 % 40.1-51.0 L 411) MEAN CORPUSCULAR VOLUME (BEAKER) 91.9 fL 79.0-92.2 (test code = 753) MEAN CORPUSCULAR HEMOGLOBIN 29.1 pg 25.7-32.2 (BEAKER) (test code = 751) MEAN CORPUSCULAR HEMOGLOBIN CONC 31.6 GM/DL 32.3-36.5 L (BEAKER) (test code = 752) RED CELL DISTRIBUTION WIDTH 13.0 % 11.6-14.4 (BEAKER) (test code = 412) PLATELET COUNT (BEAKER) (test 346 K/CU MM 150-450 code = 756) MEAN PLATELET VOLUME (BEAKER) 9.5 fL 9.4-12.4 (test code = 754) NUCLEATED RED BLOOD CELLS 0 /100 WBC 0-0 (BEAKER) (test code = 413) NEUTROPHILS RELATIVE PERCENT 68 % (BEAKER) (test code = 429) LYMPHOCYTES RELATIVE PERCENT 16 % (BEAKER) (test code = 430) MONOCYTES RELATIVE PERCENT 13 % (BEAKER) (test code = 431) EOSINOPHILS RELATIVE PERCENT 2 % (BEAKER) (test code = 432) BASOPHILS RELATIVE PERCENT 1 % (BEAKER) (test code = 437) NEUTROPHILS ABSOLUTE COUNT 4.21 K/ L 1.78-5.38 (BEAKER) (test code = 670) LYMPHOCYTES ABSOLUTE COUNT 0.99 K/ L 1.32-3.57 L (BEAKER) (test code = 414) MONOCYTES ABSOLUTE COUNT (BEAKER) 0.82 K/ L 0.30-0.82 (test code = 415) EOSINOPHILS ABSOLUTE COUNT 0.11 K/ L 0.04-0.54 (BEAKER) (test code = 416) BASOPHILS ABSOLUTE COUNT (BEAKER) 0.06 K/ L 0.01-0.08 (test code = 417) IMMATURE GRANULOCYTES-RELATIVE 0 % 0-1 PERCENT (BEAKER) (test code = 5179)
[2020-07-29 12:08] LABS: Absolute Lymphocytes (CBC) 0.7 K/uL (0.7-4.9); Basophils % 1.3 % (0-1.3); Hematocrit 46.3 % (39.6-49.0); Lymphocytes % 8.7 % (15.3-44.8); MPV 9.9 fL (7.6-11.3); RBC Red Blood Cell Count 4.69 M/uL (4.33-5.43)
[2020-07-29 12:15] LABS: Protime INR 2.39
--- NOTE | 2020-07-29 13:02 | RAD REPORT ---
EXAM DESCRIPTION: RAD - Chest Single View - 07/29/2020 12:29 pm CLINICAL HISTORY: SOB Chest pain. COMPARISON: Chest Pa And Lat (2 Views) dated 05/10/2020; Chest Single View dated 08/31/2018; Chest Sin gle View dated 05/02/2016; Chest Single View dated 05/01/2016 FINDINGS: Portable technique limits examination quality. Mild interstitial pulmonary edema is seen. The heart is moderately enlarged in size. Sternotomy wires present. IMPRESSION: Mild CHF.
[2020-07-29 13:34] LABS: Albumin 3.2 g/dL (3.4-5.0); Bilirubin Direct 0.6 mg/dL (0-0.2); Bilirubin Total 1.2 mg/dL (0.2-1.0); CKMB Creatine Kinase MB 2.3 ng/mL (0.3-3.6); Magnesium 2.5 mg/dL (1.8-2.4); Potassium 4.5 mmol/L (3.5-5.1); Protein, Total 7.4 g/dL (6.4-8.2); Troponin (Emerg Dept Use Only) 0.07 ng/mL (0.0-0.045)
--- NOTE | 2020-07-29 15:03 | EDPHYS ---
Physician Documentation [facility] Name: Nixon Gamboa Age: 59 yrs Sex: Male : 1960 Arrival Date: 07/29/2020 Time: 11:22 Bed 23 Private MD: ED Physician Efraín Wan HPI: 07/29 17:09 This 59 yrs old Male presents to ER via Ambulatory with complaints of tw4 Shortness Of Breath, Leg Swelling, Abdominal Distention. 17:09 The patient has shortness of breath at rest. Onset: The symptoms/episode began/occurred tw4 today. Duration: The symptoms are continuous, and are unchanged since they started. The patient's shortness of breath has no apparent modifying factors. Associated signs and symptoms: The patient has no apparent associated signs or symptoms. Severity of symptoms: At their worst the symptoms were mild in the emergency department the symptoms are unchanged. The patient has not experienced similar symptoms in the past. Historical: - Allergies: 11:33 No Known Allergies; ca1 - Home Meds: 11:51 warfarin 5 mg oral tab once daily [Active]; carvedilol 3.125 mg oral tab 2 times per iw day [Active]; torsemide 20 mg oral tab twice a day [Active]; simvastatin 40 mg oral tab once daily [Active]; Entresto 49-51 mg Oral tab 1 tab 2 times per day [Active]; - PMHx: 11:33 artificial valve in heart; CHF; Hepatitis C; Sleep Apnea; Hypertension; Hyperlipidemia; ca1 11:33 Diverticulitis; ca1 - PSHx: 11:33 valve replacement; ca1 11:33 colectomy; ca1 - Immunization history:: Client reports having NOT received the Covid vaccine. Pneumococcal vaccine is up to date, Flu vaccine is up to date. - Social history:: Smoking status: Patient reports the use of cigarette tobacco products, smokes one-half pack cigarettes per day. ROS: 17:09 Constitutional: Negative for fever, chills, and weight loss, Eyes: Negative for injury, tw4 pain, redness, and discharge, Cardiovascular: Negative for chest pain, palpitations, and edema, Abdomen/GI: Negative for abdominal pain, nausea, vomiting, diarrhea, and constipation, Back: Negative for injury and pain, MS/Extremity: Negative for injury and deformity, Skin: Negative for injury, rash, and discoloration, Neuro: Negative for headache, weakness, numbness, tingling, and seizure. 17:09 Respiratory: Positive for shortness of breath, Negative for cough, dyspnea on exertion, hemoptysis, orthopnea, pleurisy. Exam: 17:09 Constitutional: This is a well developed, well nourished patient who is awake, alert, tw4 and in no acute distress. Head/Face: Normocephalic, atraumatic. Chest/axilla: Normal chest wall appearance and motion. Nontender with no deformity. No lesions are appreciated. Cardiovascular: Regular rate and rhythm with a normal S1 and S2. No gallops, murmurs, or rubs. Normal PMI, no JVD. No pulse deficits. 17:09 Abdomen/GI: Soft, non-tender, with normal bowel sounds. No distension or tympany. No guarding or rebound. No evidence of tenderness throughout. Back: No spinal tenderness. No costovertebral tenderness. Full range of motion. Skin: Warm, dry with normal turgor. Normal color with no rashes, no lesions, and no evidence of cellulitis. MS/ Extremity: Pulses equal, no cyanosis. Neurovascular intact. Full, normal range of motion. Neuro: Awake and alert, GCS 15, oriented to person, place, time, and situation. Cranial nerves II-XII grossly intact. Motor strength 5/5 in all extremities. Sensory grossly intact. Cerebellar exam normal. Normal gait. 17:09 Respiratory: mild respiratory distress is noted, Respirations: normal, Breath sounds: rales, that are moderate, are heard in the left posterior lower lobe and right posterior lower lobe. Vital Signs: 11:29 BP 122 / 85; Pulse 87; Resp 22; Temp 97.6(TE); Pulse Ox 94% on R/A; Weight 104.33 kg ca1 (R); Height 5 ft. 7 in. (170.18 cm) (R); Pain 0/10; 12:30 BP 120 / 92; Pulse 88; Resp 20; Pulse Ox 93% ; zb 13:52 BP 125 / 101; Pulse 92; Resp 22; Pulse Ox 93% on R/A; zb 14:00 BP 132 / 108; Pulse 87; Resp 22; Pulse Ox 88% on R/A; zb 14:45 Pulse Ox 86% on R/A; zb 14:50 BP 128 / 97; Pulse 88; Resp 20; Pulse Ox 94% 2 lpm ; zb 15:36 BP 128 / 90; Pulse 88; Resp 21; Pulse Ox 97% 1 lpm ; zb 16:34 BP 134 / 78; Pulse 98; Resp 22; Pulse Ox 93% on R/A; zb 17:34 BP 129 / 90; Pulse 96; Resp 23; Pulse Ox 92% on R/A; zb 18:05 BP 131 / 98; Pulse 101; Resp 22; Pulse Ox 96% 1 lpm ; zb 11:29 Body Mass Index 36.02 (104.33 kg, 170.18 cm) ca1 MDM: 11:49 Patient medically screened. tw4 17:09 Differential diagnosis: Bronchitis CHF exacerbation, reactive airway disease. tw4 Antibiotic administration: Not indicated. Data reviewed: vital signs, nurses notes. Data reviewed: lab test result(s), CBC, electrolytes, hepatic panel, radiologic studies, plain films. Data interpreted: Pulse oximetry: Interpretation: normal. Test interpretation: by ED physician or midlevel provider: plain radiologic studies. Test interpretation: by ED physician or midlevel provider: ECG. Counseling: I had a detailed discussion with the patient and/or guardian regarding: the historical points, exam findings, and any diagnostic results supporting the discharge/admit diagnosis. Physician consultation: Yoana Simpson MD regarding admission, to the telemetry unit. patient's condition, and will see patient in ED. 07/29 11:50 Order name: Blood Culture Adult (2) 07/29 11:50 Order name: BMP 07/29 11:50 Order name: CBC with Diff 07/29 11:50 Order name: Ckmb 07/29 11:50 Order name: CPK 07/29 11:50 Order name: Hepatic Function 07/29 11:50 Order name: Lipase 07/29 11:50 Order name: Magnesium 07/29 11:50 Order name: NT PRO-BNP 07/29 11:50 Order name: PT-INR; Complete Time: 13:55 07/29 11:50 Order name: Ptt, Activated; Complete Time: 13:55 07/29 11:50 Order name: Troponin (emerg Dept Use Only) 4 07/29 11:50 Order name: Blood Culture EDND 07/29 11:50 Order name: Basic Metabolic Panel EDND 07/29 11:50 Order name: CBC with Automated Diff; Complete Time: 13:55 EDND 07/29 11:50 Order name: CKMB Creatine Kinase MB EDND 07/29 11:50 Order name: Creatine Phosphokinase EDND 07/29 11:50 Order name: Liver (Hepatic) Function EDND 07/29 11:50 Order name: Lipase EDND 07/29 13:58 Order name: SARS-COV-2 RT PCR EDND 07/29 16:31 Order name: Comprehensive Metabolic Panel EDND 07/29 16:31 Order name: Comprehensive Metabolic Panel [facility] 07/29 16:32 Order name: UR CREAT EDND 07/29 16:32 Order name: CBC with Automated Diff EDND 07/29 16:32 Order name: CBC with Automated Diff EDND 07/29 16:32 Order name: Protime (+INR) EDND 07/29 16:32 Order name: Protime (+INR) [facility] 07/29 16:32 Order name: Troponin I EDND 07/29 16:32 Order name: Troponin I [facility] 07/29 11:50 Order name: XRAY CXR (1 view); Complete Time: 13:55 tw 07/29 11:50 Order name: EKG; Complete Time: 11:50 07/29 11:50 Order name: Cardiac monitoring; Complete Time: 11:55 07/29 11:50 Order name: EKG - Nurse/Tech; Complete Time: 11:55 07/29 11:50 Order name: IV Saline Lock; Complete Time: 11:55 4 07/29 11:50 Order name: Labs collected and sent; Complete Time: 11:55 07/29 11:50 Order name: O2 Per Protocol; Complete Time: 11:56 4 07/29 11:50 Order name: O2 Sat Monitoring; Complete Time: 11:56 4 07/29 16:32 Order name: CONS Physician Consult EDND 07/29 16:32 Order name: Renal EDND 07/29 16:32 Order name: Troponin I [facility] 07/29 16:33 Order name: Renal Ultrasound-Complete EDND EC:09 Rate is 85 beats/min. Rhythm is regular. Left axis deviation noted. MD interval is tw4 normal. QRS interval is normal. QT interval is normal. No Q waves. T waves are Inverted in leads I, aVL. No ST changes noted. Clinical impression: NSR w/ Non-specific ST/T Changes. Interpreted by me. Reviewed by me. Administered Medications: 15:35 Drug: Lasix (furosemide) 40 mg Route: IVP; Site: right antecubital; zb 16:35 Follow up: Response: No adverse reaction; Marked relief of symptoms zb Disposition: 07/29/20 15:03 Hospitalization ordered by Yoana Simpson for Inpatient Admission. Preliminary diagnosis are Unspecified combined systolic (congestive) and diastolic (congestive) heart failure, Hypoxemia. - Bed requested for Telemetry/MedSurg (Inpatient). - Status is Inpatient Admission. zb - Condition is Stable. - Problem is new. - Symptoms are unchanged. Signatures: Dispatcher [employer] [facility] Deepa Sanford RN RN dw Williams, Irene, RN RN iw Wadley, Terrence, MD MD tw4 Lizbeth Blake RN RN ca1 Brown, Zipporah, RN RN zb Corrections: (The following items were deleted from the chart) 13:09 11:56 CORONAVIRUS+MR.LAB.BRZ ordered. [facility] 17:47 15:03 Hospitalization Ordered by Yoana Simpson MD for Inpatient Admission. Preliminary diagnosis is Unspecified combined systolic (congestive) and diastolic (congestive) heart failure; Hypoxemia. Bed requested for Telemetry/MedSurg (Inpatient). Status is Inpatient Admission. Condition is Stable. Problem is new. Symptoms are unchanged. tw4 20:25 17:47 07/29/2020 15:03 Hospitalization Ordered by Yoana Simpson MD for Inpatient zb Admission. Preliminary diagnosis is Unspecified combined systolic (congestive) and diastolic (congestive) heart failure; Hypoxemia. Bed requested for Telemetry/MedSurg (Inpatient). Status is Inpatient Admission. Condition is Stable. Problem is new. Symptoms are unchanged. dw
--- NOTE | 2020-07-29 15:03 | ER ---
Nurse's Notes [facility] Name: Nixon Gamboa Age: 59 yrs Sex: Male : 1960 Arrival Date: 07/29/2020 Time: 11:22 Bed 23 Private MD: Diagnosis: Unspecified combined systolic (congestive) and diastolic (congestive) heart failure;Hypoxemia Presentation: 07/29 11:29 Chief complaint: Patient states: SOB, jeremy leg swelling, abdominal swelling x years, but ca1 has gotten worse in the last month. Can't function without being short of breath. Been taking Lasix 80mg BID still feels swollen and SOB. Denies fever. Denies cough. Feels nausea intermittently. Coronavirus screen: Client denies travel out of the [place] in the last 14 days. shortness of breath, Client presents with at least one sign or symptom that may indicate coronavirus-19. Standard/surgical mask placed on the client. Provider contacted for isolation considerations. Ebola Screen: Patient negative for fever greater than or equal to 101.5 degrees Fahrenheit, and additional compatible Ebola Virus Disease symptoms Patient denies exposure to infectious person. Patient denies travel to an Ebola-affected area in the 21 days before illness onset. No symptoms or risks identified at this time. Initial Sepsis Screen: Does the patient meet any 2 criteria? No. Patient's initial sepsis screen is negative. Does the patient have a suspected source of infection? No. Patient's initial sepsis screen is negative. Risk Assessment: Do you want to hurt yourself or someone else? Patient reports no desire to harm self or others. Onset of symptoms was July 29, 2020. 11:29 Method Of Arrival: Ambulatory ca1 11:29 Acuity: JUAQUIN 3 ca1 Triage Assessment: 13:00 General: Appears in no apparent distress. uncomfortable. Respiratory: Reports shortness zb of breath the patient has moderate shortness of breath. Respiratory: Onset: The symptoms/episode began/occurred. Historical: - Allergies: 11:33 No Known Allergies; ca1 - Home Meds: 11:51 warfarin 5 mg oral tab once daily [Active]; carvedilol 3.125 mg oral tab 2 times per iw day [Active]; torsemide 20 mg oral tab twice a day [Active]; simvastatin 40 mg oral tab once daily [Active]; Entresto 49-51 mg Oral tab 1 tab 2 times per day [Active]; - PMHx: 11:33 artificial valve in heart; CHF; Hepatitis C; Sleep Apnea; Hypertension; Hyperlipidemia; ca1 11:33 Diverticulitis; ca1 - PSHx: 11:33 valve replacement; ca1 11:33 colectomy; ca1 - Immunization history:: Client reports having NOT received the Covid vaccine. Pneumococcal vaccine is up to date, Flu vaccine is up to date. - Social history:: Smoking status: Patient reports the use of cigarette tobacco products, smokes one-half pack cigarettes per day. Screenin:03 Abuse screen: Denies threats or abuse. Denies injuries from another. Nutritional iw screening: No deficits noted. Tuberculosis screening: No symptoms or risk factors identified. Fall Risk IV access (20 points). Assessment: 11:50 General: Appears in no apparent distress. comfortable, Behavior is calm, cooperative. iw Neuro: Level of Consciousness is awake, alert, obeys commands, Oriented to person, place, time, situation, Moves all extremities. Full function. Cardiovascular: Reports shortness of breath, Denies chest pain, Rhythm is regular. Respiratory: Reports shortness of breath on exertion Airway is patent Respiratory effort is even, labored, Respiratory pattern is regular. GI: Abdomen is round distended. Derm: Skin is intact. 13:00 Reassessment: Patient appears in no apparent distress at this time. Patient and/or zb family updated on plan of care and expected duration. Pain level reassessed. Patient is alert, oriented x 3, equal unlabored respirations, skin warm/dry/pink. 14:00 Reassessment: Patient appears in no apparent distress at this time. Patient and/or zb family updated on plan of care and expected duration. Pain level reassessed. Patient is alert, oriented x 3, equal unlabored respirations, skin warm/dry/pink. patient experiences sob. 14:45 Reassessment: Patient appears in no apparent distress at this time. Patient and/or zb family updated on plan of care and expected duration. Pain level reassessed. Patient is alert, oriented x 3, equal unlabored respirations, skin warm/dry/pink. patient ambulates to restroom still experiences SOB. sat decreased to 86 after ambulating notified ECP. placed on 2L of oxygen. 14:55 Reassessment: decreased oxygen to 1L sating at 97%. zb 15:08 Reassessment: hospitalist and pcp at bedside. zb 17:59 Pain: Complains of pain in right leg and left leg Pain currently is 3 out of 10 on a zb pain scale. Respiratory: Breath sounds are diminished bilaterally. 18:07 Reassessment: Patient appears in no apparent distress at this time. Patient and/or zb family updated on plan of care and expected duration. Pain level reassessed. Patient is alert, oriented x 3, equal unlabored respirations, skin warm/dry/pink. patient notified that he has a room. attempted to call report. Vital Signs: 11:29 BP 122 / 85; Pulse 87; Resp 22; Temp 97.6(TE); Pulse Ox 94% on R/A; Weight 104.33 kg ca1 (R); Height 5 ft. 7 in. (170.18 cm) (R); Pain 0/10; 12:30 BP 120 / 92; Pulse 88; Resp 20; Pulse Ox 93% ; zb 13:52 BP 125 / 101; Pulse 92; Resp 22; Pulse Ox 93% on R/A; zb 14:00 BP 132 / 108; Pulse 87; Resp 22; Pulse Ox 88% on R/A; zb 14:45 Pulse Ox 86% on R/A; zb 14:50 BP 128 / 97; Pulse 88; Resp 20; Pulse Ox 94% 2 lpm ; zb 15:36 BP 128 / 90; Pulse 88; Resp 21; Pulse Ox 97% 1 lpm ; zb 16:34 BP 134 / 78; Pulse 98; Resp 22; Pulse Ox 93% on R/A; zb 17:34 BP 129 / 90; Pulse 96; Resp 23; Pulse Ox 92% on R/A; zb 18:05 BP 131 / 98; Pulse 101; Resp 22; Pulse Ox 96% 1 lpm ; zb 11:29 Body Mass Index 36.02 (104.33 kg, 170.18 cm) ca1 ED Course: 11:22 Patient arrived in ED. am2 11:31 Triage completed. ca1 11:33 Arm band placed on right wrist. ca1 11:49 Efraín aWn MD is Attending Physician. tw4 11:59 Inserted saline lock: 20 gauge in right antecubital area, using aseptic technique. ca1 Blood collected. 11:59 Initial lab(s) drawn, by me, sent to lab. First set of blood cultures drawn by me. ca1 12:00 Patient has correct armband on for positive identification. Bed in low position. Call zb light in reach. Side rails up X 1. stores laborer on. Pulse ox on. NIBP on. Door closed. Noise minimized. Warm blanket given. 12:18 Cecille Cabezas, ALEJANDRA is Primary Nurse. zb 12:29 XRAY CXR (1 view) In Process Unspecified. EDMS 12:31 X-ray completed. Portable x-ray completed in exam room. Patient tolerated procedure md1 well. 12:39 Second set of blood cultures drawn by me. ca1 15:02 Yoana Simpson MD is Hospitalizing Provider. tw4 18:05 No provider procedures requiring assistance completed. Patient admitted, IV remains in zb place. 19:53 Report given to ALEJANDRA Cervantes. zb Administered Medications: 15:35 Drug: Lasix (furosemide) 40 mg Route: IVP; Site: right antecubital; zb 16:35 Follow up: Response: No adverse reaction; Marked relief of symptoms zb Outcome: 15:03 Decision to Hospitalize by Provider. tw4 18:05 Admitted to Med/surg room 224, with chart. zb 18:05 Condition: stable 18:05 Instructed on the need for admit. 19:54 Admitted to Med/surg accompanied by [facility], room 224, with chart, Report called to shirley Cervantes RN 20:25 Patient left the ED. zb Signatures: Dispatcher [employer] EDMS Layla Olivas, ALEJANDRA ROBERTS iw Sylvia Hazel 2 Efraín Wan MD MD tw4 Lizbeth Blake RN RN ca1 Rubia Kessler md1 Cecille Cabezas RN RN zasha Corrections: (The following items were deleted from the chart) 13:09 12:39 CORONAVIRUS+ drawn and sent. ca1 EDMS 15:39 14:30 BP 128 / 97; Pulse 88bpm; Resp 20bpm; Pulse Ox 94% 1 lpm; zb zb 16:37 16:34 BP 134 / 101; Pulse 98bpm; Resp 22bpm; Pulse Ox 93% RA; zb zb 16:39 14:30 BP 128 / 97; Pulse 88bpm; Resp 20bpm; Pulse Ox 94% 1 lpm; zb zb
[2020-07-29] MEDS ORDERED: FUROSEMIDE 40 MG/4 ML VIAL ONE (15:32)
[2020-07-29] MEDS ORDERED: ONDANSETRON 4 MG/2 ML VIAL IV PRN (16:23)
[2020-07-29] MEDS ORDERED: ALBUTEROL 2.5 MG/3 ML NEB SOL NEB PRN (16:23)
[2020-07-29] MEDS ORDERED: ACETAMINOPHEN 500 MG TAB PO PRN (16:23)
[2020-07-29] MEDS ORDERED: MORPHINE 2 MG/ML SYR IV PRN (16:23)
--- NOTE | 2020-07-29 16:37 | P.HP ---
Certification for Inpatient With expected LOS: >2 Midnights Patient will require the following post-hospital care: None Practitioner: I am a practitioner with admitting privileges, knowledge of patient current condition, hospital course, and medical plan of care. Services: Services provided to patient in accordance with Admission requirements found in Title 42 Section 412.3 of the Code of Federal Regulations Patient History Date of Service: 07/29/20 Reason for admission: Worsening shortness of breath and swelling History of Present Illness: 59 year old male with past medical history of Aortic valve replacement with mechanical valve on chronic anticoagulation with Coumadin, Hypertension, systolic CHF-unknown ejection fraction, previously on Entresto follows with Cardiology, presented due to increasing body swelling, shortness of breath and weight gain. Patient admit to exertional dyspnea with progressive orthopnea and paroxysmal nocturnal dyspnea. He states recent visit supply specialist 2 weeks ago and his dose of Lasix increased to twice daily. He has unsure of his kidney function status. On admission he was noted with marked hypoxia on exertion with O2 sat down to the low 80s. He is saturating well on 2L nasal cannula now. His creatinine is elevated at 2.3. He has been admitted for CHF exacerbation. Allergies No Known Allergies Allergy (Verified 08/31/18 15:02) Home medications list reviewed: No Home Medications: Sacubitril/Valsartan [Entresto 49 mg-51 mg Tablet] 1 tab PO BID 08/31/18 Torsemide [Demadex*] 20 mg PO BIDL 08/31/18 Warfarin Sodium [Coumadin*] 5 mg PO DAILY 5 PM 08/31/18 carvediloL [Coreg*] 12.5 mg PO BID 08/31/18 Azithromycin [Zithromax] 500 mg PO DAILY #5 tablet 09/02/18 Enoxaparin Sodium [Lovenox 100 MG INJ*] 100 mg SQ DAILY 5 Days syr 09/02/18 - Past Medical/Surgical History Diabetic: No -: Hypertension -: CHF -: History of heart valve replacement -: Chronic anti coagulation -: Tobacco abuse -: COPD -: Heart valve replacement: Pig valve first then mechanical. Psychosocial/ Personal History: Patient is single, has 1 child. 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 - Social History Smoking Status: Light Tobacco smoker (1-9 cigarettes/day) Smoking therapy provided: Yes Alcohol use: Yes CD- Drugs: No Caffeine use: Yes Place of Residence: Home Review of Systems 10-point ROS is otherwise unremarkable Physical Examination - Physical Exam General: Alert, In no apparent distress, Oriented x3, Cooperative, Obese HEENT: Atraumatic, Normocephalic, PERRLA Neck: Supple, 2+ carotid pulse no bruit, JVD not distended Respiratory: Diminished, Crackles/rales Cardiovascular: Normal pulses, Regular rate/rhythm, Normal S1 S2, Edema Capillary refill: <2 Seconds Gastrointestinal: Normal bowel sounds, Soft and benign, No ascites, No tenderness, No rebound, No guarding, Distended Integumentary: No rashes, No breakdown Neurological: Normal speech, Normal strength at 5/5 x4 extr, Normal tone, Sensation intact - Studies Laboratory Data (last 24 hrs) 07/29/20 11:54: PT 27.7 H, INR 2.39, APTT 43.8 H 07/29/20 11:54: WBC 7.60, Hgb 14.9, Hct 46.3, Plt Count 163 07/29/20 11:54: Sodium 139, Potassium 4.5, BUN 39 H, Creatinine 2.34 H, Glucose 136 H, Magnesium 2.5 H D, Total Bilirubin 1.2 H, AST 62 H, ALT 35, Alkaline Phosphatase 104, Lipase 240 Imagings Data: Chest x-ray-mild pulmonary edema Assessment and Plan - Problems (Diagnosis) (1) Acute on chronic renal failure Current Visit: No Status: Acute (2) CHF (congestive heart failure) Onset Date: 05/02/16 Current Visit: No Status: Acute Qualifiers: Qualified Code(s): I50.33 - Acute on chronic diastolic (congestive) heart failure (3) COPD (chronic obstructive pulmonary disease) Onset Date: 05/02/16 Current Visit: No Status: Acute Qualifiers: COPD type: COPD with acute exacerbation Qualified Code(s): J44.1 - Chronic obstructive pulmonary disease with (acute) exacerbation (4) H/O heart valve replacement with mechanical valve Current Visit: No Status: Chronic (5) Hypertension Onset Date: 05/02/16 Current Visit: No Status: Chronic Qualifiers: Hypertension type: essential hypertension Qualified Code(s): I10 - Essential (primary) hypertension (6) Tobacco abuse Onset Date: 05/02/16 Current Visit: No Status: Chronic Discharge Plan: Home Plan to discharge in: 48 Hours - Advance Directives Does patient have a Living Will: No Does patient have a Durable POA for Healthcare: No - Code Status/Comfort Care Code Status: Full Code Physician Review: Patient Assessed, Agree with Above Assessment and Plan Physician Review Additional Text: Impression/Plan # Acute systolic CHF exacerbation- with mild fluid overload -escalate IV diuretics to Lasix 80 Q 12 i -monitor daily weights and intake and output Fluid restriction to less than 1.5 L per day Present of CKD may be contributing to rule fluid retention No urgent need for echo now #Hypertension-resume home regimen #chronic tobacco use-cessation advice, start nicotine patch #chronic kidney disease-possible cardiovascular syndrome IV will need to rule out acute impairment as well as hydronephrosis obtain renal sonogram Nephrology follow-up Chronic anticoagulation-continue Warfarin - Follow INR/PT daily DVT prophylaxis-on Coumadin #advanced directive-full code # disposition-possible hospital stay for 24-48 hr
[2020-07-29] MEDS: WARFARIN SODIUM 5 MG TAB PO SCH ×2 (17:00→21:00)
[2020-07-29] MEDS: FUROSEMIDE 40 MG/4 ML VIAL IV SCH (17:00)
--- NOTE | 2020-07-29 17:36 | RAD REPORT ---
EXAM DESCRIPTION: US - Renal Ultrasound-Complete - 07/29/2020 5:28 pm CLINICAL HISTORY: ARF, r/o hydro COMPARISON: Renal Ultrasound-Complete dated 09/11/2018 FINDINGS: The right kidney measures 10.4 x 5.2 x 6.8 cm. The left kidney measures 11.2 x 5.4 x 4.7 cm. Renal cortical thickness and echogenicity are normal. No hydronephrosis or suspicious renal mass. Mostly contracted bladder shows no gross abnormality. IMPRESSION: No hydronephrosis or suspicious renal mass. No other significant findings.
[2020-07-29 20:36] VITALS: BMI 35.7
[2020-07-29] MEDS ORDERED: IPRATROPIUM BROM 0.5MG/2.5ML ONE (20:38)
[2020-07-29] MEDS: IPRATROPIUM BROM 0.5MG/2.5ML NEB SCH (20:50)
[2020-07-29] MEDS: FAMOTIDINE 20 MG TAB PO SCH (21:00)
[2020-07-29] MEDS ORDERED: HEPARIN 5000 UNIT/ML 1 ML VIAL SQ SCH (21:00)
--- NOTE | 2020-07-29 22:48 | P.CNS ---
Date of Consult: 07/29/20 Reason for Consult: VALENTIN/ CKD with anasarca Requesting Physician: Yoana Simpson Chief Complaint: Worsening shortness of breath and swelling History of Present Illness: 59 year old male with past medical history of Aortic valve replacement with mechanical valve on chronic anticoagulation with Coumadin, Hypertension, systolic CHF-unknown ejection fraction, previously on Entresto follows with Cardiology, presented due to increasing body swelling, shortness of breath and weight gain. Patient admit to exertional dyspnea with progressive orthopnea and paroxysmal nocturnal dyspnea. 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 He has unsure of his kidney function status. On admission he was noted with marked hypoxia on exertion with O2 sat down to the low 80s. He is saturating well on 2L nasal cannula now. His creatinine is elevated at 2.3. He has been admitted for CHF exacerbation. Denies NSAIDs. Denies any bladder emptying difficulties. Reports difficulty with edema for multiple years. Hx gout. 17:09 This 59 yrs old Male presents to ER via Ambulatory with complaints of tw4 Shortness Of Breath, Leg Swelling, Abdominal Distention. 17:09 The patient has shortness of breath at rest. Onset: The symptoms/episode began/occurred tw4 today. Duration: The symptoms are continuous, and are unchanged since they started. The patient's shortness of breath has no apparent modifying factors. Associated signs and symptoms: The patient has no apparent associated signs or symptoms. Severity of symptoms: At their worst the symptoms were mild in the emergency department the symptoms are unchanged. The patient has not experienced similar symptoms in the past. Allergies No Known Allergies Allergy (Verified 08/31/18 15:02) Home medications list reviewed: Yes Home Medications: Carvedilol [Coreg] 1 tab PO BID 07/29/20 Sacubitril/Valsartan [Entresto 49 mg-51 mg Tablet] 1 tab PO BID 07/29/20 Simvastatin 40 mg PO DAILY 07/29/20 Torsemide [Demadex*] 20 mg PO BID 07/29/20 Warfarin Sodium [Coumadin*] 5 mg PO DAILY 07/29/20 - Past Medical/Surgical History Diabetic: No -: Hypertension -: CHF -: History of heart valve replacement -: Chronic anti coagulation -: Tobacco abuse -: COPD -: Heart valve replacement: Pig valve first then mechanical. Psychosocial/ Personal History: Patient is single, has 1 child. 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 - Social History Smoking Status: Current every day smoker Alcohol use: Yes CD- Drugs: No Caffeine use: Yes Place of Residence: Home Review of Systems 10-point ROS is otherwise unremarkable General: Weakness, Malaise Respiratory: SOB with Excertion Cardiovascular: Edema Neurological: Weakness Physical Examination Temp Pulse Resp BP Pulse Ox 97.6 F 101 H 22 H 131/98 H 07/29/20 11:29 07/29/20 18:05 07/29/20 18:05 07/29/20 18:05 General: Oriented x3, Cooperative HEENT: Atraumatic Neck: Supple, JVD distended Respiratory: Diminished Cardiovascular: Regular rate/rhythm, Edema Gastrointestinal: Soft and benign, Non-distended Musculoskeletal: No clubbing, No contractures Integumentary: No rashes, No cyanosis Neurological: Normal speech Laboratory Data (last 24 hrs) 07/29/20 11:54: PT 27.7 H, INR 2.39, APTT 43.8 H 07/29/20 11:54: WBC 7.60, Hgb 14.9, Hct 46.3, Plt Count 163 07/29/20 11:54: Sodium 139, Potassium 4.5, BUN 39 H, Creatinine 2.34 H, Glucose 136 H, Magnesium 2.5 H D, Total Bilirubin 1.2 H, AST 62 H, ALT 35, Alkaline Phosphatase 104, Lipase 240 Imagings Data: EXAM DESCRIPTION: RAD - Chest Single View - 07/29/2020 12:29 pm CLINICAL HISTORY: SOB Chest pain. COMPARISON: Chest Pa And Lat (2 Views) dated 05/10/2020; Chest Single View dated 08/31/2018; Chest Single View dated 05/02/2016; Chest Single View dated 05/01/2016 FINDINGS: Portable technique limits examination quality. Mild interstitial pulmonary edema is seen. The heart is moderately enlarged in size. Sternotomy wires present. IMPRESSION: Mild CHF. EXAM DESCRIPTION: US - Renal Ultrasound-Complete - 07/29/2020 5:28 pm CLINICAL HISTORY: ARF, r/o hydro COMPARISON: Renal Ultrasound-Complete dated 09/11/2018 FINDINGS: The right kidney measures 10.4 x 5.2 x 6.8 cm. The left kidney measures 11.2 x 5.4 x 4.7 cm. Renal cortical thickness and echogenicity are normal. No hydronephrosis or suspicious renal mass. Mostly contracted bladder shows no gross abnormality. IMPRESSION: No hydronephrosis or suspicious renal mass. No other significant findings. LEFT VENTRICULAR WALL MOTION: GLOBAL HYPOKINESIS. DOPPLER/COLOR FLOW: NO AORTIC STENOSIS OR AORTIC REGURGITATION. COMMENTS: MILDLY DEPRESSED LEFT VENTRICULAR EJECTION FRACTION. DILATED LEFT ATRIUM AND RIGHT ATRIUM. NORMALLY FUNCTIONING PROSTHETIC AORTIC VALVE. Conclusions/Impression: A/P: Continue the current POC and Medications other than the changes listed. AM Labs PRN. Recommend daily weight. Please see the orders for complete details. VALENTIN likely CRS CKD III -Continue Lasix Alkalosis HTN with tachycardia -Start Metoprolol Systolic CHF, A/C Anasarca -Continue Lasix -Start Metoprolol -Start CQ10 DM II with CKD -Check A1C Gout -Check uric acid level Thank you kindly for the consultation.
[2020-07-30] MEDS: IPRATROPIUM BROM 0.5MG/2.5ML NEB SCH ×4 (02:20→20:05)
[2020-07-30 06:04] LABS: Absolute Lymphocytes (CBC) 0.9 K/uL (0.7-4.9); Basophils % 1.3 % (0-1.3); Hematocrit 46.7 % (39.6-49.0); Lymphocytes % 13.5 % (15.3-44.8); MPV 9.7 fL (7.6-11.3); RBC Red Blood Cell Count 4.73 M/uL (4.33-5.43)
[2020-07-30 06:19] LABS: Protime INR 2.58
[2020-07-30 06:28] LABS: Albumin 3.1 g/dL (3.4-5.0); Bilirubin Total 1.3 mg/dL (0.2-1.0); Phosphorus 3.5 mg/dL (2.5-4.9); Potassium 4.5 mmol/L (3.5-5.1); Protein, Total 7.3 g/dL (6.4-8.2); Uric Acid 11.8 mg/dL (3.5-7.2)
[2020-07-30] MEDS: METOPROLOL TAR 25 MG TAB PO SCH ×2 (10:27→20:31)
[2020-07-30] MEDS: FUROSEMIDE 40 MG/4 ML VIAL IV SCH ×3 (10:28→20:31)
[2020-07-30] MEDS: FAMOTIDINE 20 MG TAB PO SCH ×2 (10:28→20:32)
[2020-07-30] MEDS: COENZYME Q10- 200 MG CAP PO SCH (10:29)
--- NOTE | 2020-07-30 12:55 | PN ---
Date of Progress Note: 07/30/2020 Subjective: The patient was admitted with acute kidney injury, anasarca, secondary to cardiorenal. The patient is known to me from the office with chronic kidney disease. The patient's baseline creatinine is usually 1.6 with GFR of 40. The patient was initiated on diuresis. Physical Examination: Vital Signs: Blood pressure of 128/86, pulse of 91, afebrile. The patient had urine output of 570. Chest: Crackles bilateral. Heart: S1, S2. Systolic murmur. Abdomen: Soft, nontender. Extremities: +2 edema. Neurologic: Alert, no focality. Laboratory Data: The patient's sodium 140, potassium 4.5, bicarb 33, BUN 45, creatinine 2.4, GFR 27. Uric acid 11.8. BNP 190. Hemoglobin 14.9. Current Medications: Include Coumadin, metoprolol, Lasix 80 b.i.d., Pepcid. Assessment And Plan: 1. Acute kidney injury on chronic kidney disease, possible progression of his disease. Normal-sized kidney 10.4/11.2. 2. Obstructive uropathy was ruled out. Still has significant over volume. I am going to go ahead and increase Lasix to 3 times a day. We will get protein and creatinine ratio and we will follow up given the history of hepatitis C. I am going to go ahead and send for serology for the patient and we will follow up. 3. Proteinuria, close to nephrotic with hepatitis C history and hypertension and progression of the disease. I am going to go ahead and send for full workup. 4. Hypertension. We will utilize the blood pressure to establish better volume control. 5. Hepititis C by primary. 6. Coronary artery disease with congestive heart failure. Echocardiogram that was done back in 2019 showing ejection fraction of 47%. We will increase diuresis. We will follow up with Cardiology. time spend exam the patient face to face , discussing with patient , reviewing la and radiology date, placing order , discussing the case with staff and with other team consultan and hospitalist 45 min. ZORAIDA Voice ID: [id number] Report ID: [id number] [facility]
--- NOTE | 2020-07-30 16:12 | P.PN ---
Subjective Date of Service: 07/30/20 Chief Complaint: Worsening shortness of breath and swelling Subjective: No new changes Physical Examination - Vital Signs Temperature: 97.8 F Blood Pressure: 109/73 Pulse: 70 Respirations: 18 Pulse Ox (%): 91 Assessment & Plan Physician Review: Patient Assessed, Agree with Above Assessment and Plan Physician Review Additional Text: Physical Exam General: Alert, In no apparent distress, Oriented x3 HEENT: Atraumatic, Normocephalic, PERRLA, normal conjunctiva Respiratory: Diminished, Crackles/rales at bases bilaterally, nonlabored respirations Cardiovascular: Regular rate/rhythm, Normal S1 S2 Abd: soft, NTND, no rebound Integumentary: No rashes, No breakdown Neurological: Normal speech, Normal strength at 5/5 x4 extr Problem List Acute on chronic systolic CHF exacerbation Hypertension Chronic tobacco use CKD4 h/o heart valve replacement, on chronic anticoagulation -Edema slightly improved, breathing about the same -Continue IV Lasix, nephrology consulted and assisting with diuresis given patient's CKD -monitor daily weights and intake and output -Fluid restriction to less than 1.5 L per day Continue anticoagulation -TTE (2019): EF: 47% dispo: anticipate discharge home in ~48 hours Time Spent Managing Pts Care (In Minutes): 35
[2020-07-30 16:24] LABS: Urine Protein/Creatinine Ratio 0.65 ratio (<0.15)
[2020-07-30] MEDS: WARFARIN SODIUM 5 MG TAB PO SCH (17:34)
[2020-07-31] MEDS ORDERED: IPRATROPIUM BROM 0.5MG/2.5ML ONE (01:36)
[2020-07-31] MEDS: IPRATROPIUM BROM 0.5MG/2.5ML NEB SCH ×4 (02:05→19:40)
[2020-07-31 06:28] LABS: Albumin 3.2 g/dL (3.4-5.0); Magnesium 2.6 mg/dL (1.8-2.4); Phosphorus 4.1 mg/dL (2.5-4.9); Potassium 4.2 mmol/L (3.5-5.1); Thyroid Stimulating Hormone 2.16 uIU/mL (0.360-3.740)
[2020-07-31] MEDS: FUROSEMIDE 40 MG/4 ML VIAL IV SCH ×3 (08:10→21:44)
[2020-07-31] MEDS: METOPROLOL TAR 25 MG TAB PO SCH ×2 (08:11→21:44)
[2020-07-31] MEDS: COENZYME Q10- 200 MG CAP PO SCH (08:11)
[2020-07-31] MEDS: allopurinoL 100 MG TAB PO SCH (08:11)
[2020-07-31] MEDS: FAMOTIDINE 20 MG TAB PO SCH ×2 (08:11→21:44)
[2020-07-31] MEDS ORDERED: FUROSEMIDE 40 MG/4 ML VIAL IV ONE (11:00)
[2020-07-31] MEDS ORDERED: CALCITROL 0.25 MCG CAP PO SCH (11:00)
--- NOTE | 2020-07-31 12:08 | PN ---
Date of Progress Note: 07/31/2020 Subjective: The patient was admitted with anasarca, CHF exacerbation on advanced chronic kidney disease. The patient was started on aggressive diuresis, responded very well. Physical Examination: Vital Signs: Blood pressure 129/80, pulse of 55, afebrile. The patient had good urine output of 2400, negative of 1500. As weight, the patient lost 3 pounds from yesterday, 5 pounds from admission. Chest: Crackles bilateral. Heart: S1, S2. Systolic murmur. Abdomen: Soft, nontender. Extremities: +2 edema. Neuro: Alert. No focality. Laboratory Data: WBC 6.4, H and H 14.9/46.7, platelets 176. Sodium 141, potassium 4.2, bicarb 35, BUN 50, creatinine 2.4, GFR of 27, calcium 9.7, phosphorus 4.1, magnesium 2.6, albumin of 3.2. Corrected calcium is 10.3. Serum protein electrophoresis and vitamin D still pending. PTH 276. PC ratio 0.6. Serology is still pending. Assessment And Plan: 1. Chronic kidney disease, possible this is a new baseline secondary to cardiorenal, still on the over volume state with the presence of hepatitis. We will follow up serology. I am going to give the patient extra dose of Lasix today. The patient has appointment with his cardiology for the cardioversion tomorrow. We will try to optimize the fluid status for the patient. As the patient's discharge, the patient is going to need to follow up in 2 weeks. 2. Hypertension. We will utilize the blood pressure for more diuresis. 3. Disproportion between PC ratio and dipstick. I am going to go ahead and send for UPEP and SPEP. We will follow up with serology. 4. Congestive heart failure with exacerbation as above. 5. Hypokalemia, status post supplement, resolved. 6. Secondary hyperparathyroidism. I am going to start the patient on calcitriol. Time spent discussing with the patient, examining the patient, [id number] with the patient, placing orders, discussing the case with our hospitality team member including nursing, discussing the case with the other subspecialty including Cardiology and hospitalist 35 minutes. ZORAIDA Voice ID: [id number] Report ID: [id number] [facility]
[2020-07-31 13:34] LABS: Urine Appearance CLEAR (Clear); Urine Bilirubin NEGATIVE (Negative); Urine Blood NEGATIVE (Negative); Urine Color YELLOW (Yellow); Urine Glucose NEGATIVE (Negative); Urine Protein NEGATIVE (Negative)
[2020-07-31 13:38] LABS: Urine Microscopic Reflex NO UMIC
--- NOTE | 2020-07-31 13:47 | P.PN ---
Subjective Date of Service: 07/31/20 Chief Complaint: Worsening shortness of breath and swelling Subjective: Improving (Slight improvement in respiration, down to 1-2 L nasal cannula, feels his lower extremity swelling has slightly improved as well.) Review of Systems 10-point ROS is otherwise unremarkable Physical Examination - Vital Signs Temperature: 97.7 F Blood Pressure: 126/75 Pulse: 72 Respirations: 18 Pulse Ox (%): 96 - Studies Microbiology Data (last 24 hrs): 07/29/20 11:54 Blood - Blood Aerobic Blood Culture - Final 07/29/20 11:54 Blood - Blood Blood Culture Gram Stain - Final 07/29/20 11:54 Blood - Blood Anaerobic Blood Culture - Final 07/29/20 11:54 Blood - Blood Gram Stain - Final Assessment & Plan Physician Review Additional Text: Physical Exam General: Alert, In no apparent distress, Oriented x3 HEENT: normal conjunctiva, sclera anicteric Respiratory: Diminished at bases bilaterally, clear to auscultation, nonlabored on 2L NC Cardiovascular: Regular rate/rhythm, Normal S1 S2 Abd: soft, NTND, no rebound Integumentary: No rashes, No breakdown Neurological: Normal speech, Normal strength at 5/5 x4 extr Problem List Acute on chronic systolic CHF exacerbation Hypertension CKD4 h/o heart valve replacement, on chronic anticoagulation Chronic tobacco use -edema and oxygenation improving -diuresis improved with higher dose IV Lasix yesterday -nephrology consulted, to switch to PO lasix today -monitor daily weights and intake and output -Fluid restriction to less than 1.5 L per day -monitor renal function -continue home coumadin -TTE (2019): EF: 47% -room air sat -has had 2 short runs of vtach (~6 beats), nonustained; pt states has appointment tomorrow in [place] to discuss pacemaker placement with cardiology dispo: anticipate discharge home in ~24hrs, will obtain room air sat, pt likely needs home O2 with his chronic CHF and valve replacement SW/CM consulted Patient has appointment with cardiology tomorrow in [place] to discuss pacemaker placement Time Spent Managing Pts Care (In Minutes): 35
[2020-07-31] MEDS: WARFARIN SODIUM 5 MG TAB PO SCH (16:12)
[2020-08-01] MEDS: IPRATROPIUM BROM 0.5MG/2.5ML NEB SCH ×2 (01:40→09:02)
[2020-08-01 02:16] VITALS: O2SAT 98
[2020-08-01 06:13] LABS: Albumin 2.9 g/dL (3.4-5.0); Magnesium 2.4 mg/dL (1.8-2.4); Phosphorus 4.5 mg/dL (2.5-4.9); Potassium 4.3 mmol/L (3.5-5.1)
[2020-08-01 06:28] LABS: Protime INR 3.36
--- NOTE | 2020-08-01 08:48 | P.DS ---
Admission Date: 07/29/20 Discharge Date: 08/01/20 Disposition: ROUTINE DISCHARGE Discharge Condition: GOOD Reason for Admission: Worsening shortness of breath and swelling Consultations: Nephrology - Dr. Kruger Procedures: CXR (07/29): mild CHF. Mild interstitial pulmonary edema is seen. The heart is moderately enlarged in size. Sternotomy wires present. Renal U/S (07/29): No hydronephrosis or suspicious renal mass. No other significant findings. Problem List Acute on chronic systolic CHF exacerbation Hypertension CKD3 h/o heart valve replacement, on chronic anticoagulation Chronic tobacco use Brief History of Present Illness: 59 year old male with past medical history of Aortic valve replacement with mechanical valve on chronic anticoagulation with Coumadin, Hypertension, systolic CHF-unknown ejection fraction, previously on Entresto follows with Cardiology, presented due to increasing body swelling, shortness of breath and weight gain. Patient admit to exertional dyspnea with progressive orthopnea and paroxysmal nocturnal dyspnea. 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 He has unsure of his kidney function status. On admission he was noted with marked hypoxia on exertion with O2 sat down to the low 80s. He is saturating well on 2L nasal cannula now. His creatinine is elevated at 2.3. He has been admitted for CHF exacerbation. Hospital Course: He was treated with high dose IV lasix and diuresed well. His renal function was monitored and increased slightly. Nephrology was consulted. He improved, but was still requiring oxygen. He was set up with home oxygen. Patient requested to be discharged so that he may make an important office appointment with a Inker Machine in [place] to review pacemaker placement and undergo an updated echocardiogram. On day of discharge, he was feeling much better, ambulating further without dyspnea, and breathing comfortably on 2 L nasal cannula. He is to follow up with his Inker Machine's as previously scheduled. Follow up with Nephrology in ~2 weeks. Vital Signs/Physical Exam: Physical Exam General: Alert, In no apparent distress, Oriented x3 HEENT: normal conjunctiva, sclera anicteric Respiratory: Clear to auscultation, nonlabored on 2L NC Cardiovascular: Regular rate/rhythm, Normal S1 S2 Abd: soft, NTND, no rebound Integumentary: No rashes, No breakdown Neurological: Normal speech, Normal strength at 5/5 x4 extr Temp Pulse Resp BP Pulse Ox 98.2 F 80 18 110/76 96 08/01/20 04:00 08/01/20 04:00 08/01/20 04:00 08/01/20 04:00 08/01/20 04:00 Laboratory Data at Discharge: WBC 6.40 K/uL (4.3-10.9) D 07/30/20 05:39 Hgb 14.9 g/dL (13.6-17.9) 07/30/20 05:39 Hct 46.7 % (39.6-49.0) 07/30/20 05:39 Plt Count 176 K/uL (152-406) 07/30/20 05:39 PT 39.1 SECONDS (9.5-12.5) H 08/01/20 05:36 INR 3.36 08/01/20 05:36 APTT 43.8 SECONDS (24.3-36.9) H 07/29/20 11:54 Sodium 141 mmol/L (136-145) 08/01/20 05:36 Potassium 4.3 mmol/L (3.5-5.1) 08/01/20 05:36 BUN 54 mg/dL (7-18) H 08/01/20 05:36 Creatinine 2.66 mg/dL (0.55-1.3) H 08/01/20 05:36 Glucose 89 mg/dL (74-106) 08/01/20 05:36 Uric Acid 11.8 mg/dL (3.5-7.2) H 07/30/20 05:39 Phosphorus 4.5 mg/dL (2.5-4.9) 08/01/20 05:36 Magnesium 2.4 mg/dL (1.8-2.4) 08/01/20 05:36 Total Bilirubin 1.3 mg/dL (0.2-1.0) H 07/30/20 05:39 AST 61 U/L (15-37) H 07/30/20 05:39 ALT 33 U/L (12-78) 07/30/20 05:39 Alkaline Phosphatase 95 U/L (45-117) 07/30/20 05:39 Troponin I 0.07 ng/mL (0.0-0.045) H 07/29/20 21:22 Lipase 240 U/L (73-393) 07/29/20 11:54 Home Medications: Carvedilol [Coreg] 1 tab PO BID 07/29/20 Sacubitril/Valsartan [Entresto 49 mg-51 mg Tablet] 1 tab PO BID 07/29/20 Simvastatin 40 mg PO DAILY 07/29/20 Warfarin Sodium [Coumadin*] 5 mg PO DAILY 07/29/20 Calcitrol [Rocaltrol*] 0.25 mcg PO Q48H 60 Days #30 cap 08/01/20 Furosemide [Lasix] 80 mg PO TID 30 Days #90 tablet 08/01/20 New Medications: Furosemide [Lasix] 80 mg PO TID 30 Days #90 tablet Calcitrol [Rocaltrol*] 0.25 mcg PO Q48H 60 Days #30 cap Physician Discharge Instructions: PROBLEM: Acute Heart Failure GOAL: Clear understanding of disease process INSTRUCTIONS: You were found to be in acute heart failure with volume overload. You were diuresed with high doses of IV lasix and had improvement. You are set up with oxygen at home. Your torsemide is switched to furosemide (lasix) 80mg three times a day. Your blood pressure was on the low-normal side. Please further discuss with your warehouse distribution manager regarding Entresto. You were noted to have 2 short (6-10 beats) of nonsustained vtach (ventricular tachycardia). Follow up with your Carrdiologist as scheduled today for the echocardiogram and further discuss pacemaker placement. Follow up with Nephrology (Dr. Kruger) in ~2 weeks. Diet: Renal Activity: As tolerated E-script sent to [facility] DME DME: Home Oxygen Date Ordered: Name of Company: [employer] [facility] [employer] Influenza Vaccine Indicated: Influenza Vaccine Given: Date Given: Pneumonia Vaccine Indicated: No Pneumonia Vaccine Given: Date Given: Diet: Renal Activity: Ad diana Followup: Tata Kruger MD [ACTIVE - CAN ADMIT] - NONE,NONE [Primary Care Provider] - Time spent managing pt's care (in minutes): 35
[2020-08-01] MEDS: FAMOTIDINE 20 MG TAB PO SCH (09:00)
[2020-08-01] MEDS: FUROSEMIDE 40 MG/4 ML VIAL IV SCH (09:03)
[2020-08-01] MEDS: METOPROLOL TAR 25 MG TAB PO SCH (09:04)
[2020-08-01] MEDS: allopurinoL 100 MG TAB PO SCH (09:04)
[2020-08-01 09:05] VITALS: BP 126/81
[2020-08-01 09:49] VITALS: TEMP 97.3
[2020-08-01] MEDS: COENZYME Q10- 200 MG CAP PO SCH (10:40)
[2020-08-01 13:55] LABS: Rheumatoid Factor R (NEG)
[2020-08-02 14:06] LABS: Hepatitis C Virus RNA (PCR)log 6.59 log IU/mL
[2020-08-04 14:51] LABS: HIV AG/AB 4TH GEN Non-reactive (Non-reactive)
[2020-08-05 04:37] LABS: HBsAG Nonreactive (Nonreactive)
[2020-08-05 06:33] LABS: Albumin, (SPE) 3.3 g/dL (3.8-4.8); Alpha-1-Globulins 0.3 g/dL (0.2-0.3); Alpha-2-Globulins 0.6 g/dL (0.5-0.9); Gamma Globulins 1.3 g/dL (0.8-1.7); INTERPRETATION REPORT
[2020-08-06 06:11] LABS: Albumin, (SPE) 3.5 g/dL (3.8-4.8); Alpha-1-Globulins 0.4 g/dL (0.2-0.3); Alpha-2-Globulins 0.6 g/dL (0.5-0.9); Gamma Globulins 1.5 g/dL (0.8-1.7); INTERPRETATION REPORT
[2020-08-07 06:30] LABS: Vitamin D 1,25-Dihydroxy Total 32 pg/mL (18-72); Vitamin D,1,25-OH2, D2 <8 pg/mL
== END 2020-08-01 10:50 | disposition home or self-care (01) | DRG 291 ==
LOC: ER 11:16 → ERHOLD 16:26 → 2ND 19:51
PROVIDERS: ADMIT Internal Medicine; ATTEND Hospitalist
DX: I13.0 Hypertensive heart and chronic kidney disease with heart failure and stage 1 through stage 4 chronic kidney disease, or unspecified chronic kidney disease (principal); I50.23 Acute on chronic systolic (congestive) heart failure; N17.9 Acute kidney failure, unspecified; J44.1 Chronic obstructive pulmonary disease with (acute) exacerbation; E87.3 Alkalosis; I47.2 Ventricular tachycardia; N18.30 Chronic kidney disease, stage 3 unspecified; E11.22 Type 2 diabetes mellitus with diabetic chronic kidney disease; F17.210 Nicotine dependence, cigarettes, uncomplicated; I25.10 Atherosclerotic heart disease of native coronary artery without angina pectoris; M10.9 Gout, unspecified; E78.5 Hyperlipidemia, unspecified; B19.20 Unspecified viral hepatitis C without hepatic coma; E66.9 Obesity, unspecified; Z68.35 Body mass index [BMI] 35.0-35.9, adult; Z90.49 Acquired absence of other specified parts of digestive tract; Z79.01 Long term (current) use of anticoagulants; Z79.899 Other long term (current) drug therapy; Z95.2 Presence of prosthetic heart valve; Z20.822 Contact with and (suspected) exposure to COVID-19
CPT/HCPCS: 36415; 71045; 76770; 80048; 80053; 80069; 80076; 81003; 82550; 82553; 82570; 82652; 82947; 83036; 83520; 83690; 83735; 83880; 83970; 84100; 84145; 84156; 84165; 84443; 84484; 84550; 85025; 85610; 85730; 86021; 86038; 86140; 86160; 86225; 86317; 86430; 86704; 86706; 87040; 87205; 87340; 87389; 87522; 93005; 94640; 94760; 96374; 99285; J1940; J2270; U0003

== ENCOUNTER 2023-07-25 14:07 | Inpatient (IN) | payer OTHER ==
--- NOTE | 2023-07-25 14:57 | RAD REPORT ---
EXAM DESCRIPTION: RAD - Chest Single View - 07/25/2023 2:44 pm CLINICAL HISTORY: DYSPNEA Chest pain. COMPARISON: <Comparisons> FINDINGS: Portable technique limits examination quality. The lungs are emphysematous but grossly clear. The heart is upper limit of normal in size. No displac ed fractures.Sternotomy wires. IMPRESSION: No acute intrathoracic process suspected.
[2023-07-25 15:09] LABS: Absolute Basophils 0.1 K/uL (0-0.5); Absolute Eosinophils 0.3 K/uL (0-0.5); Absolute Lymphocytes (CBC) 0.6 K/uL (0.7-4.9); Absolute Monocytes 0.6 K/uL (0.1-1.3); Absolute Neutrophil 5.4 K/uL (1.8-8.0); Basophils % 0.9 % (0-1.3); Eosinophils % 4.6 % (0-4.4); Hematocrit 42.3 % (39.6-49.0); Hemoglobin 14.4 g/dL (13.6-17.9); Lymphocytes % 8.3 % (15.3-44.8); MCH 33.2 pg (27.0-35.0); MCHC 33.9 g/dL (32.0-36.0); MCV 97.8 fL (80-100); MPV 8.7 fL (7.6-11.3); Monocytes % 8.6 % (3.3-12.3); Neutrophils % 77.6 % (41.7-73.7); Platelets 184 thou/uL (152-406); RBC Red Blood Cell Count 4.33 M/uL (4.33-5.43); Red Cell Distribution Width 14.1 % (12.1-15.2)
[2023-07-25 15:15] LABS: PT Prothrombin Time 27.6 SECONDS (9.5-12.5); Protime INR 2.58
[2023-07-25 15:26] LABS: Albumin 3.4 g/dL (3.4-5.0); Albumin/Globulin Ratio 0.8 (1.1-1.8); Anion Gap 6.3 mEq/L (5.0-15.0); Bilirubin Direct 0.3 mg/dL (0-0.2); Bilirubin Indirect, Calculated 0.4 mg/dL (0.2-0.8); Bilirubin Total 0.7 mg/dL (0.2-1.0); Globulin 4.4 g/dL (2.3-3.5); Magnesium 2.2 mg/dL (1.6-2.4); Potassium 4.3 mEq/L (3.5-5.1); Protein, Total 7.8 g/dL (6.4-8.2); Troponin High Sensitivity 49.5 pg/mL (<58.9)
--- NOTE | 2023-07-25 16:33 | EDPHYS ---
Physician Documentation [facility] Name: Nixon Gamboa Age: 62 yrs Sex: Male : 1960 Arrival Date: 07/25/2023 Time: 14:07 Bed 13 Private MD: ED Physician Spencer Delacruz HPI: 07/24 14:18 This 62 yrs old Male presents to ER via Wheelchair with complaints of Shortness Of sb4 Breath. 14:18 The patient has shortness of breath at rest. Onset: The symptoms/episode began/occurred sb4 2 week(s) ago. Duration: The symptoms are continuous, and are steadily getting worse. The patient's shortness of breath is aggravated by exertion, is alleviated by rest, application of supplemental oxygen. Associated signs and symptoms: The patient has no apparent associated signs or symptoms. The patient has experienced similar episodes in the past, a few times. The patient has not recently seen a physician. Historical: - Allergies: 14:13 No Known Allergies; iw - PMHx: 14:13 Hypertension; Hyperlipidemia; Hepatitis C; Diverticulitis; Sleep Apnea; artificial iw valve in heart; CHF; - Immunization history:: Client reports receiving the 2nd dose of the Covid vaccine, Flu vaccine is up to date. - Infectious Disease History:: Denies. - Social history:: Smoking status: Patient/guardian denies using tobacco, Stopped _ months ago 3. ROS: 14:18 Constitutional: Negative for fever, chills, and weight loss, sb4 14:18 Respiratory: Positive for shortness of breath, at rest. 14:18 All other systems are negative, Exam: 14:18 Constitutional: This is a well developed, well nourished patient who is awake, alert, sb4 and in no acute distress. Head/Face: Normocephalic, atraumatic. Eyes: Extra-ocular motions intact. Periorbital areas with no swelling, redness, or edema. ENT: Mucous membranes moist. Cardiovascular: Regular rate and rhythm with a normal S1 and S2. Abdomen/GI: Soft, non-tender, no distension. Skin: Warm, dry with normal turgor. Normal color with no rashes, no lesions, and no evidence of cellulitis. MS/ Extremity: Pulses equal, no cyanosis. Neurovascular intact. Full, normal range of motion. Neuro: Awake and alert, GCS 15, oriented to person, place, time, and situation. Motor strength 5/5 in all extremities. Sensory grossly intact. 14:18 Respiratory: mild respiratory distress is noted, Respirations: normal, Breath sounds: rales, that are mild, are located in both bases, Vital Signs: 14:11 BP 136 / 74; Pulse 70; Resp 22 S; Temp 97; Pulse Ox 85% on R/A; Weight 99.79 kg; Height iw 5 ft. 7 in. ; 14:14 Resp 20; Pulse Ox 100% on 2 lpm NC; iw 18:05 BP 107 / 65; Pulse 68; Resp 22 S; Pulse Ox 100% on 2 lpm NC; db 19:10 BP 137 / 84; Pulse 63; Resp 19; Pulse Ox 100% on 2 lpm NC; jj7 20:21 BP 129 / 79; Pulse 64; Resp 16; Pulse Ox 100% on NC; jj7 14:11 Body Mass Index 34.46 (99.79 kg, 170.18 cm) iw MDM: 14:18 Differential diagnosis: CHF exacerbation, pneumonia, pulmonary edema. sb4 14:21 Patient medically screened. sb4 16:32 Data reviewed: vital signs, nurses notes, lab test result(s), EKG, radiologic studies, sb4 I have discussed the patient's presentation/case with the attending Emergency Department Physician; and as a result, I will admit patient. 16:33 Antibiotic administration: Not indicated, the patient does not have an appreciated sb4 infiltrate. Data interpreted: Pulse oximetry: on 2L(s) per nasal canula, is 100 %. Interpretation: acceptable. The patient's pulmonary embolism risk score was calculated as follows: Total Score: 0-2 points. This patient was found to be at low risk for a pulmonary embolism by using the Well's assessment criteria. 07/24 14:14 Order name: Basic Metabolic Panel; Complete Time: 15:28 sb4 07/24 14:14 Order name: CBC with Diff; Complete Time: 15:22 sb4 07/24 14:14 Order name: D-Dimer; Complete Time: 15:22 sb4 07/24 14:14 Order name: LFT's; Complete Time: 15:28 sb4 07/24 14:14 Order name: Magnesium; Complete Time: 15:28 sb4 07/24 14:14 Order name: NT PRO-BNP; Complete Time: 15:28 sb4 07/24 14:14 Order name: PT-INR; Complete Time: 15:22 sb4 07/24 14:14 Order name: Troponin HS; Complete Time: 15:28 sb4 07/24 14:15 Order name: Blood Culture Adult (2) sb4 07/24 14:15 Order name: Lactate w/ 2H reflex if indic.; Complete Time: 15:22 sb4 07/24 14:14 Order name: XRAY Chest (1 view); Complete Time: 14:58 sb4 07/24 16:35 Order name: Chest Wo Con CT; Complete Time: 17:37 sb4 07/24 14:14 Order name: Cardiac monitoring; Complete Time: 19:03 sb4 07/24 14:14 Order name: EKG - Nurse/Tech; Complete Time: 14:44 sb4 07/24 14:14 Order name: IV Saline Lock; Complete Time: 14:44 sb4 07/24 14:14 Order name: Labs collected and sent; Complete Time: 14:44 sb4 07/24 14:14 Order name: O2 Per Protocol; Complete Time: 14:44 sb4 07/24 14:14 Order name: O2 Sat Monitoring; Complete Time: 14:44 sb4 EC:40 Rate is 68 beats/min. Rhythm is regular, Sinus Rhythm with Occasional PVCs. Left axis sb4 deviation noted. WA interval is normal at 164 msec. QRS interval is normal at 106 msec. QT interval is normal at 414 msec. Clinical impression: Abnormal EKG without significant change. Interpreted by me. Reviewed by me. Administered Medications: No medications were administered Disposition: 07/25 09:02 Co-signature as Attending Physician, Spencer Delacruz MD I reviewed the patient's care rn provided by the Advanced Practice Provider and agree with the diagnosis and treatment plan. Disposition Summary: 07/25/23 16:33 Hospitalization Ordered Notes: Hospitalization Status: Inpatient Admission sb4 Provider: Dean Delacruz Location: Telemetry/MedSurg (Inpatient) sb4 Condition: Fair sb4 Problem: new sb4 Symptoms: are unchanged sb4 Bed/Room Type: Standard sb4 Room Assignment: 402(07/25/23 18:47) iw Diagnosis - acute respiratory failure with hypoxia and hypercapnia sb4 Forms: - Medication Reconciliation Form sb4 - SBAR form sb4 - Leadership Thank You Letter sb4 Signatures: Dispatcher [employer] Layla Smith, Spencer Hartman RN, MD MD rn Brown, Sophia, PA-C PA-C sb4 Corrections: (The following items were deleted from the chart) 07/24 16:40 16:32 Chest For PE Angio+CT.RAD.BRZ ordered. EDWI EDMS 18:47 16:33 sb4 iw
--- NOTE | 2023-07-25 16:33 | ER ---
Nurse's Notes [facility] Name: Nixon Gamboa Age: 62 yrs Sex: Male : 1960 Arrival Date: 07/25/2023 Time: 14:07 Bed 13 Private MD: Diagnosis: acute respiratory failure with hypoxia and hypercapnia Presentation: 07/24 14:11 Chief complaint: Patient states: hx of CHF, his SOB has bee getting worse over past 2 iw weeks, uses home O2 PRN but has been needing it all the time now , pt was 85% on RA on exertion, 91% at rest. Coronavirus screen: At this time, the client does not indicate any symptoms associated with coronavirus-19. Ebola Screen: Patient negative for fever greater than or equal to 101.5 degrees Fahrenheit, and additional compatible Ebola Virus Disease symptoms Patient denies exposure to infectious person. Patient denies travel to an Ebola-affected area in the 21 days before illness onset. No symptoms or risks identified at this time. Initial Sepsis Screen: Does the patient meet any 2 criteria? RR > 20 per min. Does the patient have a suspected source of infection? No. Patient's initial sepsis screen is negative. Risk Assessment: Do you want to hurt yourself or someone else? Patient reports no desire to harm self or others. Onset of symptoms was July 13, 2023. 14:11 Method Of Arrival: Wheelchair iw 14:11 Acuity: JUAQUIN 3 iw Triage Assessment: 18:59 General: Appears in no apparent distress. comfortable, Behavior is calm, cooperative. db Neuro: Level of Consciousness is awake, alert, obeys commands, Oriented to person, place, time, situation. Respiratory: Reports Onset: The symptoms/episode began/occurred gradually, the patient has moderate shortness of breath. Historical: - Allergies: 14:13 No Known Allergies; iw - PMHx: 14:13 Hypertension; Hyperlipidemia; Hepatitis C; Diverticulitis; Sleep Apnea; artificial iw valve in heart; CHF; - Immunization history:: Client reports receiving the 2nd dose of the Covid vaccine, Flu vaccine is up to date. - Infectious Disease History:: Denies. - Social history:: Smoking status: Patient/guardian denies using tobacco, Stopped _ months ago 3. Screenin:16 [facility] ED Fall Risk Assessment (Adult) History of falling in the last 3 months, db including since admission No falls in past 3 months (0 pts) Confusion or Disorientation No (0 pts) Intoxicated or Sedated No (0 pts) Impaired Gait No (0 pts) Mobility Assist Device Used No (0 pt) Altered Elimination No (0 pt) Score/Fall Risk Level 0 - 2 = Low Risk Oriented to surroundings, Maintained a safe environment. Abuse screen: Denies threats or abuse. Denies injuries from another. Nutritional screening: No deficits noted. Tuberculosis screening: No symptoms or risk factors identified. Assessment: 18:10 Reassessment: PT AMBULATORY TO RESTROOM. db 18:16 Reassessment: Patient appears in no apparent distress at this time. Patient and/or db family updated on plan of care and expected duration. Pain level reassessed. Patient is alert, oriented x 3, equal unlabored respirations, skin warm/dry/pink. General: Appears in no apparent distress. uncomfortable, Behavior is calm, cooperative. General: Appears. Pain: Denies pain. Cardiovascular:. Cardiovascular: Rhythm is. Respiratory: Airway is patent Respiratory effort is even, unlabored, 18:45 Reassessment: PT PLACED IN HOSPITAL BED. REFUSED GOWN AT THIS TIME. db 19:10 Reassessment: ASSUMED CARE OF PT. PT LYING IN HOSPITAL BED. NO PAIN OR DISTRESS NOTED. [facility] INFORMED HIM OF ROOM ASSIGNMENT. NO NEEDS AT THIS TIME. CALL BOWEN IN REACH. 19:30 Reassessment: SBAR FAXED TO 4TH FLOOR. 1933- INFORMED FLOOR SBAR WAS FAXED. SAID THEY [facility] WOULD CALL WHEN RECEIVED. 20:01 Reassessment: CALLED 4TH FLOOR. INFORMED THEM I DID NOT RECEIVE A CALL BACK, BUT IT'S [facility] BEEN 30 MINUTES AND COULD I BRING THE PT UP. NURSE STATES THEY WILL SPEAK WITH THE CHARGE NURSE AND CALL ME BACK. 20:21 Reassessment: CHARGE NURSE STATES THEY ARE READY FOR PT AND PT CAN BE BROUGHT UP TO THE [facility] ROOM. Vital Signs: 14:11 BP 136 / 74; Pulse 70; Resp 22 S; Temp 97; Pulse Ox 85% on R/A; Weight 99.79 kg; Height iw 5 ft. 7 in. ; 14:14 Resp 20; Pulse Ox 100% on 2 lpm NC; iw 18:05 BP 107 / 65; Pulse 68; Resp 22 S; Pulse Ox 100% on 2 lpm NC; db 19:10 BP 137 / 84; Pulse 63; Resp 19; Pulse Ox 100% on 2 lpm NC; jj7 20:21 BP 129 / 79; Pulse 64; Resp 16; Pulse Ox 100% on NC; jj7 14:11 Body Mass Index 34.46 (99.79 kg, 170.18 cm) iw ED Course: 14:08 Patient arrived in ED. mr 14:11 Kala Cabezas PA-C is PHCP. sb4 14:11 Spencer Delacruz MD is Attending Physician. sb4 14:13 Triage completed. iw 14:13 Arm band placed on. iw 14:38 Initial lab(s) drawn, by me, sent to lab. First set of blood cultures drawn by me, EKG jg11 done, by ED staff. Inserted saline lock: 22 gauge in right antecubital area, using aseptic technique. Blood collected. 14:45 XRAY Chest (1 view) In Process Unspecified. EDMS 14:45 Second set of blood cultures drawn by mi. jg11 16:32 Dean Delacruz MD is Hospitalizing Provider. sb4 17:[address] In Process Unspecified. EDMS 18:10 Sarah Matthews, RN is Primary Nurse. db 18:16 Patient has correct armband on for positive identification. Bed in low position. Call db light in reach. Side rails up X 1. Provided Education on: LABS AND ADMISSION. library monitor on. Pulse ox on. NIBP on. Warm blanket given. 18:58 Client placed on continuous cardiac and pulse oximetry monitoring. NIBP monitoring db applied. 18:58 No provider procedures requiring assistance completed. Patient admitted, IV remains in db place. 19:04 Report given to J. db 20:25 Talita Nguyen, ALEJANDRA is Primary Nurse. jj7 Administered Medications: No medications were administered Medication: 18:16 VIS not applicable for this client. db Outcome: 16:33 Decision to Hospitalize by Provider. sb4 18:58 Admitted to ER Hold. Please see [facility] for further documentation. db 18:58 Condition: stable 18:58 Instructed on the need for admit, 20:40 Patient left the ED. oe Signatures: Dispatcher [employer] EDID Sabrina Brice, Reg Reg mr Layla Olivas, RN RN Maynor Correa Juwairiyah RN RN jj7 Sarah Matthews, RN RN Kala Sanchez PA-C PA-C sb4 Gonzalez, Jordan jg11 Corrections: (The following items were deleted from the chart) 18:17 18:16 Respiratory: Airway is patent Respiratory effort is even, unlabored, Breath db sounds are clear db 18:17 18:16 Cardiovascular: Rhythm is regular db db 20:56 20:47 Reassessment: CALLED 4TH FLOOR. INFORMED THEM I DID NOT RECEIVE A CALL BACK, BUT jj7 IT'S BEEN 30 MINUTES AND COULD I BRING THE PT UP. NURSE STATES THEY WILL SPEAK WITH THE CHARGE NURSE AND CALL ME BACK. jj7
--- NOTE | 2023-07-25 17:36 | RAD REPORT ---
EXAM DESCRIPTION: CT - Thorax Wo Con - 07/25/2023 5:25 pm CLINICAL HISTORY: DYSPNEA COMPARISON: Lung Cancer Screening CT W/O dated 10/01/2022; Chest Single View dated 07/25/2023 FINDINGS: Chest Wall: No suspicious thyroid nodules or pathologic lymphadenopathy. Lungs: Limited by motion. Emphysema. No evidence of edema or pneumonia. Tiny bilateral presumably katheryn ign pulmonary nodules which are unchanged. Pleura: No significant effusions or pneumothorax. Mediastinum/ryne: No pathologic lymphadenopathy. Pulmonary arteries/Aorta: Limited evaluation without contrast. Ascending thoracic aortic aneurysm federico suring approximately 4.4 cm is unchanged. Aortic valve prosthesis. Heart: No significant pericardial effusion. Mild cardiomegaly. Coronary calcifications. Upper abdomen: No acute abnormality. Cholelithiasis. Bones: No acute abnormality. Sternotomy. Multilevel degenerative changes are present in the spine. Mi ld wedge compression deformities at several of the upper thoracic vertebral levels which is unchanged . All CT scans are performed using dose optimization technique as appropriate and may include automated exposure control or mA/KV adjustment according to patient size. IMPRESSION: No specific CT findings to explain shortness of breath. Motion artifact. Emphysema but n o evidence of edema or pneumonia.
--- NOTE | 2023-07-25 18:06 | P.HP ---
Certification for Inpatient Patient admitted to: Observation With expected LOS: <2 Midnights Patient will require the following post-hospital care: None Practitioner: I am a practitioner with admitting privileges, knowledge of patient current condition, hospital course, and medical plan of care. Services: Services provided to patient in accordance with Admission requirements found in Title 42 Section 412.3 of the Code of Federal Regulations Patient History Date of Service: 07/25/23 Reason for admission: Dyspnea, CHF exacerbation History of Present Illness: 62-year-old male with history of systolic congestive heart failure, mechanical aortic valve, gout presents to the emergency department with chief complaint of increasing shortness of breath. He has noted increasing dyspnea especially on exertion over the course of the last 1 month and even worse the past 2 weeks. He has been compliant with his medications and does not follow with the heart failure team at [facility] in [place]. His last echocardiogram was performed in July 2022 and showed an ejection fraction of 30 to 35%. He was evaluated in the emergency department his labs are significant for a creatinine 2.3 INR of 2.58 D-dimer 335 BNP 4252. Chest x-ray and CT chest without contrast were negative for acute findings. Patient reports he has been having to wear his home oxygen much more often than usual. Will admit under observation for diuresis, echocardiogram and cardiology consult. Allergies No Known Allergies Allergy (Verified 08/31/18 15:02) Home Medications: Carvedilol [Coreg] 1 tab PO BID 07/29/20 Sacubitril/Valsartan [Entresto 49 mg-51 mg Tablet] 1 tab PO BID 07/29/20 Simvastatin 40 mg PO DAILY 07/29/20 Warfarin Sodium [Coumadin*] 5 mg PO DAILY 07/29/20 Calcitrol [Rocaltrol*] 0.25 mcg PO Q48H 60 Days #30 cap 08/01/20 Furosemide [Lasix] 80 mg PO TID 30 Days #90 tablet 08/01/20 - Past Medical/Surgical History Diabetic: No -: Hypertension -: CHF-systolic -: History of heart valve replacement -: Chronic anti coagulation -: Tobacco abuse -: COPD -: Heart valve replacement: Pig valve first then mechanical. Psychosocial/ Personal History: Patient is single, has 1 child. 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 - Social History Alcohol use: Yes CD- Drugs: No Caffeine use: Yes Place of Residence: Home Review of Systems 10-point ROS is otherwise unremarkable Respiratory: Shortness of Breath, SOB with Excertion Physical Examination - Physical Exam General: Alert, In no apparent distress, Oriented x3 HEENT: Atraumatic, PERRLA, EOMI Neck: Supple, 2+ carotid pulse no bruit Respiratory: Diminished Cardiovascular: Regular rate/rhythm, Normal S1 S2 Gastrointestinal: Normal bowel sounds, No tenderness Musculoskeletal: No tenderness Integumentary: No rashes Neurological: Normal speech, Normal strength at 5/5 x4 extr, Normal tone, Normal affect - Studies Laboratory Data (last 24 hrs) 07/25/23 07/25/23 07/25/23 14:38 14:38 14:38 WBC 7.00 Hgb 14.4 Hct 42.3 Plt Count 184 PT 27.6 H INR 2.58 Sodium 137 Potassium 4.3 BUN 39 H Creatinine 2.33 H Glucose 104 Magnesium 2.2 Total Bilirubin 0.7 AST 55 H ALT 27 Alkaline Phosphatase 87 Assessment and Plan - Plan Assessment: Acute on chronic systolic congestive heart failure History of mechanical aortic valve replacement on chronic anticoagulation with warfarin CKD Gout Plan: Acute on chronic systolic congestive heart failure History of mechanical aortic valve replacement on chronic anticoagulation with warfarin Last echocardiogram July 2022 showed ejection fraction of 30 to 35%, aortic peak velocity 2.5 m/s Cardiology consulted, echocardiogram ordered Patient requiring increased oxygen over the course of the last few weeks with increasing dyspnea especially on exertion Continue with IV diuresis, other home medications continued Follows with [facility] advanced heart failure team CKD Creatinine at baseline, monitor daily consult nephrology as needed Gout Allopurinol continued DVT PPX: Continue warfarin, monitor INR daily Code status: Full Discharge Plan: Home Plan to discharge in: 24 Hours - Advance Directives Does patient have a Living Will: No Does patient have a Durable POA for Healthcare: No - Code Status/Comfort Care Code Status Assessed: Yes (Full code) Critical Care: No Time Spent Managing Pts Care (In Minutes): 70
[2023-07-25] MEDS ORDERED: COLCHICINE 0.6 MG TAB PO PRN (23:16)
[2023-07-25] MEDS ORDERED: WARFARIN SODIUM 5 MG TAB PO SCH (23:45)
[2023-07-25] MEDS: ROSUVASTATIN 10 MG TAB PO SCH (23:55)
[2023-07-26] MEDS: WARFARIN SODIUM 5 MG TAB PO ONE (00:04)
[2023-07-26 07:25] LABS: Absolute Basophils 0.1 K/uL (0-0.5); Absolute Eosinophils 0.4 K/uL (0-0.5); Absolute Lymphocytes (CBC) 0.6 K/uL (0.7-4.9); Absolute Monocytes 0.7 K/uL (0.1-1.3); Absolute Neutrophil 4.6 K/uL (1.8-8.0); Eosinophils % 6.1 % (0-4.4); Hematocrit 40.2 % (39.6-49.0); Hemoglobin 13.5 g/dL (13.6-17.9); Lymphocytes % 9.3 % (15.3-44.8); MCH 33.3 pg (27.0-35.0); MCHC 33.7 g/dL (32.0-36.0); MCV 98.7 fL (80-100); MPV 9.2 fL (7.6-11.3); Monocytes % 11.5 % (3.3-12.3); Neutrophils % 72.1 % (41.7-73.7); Nucleated Red Blood Cells % 0.1 % (0-0); PT Prothrombin Time 31.1 SECONDS (9.5-12.5); Platelets 168 thou/uL (152-406); Protime INR 2.92; RBC Red Blood Cell Count 4.07 M/uL (4.33-5.43); Red Cell Distribution Width 14.1 % (12.1-15.2)
[2023-07-26 07:48] LABS: Anion Gap 5.2 mEq/L (5.0-15.0); Potassium 4.2 mEq/L (3.5-5.1); Troponin High Sensitivity 54.4 pg/mL (<58.9)
[2023-07-26] MEDS: HOME MED 1 EA UNK (Empagliflozin [Jardiance] 10 MG Tablet) PO SCH (09:00)
[2023-07-26] MEDS ORDERED: allopurinoL 100 MG TAB PO SCH (09:00)
[2023-07-26] MEDS ORDERED: ROSUVASTATIN 10 MG TAB PO SCH (09:00)
[2023-07-26] MEDS: carvediloL 6.25 MG TAB PO SCH (09:20)
[2023-07-26] MEDS: SACUBITRIL/VALSARTAN 49/51 MG TAB PO SCH (09:21)
[2023-07-26] MEDS: FUROSEMIDE 40 MG/4 ML VIAL IV SCH (09:21)
[2023-07-26] MEDS: allopurinoL 100 MG TAB PO SCH (09:22)
[2023-07-26 09:55] VITALS: O2SAT 95
--- NOTE | 2023-07-26 13:15 | P.PN ---
Date of Service: 07/26/23 Subjective: No significant improvement in breathing No acute events overnight ROS: 10 point ROS as noted above, otherwise negative Physical exam GEN: Alert, oriented, NAD HEENT: Normal conjunctiva, sclera anicteric CV: Regular rate and rhythm, no edema Pulm: Nonlabored respirations on room air ABD: Soft, nontender, nondistended MSK: No joint tenderness Integumentary: No rashes Neuro: Normal speech, normal affect Vitals reviewed Assessment: Acute on chronic systolic congestive heart failure History of mechanical aortic valve replacement on chronic anticoagulation with warfarin COPD on home O2 CKD Gout Plan: Acute on chronic systolic congestive heart failure History of mechanical aortic valve replacement on chronic anticoagulation with warfarin Last echocardiogram July 2022 showed ejection fraction of 30 to 35%, aortic peak velocity 2.5 m/s Cardiology consulted, echocardiogram ordered Patient requiring increased oxygen over the course of the last few weeks with increasing dyspnea especially on exertion Continue with IV diuresis, other home medications continued Follows with [facility] advanced heart failure team Await further input from cardiology/result of echocardiogram COPD on home O2 Reports he previously had been on inhalers for COPD but did not seem to much improvement Not much expiratory wheezing noted but will trial nebulizer treatment May be contributing to his dyspnea, will reassess after nebulizer treatment CKD Creatinine at baseline, monitor daily consult nephrology as needed Gout Allopurinol continued DVT PPX: Continue warfarin, monitor INR daily Code status: Full Discharge Plan: Home Plan to discharge in: 24 Hours Time Spent Managing Pts Care (In Minutes): 35 <Jorge Lara - Last Filed: 07/26/23 13:15> Patient seen and examined on rounds this morning with REMOTE SENSING SPECIALIST Jane. I performed a substantial part of the MDM during this patient's care today as noted above in the plan of care. I agree with plan of care as noted above with the following additions / corrections: CXR clear, CT with some emphysematous changes, some mild pulm edema reports prior diagnosis of copd, has trialed spiriva, trelegy, other inhalers that didn't help - on further discussion, only used for ~5-7 days then stopped due to no improvement discussed can take longer, so wouldn't consider that treatment failure suspect some component of copd exacerbation and chf causing his symptoms trial of nebs, and prednisone cardio consulted echo done, pending read <Dean Delacruz - Last Filed: 07/26/23 18:22>
--- NOTE | 2023-07-26 13:38 | EKG ---
Test Date: 2023-07-25 Test Time: 14:36:02 Food Sampler: NATAN MEASUREMENT RESULTS: Intervals: Rate: 68 MA: 164 QRSD: 106 QT: 414 QTc: 440 [place]: P: 61 MA: 164 QRS: -40 T: 117 INTERPRETIVE STATEMENTS: Sinus rhythm with frequent premature ventricular complexes Left axis deviation Incomplete left bundle branch block ST & T wave abnormality, consider lateral ischemia Abnormal ECG Compared to ECG 07/29/2020 11:46:53 Ventricular premature complex(es) now present Left bundle-branch block now present ST (T wave) deviation now present Myocardial infarct finding no longer present T-wave abnormality no longer present Possible ischemia still present Electronically Signed On 07-26-23 13:37:26 CDT by Lucho Lee
[2023-07-26] MEDS: ALBUTEROL 2.5 MG/3 ML NEB SOL ONE (13:40)
[2023-07-26] MEDS: ALBUTEROL 2.5 MG/3 ML NEB SOL NEB ONE (13:42)
--- NOTE | 2023-07-26 14:33 | ECHO ---
HEIGHT: 5 ft 7 in WEIGHT: 220 lb 0 oz DATE OF STUDY: 07/26/[address]: Jorge Lara NP 2-DIMENSIONAL: YES M.MODE: YES DOPPLER: YES COLOR FLOW: YES TDS: YES PORTABLE: YES DEFINITY: NO BUBBLE STUDY: NO DIAGNOSIS: DYSPNEA, HISTORY OF AORTIC VALVE REPLACEMENT, SYSTOLIC CONGESTIVE HEART FAILURE CARDIAC HISTORY: CATHERIZATION: NO SURGERY: YES PROSTHETIC VALVE: YES PACEMAKER: NO MEASUREMENTS (cm) DIASTOLIC (NORMALS) SYSTOLIC (NORMALS) IVSd 1.2 (0.6-1.2) LA Diam 3.0 (1.9-4.0) LVEF 42% LVIDd 5.2 (3.5-5.7) LVIDs 4.1 (2.0-3.5) %FS 21% LVPWd 1.2 (0.6-1.2) Ao Diam (2.0-3.7) 2 DIMENSIONAL ASSESSMENT: RIGHT ATRIUM: POOR WINDOWS LEFT ATRIUM: POOR WINDOWS RIGHT VENTRICLE: LEFT VENTRICLE: TRICUSPID VALVE: MITRAL VALVE: PULMONIC VALVE: AORTIC VALVE: PERICARDIAL EFFUSION: AORTIC ROOT: LEFT VENTRICULAR WALL MOTION: POOR WINDOWS. DOPPLER/COLOR FLOW: POOR WINDOWS. COMMENTS: 1. POOR WINDOWS AND VERY LIMITED STUDY. 2. RECOMMEND REPEAT WITH CONTRAST. TECHNOLOGIST: FATUMA BAEZ
[2023-07-26] MEDS: WARFARIN SODIUM 5 MG TAB PO SCH (16:43)
[2023-07-26] MEDS: predniSONE 20 MG TAB PO ONE (16:43)
[2023-07-26 17:45] VITALS: BMI 34.4
--- NOTE | 2023-07-26 19:40 | CON ---
Date of Consultation: 07/26/2023 Reason For Consultation: CHF. History Of Present Illness: A 62-year-old male with history of systolic heart failure, mechanical ao rtic valve, presented to the emergency room with worsening shortness of breath and lower extremity ed gurmeet. Denies having any chest pain. No nausea or vomiting. He is known to have low ejection fractio n in the mid 30s and he is on Coumadin for the mechanical valve. Required BiPAP for a short period o f time and now he seems to be breathing on room air, improved with the diuretics. Past Medical History: As outlined above in HPI. Medications: Refer reconciliation sheet for detailed list. Allergies: NO KNOWN DRUG ALLERGIES. Family History: No premature coronary artery disease or cancer. Social History: Does not smoke or drink. Does not use any drugs. Review of Systems: All systems reviewed are negative except mentioned in HPI. Physical Examination: Vital Signs: Reviewed. Head and Neck: Pupils are equal, reactive to light. Intact eye movements. Mild JVD elevation. No cervical lymphadenopathy. Neck is supple. Thyroid is not enlarged. Lungs: Decreased breathing sounds bilaterally. No accessory muscle use or muscle retraction. Heart: Regular rate and rhythm. No extra sounds. Abdomen: Soft, nontender. Bowel sounds positive. No organomegaly. No masses or hernia. No rigidi ty or rebound. Extremities: No clubbing, cyanosis. Positive edema. Neurologic: Alert, awake, oriented x3. No acute focal deficits appreciated. Investigations: BUN is 44, creatinine 2.3. Cardiac enzymes x3 are negative. Hemoglobin was 13.5. Assessment/recommendation: 1.Acute on chronic systolic heart failure exacerbation. Definitely fluid overloaded and improving w toro Lasnadine. Continue current management. Carefully monitor BUN, creatinine, electrolytes. 2.Mechanical aortic valve. Continue Coumadin to keep INR between 2 and 3. 3.Acute respiratory failure due to CHF exacerbation. Doing well with diuresis, to be continued. 4.Hypertension. Blood pressure is controlled. 5.Hyperlipidemia. Continue statin. SR/MODL Voice ID: [id number] Report ID: [id number]
[2023-07-27 05:19] LABS: Absolute Lymphocytes (CBC) 0.3 K/uL (0.7-4.9); Absolute Monocytes 0.1 K/uL (0.1-1.3); Absolute Neutrophil 4.8 K/uL (1.8-8.0); Basophils % 0.2 % (0-1.3); Eosinophils % 0.2 % (0-4.4); Hematocrit 39.6 % (39.6-49.0); Hemoglobin 13.4 g/dL (13.6-17.9); Lymphocytes % 4.9 % (15.3-44.8); MCH 33.2 pg (27.0-35.0); MCHC 33.7 g/dL (32.0-36.0); MCV 98.3 fL (80-100); Monocytes % 2.6 % (3.3-12.3); Neutrophils % 92.1 % (41.7-73.7); Nucleated Red Blood Cells % 0.1 % (0-0); Platelets 172 thou/uL (152-406); RBC Red Blood Cell Count 4.03 M/uL (4.33-5.43); Red Cell Distribution Width 14.2 % (12.1-15.2)
[2023-07-27 05:39] LABS: PT Prothrombin Time 40.8 SECONDS (9.5-12.5); Protime INR 3.86
[2023-07-27 06:47] LABS: Anion Gap 8.4 mEq/L (5.0-15.0); Potassium 4.4 mEq/L (3.5-5.1)
[2023-07-27 08:32] LABS: Blood Morphology Comment NOT SEEN (NOT SEEN); Platelet Estimate ADEQ; White Blood Cell Scan OK (OK)
[2023-07-27] MEDS: ALBUTEROL 2.5 MG/3 ML NEB SOL NEB PRN (10:48)
--- NOTE | 2023-07-27 12:20 | P.DS ---
Admission Date: 07/26/23 Discharge Date: 07/27/23 Reason for Admission: Dyspnea, CHF exacerbation Consultations: Cardiology- Dr. Lee Brief History of Present Illness: 62-year-old male with history of systolic congestive heart failure, mechanical aortic valve, gout presents to the emergency department with chief complaint of increasing shortness of breath. He has noted increasing dyspnea especially on exertion over the course of the last 1 month and even worse the past 2 weeks. He has been compliant with his medications and does not follow with the heart failure team at [facility] in [place]. His last echocardiogram was performed in July 2022 and showed an ejection fraction of 30 to 35%. He was evaluated in the emergency department his labs are significant for a creatinine 2.3 INR of 2.58 D-dimer 335 BNP 4252. Chest x-ray and CT chest without contrast were negative for acute findings. Patient reports he has been having to wear his home oxygen much more often than usual. Will admit under observation for diuresis, echocardiogram and cardiology consult. Hospital Course: Assessment: Acute on chronic systolic congestive heart failure History of mechanical aortic valve replacement on chronic anticoagulation with warfarin COPD on home O2 CKD Gout Patient was initially admitted to the hospital for suspected CHF exacerbation, shortness of breath. He had been having progressive shortness of breath over the course of the last few weeks, requiring his home oxygen more often. It was initially believed this was related to his CHF as he has systolic congestive heart failure and a mechanical aortic valve for which he takes warfarin for. He was diuresed with IV Lasix and did not have significant improvement in his symptoms. Patient also has a history of COPD and used to be on inhalers for this but had discontinued them as he does not find them effective after taking them for around a week or so. Echocardiogram was obtained but was a technically difficult/poor study, difficult to evaluate aortic valve/ejection fraction. Given his lack of significant sponsor to IV diuresis for his dyspnea he was given albuterol nebulizer treatments which did seem to significant improve his symptoms for around an hour. He was able to ambulate around the nurses station after receiving nebulizer treatment. It is likely that his shortness of breath is more related to COPD than CHF/volume overload. CT of his chest was obtained during admission which showed some emphysema but no pulmonary edema or pneumonia. Of note on day of discharge patient's INR was 3.86, he was instructed to hold today's dose of warfarin and resume his regimen tomorrow. His creatinine at discharge was 2.48, he does have underlying CKD and was instructed to follow-up with nephrology outpatient as well. Prescription sent to the pharmacy for albuterol inhaler, Trelegy inhaler which she had been on previously but had only taken for a few days. Counseled on importance of continued compliance with Trelegy to be able to assess for benefit. Additionally sent prescription for prednisone 10 mg daily for 5 days, informed patient that this may interfere/elevate his INR. Patient may or may not take prednisone depending on how he is feeling but understands if he does he needs to monitor his INR more closely. <Jorge Lara - Last Filed: 07/27/23 12:17> Admission Date: 07/26/23 Discharge Date: 07/27/23 <Dean Delacruz - Last Filed: 07/27/23 16:55> Disposition: ROUTINE DISCHARGE Discharge Condition: GOOD Vital Signs/Physical Exam: Temp Pulse Resp BP Pulse Ox 97.0 F 72 16 119/66 94 07/27/23 08:00 07/27/23 08:00 07/27/23 08:00 07/27/23 08:00 07/27/23 08:00 General: Alert, In no apparent distress, Oriented x3 HEENT: Atraumatic, PERRLA Neck: Supple, JVD not distended Respiratory: Clear to auscultation bilaterally, Normal air movement Cardiovascular: Regular rate/rhythm, Normal S1 S2 Gastrointestinal: Normal bowel sounds Musculoskeletal: No tenderness Integumentary: No rashes Neurological: Normal speech, Normal tone Laboratory Data at Discharge: WBC 5.20 thou/uL (4.3-10.9) 07/27/23 04:37 Hgb 13.4 g/dL (13.6-17.9) L 07/27/23 04:37 Hct 39.6 % (39.6-49.0) 07/27/23 04:37 Plt Count 172 thou/uL (152-406) 07/27/23 04:37 PT 40.8 SECONDS (9.5-12.5) H 07/27/23 04:37 INR 3.86 07/27/23 04:37 Sodium 139 mEq/L (136-145) 07/27/23 04:21 Potassium 4.4 mEq/L (3.5-5.1) 07/27/23 04:21 BUN 43 mg/dL (7-18) H 07/27/23 04:21 Creatinine 2.48 mg/dL (0.70-1.30) H 07/27/23 04:21 Glucose 201 mg/dL (74-106) H 07/27/23 04:21 Magnesium 2.2 mg/dL (1.6-2.4) 07/25/23 14:38 Total Bilirubin 0.7 mg/dL (0.2-1.0) 07/25/23 14:38 AST 55 U/L (15-37) H 07/25/23 14:38 ALT 27 U/L (16-61) 07/25/23 14:38 Alkaline Phosphatase 87 U/L (45-117) 07/25/23 14:38 <Jorge Lara - Last Filed: 07/27/23 12:17> Vital Signs/Physical Exam: Temp Pulse Resp BP Pulse Ox 97.4 F 69 16 112/69 100 07/27/23 12:00 07/27/23 12:00 07/27/23 12:00 07/27/23 12:00 07/27/23 12:00 Laboratory Data at Discharge: WBC 5.20 thou/uL (4.3-10.9) 07/27/23 04:37 Hgb 13.4 g/dL (13.6-17.9) L 07/27/23 04:37 Hct 39.6 % (39.6-49.0) 07/27/23 04:37 Plt Count 172 thou/uL (152-406) 07/27/23 04:37 PT 40.8 SECONDS (9.5-12.5) H 07/27/23 04:37 INR 3.86 07/27/23 04:37 Sodium 139 mEq/L (136-145) 07/27/23 04:21 Potassium 4.4 mEq/L (3.5-5.1) 07/27/23 04:21 BUN 43 mg/dL (7-18) H 07/27/23 04:21 Creatinine 2.48 mg/dL (0.70-1.30) H 04/13/24 04:21 Glucose 201 mg/dL (74-106) H 07/27/23 04:21 Magnesium 2.2 mg/dL (1.6-2.4) 07/25/23 14:38 Total Bilirubin 0.7 mg/dL (0.2-1.0) 07/25/23 14:38 AST 55 U/L (15-37) H 07/25/23 14:38 ALT 27 U/L (16-61) 07/25/23 14:38 Alkaline Phosphatase 87 U/L (45-117) 07/25/23 14:38 <Dean Delacruz - Last Filed: 07/27/23 16:55> Diet: Renal Activity: Ad diana Time spent managing pt's care (in minutes): 30 <Jorge Lara - Last Filed: 07/27/23 12:17> Physician Review: Patient Assessed, Agree with Above Assessment and Plan (Patient seen / examined on rounds this morning with [employer] MEASURER Jane. I performed a substantial part of the MDM during this patient's care today as noted above. Feeling better with neb treatment. h/o copd not on inhalers. symptoms more consistent with copd exacerbation. no edema, CT with minimal /no edema) <Dean Delacruz - Last Filed: 07/27/23 16:55> Home Medications: Carvedilol [Coreg] 6.25 tab PO BID 07/29/20 Sacubitril/Valsartan [Entresto 49 mg-51 mg Tablet] 75 mg PO BID 07/29/20 Warfarin Sodium [Coumadin*] 5 mg PO SEECOM 07/29/20 Allopurinol 100 mg PO DAILY 07/25/23 Bumetanide 1 mg PO BID 07/25/23 Colchicine [Colcrys] 0.6 mg PO PRN PRN 07/25/23 Empagliflozin [Jardiance] 10 mg PO DAILY 07/25/23 Rosuvastatin [Crestor*] 20 mg PO DAILY 07/25/23 Warfarin Sodium 2.5 mg PO SEECOM 07/25/23 Albuterol Inhaler [Ventolin Inhaler*] 2 puff IH Q6H PRN #2 inh 07/27/23 Fluticasone/Umeclidin/Vilanter [Trelegy Ellipta 100-62.5-25] 1 each IH DAILY #1 inh 07/27/23 predniSONE [Deltasone*] 10 mg PO DAILY #5 tab 07/27/23 New Medications: predniSONE [Deltasone*] 10 mg PO DAILY #5 tab Fluticasone/Umeclidin/Vilanter [Trelegy Ellipta 100-62.5-25] 1 each IH DAILY #1 inh Albuterol Inhaler [Ventolin Inhaler*] 2 puff IH Q6H PRN #2 inh PRN Reason: Shortness Of Breath Physician Discharge Instructions: Patient was initially admitted to the hospital for suspected CHF exacerbation, shortness of breath. He had been having progressive shortness of breath over the course of the last few weeks, requiring his home oxygen more often. It was initially believed this was related to his CHF as he has systolic congestive heart failure and a mechanical aortic valve for which he takes warfarin for. He was diuresed with IV Lasix and did not have significant improvement in his symptoms. Patient also has a history of COPD and used to be on inhalers for this but had discontinued them as he does not find them effective after taking them for around a week or so. Echocardiogram was obtained but was a technically difficult/poor study, difficult to evaluate aortic valve/ejection fraction. Given his lack of significant sponsor to IV diuresis for his dyspnea he was given albuterol nebulizer treatments which did seem to significant improve his symptoms for around an hour. He was able to ambulate around the nurses station after receiving nebulizer treatment. It is likely that his shortness of breath is more related to COPD than CHF/volume overload. CT of his chest was obtained during admission which showed some emphysema but no pulmonary edema or pneumonia. Of note on day of discharge patient's INR was 3.86, he was instructed to hold today's dose of warfarin and resume his regimen tomorrow. His creatinine at discharge was 2.48, he does have underlying CKD and was instructed to follow-up with nephrology outpatient as well. Prescription sent to the pharmacy for albuterol inhaler, Trelegy inhaler which she had been on previously but had only taken for a few days. Counseled on importance of continued compliance with Trelegy to be able to assess for benefit. Additionally sent prescription for prednisone 10 mg daily for 5 days, informed patient that this may interfere/elevate his INR. Patient may or may not take prednisone depending on how he is feeling but understands if he does he needs to monitor his INR more closely. Followup: Ernie Montero DO [ACTIVE - CAN ADMIT] - 1-2 Weeks Michelle Segura NP [Primary Care Provider] - 1 Week
[2023-07-27 13:39] VITALS: BP 112/69; TEMP 97.4
[2023-07-29] MEDS ORDERED: WARFARIN SODIUM 2.5 MG TAB PO SCH (17:00)
== END 2023-07-27 15:45 | disposition home or self-care (01) | DRG 190 ==
LOC: ER 14:07 → ERHOLD 17:48 → 4TH 20:38 → OBSVTOIN 07-26 17:12
PROVIDERS: ADMIT Hospitalist; ATTEND Hospitalist
PROC: 5A09457 Assistance with Respiratory Ventilation, 24-96 Consecutive Hours, Continuous Positive Airway Pressure (ICD-10-PCS; principal; 2023-07-26)
DX: J43.9 Emphysema, unspecified (principal); J96.01 Acute respiratory failure with hypoxia; J96.02 Acute respiratory failure with hypercapnia; I13.0 Hypertensive heart and chronic kidney disease with heart failure and stage 1 through stage 4 chronic kidney disease, or unspecified chronic kidney disease; I50.22 Chronic systolic (congestive) heart failure; N18.9 Chronic kidney disease, unspecified; E78.5 Hyperlipidemia, unspecified; M10.9 Gout, unspecified; Z95.2 Presence of prosthetic heart valve; Z79.01 Long term (current) use of anticoagulants; Z79.52 Long term (current) use of systemic steroids; Z79.02 Long term (current) use of antithrombotics/antiplatelets; Z87.891 Personal history of nicotine dependence; Z91.148 Patient's other noncompliance with medication regimen for other reason; Z79.899 Other long term (current) drug therapy
CPT/HCPCS: 36415; 71045; 71250; 80048; 80076; 83605; 83735; 83880; 84484; 85025; 85379; 85610; 87040; 93005; 93306; 94640; 94660; 94760; 99285; G0378; J1940; J7512; J7613

== ENCOUNTER 2023-09-13 19:17 | Emergency (ER) | payer OTHER ==
[2023-09-13] MEDS ORDERED: LIDOCAINE 2% MPF 5 ML VIAL ONE (20:03)
[2023-09-13] MEDS ORDERED: LIDOCAINE 2% W/EPI 1:200,000 MPF 20 ML VIAL IM ONE (20:04)
--- NOTE | 2023-09-13 21:01 | RAD REPORT ---
EXAM DESCRIPTION: RAD - Tib Fib Right - 09/13/2023 8:27 pm CLINICAL HISTORY: laceration COMPARISON: No comparisons TECHNIQUE: Right tibia and fibula, 2 views. FINDINGS: No fracture is identified. There is no dislocation or periosteal reaction noted. No acute or suspicious bony finding. Mild osteoarthritic changes of the weight-bearing knee compartments. Mine ralization along the medial and lateral menisci. Soft tissue irregularity and gas along the lateral mid aspect of the lower leg. Surrounding soft tiss ue swelling extending caudally. IMPRESSION: No acute osseous abnormality. Soft tissue irregularity and gas along the lateral mid aspect of the lower leg. No radiopaque foreign body. Mild knee osteoarthritic changes, with mineralization of the medial and lateral menisci, suggesting s equelae of mineralizing arthropathy, suggest CPPD.
--- NOTE | 2023-09-13 21:56 | EDPHYS ---
Physician Documentation [facility] Name: Nixon Gamboa Age: 63 yrs Sex: Male : 1960 Arrival Date: 09/13/2023 Time: 19:17 Bed 7 Private MD: ED Physician Shalom Yap HPI: 09/12 20:05 This 63 yrs old Male presents to ER via Ambulatory with complaints of Laceration To cp Leg, Pt is on blood thinners. 20:05 The patient has a laceration occurred outdoors, and puncture wound with laceration cp caused by piece of wood. The laceration(s) is(are) located on the lateral side of right lower leg. Onset: The symptoms/episode began/occurred just prior to arrival. Associated signs and symptoms: The patient has no apparent associated signs or symptoms. Historical: - Allergies: 19:32 No Known Allergies; as6 - PMHx: 19:32 artificial valve in heart; CHF; Diverticulitis; Hepatitis C; Hyperlipidemia; as6 Hypertension; Sleep Apnea; - PSHx: 19:32 bowel; open heart; as6 - Immunization history:: Adult Immunizations up to date. - Infectious Disease History:: Denies. - Social history:: Smoking status: Patient reports the use of cigarette tobacco products, denies chronic smoking, but will smoke occasionally. ROS: 20:10 MS/extremity: Positive for laceration, puncture, of the lateral side of right lower cp leg, 20:10 Constitutional: Negative for body aches, chills, fever, cp 20:10 Cardiovascular: Negative for chest pain, 20:10 Respiratory: Positive for shortness of breath, 20:10 Abdomen/GI: Negative for abdominal pain, vomiting, diarrhea, constipation, 20:10 Neuro: Negative for numbness, weakness, 20:10 All other systems are negative, Exam: 20:15 Constitutional: The patient appears in no acute distress, alert, awake, non-toxic, well cp developed, well nourished, uncomfortable, 20:15 Head/Face: Normocephalic, atraumatic. cp 20:15 Eyes: Periorbital structures: appear normal, Conjunctiva: normal, no exudate, no cp injection, Sclera: no appreciated abnormality, Lids and lashes: appear normal, bilaterally, 20:15 ENT: External ear(s): are unremarkable, Nose: is normal, Mouth: Lips: moist, Oral mucosa: pink and intact, moist, Posterior pharynx: Airway: no evidence of obstruction, patent, 20:15 Chest/axilla: Inspection: normal, 20:15 Cardiovascular: Rate: normal, Rhythm: regular, JVD: is not appreciated, 20:15 Respiratory: the patient does not display signs of respiratory distress, Respirations: cp labored breathing, that is mild, Breath sounds: decreased breath sounds, that are mild, throughout, wheezing: is not appreciated, 20:15 Abdomen/GI: Exam negative for discomfort, distension, guarding, Inspection: abdomen appears normal, 20:15 Musculoskeletal/extremity: Extremities: noted in the lateral side of right lower leg: large, deep puncture wound with laceration noted, mild bleeding and mild swelling noted, 20:15 Neuro: Orientation: to person, place \T\ time. Mentation: is normal, Vital Signs: 19:30 BP 124 / 77; Pulse 78; Resp 18 S; Temp 97.3(TE); Pulse Ox 94% on R/A; Weight 104.33 kg as6 (R); Height 5 ft. 7 in. (R); Pain 5/10; 20:00 BP 133 / 101; Pulse 72; Resp 16; Pulse Ox 100% on 2 lpm NC; km8 20:30 BP 127 / 96; Pulse 72; Resp 16; Pulse Ox 100% on 2 lpm NC; km8 21:15 BP 127 / 83; Pulse 66; Resp 18; Pulse Ox 99% on 2 lpm NC; km8 21:30 BP 131 / 92; Pulse 69; Resp 16; Pulse Ox 99% on R/A; km8 19:30 Body Mass Index 36.02 (104.33 kg, 170.18 cm) as6 19:30 Pain Scale: Adult as6 [place] Coma Score: 20:00 Eye Response: spontaneous(4). Motor Response: obeys commands(6). Verbal Response: km8 oriented(5). Total: 15. Procedures: 22:00 Irrigation of deep puncture wound lateral side of right lower leg irrigated with normal cp saline Betadine solution Patient tolerated well approximately 1.5 liters used. Laceration: 22:00 Wound Repair of 6cm ( 2.4in ) subcutaneous laceration to right lower leg. Irregularly cp shaped.. Skin/tissue flap noted.. Distal neuro/vascular/tendon intact. Anesthesia: Wound infiltrated with 10 mls of 2% lidocaine. Wound prep: Wound irrigation by me, Copious irrigation. Skin closed with 3 4-0 Prolene using loose closure. Dressed with Bacitracin, 4x4's. Patient tolerated well. MDM: 19:34 Patient medically screened. cp 20:00 Differential diagnosis: superficial laceration, tendon injury, vascular injury, foreign cp body, open fracture. 21:55 Data reviewed: vital signs, nurses notes, radiologic studies, plain films. cp 21:55 Management of patient was discussed with the following: Paper Control Clerk: DR Trent ramos see patient in clinic for wound check 09-16-2023, patient instructed to call office for appt. I considered the following discharge prescriptions or medication management in the emergency department Medications were administered in the Emergency Department. See MAR. Independent interpretation of the following test(s) in the Emergency Department X-Ray: My interpretation is images of right lower leg negative for fracture. Care significantly affected by the following chronic conditions: Congestive Heart Failure. Counseling: I had a detailed discussion with the patient and/or guardian regarding the historical points, exam findings, and any diagnostic results supporting the discharge/admit diagnosis, radiology results, the need for outpatient follow up, a general surgeon, to return to the emergency department if symptoms worsen or persist or if there are any questions or concerns that arise at home. Response to treatment: the patient's symptoms have markedly improved after treatment. Special discussion: I discussed in detail with the patient the higher chance of wound infection based on his presenting history. 09/12 19:57 Order name: XRAY Tib Fib RIGHT; Complete Time: 21:04 cp 09/12 21:05 Interpretation: Report reviewed. cp Administered Medications: 20:40 Drug: Lidocaine Infiltration (2 %) 10 ml 5 ml Infiltration once; to bedside {Note: km8 given by BONNIE Addison.} Volume: 5 ml; Route: Infiltration; 22:00 Drug: Rocephin (cefTRIAXone) IM 1 grams IM once Route: IM; Site: left deltoid; km8 22:08 Follow up: Response: Medication administered at discharge. km8 22:07 Drug: Trimethoprim-Sulfamethoxazole PO (160 mg-800 mg (DS) 1 tablet PO once Route: PO; km8 22:08 Follow up: Response: Medication administered at discharge. km8 Disposition Summary: 09/13/23 21:55 Discharge Ordered Notes: Location: Home cp Problem: new cp Symptoms: have improved cp Condition: Stable cp Diagnosis - Leg Laceration/ Open wound of lower leg - right lower leg cp Followup: cp - With: Michael Newman MD - When: 09/16/2023 - Reason: in clinic for wound check Discharge Instructions: - Discharge Summary Sheet cp - Laceration Care, Adult cp Forms: - Medication Reconciliation Form cp - Antibiotic Education cp - Prescription Opioid Use cp - Patient Portal Instructions cp - Leadership Thank You Letter cp Prescriptions: - Cephalexin 500 mg Oral Capsule - take 1 capsule ORAL route every 6 hours for 10 days; 40 capsule; Refills: 0, cp Product Selection Permitted - Tramadol 50 mg Oral Tablet - take 1 tablet ORAL route every 8 hours as needed; 12 tablet; Refills: 0, cp Product Selection Permitted - Bactrim DS 800-160 mg Oral tablet - take 1 tablet ORAL route once daily for 10 days; 10 tablet; Refills: 0, Product cp Selection Permitted Signatures: Dispatcher [employer] Shalom Harman PA PA cp Edwin Henry, RN RN as6 Eliana Leblanc RN RN km8
--- NOTE | 2023-09-13 21:56 | ER ---
Nurse's Notes [facility] Name: Nixon Gamboa Age: 63 yrs Sex: Male : 1960 Arrival Date: 09/13/2023 Time: 19:17 Bed 7 Private MD: Diagnosis: Leg Laceration/ Open wound of lower leg-right lower leg Presentation: 09/12 19:30 Chief complaint: Patient states: pt was working in his yard and a stick punctured his as6 leg. pt states stick is out but takes blood thinners. Coronavirus screen: At this time, the client does not indicate any symptoms associated with coronavirus-19. Ebola Screen: No symptoms or risks identified at this time. Initial Sepsis Screen: Does the patient meet any 2 criteria? No. Patient's initial sepsis screen is negative. Does the patient have a suspected source of infection? No. Patient's initial sepsis screen is negative. Risk Assessment: Do you want to hurt yourself or someone else? Patient reports no desire to harm self or others. Onset of symptoms was September 13, 2023. 19:30 Method Of Arrival: Ambulatory as6 19:30 Acuity: JUAQUIN 3 as6 Historical: - Allergies: 19:32 No Known Allergies; as6 - PMHx: 19:32 artificial valve in heart; CHF; Diverticulitis; Hepatitis C; Hyperlipidemia; as6 Hypertension; Sleep Apnea; - PSHx: 19:32 bowel; open heart; as6 - Immunization history:: Adult Immunizations up to date. - Infectious Disease History:: Denies. - Social history:: Smoking status: Patient reports the use of cigarette tobacco products, denies chronic smoking, but will smoke occasionally. Screenin:00 [facility] ED Fall Risk Assessment (Adult) History of falling in the last 3 months, km8 including since admission No falls in past 3 months (0 pts) Confusion or Disorientation No (0 pts) Intoxicated or Sedated No (0 pts) Impaired Gait No (0 pts) Mobility Assist Device Used No (0 pt) Altered Elimination No (0 pt) Score/Fall Risk Level 0 - 2 = Low Risk Oriented to surroundings, Maintained a safe environment, Educated pt \T\ family on fall prevention, incl call for assistance when getting out of bed, Assessed \T\ reinforced patient's understanding of fall precautions. Abuse screen: Denies threats or abuse. Denies injuries from another. Nutritional screening: No deficits noted. Tuberculosis screening: No symptoms or risk factors identified. Assessment: 20:00 General: Appears in no apparent distress. comfortable, Behavior is calm, cooperative, km8 appropriate for age. Pain: Complains of pain in right penn Pain currently is 5 out of 10 on a pain scale. Quality of pain is described as burning. Neuro: Level of Consciousness is awake, alert, obeys commands, Oriented to person, place, time, situation. Cardiovascular: Denies chest pain, shortness of breath, Patient's skin is warm and dry. Respiratory: Airway is patent Respiratory effort is even, unlabored, Respiratory pattern is regular, symmetrical. GI: No signs and/or symptoms were reported involving the gastrointestinal system. : No signs and/or symptoms were reported regarding the genitourinary system. EENT: No signs and/or symptoms were reported regarding the EENT system. Derm: No signs and/or symptoms reported regarding the dermatologic system. Skin is healthy with good turgor, Skin is dry, Skin is normal, Skin temperature is warm Wound noted right penn Wound is laceration to right penn. Musculoskeletal: Range of motion: intact in all extremities. Injury Description: Laceration sustained to right penn is jagged, bleeding moderately. Vital Signs: 19:30 BP 124 / 77; Pulse 78; Resp 18 S; Temp 97.3(TE); Pulse Ox 94% on R/A; Weight 104.33 kg as6 (R); Height 5 ft. 7 in. (R); Pain 5/10; 20:00 BP 133 / 101; Pulse 72; Resp 16; Pulse Ox 100% on 2 lpm NC; km8 20:30 BP 127 / 96; Pulse 72; Resp 16; Pulse Ox 100% on 2 lpm NC; km8 21:15 BP 127 / 83; Pulse 66; Resp 18; Pulse Ox 99% on 2 lpm NC; km8 21:30 BP 131 / 92; Pulse 69; Resp 16; Pulse Ox 99% on R/A; km8 19:30 Body Mass Index 36.02 (104.33 kg, 170.18 cm) as6 19:30 Pain Scale: Adult as6 [place] Coma Score: 20:00 Eye Response: spontaneous(4). Motor Response: obeys commands(6). Verbal Response: km8 oriented(5). Total: 15. ED Course: 19:20 Patient arrived in ED. jj6 19:27 Shalom Max PA is PHCP. cp 19:27 Shalom Yap MD is Attending Physician. cp 19:32 Triage completed. as6 19:32 Arm band placed on. as6 20:00 Patient has correct armband on for positive identification. Bed in low position. Call km8 light in reach. Side rails up X 1. Pulse ox on. NIBP on. 20:00 Provided Education on: call light use. km8 20:00 Oxygen administration via nasal cannula \T\ 2L/min. km8 20:01 Eliana Leblanc, ALEJANDRA is Primary Nurse. km8 20:29 XRAY Tib Fib RIGHT In Process Unspecified. EDMS 21:54 Michael Newman MD is Referral Physician. cp 22:08 No provider procedures requiring assistance completed. Patient did not have IV access km8 during this emergency room visit. Administered Medications: 20:40 Drug: Lidocaine Infiltration (2 %) 10 ml 5 ml Infiltration once; to bedside {Note: km8 given by BONNIE Addison.} Volume: 5 ml; Route: Infiltration; 22:00 Drug: Rocephin (cefTRIAXone) IM 1 grams IM once Route: IM; Site: left deltoid; km8 22:08 Follow up: Response: Medication administered at discharge. km8 22:07 Drug: Trimethoprim-Sulfamethoxazole PO (160 mg-800 mg (DS) 1 tablet PO once Route: PO; km8 22:08 Follow up: Response: Medication administered at discharge. km8 Medication: 20:00 VIS not applicable for this client. km8 Outcome: 21:55 Discharge ordered by . cp 22:08 Discharged to home via wheelchair, km8 22:08 Condition: good 22:08 Discharge instructions given to patient, Instructed on discharge instructions, follow up and referral plans. medication usage, wound care, Demonstrated understanding of instructions, follow-up care, medications, wound care, Prescriptions given X 3, 22:09 Patient left the ED. km8 Signatures: Dispatcher [employer] EDTX Shalom Max PA PA cp Jeffries, Jennifer jj6 Edwin Henry RN RN as6 Eliana Leblanc RN RN km8 Corrections: (The following items were deleted from the chart) 21:15 20:30 BP 127 / 96; Pulse 72bpm; Resp 16bpm; Pulse Ox 100% RA; km8 km8 22:09 22:08 Discharge instructions given to patient, Instructed on discharge instructions, km8 follow up and referral plans. medication usage, wound care, Demonstrated understanding of instructions, follow-up care, medications, wound care, Prescriptions given X 2, km8
[2023-09-13] MEDS ORDERED: CEFTRIAXONE 1000 MG/VIAL ONE (22:02)
[2023-09-13] MEDS ORDERED: SMZ./TMP. 800/160 MG TABLET ONE (22:02)
[2023-09-13] MEDS ORDERED: LIDOCAINE 1% MPF 2 ML AMPULE ONE (22:02)
[2023-09-13 22:29] VITALS: BP 131/92; TEMP 97.3; O2SAT 99
== END 2023-09-13 22:09 | disposition home or self-care (01) ==
LOC: ER 19:17
PROC: 0HQKXZZ Repair Right Lower Leg Skin, External Approach (ICD-10-PCS; principal; 2023-09-13)
DX: S81.811A Laceration without foreign body, right lower leg, initial encounter (principal); F17.210 Nicotine dependence, cigarettes, uncomplicated
CPT/HCPCS: 73590; 96372; 99285; 12002; J0696; J2001

== ENCOUNTER 2023-09-14 08:56 | Emergency (ER) | payer OTHER ==
[2023-09-14] MEDS ORDERED: HYDROCODONE/APAP 5/325 MG TAB ONE (09:19)
[2023-09-14] MEDS ORDERED: SILVER NITRATE 1 APPL TOP ONE (09:19)
--- NOTE | 2023-09-14 10:37 | EDPHYS ---
Physician Documentation [facility] Name: Nixon Gamboa Age: 63 yrs Sex: Male : 1960 Arrival Date: 09/14/2023 Time: 08:56 Bed 5 Private MD: ED Physician Shalom Yap HPI: 09/13 09:20 This 63 yrs old Male presents to ER via Wheelchair with complaints of Suture Recheck - sb4 re-opened. 09:20 Patient presents to ED for recheck of: laceration. The affected area is on the right sb4 penn. Previous treatment: The patient was initially treated yesterday, the care was rendered at [facility], Treatment type: The patient's original treatment included sutures, Outpatient prescription(s): The patient was given prescription(s) for Bactrim, Keflex, Previous recheck: the patient has not been checked since the original treatment. Progress: The patient reports bleeding. The patient has not experienced similar symptoms in the past. The patient has not recently seen a physician. Historical: - Allergies: 09:07 No Known Allergies; ll1 - PMHx: 09:07 Hyperlipidemia; Diverticulitis; Hypertension; CHF; artificial valve in heart; Hepatitis ll1 C; Sleep Apnea; - PSHx: 09:07 bowel; open heart; ll1 - Immunization history:: Adult Immunizations. - Infectious Disease History:: Denies. - Social history:: Smoking status: Patient reports the use of cigarette tobacco products, smokes .1 packs per day. ROS: 09:20 Constitutional: Negative for fever, chills, and weight loss, sb4 09:20 Skin: Positive for laceration(s), bleeding, 09:20 All other systems are negative, Exam: 09:21 Constitutional: This is a well developed, well nourished patient who is awake, alert, sb4 and in no acute distress. Head/Face: Normocephalic, atraumatic. Eyes: Extra-ocular motions intact. Periorbital areas with no swelling, redness, or edema. ENT: Mucous membranes moist. 09:21 Skin: Wound recheck: Suture laceration closure: the wound is healing well, sutures intact, 1 area in between sutures that is bleeding moderately, Vital Signs: 09:11 BP 122 / 76; Pulse 80; Resp 18; Temp 97.6; Pulse Ox 92% on R/A; Weight 104.33 kg; ll1 Height 5 ft. 7 in. ; Pain 8/10; 11:03 BP 131 / 79; Pulse 65; Resp 16; Temp 98; Pulse Ox 95% ; bp 09:11 Body Mass Index 36.02 (104.33 kg, 170.18 cm) ll1 09:11 Pain Scale: Adult ll1 Procedures: 09:39 3 silver nitrate sticks used to cauterize bleeding site and successfully achieve sb4 hemostasis. MDM: 09:06 Patient medically screened. sb4 10:35 Data reviewed: vital signs, nurses notes, and as a result, I will discharge patient. sb4 Care significantly affected by the following chronic conditions: Hypertension, Congestive Heart Failure, Obesity, anticoagulated. Counseling: I had a detailed discussion with the patient and/or guardian regarding the historical points, exam findings, and any diagnostic results supporting the discharge/admit diagnosis, to return to the emergency department if symptoms worsen or persist or if there are any questions or concerns that arise at home. ED course: . 09/13 10:35 Order name: Wound dressing; Complete Time: 11:03 sb4 Administered Medications: 09:23 Drug: HYDROcodone-acetaminophen PO 5 mg-325 mg 2 tabs PO once {Note: pain 810 RASS 0.} ll1 Route: PO; 11:04 Follow up: Response: No adverse reaction bp 09:44 Drug: Silver Nitrate Applicators Topical 1 application Topical once Route: Topical; sb4 Site: affected area; Disposition Summary: 09/14/23 10:36 Discharge Ordered Notes: Location: Home sb4 Problem: new sb4 Symptoms: have improved sb4 Condition: Stable sb4 Diagnosis - Disruption of wound, unspecified sb4 Followup: sb4 - With: Emergency Department - When: As needed - Reason: If symptoms return, Worsening of condition Discharge Instructions: - Discharge Summary Sheet sb4 - Laceration Care, Adult, [id number] sb4 - Uncontrolled Wound Bleeding sb4 Forms: - Patient Portal Instructions sb4 - Leadership Thank You Letter sb4 Signatures: Alfreda Machado RN RN ll1 Kaal Cabezas PA-C PA-C sb4 Sid Gallagher RN bp
--- NOTE | 2023-09-14 10:37 | ER ---
Nurse's Notes [facility] Name: Nixon Gamboa Age: 63 yrs Sex: Male : 1960 Arrival Date: 09/14/2023 Time: 08:56 Bed 5 Private MD: Diagnosis: Disruption of wound, unspecified Presentation: 09/13 09:11 Chief complaint: Patient states: Suture site to RLE started bleeding through his ll1 dressing after getting up and walking in home. Coronavirus screen: Client denies travel out of the [place] in the last 14 days. At this time, the client does not indicate any symptoms associated with coronavirus-19. Ebola Screen: Patient denies travel to an Ebola-affected area in the 21 days before illness onset. Initial Sepsis Screen: Does the patient meet any 2 criteria? No. Patient's initial sepsis screen is negative. Does the patient have a suspected source of infection? No. Patient's initial sepsis screen is negative. Risk Assessment: Do you want to hurt yourself or someone else? Patient reports no desire to harm self or others. Onset of symptoms was September 14, 2023. 09:11 Method Of Arrival: Wheelchair ll1 09:11 Acuity: JUAQUIN 3 ll1 Triage Assessment: 09:14 General: Appears uncomfortable, Behavior is calm, cooperative, appropriate for age. ll1 Pain: Complains of pain in right leg Pain currently is 8 out of 10 on a pain scale. Quality of pain is described as aching. Derm: Reports bleeding from suture site RLE. Musculoskeletal: Circulation, motion, and sensation intact. Capillary refill < 3 seconds, Reports pain in right leg. Historical: - Allergies: 09:07 No Known Allergies; ll1 - PMHx: 09:07 Hyperlipidemia; Diverticulitis; Hypertension; CHF; artificial valve in heart; Hepatitis ll1 C; Sleep Apnea; - PSHx: 09:07 bowel; open heart; ll1 - Immunization history:: Adult Immunizations. - Infectious Disease History:: Denies. - Social history:: Smoking status: Patient reports the use of cigarette tobacco products, smokes .1 packs per day. Screenin:14 [facility] ED Fall Risk Assessment (Adult) History of falling in the last 3 months, ll1 including since admission No falls in past 3 months (0 pts) Confusion or Disorientation No (0 pts) Intoxicated or Sedated No (0 pts) Impaired Gait Yes (1 pt) Mobility Assist Device Used Yes (1 pt) Altered Elimination No (0 pt) Score/Fall Risk Level 0 - 2 = Low Risk Maintained a safe environment, Hourly rounding (assess needs \T\ fall precautionary measures) done. Abuse screen: Denies threats or abuse. Nutritional screening: No deficits noted. Tuberculosis screening: No symptoms or risk factors identified. Assessment: 09:23 Reassessment: No changes from previously documented assessment. Patient and/or family ll1 updated on plan of care and expected duration. Pain level reassessed. Patient is alert, oriented x 3, equal unlabored respirations, skin warm/dry/pink. 09:48 Reassessment: No changes from previously documented assessment. cleaned R foot of dried ph blood. R shoe cleaned of also. Tolerated well. Vital Signs: 09:11 BP 122 / 76; Pulse 80; Resp 18; Temp 97.6; Pulse Ox 92% on R/A; Weight 104.33 kg; ll1 Height 5 ft. 7 in. ; Pain 8/10; 11:03 BP 131 / 79; Pulse 65; Resp 16; Temp 98; Pulse Ox 95% ; bp 09:11 Body Mass Index 36.02 (104.33 kg, 170.18 cm) ll1 09:11 Pain Scale: Adult ll1 ED Course: 08:58 Patient arrived in ED. ra3 08:59 Kala [facility]abezas [facility]. sb4 08:59 Shalom Yap MD is Attending Physician. sb4 09:07 Arm band placed on Patient placed in an exam room, on a stretcher. ll1 09:12 Triage completed. ll1 09:15 Patient has correct armband on for positive identification. Bed in low position. Call [facility] light in reach. Provided Education on: ER procedures and process. Client placed on continuous cardiac and pulse oximetry monitoring. NIBP monitoring applied. 09:16 Alfreda Machado RN is Primary Nurse. ll1 09:57 Primary Nurse role handed off by Alfreda Machado, ALEJANDRA bp 09:57 Sid Gallagher, ALEJANDRA is Primary Nurse. bp 11:03 Assist provider with laceration repair on right penn using SILVER NITRATE. Patient did bp not have IV access during this emergency room visit. Administered Medications: 09:23 Drug: HYDROcodone-acetaminophen PO 5 mg-325 mg 2 tabs PO once {Note: pain 8/10 RASS 0.} ll1 Route: PO; 11:04 Follow up: Response: No adverse reaction bp 09:44 Drug: Silver Nitrate Applicators Topical 1 application Topical once Route: Topical; sb4 Site: affected area; Medication: 09:15 VIS not applicable for this client. ll1 Outcome: 10:36 Discharge ordered by MD. sb4 11:03 Discharged to home via wheelchair, bp 11:03 Condition: stable 11:03 Discharge instructions given to patient, Instructed on discharge instructions, follow up and referral plans. wound care, Demonstrated understanding of instructions, follow-up care, wound care, 11:05 Patient left the ED. bp Signatures: Coco Haynes RN RN Sid Gallagher RN RN Alfreda Shelley RN RN ll1 Kala Cabezas, PA-C PA-C sb4 Keely Toney ra3 Corrections: (The following items were deleted from the chart) 09:14 09:11 BP 122 / 76; Pulse 80bpm; Resp 18bpm; Pulse Ox 92% RA; Pain 8/10, Adult; ll1 ll1
[2023-09-14 11:26] VITALS: BP 131/79; TEMP 98; O2SAT 95
== END 2023-09-14 11:05 | disposition home or self-care (01) ==
LOC: ER 08:56
DX: T81.30XA Disruption of wound, unspecified, initial encounter (principal)
CPT/HCPCS: 99284

== ENCOUNTER 2023-09-21 13:23 | Inpatient (IN) | payer OTHER ==
[2023-09-21] MEDS ORDERED: FENTANYL CITR 100 MCG/2 ML ONE (14:57)
[2023-09-21 15:03] LABS: Absolute Basophils 0.1 K/uL (0-0.5); Absolute Eosinophils 0.2 K/uL (0-0.5); Absolute Lymphocytes (CBC) 0.4 K/uL (0.7-4.9); Absolute Monocytes 0.6 K/uL (0.1-1.3); Absolute Neutrophil 4.4 K/uL (1.8-8.0); Basophils % 1.1 % (0-1.3); Eosinophils % 4.2 % (0-4.4); Hematocrit 37.4 % (39.6-49.0); Hemoglobin 12.4 g/dL (13.6-17.9); Lymphocytes % 6.2 % (15.3-44.8); MCH 32.6 pg (27.0-35.0); MCV 98.9 fL (80-100); MPV 8.7 fL (7.6-11.3); Monocytes % 11.2 % (3.3-12.3); Neutrophils % 77.3 % (41.7-73.7); Nucleated Red Blood Cells % 0.1 % (0-0); Platelets 164 thou/uL (152-406); RBC Red Blood Cell Count 3.79 M/uL (4.33-5.43); Red Cell Distribution Width 15.1 % (12.1-15.2)
[2023-09-21 15:19] LABS: PT Prothrombin Time 58.5 SECONDS (9.5-12.5); PTT, Activated Partial Thromb 81.3 SECONDS (24.3-36.9); Protime INR 5.59
[2023-09-21 15:23] LABS: Albumin 3.1 g/dL (3.4-5.0); Albumin/Globulin Ratio 0.7 (1.1-1.8); Anion Gap 6.2 mEq/L (5.0-15.0); Bilirubin Total 0.5 mg/dL (0.2-1.0); Globulin 4.3 g/dL (2.3-3.5); Protein, Total 7.4 g/dL (6.4-8.2)
[2023-09-21 15:25] LABS: Potassium 6.2 mEq/L (3.5-5.1)
[2023-09-21] MEDS ORDERED: IPRATROPIUM BROM 0.5MG/2.5ML ONE (16:12)
[2023-09-21] MEDS ORDERED: ALBUTEROL 2.5 MG/3 ML NEB SOL ONE (16:12)
[2023-09-21] MEDS ORDERED: INSULIN REGULAR (HUMAN) 100 UNIT/ML ONE (16:13)
[2023-09-21] MEDS ORDERED: SOD POLYSTYREN SUL 15 GM/60 ML UCUP ONE (16:13)
[2023-09-21] MEDS ORDERED: CALCIUM GLUCONATE 1 GM IVPB 1 GM/50 ML BAG IV ONE (16:14)
[2023-09-21] MEDS ORDERED: D10W 250 ML IV ONE (16:15)
[2023-09-21] MEDS: CALCIUM GLUC 10% INJ 4.65 MEQ in NA CHLORIDE 0.9% 100 ML IV ONE (16:33)
[2023-09-21] MEDS: D50W 25 GM/50 ML SYRINGE IV ONE (16:33)
--- NOTE | 2023-09-21 16:37 | EDPHYS ---
Physician Documentation [facility] Name: Nixon Gamboa Age: 63 yrs Sex: Male : 1960 Arrival Date: 09/21/2023 Time: 13:23 Bed 13 Private MD: ED Physician Shalom Yap HPI: 09/20 14:00 This 63 yrs old Male presents to ER via Ambulatory with complaints of Leg Pain. cp 14:00 The patient presents with pain. The complaints affect the right lower leg. cp 14:00 Context: increased swelling and increased pain. Associated signs and symptoms: cp Pertinent positives: warmth, erythema, Pertinent negatives fever. Treatment prior to arrival includes: prescription medications, oral antibiotics. Patient with HX of deep puncture wound to right lower leg sustained by sharp piece of wood. Has been taking prescribed Cephalexin and Bactrim. Historical: - Allergies: 13:41 No Known Allergies; as6 - PMHx: 13:41 Diverticulitis; Hypertension; Sleep Apnea; Hyperlipidemia; CHF; artificial valve in as6 heart; Hepatitis C; - PSHx: 13:41 bowel; open heart; as6 - Immunization history:: Adult Immunizations up to date. - Infectious Disease History:: Denies. - Social history:: Smoking status: Patient reports the use of cigarette tobacco products, denies chronic smoking, but will smoke occasionally. ROS: 14:05 Constitutional: Negative for chills, fever, poor PO intake, cp 14:05 Eyes: Negative for injury, pain, redness, and discharge, cp 14:05 Cardiovascular: Negative for chest pain, 14:05 Respiratory: Positive for shortness of breath, Negative for cough, 14:05 Abdomen/GI: Negative for abdominal pain, vomiting, diarrhea, constipation, 14:05 MS/extremity: Positive for pain, swelling, tenderness, of the right lower leg, 14:05 Neuro: Negative for altered mental status, dizziness, headache, weakness, 14:05 All other systems are negative, Exam: 14:10 Constitutional: The patient appears in no acute distress, alert, awake, cp non-diaphoretic, non-toxic, well developed, well nourished, uncomfortable, 14:10 Head/Face: Normocephalic, atraumatic. cp 14:10 Eyes: Periorbital structures: appear normal, Conjunctiva: normal, no exudate, no injection, Sclera: no appreciated abnormality, Lids and lashes: appear normal, bilaterally, 14:10 ENT: External ear(s): are unremarkable, Nose: is normal, Mouth: Lips: moist, Oral mucosa: moist, Posterior pharynx: Airway: no evidence of obstruction, patent, 14:10 Neck: ROM/movement: is normal, is supple, without pain, no range of motions limitations, 14:10 Chest/axilla: Inspection: normal, 14:10 Cardiovascular: Rate: normal, Rhythm: regular, Edema: marked right lower leg, JVD: is not appreciated, 14:10 Respiratory: the patient does not display signs of respiratory distress, Respirations: labored breathing, that is moderate, tachypnea, that is mild, Breath sounds: decreased breath sounds, that are moderate, throughout, stridor, is not appreciated, wheezing: is not appreciated, 14:10 Abdomen/GI: Inspection: abdomen appears normal, Palpation: abdomen is soft and non-tender, in all quadrants, 14:10 Back: pain, is absent, 14:10 Musculoskeletal/extremity: Extremities: noted in the right lower leg: ecchymosis, swelling, tenderness, 14:10 Skin: Wound recheck: Suture laceration closure: no drainage, moderate erythema, moderate swelling, 14:10 Neuro: Orientation: to person, place \T\ time. Mentation: is normal, Motor: moves all fours, Sensation: no obvious gross deficits, 14:14 ECG was reviewed by the Attending Physician. cp Vital Signs: 13:40 BP 111 / 76; Pulse 75; Resp 20; Temp 98; Pulse Ox 94% ; Weight 102.06 kg; Height 5 ft. as6 7 in. ; Pain 7/10; 15:00 BP 115 / 72; Pulse 74; Resp 20; Pulse Ox 92% ; Pain 10/10; nj1 16:00 BP 113 / 67; Pulse 73; Resp 21; Pulse Ox 95% on R/A; Pain 5/10; nj1 18:15 BP 115 / 72; Pulse 74; Resp 22; Pulse Ox 96% on 2 lpm NC; nj1 13:40 Body Mass Index 35.24 (102.06 kg, 170.18 cm) as6 13:40 Pain Scale: Adult as6 15:00 Pain Scale: Adult nj1 16:00 Pain Scale: Adult nj1 MDM: 13:43 Patient medically screened. [facility] 16:40 Data reviewed: vital signs, nurses notes, lab test result(s), EKG, and as a result, I will admit patient. 16:40 Differential diagnosis: sepsis, kidney failure, electrolyte abnormality, cardiac cp arrhythmia. Management of patient was discussed with the following: Technical Editor: DR Montero will consult and patient to be admitted to services of hospitalist with Paulette Jeter MAINFRAME ANALYST under physician DR Shaw. 09/20 13:55 Order name: CBC with Diff; Complete Time: 15:09 cp 09/20 15:10 Interpretation: Normal except: RBC 3.79; HGB 12.4; HCT 37.4; AARON% 77.3; LYM% 6.2; LYMA cp 0.4. 09/20 13:55 Order name: CMP; Complete Time: 15:27 cp 09/20 15:27 Interpretation: Normal except: NA 128; K 6.2; BUN 59; CRE 3.75; GFR 17; AST 46; ALB cp 3.1; GLOB 4.3; A/G 0.7. 09/20 13:55 Order name: Lactate w/ 2H reflex if indic.; Complete Time: 15:25 cp 09/20 15:25 Interpretation: Reviewed. 09/20 13:55 Order name: Protime (+inr); Complete Time: 15:27 cp 09/20 13:55 Order name: Ptt, Activated; Complete Time: 15:27 09/20 15:25 Interpretation: Reviewed. 09/20 13:55 Order name: Wound Culture 09/20 16:49 Order name: Basic Metabolic Panel EDDE 09/20 16:49 Order name: C-Reactive Protein EDDE 09/20 16:49 Order name: Uric Acid EDDE 09/20 16:49 Order name: Ionized Calcium EDDE 09/20 16:49 Order name: Lactate w/ 2H reflex if indic. EDMS 09/20 16:49 Order name: Urinalysis w/ reflexes EDMS 09/20 16:49 Order name: Basic Metabolic Panel EDMS 09/20 16:49 Order name: Basic Metabolic Panel EDMS 09/20 16:49 Order name: Basic Metabolic Panel EDMS 09/20 16:49 Order name: CBC with Automated Diff EDMS 06/08 16:49 Order name: CBC with Automated Diff EDMS /08 16:49 Order name: CBC with Automated Diff EDMS / 16:49 Order name: CBC with Automated Diff EDMS /08 16:49 Order name: Comprehensive Metabolic Panel EDMS /08 16:49 Order name: Comprehensive Metabolic Panel EDMS /08 16:49 Order name: Comprehensive Metabolic Panel EDMS / 16:49 Order name: Comprehensive Metabolic Panel EDMS / 16:49 Order name: Creatine Phosphokinase EDMS /08 16:49 Order name: Creatine Phosphokinase EDMS /08 16:49 Order name: Creatine Phosphokinase EDMS / 16:49 Order name: Creatine Phosphokinase EDMS /08 16:49 Order name: Magnesium EDMS /08 16:49 Order name: Magnesium EDMS /08 16:49 Order name: Magnesium EDMS /08 16:49 Order name: Magnesium EDMS /08 16:49 Order name: Phosphorus EDMS /08 16:49 Order name: Phosphorus EDMS /08 16:49 Order name: Phosphorus EDMS /08 16:49 Order name: Phosphorus EDMS /08 16:49 Order name: Protime (+INR) EDMS / 16:49 Order name: Protime (+INR) EDMS / 16:49 Order name: PTT, Activated Partial Thromb EDMS / 16:49 Order name: PTT, Activated Partial Thromb EDMS / 16:49 Order name: Blood Culture EDMS / 16:49 Order name: Tib Fib Right Wo Cont; Complete Time: 18:22 EDMS / 16:49 Order name: Echo with Doppler EDMS / 16:49 Order name: CONS Physician Consult EDMS 09/20 16:49 Order name: EKG Electrocardiogram EDMS 09/20 16:49 Order name: EKG Electrocardiogram EDMS 09/20 13:55 Order name: Accucheck; Complete Time: 15:28 cp 09/20 13:55 Order name: Cardiac monitoring; Complete Time: 14:11 cp 09/20 13:55 Order name: IV Saline Lock - Large Bore; Complete Time: 14:59 cp 09/20 13:55 Order name: Labs collected and sent; Complete Time: 14:59 cp 09/20 13:55 Order name: O2 Per Protocol; Complete Time: 14:11 cp 09/20 13:55 Order name: O2 Sat Monitoring; Complete Time: 14:11 cp 09/20 13:55 Order name: Vital Signs; Complete Time: 14:59 cp EC:14 Rate is 67 beats/min. Rhythm is regular. ND interval is normal. QRS interval is cp prolonged at 120 msec. QT interval is normal. T waves are Inverted in leads I, II, aVL. Interpreted by me. Reviewed by me. Administered Medications: 15:02 Drug: fentaNYL (PF) IVP 25 mcg IVP once Route: IVP; Site: right antecubital; [facility] 16:00 Follow up: Response: No adverse reaction; Pain is decreased [facility] 16:24 Drug: Kayexalate PO 30 grams PO once Route: PO; [facility] 16:24 Drug: D10 in Water IVP 250 ml IVP once Route: IVP; Site: right antecubital; [facility] 16:26 Drug: DuoNeb Nebulize (2.5 mg - 0.5 mg) 3 ml Nebulizer once Route: Nebulizer; [facility] 16:28 Drug: Sodium Bicarbonate IVP 1 amp IVP once; (50 mL); equals 50 mEq Route: IVP; Site: [facility] right antecubital; 16:29 Drug: Insulin Regular Human Sub-Q 5 units Sub-Q once {Co-Signature: bp (Sid Gallagher mn1 RN).} Route: Sub-Q; Site: right upper arm; 16:32 Drug: Calcium Gluconate IVPB 1 grams IVPB once over 60 mins; (mix in NS 100 mL) Route: nj1 IVPB; Infused Over: 60 mins; Site: right antecubital; 17:17 Drug: Furosemide IVP 20 mg IVP once; give over 2 minutes Route: IVP; Site: right [facility] antecubital; 19:05 Not Given (Taken to ICU for administrationn): cefepime1 grams IVPB at 200 ml/hr once [facility] over 30 mins; (mix in NS 100 mL) Disposition Summary: 09/21/23 16:37 Hospitalization Ordered Notes: Hospitalization Status: Inpatient Admission cp Provider: Mitchel Shaw cp Condition: Stable cp Problem: new cp Symptoms: have improved cp Bed/Room Type: Standard cp Location: Intensive Care Unit(09/21/23 17:19) cp Room Assignment: 2-(09/21/23 18:09) eb Diagnosis - Cellulitis of right lower limb cp - Hyperkalemia cp - Unspecified kidney failure cp - Leg Laceration/ Open wound of lower leg - Right cp Forms: - Medication Reconciliation Form cp - SBAR form cp - Leadership Thank You Letter cp Signatures: Dispatcher [employer] EDShalom Davis MD MD cha Waters, Shelly, ASSISTED SALES REPRESENTATIVE-C ASSISTED SALES REPRESENTATIVE-Csnw Shalom Max PA PA cp Melisa Romero Ashby, RN RN as6 Tiffany Loco RN RN nj1 Sid Gallagher RN bp Corrections: (The following items were deleted from the chart) 17:19 16:37 Telemetry/MedSurg (Inpatient) cp cp 17:19 16:37 cp cp 18:09 17:19 cp eb
--- NOTE | 2023-09-21 16:37 | ER ---
Nurse's Notes [facility] Name: Nixon Gamboa Age: 63 yrs Sex: Male : 1960 Arrival Date: 09/21/2023 Time: 13:23 Bed 13 Private MD: Diagnosis: Cellulitis of right lower limb;Hyperkalemia;Unspecified kidney failure;Leg Laceration/ Open wound of lower leg-Right Presentation: 09/20 13:40 Chief complaint: Patient states: pt has a wound to his right lower leg and states he as6 thinks it is getting infected. Coronavirus screen: At this time, the client does not indicate any symptoms associated with coronavirus-19. Ebola Screen: No symptoms or risks identified at this time. Initial Sepsis Screen: Does the patient meet any 2 criteria? No. Patient's initial sepsis screen is negative. Does the patient have a suspected source of infection? No. Patient's initial sepsis screen is negative. Risk Assessment: Do you want to hurt yourself or someone else? Patient reports no desire to harm self or others. Onset of symptoms was September 20, 2023. 13:40 Acuity: JUAQUIN 3 as6 13:40 Method Of Arrival: Ambulatory as6 Historical: - Allergies: 13:41 No Known Allergies; as6 - PMHx: 13:41 Diverticulitis; Hypertension; Sleep Apnea; Hyperlipidemia; CHF; artificial valve in as6 heart; Hepatitis C; - PSHx: 13:41 bowel; open heart; as6 - Immunization history:: Adult Immunizations up to date. - Infectious Disease History:: Denies. - Social history:: Smoking status: Patient reports the use of cigarette tobacco products, denies chronic smoking, but will smoke occasionally. Screenin:10 [facility] ED Fall Risk Assessment (Adult) History of falling in the last 3 months, nj1 including since admission No falls in past 3 months (0 pts) Confusion or Disorientation No (0 pts) Intoxicated or Sedated No (0 pts) Impaired Gait No (0 pts) Mobility Assist Device Used No (0 pt) Altered Elimination No (0 pt) Score/Fall Risk Level 0 - 2 = Low Risk Oriented to surroundings, Maintained a safe environment, Hourly rounding (assess needs \T\ fall precautionary measures) done. Abuse screen: Denies threats or abuse. Denies injuries from another. Nutritional screening: No deficits noted. Tuberculosis screening: No symptoms or risk factors identified. Assessment: 15:06 General: Appears in no apparent distress. uncomfortable, Behavior is calm, cooperative, nj1 appropriate for age. Pain: Complains of pain in lateral aspect of right calf and right penn Pain currently is 10 out of 10 on a pain scale. Neuro: Level of Consciousness is awake, alert, obeys commands, Oriented to person, place, time, situation. Cardiovascular: Patient's skin is warm and dry. Rhythm is regular. Respiratory: Airway is patent Respiratory effort is even, unlabored. Derm: Wound noted right lower leg Wound is Sutures in place, drainage present (reddish/yellowish) Bruising that is dark purple. 16:00 Reassessment: Patient appears in no apparent distress at this time. Patient and/or nj1 family updated on plan of care and expected duration. Pain level reassessed. Patient is alert, oriented x 3, equal unlabored respirations, skin warm/dry/pink. 18:25 Reassessment: Patient appears in no apparent distress at this time. Patient and/or nj1 family updated on plan of care and expected duration. Pain level reassessed. Patient is alert, oriented x 3, equal unlabored respirations, skin warm/dry/pink. 18:50 Reassessment: Cefepime not given when patient came back from CT due to needing blood nj1 cultures. Mixed cefepime bag taken to ICU along with patient and given to Nick ROBERTS. Vital Signs: 13:40 BP 111 / 76; Pulse 75; Resp 20; Temp 98; Pulse Ox 94% ; Weight 102.06 kg; Height 5 ft. as6 7 in. ; Pain 7/10; 15:00 BP 115 / 72; Pulse 74; Resp 20; Pulse Ox 92% ; Pain 10/10; nj1 16:00 BP 113 / 67; Pulse 73; Resp 21; Pulse Ox 95% on R/A; Pain 5/10; nj1 18:15 BP 115 / 72; Pulse 74; Resp 22; Pulse Ox 96% on 2 lpm NC; nj1 13:40 Body Mass Index 35.24 (102.06 kg, 170.18 cm) as6 13:40 Pain Scale: Adult as6 15:00 Pain Scale: Adult nj1 16:00 Pain Scale: Adult nj1 ED Course: 13:28 Patient arrived in ED. mg5 13:30 Shalom Max PA is PHCP. cp 13:30 Shalom Yap MD is Attending Physician. cp 13:41 Triage completed. as6 13:42 Arm band placed on. as6 14:28 Tiffany Loco, RN is Primary Nurse. nj1 14:56 Initial lab(s) drawn, by pa, sent to lab. Inserted saline lock: 20 gauge in right aa5 antecubital area, using aseptic technique. Blood collected. 15:10 Patient has correct armband on for positive identification. Bed in low position. Call nj1 light in reach. Provided Education on: call light, fall precautions. 16:10 Notified Nurse Practitioner and/or Physician Journeyman Tool And Die Maker of Order clarification. Question nj about insulin route. Per Niharika NICOLE, insulin to be given subq as ordered. 16:10 Oxygen administration via nasal cannula 2 L/min, applied by Niharika NICOLE. nj1 16:35 Mitchel Shaw MD is Hospitalizing Provider. cp 17:27 Tib Fib Right Wo Cont In Process Unspecified. EDMS 18:26 No provider procedures requiring assistance completed. nj1 18:27 Patient admitted, IV remains in place. nj1 Administered Medications: 15:02 Drug: fentaNYL (PF) IVP 25 mcg IVP once Route: IVP; Site: right antecubital; nj1 16:00 Follow up: Response: No adverse reaction; Pain is decreased nj1 16:24 Drug: Kayexalate PO 30 grams PO once Route: PO; nj1 16:24 Drug: D10 in Water IVP 250 ml IVP once Route: IVP; Site: right antecubital; nj1 16:26 Drug: DuoNeb Nebulize (2.5 mg - 0.5 mg) 3 ml Nebulizer once Route: Nebulizer; nj1 16:28 Drug: Sodium Bicarbonate IVP 1 amp IVP once; (50 mL); equals 50 mEq Route: IVP; Site: [facility] right antecubital; 16:29 Drug: Insulin Regular Human Sub-Q 5 units Sub-Q once {Co-Signature: bp (Sid Gallagher RN).} Route: Sub-Q; Site: right upper arm; 16:32 Drug: Calcium Gluconate IVPB 1 grams IVPB once over 60 mins; (mix in NS 100 mL) Route: nj1 IVPB; Infused Over: 60 mins; Site: right antecubital; 17:17 Drug: Furosemide IVP 20 mg IVP once; give over 2 minutes Route: IVP; Site: right nj1 antecubital; 19:05 Not Given (Taken to ICU for administrationn): cefepime1 grams IVPB at 200 ml/hr once nj1 over 30 mins; (mix in NS 100 mL) Medication: 18:27 VIS not applicable for this client. nj1 Output: 18:45 Urine: 600ml (Voided); Total: 600ml. nj1 Outcome: 16:37 Decision to Hospitalize by Provider. cp 18:26 Admitted to ICU accompanied by nurse, room 2, Report called to Nick ROBERTS nj1 18:26 Condition: stable 18:26 Instructed on the need for admit, 18:42 Patient left the ED. nj1 Signatures: Dispatcher [employer] EDMS Kassandra Jorge, RN RN aa5 Shalom Max PA PA cp Edwin Henry RN RN as6 Tiffany Loco RN RN nj1 Nadira Hicks mg5 Sid Gallagher RN bp
[2023-09-21] MEDS: INSULIN REGULAR (HUMAN) 100 UNIT/ML IV ONE (16:46)
--- NOTE | 2023-09-21 16:55 | P.HP ---
Certification for Inpatient Patient admitted to: Inpatient With expected LOS: >2 Midnights Patient will require the following post-hospital care: None Practitioner: I am a practitioner with admitting privileges, knowledge of patient current condition, hospital course, and medical plan of care. Services: Services provided to patient in accordance with Admission requirements found in Title 42 Section 412.3 of the Code of Federal Regulations <Paulette Jeter - Last Filed: 09/21/23 18:07> Patient History Date of Service: 09/21/23 Reason for admission: Cellulitis, CHF, CKD with VALENTIN History of Present Illness: Mr. Gamboa is a 63-year-old with a past medical history of hypertension, hyperlipidemia, CHF, valve replacement, hepatitis C, sleep apnea, and obesity, tobacco abuse, and diverticulitis. 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 The wound was cleansed and irrigated and closed with three 4-0 Prolene with loose approximation, dressed with Bactroban, prescriptions for Bactrim and Keflex were provided, and patient was asked to follow-up with Dr. Newman. On 09/14/2023 he returned to the emergency department for a recheck of his wound as it had "reopened". The affected area was cleansed and silver nitrate applied and patient was discharged. Today 09/21/2023, he returns to the emergency department with complaints of an increasingly erythematous and painful right lower extremity wound. The patient's past medical history has complicated the wound healing and treatment. He will be admitted to the ICU for further management with consultation with Dr. Newman and Dr. Montero. Labs: White count 5.6 with neutrophils of 77.3%, H/H12.4/37.4, platelets 164, PT OT/PT 81.3/58.5 with a INR of 5.5 Sodium 128, potassium 6.2, chloride 99, bicarb 29, glucose 102, BUN 59, creatinine 3.75 with a GFR of 17 CT right tib/fib: "No fracture or radiopaque foreign body identified. Nonspecific lower extremity edema with soft tissue wound and small subcutaneous hematoma at the anterior lateral aspect of the leg. No abscess identified. Vital signs 113/67, heart rate 73, respiratory rate 26, SpO2 95% on room air, pain 5/10. Patient is 5 foot 7 and weighs 102 kg - Past Medical/Surgical History Diabetic: No -: Hypertension -: CHF-systolic -: History of heart valve replacement -: Chronic anti coagulation -: Tobacco abuse -: COPD -: Diverticulitis -: Hep C -: Heart valve replacement: Pig 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 -: Bowel surgery Psychosocial/ Personal History: Patient is single, has 1 child. 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 - Social History Smoking Status: Current every day smoker Alcohol use: No CD- Drugs: No Caffeine use: Yes Place of Residence: Home <Paulette Jeter - Last Filed: 09/21/23 18:07> Date of Service: 09/21/23 <Mitchel Shwa - Last Filed: 09/21/23 22:31> Allergies No Known Allergies Allergy (Verified 08/31/18 15:02) Home Medications: Carvedilol [Coreg] 6.25 tab PO BID 07/29/20 Sacubitril/Valsartan [Entresto 49 mg-51 mg Tablet] 75 mg PO BID 07/29/20 Warfarin Sodium [Coumadin*] 5 mg PO SEECOM 07/29/20 Allopurinol 100 mg PO DAILY 07/25/23 Bumetanide 1 mg PO BID 07/25/23 Colchicine [Colcrys] 0.6 mg PO PRN PRN 07/25/23 Empagliflozin [Jardiance] 10 mg PO DAILY 07/25/23 Rosuvastatin [Crestor*] 20 mg PO DAILY 07/25/23 Warfarin Sodium 2.5 mg PO SEECOM 07/25/23 Albuterol Inhaler [Ventolin Inhaler*] 2 puff IH Q6H PRN #2 inh 07/27/23 Fluticasone/Umeclidin/Vilanter [Trelegy Ellipta 100-62.5-25] 1 each IH DAILY #1 inh 07/27/23 predniSONE [Deltasone*] 10 mg PO DAILY #5 tab 07/27/23 Review of Systems 10-point ROS is otherwise unremarkable General: As per HPI Integumentary: As per HPI <Paulette Jeter - Last Filed: 09/21/23 18:07> Physical Examination - Physical Exam General: Alert, Oriented x3, Mild distress, Obese HEENT: Atraumatic, Normocephalic Neck: Supple Respiratory: Diminished, Expiratory wheezes, Other (tachypnea) Cardiovascular: Regular rate/rhythm, Edema Capillary refill: <2 Seconds Gastrointestinal: Soft and benign Musculoskeletal: No clubbing Integumentary: Other (PVD bilaterally, right leg more edematous from knee down than left, anterior penn with hematoma and some sutures over jagged seeping wound with surrounding cellulitis) Neurological: Normal speech, Normal tone Lymphatics: No axilla or inguinal lymphadenopathy External genitalia: Deferred Rectal: Deferred - Studies Laboratory Data (last 24 hrs) 09/21/23 09/21/23 09/21/23 14:54 14:54 14:54 WBC 5.60 Hgb 12.4 L Hct 37.4 L Plt Count 164 PT 58.5 H INR 5.59 APTT 81.3 H Sodium 128 L Potassium 6.2 H* BUN 59 H Creatinine 3.75 H Glucose 102 Total Bilirubin 0.5 AST 46 H ALT 24 Alkaline Phosphatase 69 <Paulette Jeter - Last Filed: 09/21/23 18:07> - Studies Laboratory Data (last 24 hrs) 09/21/23 09/21/23 09/21/23 14:54 14:54 14:54 WBC 5.60 Hgb 12.4 L Hct 37.4 L Plt Count 164 PT 58.5 H INR 5.59 APTT 81.3 H Sodium 128 L Potassium 6.2 H* BUN 59 H Creatinine 3.75 H Glucose 102 Total Bilirubin 0.5 AST 46 H ALT 24 Alkaline Phosphatase 69 <Mitchel Shaw - Last Filed: 09/21/23 22:31> Assessment and Plan - Plan Puncture wound with failed outpatient therapy with mechanical heart valve CT wound r/o fb (neg CT except edema) Blood cultures CRP/CPK vancomycin IV doxycycline IV Consult Dr. Newman CKD with VALENTIN with electrolyte derangement stop Bactrim, NSAIDs, avoid nephrotoxins Lasix 40mg IV x 1 Hyperkalemia, Hyponatremia - NS 250ml bolus, NS at 100ml/hr, Albuterol neb q6h, calcium gluconate 1gm iv, D50 x 1 amp, insulin 10u x 1. Recheck potassium q4h, Repeat potassium in one hour prior to any lokelma or kayexelate. Chem 7 q4h. (some management in ED prior to admission) Hepatitis C/blood thinners for mechanical valve (porcine and then mechanical) monitor and trend platelets and INR Warfarin per pharmacy to keep INR 2.5-3 HTN with CHF ECHO BiPap Entresto Coreg Lasix HLD Simvastatin COPD with tobacco abuse Nebs recommend cessation hx of pseudo-gout monitor and trend calcium - Advance Directives Does patient have a Living Will: No Does patient have a Durable POA for Healthcare: No <SteffanyPaulette Gm - Last Filed: 09/21/23 18:07> Physician Review Additional Text: Pt seen and examined. I agree with the note by the PROPOSAL COORDINATOR. Pt is an 63 yo male with past medical history of Diverticulitis, Hypertension, artificial heart valve, Sleep Apnea, Hyperlipidemia, CHF, and Hepatitis C who presents with right leg swelling and pain due to puncture wound that she sustained on 09/13/23. The swelling and pain progressively worsened and pt came to the ER for evaluation. On admission, lab studies show Na 128, K 6.2, Cr 3.75, INR 5.59, WBC 5.6 and hgb 12.4. At bedside, pt is in NAD. A/P: Right foot wound: Will continue iv abx and f/u wound cx. Will get Doppler ultrasound to r/o DVT Hyponatremia: NA is 128. Will continue IVF and trend Na level VALENTIN on CKD: Contineu IVF and monitor renal function. Avoid nephrotoxin and consult Nephrology. Hyperkalemia: K is 6.2. Likely due to poor renal function. Pt received Albuterol neb q6h, calcium gluconate 1gm iv, D50 x 1 amp, insulin 10u x 1. Hx of artificial heart valve: Will hold coumadin. INR is 5.59. Will trend INR. Elevated INR: INR is 5.59. Will hold coumadin. She has hepatitis C. DVT ppx: SCD. Code: full <Mitchel Shaw - Last Filed: 09/21/23 22:31>
[2023-09-21] MEDS: NA CHLORIDE 0.9% 1,000 ML IV SCH ×2 (17:00→20:32)
[2023-09-21] MEDS ORDERED: FUROSEMIDE 20 MG/ 2ML VIAL ONE (17:04)
[2023-09-21] MEDS ORDERED: CEFEPIME 1 GM/VIAL ONE (17:05)
[2023-09-21] MEDS ORDERED: NA CHLORIDE 0.9% 100 ML ONE (17:05)
[2023-09-21] MEDS: FUROSEMIDE 40 MG/4 ML VIAL IV ONE (17:08)
[2023-09-21] MEDS ORDERED: D10W 125 ML IV PRN (17:43)
--- NOTE | 2023-09-21 17:51 | RAD REPORT ---
EXAM DESCRIPTION: CT - Tib Fib Right Wo Cont - 09/21/2023 5:25 pm CLINICAL HISTORY: r/o fb/gas COMPARISON: No comparisons FINDINGS: No fracture of the right tibia or fibula. No radiopaque foreign body identified. Soft tiss ue laceration with underlying subcutaneous hematoma arising at about the level of the mid Juan and angulated superiorly and laterally. Peripheral vascular calcifications are seen. No fractures identi fied. Skin thickening is present. IMPRESSION: No fracture or radiopaque foreign body identified. Nonspecific lower extremity edema wit h soft tissue wound and small subcutaneous hematoma at the anterolateral aspect of the leg. No absces s identified.
[2023-09-21] MEDS: TETANUS & DIPHTHERIA TOX,ADULT 0.5 ML VIAL IMVAC ONE (17:57)
[2023-09-21] MEDS: carvediloL 3.125 MG TAB PO SCH (18:00)
[2023-09-21] MEDS: ARFORMOTEROL TARTRATE 15 MCG/2 ML VIAL.NEB NEB SCH (19:01)
[2023-09-21] MEDS: ALBUTEROL 2.5 MG/3 ML NEB SOL NEB SCH (19:01)
[2023-09-21 20:13] LABS: Anion Gap 6.8 mEq/L (5.0-15.0); C-Reactive Protein 35.1 mg/L (<3.00); Potassium 4.8 mEq/L (3.5-5.1); Uric Acid 6.1 mg/dL (3.5-7.2)
[2023-09-21] MEDS: NA CHLORIDE 0.9% 500 ML ONE (20:16)
[2023-09-21] MEDS: VANCOMYCIN 1 GM/VIAL ONE (20:17)
[2023-09-21] MEDS: VANCOMYCIN 1.75 GM in NA CHLORIDE 0.9% 500 ML IVPB ONE (20:33)
[2023-09-21] MEDS: ATORVASTATIN 20 MG TAB PO SCH (20:34)
[2023-09-21] MEDS: SACUBITRIL/VALSARTAN 49/51 MG TAB PO SCH (20:34)
[2023-09-21 21:03] LABS: Anion Gap 6.5 mEq/L (5.0-15.0); Potassium 4.5 mEq/L (3.5-5.1)
[2023-09-21 21:03] LABS: Specific Gravity 1.007 (1.005-1.030); Sqamous Epithelial None Seen /HPF (None Seen); Urine Bacteria None Seen /HPF (<20); Urine Bilirubin NEGATIVE (Negative); Urine Blood Negative (Negative); Urine Clarity Clear (Clear); Urine Color Colorless (Yellow); Urine Culture Reflex Order NOT NEEDED; Urine Glucose 2+ (Negative); Urine Ketones NEGATIVE (Negative); Urine Microscopic Reflex YN ORDER UMIC; Urine Nitrite NEGATIVE (Negative); Urine Protein TRACE (Negative); Urine RBC <5 /HPF (None Seen); Urine Urobilinogen Normal (Normal); Urine WBC <5 /HPF (<5); Urine pH 6.5 (5.0-7.0)
[2023-09-21] MEDS: DOXYCYCLINE 100 MG in NA CHLORIDE 0.9% 100 ML IVPB SCH (21:55)
[2023-09-22 04:53] LABS: Absolute Basophils 0.1 K/uL (0-0.5); Absolute Eosinophils 0.3 K/uL (0-0.5); Absolute Lymphocytes (CBC) 0.5 K/uL (0.7-4.9); Absolute Monocytes 0.7 K/uL (0.1-1.3); Absolute Neutrophil 4.2 K/uL (1.8-8.0); Basophils % 0.9 % (0-1.3); Eosinophils % 4.9 % (0-4.4); Hematocrit 35.3 % (39.6-49.0); Hemoglobin 11.6 g/dL (13.6-17.9); Lymphocytes % 8.5 % (15.3-44.8); MCH 32.5 pg (27.0-35.0); MCHC 32.9 g/dL (32.0-36.0); MCV 98.8 fL (80-100); MPV 8.9 fL (7.6-11.3); Neutrophils % 73.7 % (41.7-73.7); Platelets 159 thou/uL (152-406); RBC Red Blood Cell Count 3.58 M/uL (4.33-5.43); Red Cell Distribution Width 15.1 % (12.1-15.2)
[2023-09-22 05:01] LABS: PT Prothrombin Time 71.7 SECONDS (9.5-12.5); PTT, Activated Partial Thromb 78.9 SECONDS (24.3-36.9)
[2023-09-22 05:04] LABS: Albumin 2.7 g/dL (3.4-5.0); Albumin/Globulin Ratio 0.7 (1.1-1.8); Anion Gap 5.6 mEq/L (5.0-15.0); Bilirubin Total 0.5 mg/dL (0.2-1.0); Globulin 3.7 g/dL (2.3-3.5); Magnesium 2.4 mg/dL (1.6-2.4); Potassium 4.6 mEq/L (3.5-5.1); Protein, Total 6.4 g/dL (6.4-8.2)
[2023-09-22 05:11] LABS: Protime INR 6.9
[2023-09-22] MEDS: HYDROCODONE/APAP 5/325 MG TAB ONE (05:30)
[2023-09-22] MEDS: HYDROCODONE/APAP 5/325 MG TAB PO ONE (05:31)
[2023-09-22] MEDS ORDERED: VANCOMYCIN 1.5 GM in NA CHLORIDE 0.9% 500 ML IVPB SCH (09:00)
[2023-09-22] MEDS: HYDROCODONE/APAP 7.5/325 MG TAB PO PRN (09:15)
--- NOTE | 2023-09-22 10:53 | P.CNS ---
Date of Consult: 09/22/23 Reason for Consult: VALENTIN/ Hyperkalemia Requesting Physician: Mitchel Shaw Chief Complaint: Cellulitis, CHF, CKD with VALENTIN History of Present Illness: Mr. Gamboa is a 63-year-old with a past medical history of hypertension, hyper lipidemia, CHF, valve replacement, hepatitis C, sleep apnea, and obesity, tobacco abuse, and diverticulitis. 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 The wound was cleansed and irrigated and closed with three 4-0 Prolene with loose approximation, dressed with Bactroban, prescriptions for Bactrim and Keflex were provided, and patient was asked to follow-up with Dr. Newman. On 09/14/2023 he returned to the emergency department for a recheck of his wound as it had "reopened". The affected area w as cleansed and silver nitrate applied and patient was discharged. Today 09/21/2023, he returns to the emergency department with complaints of an increasingly erythematous and painful right lower extremity wound. The patient's past medical history has complicated the wound healing and treatment. He will be admitted to the ICU for further management with consultation with Dr. Newman and Dr. Montero. He reports several doses of ibuprofen over the past week in the setting of bactrim therapy. Allergies No Known Allergies Allergy (Verified 08/31/18 15:02) Home medications list reviewed: Yes Home Medications: Carvedilol [Coreg] 12.5 tab PO BID 07/29/20 Warfarin Sodium [Coumadin*] 5 mg PO SEECOM 07/29/20 Allopurinol 100 mg PO DAILY 07/25/23 Bumetanide 1 mg PO BID 07/25/23 Colchicine [Colcrys] 0.6 mg PO PRN PRN 07/25/23 Empagliflozin [Jardiance] 10 mg PO DAILY 07/25/23 Rosuvastatin [Crestor*] 20 mg PO DAILY 07/25/23 Warfarin Sodium 2.5 mg PO SEECOM 07/25/23 Albuterol Inhaler [Ventolin Inhaler*] 2 puff IH Q6H PRN #2 inh 07/27/23 Sacubitril/Valsartan [Entresto 97 mg-103 mg Tablet] 1 tab PO BID 09/21/23 - Past Medical/Surgical History Diabetic: No -: HTN -: Systolic CHF -: History of heart valve replacement -: Chronic anti coagulation -: Tobacco abuse -: COPD -: Diverticulitis -: HCV -: Heart valve replacement: Pig 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 -: Bowel surgery Psychosocial/ Personal History: Patient is single, has 1 child. 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 - Social History Smoking Status: Current some day smoker Alcohol use: No CD- Drugs: No Caffeine use: Yes Place of Residence: Home Review of Systems 10-point ROS is otherwise unremarkable General: Weakness, Malaise Respiratory: SOB with Excertion Cardiovascular: Edema Physical Examination Temp Pulse Resp BP Pulse Ox 98.1 F 82 17 127/73 99 09/22/23 04:00 09/22/23 07:00 09/22/23 09:15 09/22/23 07:00 09/22/23 09:15 General: In no apparent distress, Oriented x3, Cooperative HEENT: Atraumatic Neck: Supple Respiratory: Diminished Cardiovascular: Regular rate/rhythm, Edema Gastrointestinal: Soft and benign, Distended Musculoskeletal: No clubbing, No contractures Integumentary: No rashes, No cyanosis Neurological: Normal speech Laboratory Data (last 24 hrs) 09/21/23 09/21/23 09/21/23 14:54 14:54 14:54 WBC 5.60 Hgb 12.4 L Hct 37.4 L Plt Count 164 PT 58.5 H INR 5.59 APTT 81.3 H Sodium 128 L Potassium 6.2 H* BUN 59 H Creatinine 3.75 H Glucose 102 Total Bilirubin 0.5 AST 46 H ALT 24 Alkaline Phosphatase 69 Imagings Data: EXAM DESCRIPTION: CT - Tib Fib Right Wo Cont - 09/21/2023 5:25 pm CLINICAL HISTORY: r/o fb/gas COMPARISON: No comparisons FINDINGS: No fracture of the right tibia or fibula. No radiopaque foreign body identified. Soft tissue laceration with underlying subcutaneous hematoma arising at about the level of the mid Juan and angulated superiorly and laterally. Peripheral vascular calcifications are seen. No fractures identified. Skin thickening is present. IMPRESSION: No fracture or radio opaque foreign body identified. Nonspecific lower extremity edema with soft tissue wound and small subcutaneous hematoma at the anterolateral aspect of the leg. No abscess identified. Conclusions/Impression: Stage I VALENTIN likely multifactorial including ibuprofen and bactrim CKD IIIb -No NSAIDs Hyponatremia -Improved with IVF HTN with CKD/ CHF -Continue Entresto -Continue Coreg Systolic CHF, chronic -Continue Entresto -Continue Coreg -Reduce IVF at this time -CXR today to assess volume status Hypoalbuminemia -Consider Nepro Anemia in chronic illness -Monitor H&H Hospitalist and ER notes reviewed Case reviewed with the ER provider Thank you kindly for the consultation
[2023-09-22] MEDS: NA CHLORIDE 0.9% 1,000 ML IV SCH ×2 (11:01→21:00)
[2023-09-22] MEDS: TDAP (DIPHTH,PERTUSS(ACELL),TET VAC) 0.5 ML VIAL IMVAC ONE (11:42)
--- NOTE | 2023-09-22 15:00 | P.PN ---
Subjective Date of Service: 09/22/23 Chief Complaint: Cellulitis, CHF, CKD with VALENTNI Subjective: No new changes ("I've been better") <Paulette Jeter - Last Filed: 09/22/23 14:54> Date of Service: 09/22/23 <Mitchel Shaw - Last Filed: 09/22/23 15:24> Review of Systems 10-point ROS is otherwise unremarkable General: As per HPI Musculoskeletal: As per HPI Integumentary: As per HPI <Paulette Jeterlen - Last Filed: 09/22/23 14:54> Physical Examination - Vital Signs Temperature: 97.4 F Blood Pressure: 112/66 Pulse: 80 Respirations: 20 Pulse Ox (%): 95 - Physical Exam General: Alert, In no apparent distress, Oriented x3 HEENT: Atraumatic, Normocephalic Neck: Supple Respiratory: Diminished, Other (tacahypneic) Cardiovascular: Regular rate/rhythm Capillary refill: <2 Seconds Gastrointestinal: Soft and benign Integumentary: Tenderness/swelling, Erythema, Warmth, Other (right lower anterior leg) Neurological: Normal speech, Normal tone Lymphatics: No axilla or inguinal lymphadenopathy External genitalia: Deferred Rectal: Deferred - Studies Laboratory Data (last 24 hrs) 09/21/23 09/21/23 09/21/23 14:54 14:54 14:54 WBC 5.60 Hgb 12.4 L Hct 37.4 L Plt Count 164 PT 58.5 H INR 5.59 APTT 81.3 H Sodium 128 L Potassium 6.2 H* BUN 59 H Creatinine 3.75 H Glucose 102 Total Bilirubin 0.5 AST 46 H ALT 24 Alkaline Phosphatase 69 Microbiology Data (last 24 hrs): 09/21/23 15:02 Wound - Right Lower Leg Gram Stain - Final <Paulette Jeterlen - Last Filed: 09/22/23 14:54> - Studies Laboratory Data (last 24 hrs) 09/21/23 09/21/23 14:54 14:54 PT 58.5 H INR 5.59 APTT 81.3 H Sodium 128 L Potassium 6.2 H* BUN 59 H Creatinine 3.75 H Glucose 102 Total Bilirubin 0.5 AST 46 H ALT 24 Alkaline Phosphatase 69 Microbiology Data (last 24 hrs): 09/21/23 15:02 Wound - Right Lower Leg Gram Stain - Final <Mitchel Shaw - Last Filed: 09/22/23 15:24> Assessment And Plan - Plan Puncture wound with failed outpatient therapy with mechanical heart valve CT wound r/o fb (neg CT except edema) Blood cultures CRP/CPK vancomycin IV doxycycline IV Consult Dr. Newman 09/22/23 NPO post MN CKD with VALENTIN with electrolyte derangement stop Bactrim, NSAIDs, avoid nephrotoxins Lasix 40mg IV x 1 Hyperkalemia, Hyponatremia - NS 250ml bolus, NS at 100ml/hr, Albuterol neb q6h, calcium gluconate 1gm iv, D50 x 1 amp, insulin 10u x 1. Recheck potassium q4h, Repeat potassium in one hour prior to any lokelma or kayexelate. Chem 7 q4h. (some management in ED prior to admission) Hepatitis C/blood thinners for mechanical valve (porcine and then mechanical) monitor and trend platelets and INR 6/9 up to >6 today, observe for bleeding Warfarin per pharmacy to keep INR 2.5-3 HTN with CHF ECHO BiPap Entresto Coreg Lasix HLD Simvastatin COPD with tobacco abuse Nebs recommend cessation hx of pseudo-gout monitor and trend calcium <Paulette Jeter - Last Filed: 09/22/23 14:54> - Plan Pt seen and examined. I agree with the note by the SALES AND LEASING CONSULTANT. Will continue iv abx. Will give tetnus shot. INR is 6.9 <- 5.59. Will give low dose vitamin K ( 2.5mg) once. Hold warfarin. Continue home meds for other chronic medical problems. <Mitchel Shaw - Last Filed: 09/22/23 15:24>
--- NOTE | 2023-09-22 16:57 | RAD REPORT ---
EXAM DESCRIPTION: RAD - Chest Pa And Lat (2 Views) - 09/22/2023 4:48 pm CLINICAL HISTORY: CHF/ SANDRA to assess volume status COMPARISON: Chest Single View dated 07/25/2023; Chest Single View dated 07/29/2020; Chest Pa And Lat ( 2 Views) dated 05/10/2020; Chest Single View dated 08/31/2018 FINDINGS: Lines: None. Lungs: No evidence of edema or pneumonia. Pleural: No significant pleural effusions or pneumothorax. Cardiac: Similar size and configuration. Mediastinum: Within normal limits. Bones: No acute fractures. Sternotomy . Other: None IMPRESSION: No acute cardiopulmonary disease.
[2023-09-22] MEDS ORDERED: WARFARIN SODIUM 5 MG TAB PO SCH ×2 (17:00)
[2023-09-22] MEDS: PHYTONADIONE IVPB ONE (17:10)
[2023-09-22] MEDS: NA CHLORIDE 0.9% IVPB ONE (17:10)
[2023-09-23 06:57] LABS: Hematocrit 36.1 % (39.6-49.0); Hemoglobin 12.1 g/dL (13.6-17.9); MCH 33.2 pg (27.0-35.0); MCHC 33.4 g/dL (32.0-36.0); MCV 99.3 fL (80-100); Platelets 172 thou/uL (152-406); RBC Red Blood Cell Count 3.63 M/uL (4.33-5.43); Red Cell Distribution Width 14.9 % (12.1-15.2)
[2023-09-23 06:58] LABS: Absolute Basophils 0.1 K/uL (0-0.5); Absolute Eosinophils 0.3 K/uL (0-0.5); Absolute Lymphocytes (CBC) 0.4 K/uL (0.7-4.9); Absolute Monocytes 0.7 K/uL (0.1-1.3); Absolute Neutrophil 4.9 K/uL (1.8-8.0); Basophils % 1.1 % (0-1.3); Eosinophils % 3.9 % (0-4.4); Lymphocytes % 6.9 % (15.3-44.8); MPV 8.2 fL (7.6-11.3); Monocytes % 11.2 % (3.3-12.3); Neutrophils % 76.9 % (41.7-73.7); Nucleated Red Blood Cells % 0.1 % (0-0)
[2023-09-23 07:08] LABS: PT Prothrombin Time 18.6 SECONDS (9.5-12.5); Protime INR 1.72
[2023-09-23 07:20] LABS: Albumin 2.9 g/dL (3.4-5.0); Albumin/Globulin Ratio 0.8 (1.1-1.8); Bilirubin Total 0.7 mg/dL (0.2-1.0); Globulin 3.8 g/dL (2.3-3.5); Magnesium 2.2 mg/dL (1.6-2.4); Phosphorus 2.8 mg/dL (2.5-4.9); Protein, Total 6.7 g/dL (6.4-8.2); Uric Acid 5.5 mg/dL (3.5-7.2)
--- NOTE | 2023-09-23 09:37 | P.PN ---
Subjective Date of Service: 09/23/23 Chief Complaint: Cellulitis, CHF, CKD with VALENTIN Mr. Gamboa is a 63-year-old with a past medical history of hypertension, hyperlipidemia, CHF, valve replacement, hepatitis C, sleep apnea, and obesity, tobacco abuse, and diverticulitis. 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 The wound was cleansed and irrigated and closed with three 4-0 Prolene with loose approximation, dressed with Bactroban, prescriptions for Bactrim and Keflex were provided, and patient was asked to follow-up with Dr. Newman. On 09/14/2023 he returned to the emergency department for a recheck of his wound as it had "reopened". The affected area was cleansed and silver nitrate applied and patient was discharged. Today 09/21/2023, he returns to the emergency department with complaints of an increasingly erythematous and painful right lower extremity wound. The patient's past medical history has complicated the wound healing and treatment. 09/22 n.p.o. for I&D today - Physical Exam General: Alert, Oriented x3, Mild distress, Obese HEENT: Atraumatic, Normocephalic Neck: Supple Respiratory: Diminished, Expiratory wheezes, Cardiovascular: Regular rate/rhythm, Edema Capillary refill: <2 Seconds Gastrointestinal: Soft and benign Musculoskeletal: No clubbing Integumentary: Other (PVD bilaterally, right leg more edematous from knee down than left, anterior penn with hematoma and some sutures over jagged seeping wound with surrounding cellulitis) Neurological: Normal speech, Normal tone Lymphatics: No axilla or inguinal lymphadenopathy Review of Systems per HPI Physical Examination - Vital Signs Temperature: 98.1 F Blood Pressure: 114/67 Pulse: 79 Respirations: 20 Pulse Ox (%): 98 - Studies Microbiology Data (last 24 hrs): 09/21/23 15:02 Wound - Right Lower Leg Gram Stain - Final Assessment And Plan - Plan Assessment and Plan Puncture wound with failed outpatient therapy with mechanical heart valve Right foot wound Right lower extremity edema CT wound r/o fb (neg CT except edema) Blood cultures Wound cultures gram-positive cocci in clusters, 3+ Staphylococcus on IV vancomycin, doxycycline CRP/CPK Consult Dr. Newman 09/22 n.p.o. for I&D today CKD with VALENTIN with electrolyte derangement stop Bactrim, NSAIDs, avoid nephrotoxins Lasix 40mg IV x 1 Hyperkalemia, Hyponatremia - NS 250ml bolus, NS at 100ml/hr, Albuterol neb q6h, calcium gluconate 1gm iv, D50 x 1 amp, insulin 10u x 1. Recheck potassium q4h, Repeat potassium in one hour prior to any lokelma or kayexelate. Chem 7 q4h. (some management in ED prior to admission) Hepatitis C/blood thinners for mechanical valve (porcine and then mechanical) monitor and trend platelets and INR Warfarin per pharmacy to keep INR 2.5-3 HTN with CHF Elevated BNP Supratherapeutic INR ECHO BiPap Entresto Coreg Lasix HLD Simvastatin COPD with tobacco abuse Nebs recommend cessation hx of pseudo-gout monitor and trend calcium Discharge Plan: Home - Code Status/Comfort Care Code Status: Full Code Critical Care: No Time Spent Managing PTS Care (In Minutes): 35
--- NOTE | 2023-09-23 11:29 | P.PN ---
Date of Service: 09/23/23 Vital Signs Temp Pulse Resp BP Pulse Ox 98.1 F 79 20 114/67 98 09/23/23 09:41 09/23/23 09:41 09/23/23 09:41 09/23/23 09:41 09/23/23 09:41 Medications Hydrocodone Bitart/Acetaminophen (Hydrocodone/Apap 7.5/325 Mg Tab) 1 tab PO Q6H PRN PRN Reason: Pain scale 5-7 (Moderate) Last Admin: 09/23/23 06:28 Dose: 1 tab Albuterol Sulfate (Albuterol 2.5 Mg/3 Ml Neb Mare) 2.5 mg NEB [id number] [facility]Y Last Admin: 09/23/23 07:05 Dose: 2.5 mg Arformoterol Tartrate (Arformoterol Tartrate 15 Mcg/2 Ml Vial.Neb) 15 mcg NEB BIDRESP [facility]ALEY Last Admin: 09/23/23 07:05 Dose: 15 mcg Atorvastatin Calcium (Atorvastatin 20 Mg Tab) 20 mg PO BEDTIME [facility]ALEY Last Admin: 09/22/23 20:11 Dose: 20 mg Carvedilol (Carvedilol 3.125 Mg Tab) 3.125 mg PO BID 6AM 6PM [facility] Last Admin: 09/23/23 06:29 Dose: 3.125 mg Doxycycline Hyclate 100 mg/ (Sodium Chloride) 100 mls @ 100 mls/hr IVPB Q12HR [facility]ALEY; Protocol Last Admin: 09/23/23 08:48 Dose: 100 mls Dextrose (Dextrose 10% Water Iv Soln.) 125 mls @ 0 mls/hr IV PRN PRN; Protocol PRN Reason: HYPOGLYCEMIA Sodium Chloride (Ns 1000 Ml Ivbag) 1,000 mls @ 75 mls/hr IV .[id number] [facility] Last Admin: 09/23/23 08:48 Dose: 1,000 mls Microbiology Results 09/21/23 15:02 Wound - Right Lower Leg Gram Stain - Final 09/21/23 15:02 Wound - Right Lower Leg Culture & Sensitivity - Preliminary Assessment/ Plan: Nephrology No dyspnea No chest pain Leg pain Slept poorly last night No acute events overnight Vitals, medications, blood work and imaging reviewed in the chart General: In no apparent distress, Oriented x3, Cooperative HEENT: Atraumatic Neck: Supple Respiratory: Diminished Cardiovascular: Regular rate/rhythm, Edema Gastrointestinal: Soft and benign, Distended Musculoskeletal: No clubbing, No contractures RLE wound Integumentary: No rashes, No cyanosis Neurological: Normal speech Laboratory Data (last 24 hrs) 09/21/23 09/21/23 09/21/23 14:54 14:54 14:54 WBC 5.60 Hgb 12.4 L Hct 37.4 L Plt Count 164 PT 58.5 H INR 5.59 APTT 81.3 H Sodium 128 L Potassium 6.2 H* BUN 59 H Creatinine 3.75 H Glucose 102 Total Bilirubin 0.5 AST 46 H ALT 24 Alkaline Phosphatase 69 Imagings Data: EXAM DESCRIPTION: CT - Tib Fib Right Wo Cont - 09/21/2023 5:25 pm CLINICAL HISTORY: r/o fb/gas COMPARISON: No comparisons FINDINGS: No fracture of the right tibia or fibula. No radiopaque foreign body identified. Soft tissue laceration with underlying subcutaneous hematoma arising at about the level of the mid Juan and angulated superiorly and laterally. Peripheral vascular calcifications are seen. No fractures identified. Skin thickening is present. IMPRESSION: No fracture or radio opaque foreign body identified. Nonspecific lower extremity edema with soft tissue wound and small subcutaneous hematoma at the anterolateral aspect of the leg. No abscess identified. EXAM DESCRIPTION: RAD - Chest Pa And Lat (2 Views) - 09/22/2023 4:48 pm CLINICAL HISTORY: CHF/ SANDRA to assess volume status COMPARISON: Chest Single View dated 07/25/2023; Chest Single View dated 07/29/2020; Chest Pa And Lat (2 Views) dated 05/10/2020; Chest Single View dated 08/31/2018 FINDINGS: Lines: None. Lungs: No evidence of edema or pneumonia. Pleural: No significant pleural effusions or pneumothorax. Cardiac: Similar size and configuration. Mediastinum: Within normal limits. Bones: No acute fractures. Sternotomy . Other: None IMPRESSION: No acute cardiopulmonary disease. Conclusions/Impression: Stage I VALENTIN likely multifactorial including ibuprofen and bactrim complicated by hypovolemia CKD IIIb -No NSAIDs -Gentle IVF Hyponatremia -Gentle IVF with NS HTN with CKD/ CHF -Continue Entresto -Continue Coreg AUSTEN -CPAP qhs Systolic CHF, chronic -Continue Entresto -Continue Coreg -Daily weight Hypoalbuminemia -Consider Nepro Anemia in chronic illness -Monitor H&H RLE Wound -Plan for surgery today -Continue abx -Wound care as ordered Case reviewed with hospitalist team
--- NOTE | 2023-09-23 12:05 | EKG ---
Test Date: 2023-09-21 Test Time: 14:07:27 Hardware Test Engineer: Kassy DUBOIS MEASUREMENT RESULTS: Intervals: Rate: 67 MN: 176 QRSD: 120 QT: 412 QTc: 435 [place]: P: 62 MN: 176 QRS: -9 T: 165 INTERPRETIVE STATEMENTS: Sinus rhythm with occasional premature ventricular complexes Low voltage QRS T wave abnormality, consider inferolateral ischemia Abnormal ECG Compared to ECG 07/25/2023 14:36:02 Low QRS voltage now present T-wave abnormality now present Left-axis deviation no longer present Left bundle-branch block no longer present ST (T wave) deviation no longer present Possible ischemia still present Electronically Signed On 09-23-23 12:03:41 CDT by Román Escobar
[2023-09-24 06:55] LABS: Absolute Eosinophils 0.2 K/uL (0-0.5); Absolute Lymphocytes (CBC) 0.4 K/uL (0.7-4.9); Absolute Monocytes 0.7 K/uL (0.1-1.3); Absolute Neutrophil 5.4 K/uL (1.8-8.0); Basophils % 0.6 % (0-1.3); Eosinophils % 2.9 % (0-4.4); Hematocrit 33.9 % (39.6-49.0); Hemoglobin 11.3 g/dL (13.6-17.9); Lymphocytes % 5.3 % (15.3-44.8); MCHC 33.2 g/dL (32.0-36.0); MCV 99.4 fL (80-100); Monocytes % 10.4 % (3.3-12.3); Neutrophils % 80.8 % (41.7-73.7); Nucleated Red Blood Cells % 0.1 % (0-0); Platelets 175 thou/uL (152-406); RBC Red Blood Cell Count 3.41 M/uL (4.33-5.43); Red Cell Distribution Width 15.1 % (12.1-15.2)
[2023-09-24 07:14] LABS: Albumin 2.7 g/dL (3.4-5.0); Albumin/Globulin Ratio 0.7 (1.1-1.8); Anion Gap 3.4 mEq/L (5.0-15.0); Bilirubin Total 0.7 mg/dL (0.2-1.0); Globulin 3.7 g/dL (2.3-3.5); Phosphorus 2.4 mg/dL (2.5-4.9); Potassium 5.4 mEq/L (3.5-5.1); Protein, Total 6.4 g/dL (6.4-8.2)
--- NOTE | 2023-09-24 08:36 | P.PN ---
Subjective Date of Service: 09/25/23 Chief Complaint: Cellulitis, CHF, CKD with VALENTIN Mr. Gamboa is a 63-year-old with a past medical history of hypertension, hyperlipidemia, CHF, valve replacement, hepatitis C, sleep apnea, and obesity, tobacco abuse, and diverticulitis. 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 The wound was cleansed and irrigated and closed with three 4-0 Prolene with loose approximation, dressed with Bactroban, prescriptions for Bactrim and Keflex were provided, and patient was asked to follow-up with Dr. Newman. On 09/14/2023 he returned to the emergency department for a recheck of his wound as it had "reopened". The affected area was cleansed and silver nitrate applied and patient was discharged. Today 09/21/2023, he returns to the emergency department with complaints of an increasingly erythematous and painful right lower extremity wound. The patient's past medical history has complicated the wound healing and treatment. sched for I&D today Kidney function slowly improving Lives at home, independent, uses cane prn, prn home 02 - Physical Exam General: Alert, Oriented x3, Mild distress, Obese HEENT: Atraumatic, Normocephalic Neck: Supple Respiratory: Diminished, Expiratory wheezes, Cardiovascular: Regular rate/rhythm, Edema Capillary refill: <2 Seconds Gastrointestinal: Soft and benign Musculoskeletal: No clubbing Integumentary: Other (PVD bilaterally, right leg more edematous from knee down than left, anterior penn with hematoma and some sutures over jagged seeping wound with surrounding cellulitis) Neurological: Normal speech, Normal tone Lymphatics: No axilla or inguinal lymphadenopathy Review of Systems per HPI Physical Examination - Vital Signs Temperature: 97.8 F Blood Pressure: 145/78 Pulse: 79 Respirations: 20 Pulse Ox (%): 98 - Studies Microbiology Data (last 24 hrs): 09/21/23 15:02 Wound - Right Lower Leg Gram Stain - Final Assessment And Plan - Plan Assessment and Plan Puncture wound with failed outpatient therapy with mechanical heart valve Right foot wound Right lower extremity edema CT wound r/o fb (neg CT except edema) Blood cultures Wound cultures gram-positive cocci in clusters, 3+ Staphylococcus on IV vancomycin, doxycycline CRP/CPK Consult Dr. Newman 09/22 n.p.o. for I&D CKD with VALENTIN with electrolyte derangement stop Bactrim, NSAIDs, avoid nephrotoxins Lasix 40mg IV x 1 Hyperkalemia, Hyponatremia - NS 250ml bolus, NS at 100ml/hr, Albuterol neb q6h, calcium gluconate 1gm iv, D50 x 1 amp, insulin 10u x 1. Recheck potassium q4h, Repeat potassium in one hour prior to any lokelma or kayexelate. Chem 7 q4h. (some management in ED prior to admission) Hepatitis C/blood thinners for mechanical valve (porcine and then mechanical) monitor and trend platelets and INR Warfarin per pharmacy to keep INR 2.5-3 HTN with systolic congestive heart failure, Elevated BNP mechanical aortic valve, Supratherapeutic INR ECHO BiPap Entresto Coreg Lasix Prior note He has been compliant with his medications and does not follow with the heart failure team at [facility] in [place]. His last echocardiogram was performed in July 2022 and showed an ejection fraction of 30 to 35%. He was evaluated in the emergency department his labs are significant for a creatinine 2.3 INR of 2.58 D-dimer 335 HLD Simvastatin COPD with tobacco abuse Nebs recommend cessation hx of pseudo-gout monitor and trend calcium Discharge Plan: Home Critical Care: No Time Spent Managing PTS Care (In Minutes): 35
[2023-09-24] MEDS: METHYLPREDNISOLONE 125 MG INJ IV ONE (09:00)
[2023-09-24] MEDS: LIDOCAINE 1% MPF 5 ML VIAL ONE (10:15)
[2023-09-24] MEDS: dexAMETHasone 10 MG/ML VIAL ONE (10:15)
[2023-09-24] MEDS: BUPIVACAINE 0.25% PF 10 ML VIAL ONE (10:16)
[2023-09-24] MEDS: EPINEPHRINE 1 MG/ML VIAL ONE (10:16)
[2023-09-24] MEDS: FENTANYL CITR 100 MCG/2 ML ONE (10:16)
[2023-09-24] MEDS: MIDAZOLAM HCL 2 MG/2 ML INJ ONE (10:17)
[2023-09-24] MEDS: Ringers Lactate 1,000 ML IV ONE (10:40)
--- NOTE | 2023-09-24 10:53 | ECHO ---
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 2-DIMENSIONAL: YES M.MODE: YES DOPPLER: YES COLOR FLOW: YES TDS: YES PORTABLE: YES DEFINITY: BUBBLE STUDY: DIAGNOSIS: WOUND INFECTION, ARTIFICIAL VALVE CARDIAC HISTORY: CATHERIZATION: NO SURGERY: YES PROSTHETIC VALVE: YES PACEMAKER: NO MEASUREMENTS (cm) DIASTOLIC (NORMALS) SYSTOLIC (NORMALS) IVSd 1.2 (0.6-1.2) LA Diam 2.9 (1.9-4.0) LVEF 35-40% LVIDd 3.9 (3.5-5.7) LVIDs 3.2 (2.0-3.5) %FS 18% LVPWd 1.3 (0.6-1.2) Ao Diam (2.0-3.7) 2 DIMENSIONAL ASSESSMENT: RIGHT ATRIUM: NOT SEEN LEFT ATRIUM: NOT WELL VISUALIZED RIGHT VENTRICLE: NOT SEEN LEFT VENTRICLE: NOT WELL VISUALIZED TRICUSPID VALVE: NOT SEEN MITRAL VALVE: NOT WELL VISUALIZED PULMONIC VALVE: NOT SEEN AORTIC VALVE: NOT WELL VISUALIZED PERICARDIAL EFFUSION: NONE AORTIC ROOT: NOT SEEN LEFT VENTRICULAR WALL MOTION: POOR IMAGES TO ASSESS DOPPLER/COLOR FLOW: DIASTOLIC DYSFUNCTION COMMENTS: 1. POOR IMAGES, HARD TO ASSESS LEFT VENTRICULAR FUNCTION ACCURATELY, BUT EJECTION FRACTION MOST LIKELY 35-40%. CANNOT ASSESS WALL MOTION 2. DIASTOLIC DYSFUNCTION 3. MODERATE PULMONARY ARTERIAL HYPERTENSION (RIGHT VENTRICULAR SYSTOLIC PRESSURE 50-55 mmHg) TECHNOLOGIST: FATUMA BAEZ
[2023-09-24] MEDS ORDERED: POTASSIUM PHOS IN 0.9 % NACL 15 MMOL/250 ML BAG IV ONE (10:57)
[2023-09-24] MEDS ORDERED: propofoL 200 MG/20 ML VIAL IV ONE (11:04)
[2023-09-24] MEDS ORDERED: LIDOCAINE 2% MPF 5 ML VIAL ONE (11:04)
[2023-09-24] MEDS: BUPIVACAINE 0.5% PF 10 ML VIAL ONE (11:18)
--- NOTE | 2023-09-24 11:28 | P.BOP ---
Preoperative diagnosis: Necrotic infectedwound right lower leg, venous stasis disease Postoperative diagnosis: same Primary procedure: Excisional debridement necrotic infected wound R lateral leg 14 x 5 x1.5cm Estimated blood loss: <5cc Specimen: necrotic tissue Anesthesia: MAC Complications: None Transferred to: Recovery Room Condition: Good
--- NOTE | 2023-09-24 11:57 | P.CNS ---
Date of Consult: 09/23/23 History of Present Illness: 63 y/o s/p traumatic wound with vegetation requiring visit to ER and their attempt to suture a flap laceration. The skin eventually delineated and eventually became necrotic. Surgical consult done for surgical debridement. Pt came with high INR >6 on coumadin Allergies No Known Allergies Allergy (Verified 08/31/18 15:02) Home Medications: Carvedilol [Coreg] 12.5 tab PO BID 07/29/20 Warfarin Sodium [Coumadin*] 5 mg PO SEECOM 07/29/20 Allopurinol 100 mg PO DAILY 07/25/23 Bumetanide 1 mg PO BID 07/25/23 Colchicine [Colcrys] 0.6 mg PO PRN PRN 07/25/23 Empagliflozin [Jardiance] 10 mg PO DAILY 07/25/23 Rosuvastatin [Crestor*] 20 mg PO DAILY 07/25/23 Warfarin Sodium 2.5 mg PO SEECOM 07/25/23 Albuterol Inhaler [Ventolin Inhaler*] 2 puff IH Q6H PRN #2 inh 07/27/23 Sacubitril/Valsartan [Entresto 97 mg-103 mg Tablet] 1 tab PO BID 09/21/23 - Past Medical/Surgical History Diabetic: No -: HTN -: Systolic CHF -: History of heart valve replacement -: Chronic anti coagulation -: Tobacco abuse -: COPD -: Diverticulitis -: HCV -: Heart valve replacement: Pig 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 -: Bowel surgery Psychosocial/ Personal History: Patient is single, has 1 child. 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 - Social History Smoking Status: Current some day smoker Alcohol use: No CD- Drugs: No Caffeine use: Yes Place of Residence: Home Review of Systems General: As per HPI Gastrointestinal: Unremarkable Integumentary: Bruising, As per HPI Neurological: Weakness Physical Examination Temp Pulse Resp BP Pulse Ox 97.2 F 89 24 H 121/62 98 09/24/23 11:38 09/24/23 11:38 09/24/23 11:38 09/24/23 11:38 09/24/23 08:54 General: Alert, In no apparent distress, Oriented x3 HEENT: PERRLA, EOMI Neck: Supple Gastrointestinal: Soft and benign Musculoskeletal: Erythema, Tenderness, Warmth Integumentary: Skin breakdown, Tenderness/swelling, Erythema, Warmth, Venous stasis ulcer Neurological: Normal speech Conclusions/Impression: Sugical debridement.. BAR fully explianed including but not limited to infection , bleeding, damage o adjacent structure, non healing wound, AR even . VAscular evaluation
[2023-09-24] MEDS: METHYLPREDNISOLONE 125 MG INJ IV SCH ×2 (15:00→17:53)
--- NOTE | 2023-09-24 15:05 | EKG ---
Test Date: 2023-09-24 Test Time: 09:37:50 Customer Contact Sales Associate: NIELS MEASUREMENT RESULTS: Intervals: Rate: 91 AL: 170 QRSD: 116 QT: 368 QTc: 452 [place]: P: 64 AL: 170 QRS: -7 T: 112 INTERPRETIVE STATEMENTS: Sinus rhythm with premature atrial complexes with aberrant conduction Incomplete left bundle branch block T wave abnormality, consider lateral ischemia Abnormal ECG Compared to ECG 09/21/2023 14:07:27 Atrial premature complex(es) now present Aberrant conduction of supraventricular beat(s) now present Left bundle-branch block now present Ventricular premature complex(es) no longer present T-wave abnormality still present Possible ischemia still present Electronically Signed On 09-24-23 15:04:50 CDT by Lucho Lee
[2023-09-24] MEDS: FUROSEMIDE 40 MG/4 ML VIAL IV ONE (18:08)
[2023-09-24] MEDS: TAMSULOSIN 0.4 MG SR CAP PO ONE (18:09)
[2023-09-24] MEDS: SODIUM ZIRCONIUM CYCLOSILICATE 10 GM/PKT PO ONE (18:10)
--- NOTE | 2023-09-24 20:33 | P.PN ---
Date of Service: 09/24/23 Vital Signs Temp Pulse Resp BP Pulse Ox 97.5 F 84 17 125/72 96 09/24/23 16:00 09/24/23 19:57 09/24/23 16:00 09/24/23 18:08 09/24/23 19:57 Medications Hydrocodone Bitart/Acetaminophen (Hydrocodone/Apap 7.5/325 Mg Tab) 1 tab PO Q6H PRN PRN Reason: Pain scale 5-7 (Moderate) Last Admin: 09/23/23 20:59 Dose: 1 tab Albuterol Sulfate (Albuterol 2.5 Mg/3 Ml Neb Mare) 2.5 mg NEB X4HINBC HALEY Last Admin: 09/24/23 19:57 Dose: 2.5 mg Arformoterol Tartrate (Arformoterol Tartrate 15 Mcg/2 Ml Vial.Neb) 15 mcg NEB BIDRESP HALEY Last Admin: 09/24/23 19:57 Dose: 15 mcg Atorvastatin Calcium (Atorvastatin 20 Mg Tab) 20 mg PO BEDTIME [facility] Last Admin: 09/23/23 20:59 Dose: 20 mg Carvedilol (Carvedilol 3.125 Mg Tab) 3.125 mg PO BID 6AM 6PM [facility] Last Admin: 09/24/23 17:59 Dose: 3.125 mg Collagenase (Collagenase 30 Gm Ointment) 1 appl TOP DAILY [facility] Doxycycline Hyclate 100 mg/ (Sodium Chloride) 100 mls @ 100 mls/hr IVPB Q12HR [facility]Y; Protocol Last Admin: 09/24/23 08:10 Dose: 100 mls Dextrose (Dextrose 10% Water Iv Soln.) 125 mls @ 0 mls/hr IV PRN PRN; Protocol PRN Reason: HYPOGLYCEMIA Methylprednisolone Sodium Succinate (Methylprednisolone 125 Mg Inj) 60 mg IV Q12H [facility] Last Admin: 09/24/23 17:53 Dose: Not Given Tamsulosin HCl (Tamsulosin 0.4 Mg Sr Cap) 0.4 mg PO DAILY [facility] Microbiology Results 09/21/23 15:02 Wound - Right Lower Leg Gram Stain - Final 09/21/23 15:02 Wound - Right Lower Leg Culture & Sensitivity - Preliminary Assessment/ Plan: Nephrology Worsening SANDRA No chest pain RLE pain No acute events overnight Vitals, medications, blood work and imaging reviewed in the chart General: In no apparent distress, Oriented x3, Cooperative HEENT: Atraumatic Neck: Supple Respiratory: Diminished Cardiovascular: Regular rate/rhythm, Edema Gastrointestinal: Soft and benign, Distended Musculoskeletal: No clubbing, No contractures RLE wound Integumentary: No rashes, No cyanosis Neurological: Normal speech Laboratory Data (last 24 hrs) 09/21/23 09/21/23 09/21/23 14:54 14:54 14:54 WBC 5.60 Hgb 12.4 L Hct 37.4 L Plt Count 164 PT 58.5 H INR 5.59 APTT 81.3 H Sodium 128 L Potassium 6.2 H* BUN 59 H Creatinine 3.75 H Glucose 102 Total Bilirubin 0.5 AST 46 H ALT 24 Alkaline Phosphatase 69 Imagings Data: EXAM DESCRIPTION: CT - Tib Fib Right Wo Cont - 09/21/2023 5:25 pm CLINICAL HISTORY: r/o fb/gas COMPARISON: No comparisons FINDINGS: No fracture of the right tibia or fibula. No radiopaque foreign body identified. Soft tissue laceration with underlying subcutaneous hematoma arising at about the level of the mid Juan and angulated superiorly and laterally. Peripheral vascular calcifications are seen. No fractures identified. Skin thickening is present. IMPRESSION: No fracture or radio opaque foreign body identified. Nonspecific lower extremity edema with soft tissue wound and small subcutaneous hematoma at the anterolateral aspect of the leg. No abscess identified. EXAM DESCRIPTION: RAD - Chest Pa And Lat (2 Views) - 09/22/2023 4:48 pm CLINICAL HISTORY: CHF/ SANDRA to assess volume status COMPARISON: Chest Single View dated 07/25/2023; Chest Single View dated 07/29/2020; Chest Pa And Lat (2 Views) dated 05/10/2020; Chest Single View dated 08/31/2018 FINDINGS: Lines: None. Lungs: No evidence of edema or pneumonia. Pleural: No significant pleural effusions or pneumothorax. Cardiac: Similar size and configuration. Mediastinum: Within normal limits. Bones: No acute fractures. Sternotomy . Other: None IMPRESSION: No acute cardiopulmonary disease. Conclusions/Impression: Stage I VALENTIN likely multifactorial including ibuprofen and bactrim complicated by hypovolemia CKD IIIb -No NSAIDs -Discontinue IVF Hyponatremia, resolved Hyperkalemia -Lokelma X1 dose HTN with CKD/ CHF -Continue Entresto -Continue Coreg AUSTEN -CPAP qhs Systolic CHF, chronic -Continue Entresto -Continue Coreg -Daily weight Hypoalbuminemia -Consider Nepro Anemia in chronic illness -Monitor H&H RLE Wound -Surgical debridement earlier today -Continue abx -Wound care as ordered Case reviewed with hospitalist team
--- NOTE | 2023-09-24 20:38 | CON ---
Date of Consultation: 09/24/2023 Reason For Consultation: Cardiac preoperative risk assessment. History Of Present Illness: A 63-year-old male, history of hypertension, dyslipidemia, congestive he art failure, valve replacement, hepatitis C, active smoker, had laceration of the right lower leg and it was determined that he needs surgical debridement, so I was asked to evaluate him for cardiac pre op risk assessment as the patient denies having any chest pain. No active history of chest pain and he is weakened to more than 4 METS without significant symptoms. Denies having any chest pain or frantz rtness of breath at present time. Past Medical History: As outlined above in the HPI. Medications: Refer reconciliation sheet for detailed list. Allergies: NO KNOWN DRUG ALLERGIES. Family History: No premature coronary artery disease or cancer. Social History: Active smoker. Does not drink or use any drugs. Review of Systems: All systems reviewed and they were negative except as mentioned in the HPI. Physical Examination: Vital Signs: Reviewed. Head and Neck: Pupils are equal, reactive to light. Intact eye movements. No JVD. No cervical lym phadenopathy. Neck is supple. Thyroid is not enlarged. Lungs: Clear to auscultation bilaterally. No rhonchi, wheezing, or crackles. No accessory muscle u se. Heart: Regular rate and rhythm. No extra sounds. Abdomen: Soft, nontender. Bowel sounds positive. No organomegaly. No masses or hernia. No rigidi ty or rebound. Extremities: No clubbing, cyanosis. Intact pulses. Skin: No rash. No nodule. Neurologic: Alert, awake, oriented x3. No acute focal deficits appreciated. Investigations: BUN 42, creatinine 2.67. NT-proBNP is 10,046. Hemoglobin 11.3. Assessment/recommendation: 1.Cardiac preoperative risk assessment for surgical debridement of the wound on the right leg, it is a low risk procedure and no further cardiac workup. Before that, particular surgery is needed to pr oceed. 2.Elevated NT-proBNP, likely has history of congestive heart failure that is chronic, mildly fluid o verloaded. Obtained an echo on him on September 20, which showed poor ejection fraction 35% to 40% with el evated right ventricular systolic pressure. Recommend continue carvedilol and he cannot get MACARENA inhi bitors due to advanced kidney failure. He is being followed by his dam worker on this matter and russell grullon is aware of it, to follow up post discharge. At this point, he is hemodynamically stable. If he g ets short of breath, then Lasix is to be given. 3.Acute renal failure due to dehydration, probably over-diuresis. He is on IV fluids and improving nicely. His creatinine is at baseline now. Recommend Nephrology evaluation. 4.Hypertension. Blood pressure is controlled. At this point, Cardiology will sign off and to call with any further questions. /KEITH Voice ID: [id number] Report ID: [id number]
--- NOTE | 2023-09-24 22:04 | RAD REPORT ---
EXAM DESCRIPTION: RADChest Single View09/24/2023 6:33 pm CLINICAL HISTORY: pneumonia COMPARISON: Chest Pa And Lat (2 Views) dated 09/22/2023; Chest Single View dated 07/25/2023; Chest Sing le View dated 07/29/2020; Chest Pa And Lat (2 Views) dated 05/10/2020 TECHNIQUE: Portable AP view of the chest. FINDINGS: Central and basal predominant interstitial prominence. No pneumothorax or effusion. The c ardiomediastinal contours are unchanged. Sequelae of median sternotomy and valve replacement again se en. IMPRESSION: Interstitial prominence as above, progressive since the prior exam, suggesting mild ya a or atypical pneumonia.
--- NOTE | 2023-09-24 22:38 | OP ---
Date of Procedure: 09/24/2023 Surgeon: Michael Newman MD Preoperative Diagnosis: Necrotic infected wound right lower leg, venous stasis disease. Postoperative Diagnosis: Necrotic infected wound right lower leg, venous stasis disease. Procedure: Excisional debridement of necrotic infected wound right lateral leg 14 x 5 x 1.5 cm. Estimated Blood Loss: Less than 5 cc. Anesthesia: MAC plus local. Complications: None. Also patient have a nerve block. Indications: This is the case of male, who comes to us after traumatic wound to the right lower extr emity right over the area where he has a venous stasis disease. This will be eventually a venous sta sis ulcer that get exacerbated by being on anticoagulation therapy with an INR on the north of 5. Th is contributed to all those factors of nonhealing area, necrotic wounds, hematomas, infection, and re quire debridement. The benefits, alternatives, and risks of debridement fully explained, which inclu de, but not limited to infection, bleeding, damage to adjacent structures, anesthesia complication, n onhealing wound, DC, and even . He also understands this may not relieve any symptoms, he might need more than one surgical intervention. We also explained to him the importance of checking out w ith vascular and venous centers for chronic venous disease treatment. He signed a consent. The area of concern was marked by me and the patient in the holding room. Description Of Procedure: The patient was brought to the operating room, placed in supine position. Anesthesia was done without complication. Right leg was prepped and draped in sterile fashion. A t keysha-out was called. The previous stitches were removed that was attached to the necrotic tissue to t he skin. Those tissues were removed and then after that, the large area of necrotic tissue was debri ded. It is about 14 x 5 x 1.5 cm. There is underlying hematoma that was also evacuated. The area w as irrigated. Hemostasis obtained and the area was packed with wet-to-dry dressing. Patient tolerat ed the procedure well. Patient was sent in the way to recovery in stable condition. VANI/KEITH Voice ID: [id number] Report ID: [id number]
[2023-09-25] MEDS: TAMSULOSIN 0.4 MG SR CAP PO SCH (07:33)
[2023-09-25] MEDS: COLLAGENASE 30 GM OINTMENT TOP SCH (07:34)
--- NOTE | 2023-09-25 10:07 | P.PN ---
Subjective Date of Service: 09/25/23 Chief Complaint: Cellulitis, CHF, CKD with VALENTIN Mr. Gamboa is a 63-year-old with a past medical history of hypertension, hyperlipidemia, CHF, valve replacement, hepatitis C, sleep apnea, and obesity, tobacco abuse, and diverticulitis. 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 The wound was cleansed and irrigated and closed with three 4-0 Prolene with loose approximation, dressed with Bactroban, prescriptions for Bactrim and Keflex were provided, and patient was asked to follow-up with Dr. Newman. On 09/14/2023 he returned to the emergency department for a recheck of his wound as it had "reopened". The affected area was cleansed and silver nitrate applied and patient was discharged. Today 09/21/2023, he returns to the emergency department with complaints of an increasingly erythematous and painful right lower extremity wound. The patient's past medical history has complicated the wound healing and treatment. cardiology clearance completed for preop ID S/P I&D today Kidney function slowly improving Lives at home, independent, uses cane prn, prn home 02 Patient requested outpatient wound care for discharge - Physical Exam General: Alert, Oriented x3, Mild distress, Obese HEENT: Atraumatic, Normocephalic Neck: Supple Respiratory: Diminished, Expiratory wheezes, Cardiovascular: Regular rate/rhythm, Edema Capillary refill: <2 Seconds Gastrointestinal: Soft and benign Musculoskeletal: No clubbing Integumentary: Other (PVD bilaterally, right leg more edematous from knee down than left, anterior penn with hematoma and some sutures over jagged seeping wound with surrounding cellulitis) Neurological: Normal speech, Normal tone Lymphatics: No axilla or inguinal lymphadenopathy Review of Systems per HPI Physical Examination - Vital Signs Temperature: 97.8 F Blood Pressure: 145/78 Pulse: 79 Respirations: 20 Pulse Ox (%): 98 - Studies Microbiology Data (last 24 hrs): 09/21/23 15:02 Wound - Right Lower Leg Gram Stain - Final Assessment And Plan - Plan Assessment and Plan Puncture wound with failed outpatient therapy with mechanical heart valve Right foot wound Right lower extremity edema CT wound r/o fb (neg CT except edema) Blood cultures Wound cultures gram-positive cocci in clusters, 3+ Staphylococcus on IV vancomycin, doxycycline CRP/CPK Consult Dr. Newman 09/22 n.p.o. for I&D Patient requested outpatient wound care for discharge CKD with VALENTIN with electrolyte derangement stop Bactrim, NSAIDs, avoid nephrotoxins Lasix 40mg IV x 1 Hyperkalemia, Hyponatremia - NS 250ml bolus, NS at 100ml/hr, Albuterol neb q6h, calcium gluconate 1gm iv, D50 x 1 amp, insulin 10u x 1. Recheck potassium q4h, Repeat potassium in one hour prior to any lokelma or kayexelate. Chem 7 q4h. (some management in ED prior to admission) Hepatitis C/blood thinners for mechanical valve (porcine and then mechanical) monitor and trend platelets and INR Warfarin per pharmacy to keep INR 2.5-3 HTN with systolic congestive heart failure, Elevated BNP mechanical aortic valve, Supratherapeutic INR ECHO BiPap Entresto Coreg Lasix Prior note He has been compliant with his medications and does not follow with the heart failure team at [facility] in [place]. His last echocardiogram was performed in July 2022 and showed an ejection fraction of 30 to 35%. He was evaluated in the emergency department his labs are significant for a creatinine 2.3 INR of 2.58 D-dimer 335 HLD Simvastatin COPD with tobacco abuse Nebs recommend cessation hx of pseudo-gout monitor and trend calcium Discharge Plan: Home Critical Care: No Time Spent Managing PTS Care (In Minutes): 35
[2023-09-25 11:36] LABS: Albumin 3.1 g/dL (3.4-5.0); Anion Gap 5.2 mEq/L (5.0-15.0); Potassium 5.2 mEq/L (3.5-5.1); Uric Acid 5.9 mg/dL (3.5-7.2)
[2023-09-25 11:42] LABS: Phosphorus 1.3 mg/dL (2.5-4.9)
--- NOTE | 2023-09-25 14:23 | PN ---
Reason For Service: Status post debridement of necrotic ulcer on the right leg. Subjective: The patient is doing better, more mobile. Afebrile. Objective: Chest: Clear. Abdomen: Soft and depressible. Extremities: Good capillary refill. Intact surgical site. Plan: Santyl wet-to-dry. Leg elevation. If he goes home, we would like to see the patient in the [facility]. He may need Home Health for wet-to-dry dressing. VANI/KEITH Voice ID: [id number] Report ID: [id number]
[2023-09-25] MEDS: SODIUM PHOSPHATE 15 MM in NA CHLORIDE 0.9% 250 ML IV SCH (15:57)
[2023-09-25 17:18] LABS: Sqamous Epithelial <5 /HPF (None Seen); Urine Bacteria <20 /HPF (<20); Urine Bilirubin NEGATIVE (Negative); Urine Blood Negative (Negative); Urine Clarity Clear (Clear); Urine Color Light-Yellow (Yellow); Urine Culture Reflex Order NOT NEEDED; Urine Glucose 4+ (Over) (Negative); Urine Ketones NEGATIVE (Negative); Urine Microscopic Reflex YN ORDER UMIC; Urine Nitrite NEGATIVE (Negative); Urine Protein 2+ (Negative); Urine RBC <5 /HPF (None Seen); Urine Urobilinogen Normal (Normal); Urine WBC <5 /HPF (<5); Urine pH 5.5 (5.0-7.0)
--- NOTE | 2023-09-25 17:21 | P.CNS ---
Date of Consult: 09/25/23 Reason for Consult: painful toenails Chief Complaint: Cellulitis, CHF, CKD with VALENTIN Allergies No Known Allergies Allergy (Verified 08/31/18 15:02) Home Medications: Carvedilol [Coreg] 12.5 tab PO BID 07/29/20 Warfarin Sodium [Coumadin*] 5 mg PO SEECOM 07/29/20 Allopurinol 100 mg PO DAILY 07/25/23 Bumetanide 1 mg PO BID 07/25/23 Colchicine [Colcrys] 0.6 mg PO PRN PRN 07/25/23 Empagliflozin [Jardiance] 10 mg PO DAILY 07/25/23 Rosuvastatin [Crestor*] 20 mg PO DAILY 07/25/23 Warfarin Sodium 2.5 mg PO SEECOM 07/25/23 Albuterol Inhaler [Ventolin Inhaler*] 2 puff IH Q6H PRN #2 inh 07/27/23 Sacubitril/Valsartan [Entresto 97 mg-103 mg Tablet] 1 tab PO BID 09/21/23 - Past Medical/Surgical History Diabetic: No -: HTN -: Systolic CHF -: History of heart valve replacement -: Chronic anti coagulation -: Tobacco abuse -: COPD -: Diverticulitis -: HCV -: Heart valve replacement: Pig 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 -: Bowel surgery Psychosocial/ Personal History: Patient is single, has 1 child. 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 - Social History Smoking Status: Current some day smoker Alcohol use: No CD- Drugs: No Caffeine use: Yes Place of Residence: Home Review of Systems 10-point ROS is otherwise unremarkable Physical Examination Temp Pulse Resp BP Pulse Ox 97.8 F 79 20 145/78 H 98 09/25/23 15:30 09/25/23 15:30 09/25/23 15:30 09/25/23 15:30 09/25/23 15:30 General: Alert, In no apparent distress, Oriented x3 Cardiovascular: No edema, Normal pulses Capillary refill: <2 Seconds Musculoskeletal: No clubbing, No swelling, No contractures, No erythema, No tenderness, No warmth Integumentary: No rashes, No breakdown, No significant lesion, No tenderness/swelling, No erythema, No warmth, No cyanosis, Other (Thickened hypertrophic toenails with subungual debris x 10) Neurological: Sensation intact - Problems (1) Tinea unguium Current Visit: Yes Status: Acute (2) detention (current) use of anticoagulants Current Visit: Yes Status: Acute Conclusions/Impression: Debridement of nails at bedside Physician Review: Patient Assessed, Agree with Above Assessment and Plan
--- NOTE | 2023-09-25 20:52 | P.PN ---
Date of Service: 09/25/23 Vital Signs Temp Pulse Resp BP Pulse Ox 97.3 F 81 18 146/76 H 99 09/25/23 20:00 09/25/23 20:00 09/25/23 20:00 09/25/23 20:00 09/25/23 20:00 Medications Hydrocodone Bitart/Acetaminophen (Hydrocodone/Apap 7.5/325 Mg Tab) 1 tab PO Q6H PRN PRN Reason: Pain scale 5-7 (Moderate) Last Admin: 09/25/23 13:37 Dose: 1 tab Albuterol Sulfate (Albuterol 2.5 Mg/3 Ml Neb Mare) 2.5 mg NEB [id number] HALEY Last Admin: 09/25/23 20:18 Dose: 2.5 mg Arformoterol Tartrate (Arformoterol Tartrate 15 Mcg/2 Ml Vial.Neb) 15 mcg NEB BIDRESP HALEY Last Admin: 09/25/23 20:18 Dose: 15 mcg Atorvastatin Calcium (Atorvastatin 20 Mg Tab) 20 mg PO BEDTIME [facility]Y Last Admin: 09/24/23 22:10 Dose: 20 mg Carvedilol (Carvedilol 3.125 Mg Tab) 3.125 mg PO BID 6AM 6PM [facility] Last Admin: 09/25/23 18:22 Dose: 3.125 mg Collagenase (Collagenase 30 Gm Ointment) 1 appl TOP DAILY [facility] Last Admin: 09/25/23 07:34 Dose: 1 appl Doxycycline Hyclate 100 mg/ (Sodium Chloride) 100 mls @ 100 mls/hr IVPB Q12HR [facility]Y; Protocol Last Admin: 09/25/23 07:32 Dose: 100 mls Dextrose (Dextrose 10% Water Iv Soln.) 125 mls @ 0 mls/hr IV PRN PRN; Protocol PRN Reason: HYPOGLYCEMIA Methylprednisolone Sodium Succinate (Methylprednisolone 125 Mg Inj) 60 mg IV Q12H [facility] Last Admin: 09/25/23 18:00 Dose: Not Given Tamsulosin HCl (Tamsulosin 0.4 Mg Sr Cap) 0.4 mg PO DAILY [facility] Last Admin: 09/25/23 07:33 Dose: 0.4 mg Microbiology Results 09/21/23 15:02 Wound - Right Lower Leg Gram Stain - Final 09/21/23 15:02 Wound - Right Lower Leg Culture & Sensitivity - Preliminary Assessment/ Plan: Nephrology No chest pain No dyspnea RLE pain improving No acute events overnight Vitals, medications, blood work and imaging reviewed in the chart General: In no apparent distress, Oriented x3, Cooperative HEENT: Atraumatic Neck: Supple Respiratory: Diminished Cardiovascular: Regular rate/rhythm, Edema Gastrointestinal: Soft and benign, Distended Musculoskeletal: No clubbing, No contractures RLE wound Integumentary: No rashes, No cyanosis Neurological: Normal speech Laboratory Data (last 24 hrs) 09/21/23 09/21/23 09/21/23 14:54 14:54 14:54 WBC 5.60 Hgb 12.4 L Hct 37.4 L Plt Count 164 PT 58.5 H INR 5.59 APTT 81.3 H Sodium 128 L Potassium 6.2 H* BUN 59 H Creatinine 3.75 H Glucose 102 Total Bilirubin 0.5 AST 46 H ALT 24 Alkaline Phosphatase 69 Imagings Data: EXAM DESCRIPTION: CT - Tib Fib Right Wo Cont - 09/21/2023 5:25 pm CLINICAL HISTORY: r/o fb/gas COMPARISON: No comparisons FINDINGS: No fracture of the right tibia or fibula. No radiopaque foreign body identified. Soft tissue laceration with underlying subcutaneous hematoma arising at about the level of the mid Juan and angulated superiorly and laterally. Peripheral vascular calcifications are seen. No fractures identified. Skin thickening is present. IMPRESSION: No fracture or radio opaque foreign body identified. Nonspecific lower extremity edema with soft tissue wound and small subcutaneous hematoma at the anterolateral aspect of the leg. No abscess identified. EXAM DESCRIPTION: RAD - Chest Pa And Lat (2 Views) - 09/22/2023 4:48 pm CLINICAL HISTORY: CHF/ SANDRA to assess volume status COMPARISON: Chest Single View dated 07/25/2023; Chest Single View dated 07/29/2020; Chest Pa And Lat (2 Views) dated 05/10/2020; Chest Single View dated 08/31/2018 FINDINGS: Lines: None. Lungs: No evidence of edema or pneumonia. Pleural: No significant pleural effusions or pneumothorax. Cardiac: Similar size and configuration. Mediastinum: Within normal limits. Bones: No acute fractures. Sternotomy . Other: None IMPRESSION: No acute cardiopulmonary disease. Conclusions/Impression: Stage I VALENTIN likely multifactorial including ibuprofen and bactrim complicated by hypovolemia CKD IIIb -No NSAIDs Hyponatremia, resolved Hyperkalemia -[facility] prn HTN with CKD/ CHF -Continue Entresto -Continue Coreg AUSTEN -CPAP qhs Systolic CHF, chronic -Continue Entresto -Continue Coreg -Daily weight Hypoalbuminemia -Consider Nepro Anemia in chronic illness -Monitor H&H RLE Wound -Surgical debridement 09-24-23 -Continue abx -Wound care as ordered Case reviewed with hospitalist team
[2023-09-26 04:36] LABS: Anion Gap 7.6 mEq/L (5.0-15.0); Phosphorus 2.9 mg/dL (2.5-4.9); Potassium 5.6 mEq/L (3.5-5.1)
--- NOTE | 2023-09-26 08:34 | P.PN ---
Subjective Date of Service: 09/27/23 Chief Complaint: Cellulitis, CHF, CKD with VALENTIN Pain control as needed on analgesics, no reported fever, Plan to DC home w [facility], after wound care arranged Review of Systems Per HPI Physical Examination - Vital Signs Temperature: 96.9 F Blood Pressure: 147/85 Pulse: 83 Respirations: 18 Pulse Ox (%): 96 - Physical Exam General: Alert, Oriented x3 HEENT: Atraumatic, PERRLA Neck: JVD not distended Respiratory: Normal air movement, Diminished Cardiovascular: Regular rate/rhythm, Other (lower extremity edema) Capillary refill: <2 Seconds Gastrointestinal: Other (Obese abdomen) Musculoskeletal: No clubbing Integumentary: Other (Right leg send dressing clean dry and intact) Neurological: Normal speech - Studies Microbiology Data (last 24 hrs): 09/21/23 15:02 Wound - Right Lower Leg Gram Stain - Final 09/21/23 15:02 Wound - Right Lower Leg Culture & Sensitivity - Final Staphylococcus Haemolyticus Assessment And Plan - Plan Assessment and Plan Puncture wound with failed outpatient therapy with mechanical heart valve Right foot wound Right lower extremity edema CT wound r/o fb (neg CT except edema) Blood cultures Wound cultures gram-positive cocci in clusters, 3+ Staphylococcus on IV vancomycin, doxycycline CRP/CPK Consult Dr. Newman 09/22 n.p.o. for I&D Patient requested outpatient wound care for discharge Outpatient wound care Plan: Santyl wet-to-dry. Leg elevation. If he goes home, we would like to see the patient in the [facility]. He may need Home Health for wet-to-dry dressing. Plan to discharge home on p.o. antibiotic CKD with VALENTIN with electrolyte derangement stop Bactrim, NSAIDs, avoid nephrotoxins Lasix 40mg IV x 1 Hyperkalemia, Hyponatremia - NS 250ml bolus, NS at 100ml/hr, Albuterol neb q6h, calcium gluconate 1gm iv, D50 x 1 amp, insulin 10u x 1. Recheck potassium q4h, Repeat potassium in one hour prior to any lokelma or kayexelate. Chem 7 q4h. (some management in ED prior to admission) Hepatitis C/blood thinners for mechanical valve (porcine and then mechanical) Chronic anticoagulation monitor and trend platelets and INR Warfarin per pharmacy to keep INR 2.5-3 HTN with systolic congestive heart failure, Elevated BNP mechanical aortic valve, Supratherapeutic INR ECHO BiPap Entresto Coreg Lasix Prior note He has been compliant with his medications and does not follow with the heart failure team at [facility] in [place]. His last echocardiogram was performed in July 2022 and showed an ejection fraction of 30 to 35%. He was evaluated in the emergency department his labs are significant for a creatinine 2.3 INR of 2.58 D-dimer [address] Whitfield consulted for podiatry HLD Simvastatin COPD with tobacco abuse Nebs recommend cessation hx of pseudo-gout monitor and trend calcium Disposition Home uses cane, patient request outpatient wound care Discharge Plan: Home Critical Care: No Time Spent Managing PTS Care (In Minutes): 35
--- NOTE | 2023-09-26 08:58 | P.PN ---
Date of Service: 09/24/23 Subjective Physical Examination - Vital Signs reviewed - Physical Exam General: Alert, Oriented x3, Mild distress, Obese Respiratory: Diminished, Expiratory wheezes, Cardiovascular: Regular rate/rhythm, Edema Gastrointestinal: Soft and benign Musculoskeletal: No clubbing Integumentary: Other (PVD bilaterally, right leg more edematous from knee down than left, anterior penn with hematoma and some sutures over jagged seeping wound with surrounding cellulitis) Neurological: Normal speech, Normal tone Lymphatics: No axilla or inguinal lymphadenopathy Assessment And Plan - Assessment/Plan Assessment and Plan Puncture wound with failed outpatient therapy with mechanical heart valve Right foot wound Right lower extremity edema -management per suge; cont abs CKD with VALENTIN with electrolyte derangement stop Bactrim, NSAIDs, avoid nephrotoxins Lasix 40mg IV x 1 Hyperkalemia, Hyponatremia - NS 250ml bolus, NS at 100ml/hr, Albuterol neb q6h, calcium gluconate 1gm iv, D50 x 1 amp, insulin 10u x 1. Recheck potassium q4h, Repeat potassium in one hour prior to any lokelma or kayexelate. Chem 7 q4h. (some management in ED prior to admission) Hepatitis C/blood thinners for mechanical valve (porcine and then mechanical) monitor and trend platelets and INR Warfarin per pharmacy to keep INR 2.5-3 HTN with CHF Elevated BNP Supratherapeutic INR ECHO BiPap Entresto Coreg Lasix HLD Simvastatin COPD with tobacco abuse Nebs recommend cessation hx of pseudo-gout monitor and trend calcium Discharge Plan: Home - Code Status/Comfort Care Code Status: Full Code Critical Care: No Time Spent Managing PTS Care (In Minutes): 35
[2023-09-26] MEDS: METOLAZONE 5 MG TABLET PO ONE ×2 (10:39→11:00)
[2023-09-26] MEDS: SODIUM ZIRCONIUM CYCLOSILICATE 10 GM/PKT PO SCH (10:58)
--- NOTE | 2023-09-26 11:15 | P.DS ---
Admission Date: 09/21/23 Discharge Date: 09/29/23 Disposition: DC HOME/HOME HEALTH CARE Discharge Condition: GOOD Reason for Admission: Cellulitis, CHF, CKD with VALENTIN Brief History of Present Illness: Mr. Gamboa is a 63-year-old with a past medical history of hypertension, hyperlipidemia, CHF, valve replacement, hepatitis C, sleep apnea, and obesity, tobacco abuse, and diverticulitis. 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 The wound was cleansed and irrigated and closed with three 4- 0 Prolene with loose approximation, dressed with Bactroban, prescriptions for Bactrim and Keflex were provided, and patient was asked to follow-up with Dr. Newman. On 09/14/2023 he returned to the emergency department for a recheck of his wound as it had "reopened". The affected area was cleansed and silver nitrate applied and patient was discharged. Today 09/21/2023, he returns to the emergency department with complaints of an increasingly erythematous and painful right lower extremity wound. The patient's past medical history has complicated the wound healing and treatment. General: Alert, Oriented x3, Mild distress, Obese HEENT: Atraumatic, Normocephalic Neck: Supple Respiratory: Equal unlabored Cardiovascular: Regular rate/rhythm, Edema Capillary refill: <2 Seconds Gastrointestinal: Soft and benign Musculoskeletal: No clubbing Integumentary: Other penn wound, with drainage, Neurological: Normal speech, Normal tone Lymphatics: No axilla or inguinal lymphadenopathy Hospital Course: Mr. Gamboa is a 63-year-old with a past medical history of hypertension, hyperlipidemia, CHF, valve replacement, hepatitis C, sleep apnea, and obesity, tobacco abuse, and diverticulitis. 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 Patient was evaluated by Dr. Newman for debridement, patient request outpatient wound care after discharge History of congestive heart failure will need to follow-up with cardiology after outpatient. Discharged home on p.o. antibiotics, wound care clinic for wound care. Assessment and plan Acute on chronic heart failure, patient was evaluated by cardiology for cardiac clearance for debridement of right penn wound, will discharge home on p.o. antibiotics, Right penn wound followed by Dr. Newman status post debridement, patient will need to follow-up at the wound cleaned outpatient for a wound dressing CKD with acute kidney injury-need to follow-up with nephrology after discharge History of hepatitis C, History of COPD, supportive care resume meds after discharge Discharge medications Zaroxolyn 2.5 daily, Bumex 2 mg daily, Entresto 49.5 daily Dressing changes Plan: Santyl wet-to-dry. Leg elevation. If he goes home, we would like to see the patient in the [facility]aling [facility]. He may need Home Health for wet-to-dry dressing. PATIENT NEEDS TO FOLLOW UP WITH HE[facility] FAILURE CL[facility] ( NEXT ADMISSION PLEASE TRANSFER TO [facility]) PATIENT NEEDS TO FOLLOW UP WITH HEART FAILURE CLINIC [facility] ( NEXT ADMISSION PLEASE TRANSFER TO [facility]) Continue home medicines as previously prescribed GOAL: Clear understanding of disease process INSTRUCTIONS: Physician Discharge Instructions: -Follow-up with PCP in 1 to 2 weeks -Please call Dr. Guevara at [phone] if any questions regarding hospital stay -Please call nursing station at [phone] if any nursing or medication questions -Return to the emergency room if symptoms worsen Diet: ADA, low sodium Activity: Fall precautions Vital Signs/Physical Exam: Temp Pulse Resp BP Pulse Ox 96.9 F 83 18 147/85 H 96 09/26/23 11:08 09/26/23 11:08 09/26/23 11:08 09/26/23 11:08 09/26/23 11:08 Laboratory Data at Discharge: WBC 6.60 thou/uL (4.3-10.9) 09/24/23 06:25 Hgb 11.3 g/dL (13.6-17.9) L 09/24/23 06:25 Hct 33.9 % (39.6-49.0) L 09/24/23 06:25 Plt Count 175 thou/uL (152-406) 09/24/23 06:25 PT 18.6 SECONDS (9.5-12.5) H 09/23/23 06:38 INR 1.72 09/23/23 06:38 APTT 78.9 SECONDS (24.3-36.9) H 09/22/23 04:30 Sodium 140 mEq/L (136-145) 09/26/23 03:36 Potassium 5.6 mEq/L (3.5-5.1) H 09/26/23 03:36 BUN 59 mg/dL (7-18) H 09/26/23 03:36 Creatinine 2.54 mg/dL (0.70-1.30) H 09/26/23 03:36 Glucose 146 mg/dL (74-106) H 09/26/23 03:36 Uric Acid 5.9 mg/dL (3.5-7.2) 09/25/23 10:53 Phosphorus Cancelled 09/26/23 05:00 Magnesium 2.0 mg/dL (1.6-2.4) 09/24/23 06:25 Total Bilirubin 0.7 mg/dL (0.2-1.0) 09/24/23 06:25 AST 35 U/L (15-37) 09/24/23 06:25 ALT 20 U/L (16-61) 09/24/23 06:25 Alkaline Phosphatase 61 U/L (45-117) 09/24/23 06:25 Home Medications: Carvedilol [Coreg] 12.5 tab PO BID 07/29/20 Warfarin Sodium [Coumadin*] 5 mg PO SEECOM 07/29/20 Allopurinol 100 mg PO DAILY 07/25/23 Colchicine [Colcrys] 0.6 mg PO PRN PRN 07/25/23 Empagliflozin [Jardiance] 10 mg PO DAILY 07/25/23 Rosuvastatin [Crestor*] 20 mg PO DAILY 07/25/23 Warfarin Sodium 2.5 mg PO SEECOM 07/25/23 Albuterol Inhaler [Ventolin Inhaler*] 2 puff IH Q6H PRN #2 inh 07/27/23 Atorvastatin Calcium [Lipitor*] 20 mg PO BEDTIME tab 09/29/23 Bumetanide [Bumex] 2 mg PO DAILY 30 Days #30 tab 09/29/23 Doxycycline Hyclate 100 mg PO BID 10 Days #20 tab 09/29/23 Sacubitril/Valsartan [Entresto 49 mg-51 mg Tablet] 2 tab PO BID tab 09/29/23 Tamsulosin [Flomax*] 0.4 mg PO DAILY cap 09/29/23 metOLazone [Zaroxolyn] 2.5 mg PO DAILY 30 Days #30 tab 09/29/23 New Medications: Bumetanide [Bumex] 2 mg PO DAILY 30 Days #30 tab Doxycycline Hyclate 100 mg PO BID 10 Days #20 tab metOLazone [Zaroxolyn] 2.5 mg PO DAILY 30 Days #30 tab Physician Discharge Instructions: Mr. Gamboa is a 63-year-old with a past medical history of hypertension, hyp erlipidemia, CHF, valve replacement, hepatitis C, sleep apnea, and obesity, tobacco abuse, and diverticulitis. 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 Patient was evaluated by Dr. Newman for debridement, patient request outpatient wound care after discharge History of congestive heart failure will need to follow-up with cardiology after outpatient. Discharged home on p.o. antibiotics, wound care clinic for wound care. Assessment and plan Acute on chronic heart failure, patient was evaluated by cardiology for cardiac clearance for debridement of right penn wound, will discharge home on p.o. antibiotics,po antidiuretics, Right penn wound followed by Dr. Newman status post debridement, patient will need to follow-up at the wound cleaned outpatient for a wound dressing CKD with acute kidney injury-need to follow-up with nephrology after discharge History of hepatitis C, History of COPD, supportive care resume meds after discharge Follow-up with neurology after discharge for acute kidney injury Follow-up with cardiology after discharge Dressing changes Plan: Santyl wet-to-dry. Leg elevation. If he goes home, we would like to see the patient in the [facility]aling [facility]. He may need Home Health for wet-to-dry dressing. Continue home medicines as previously prescribed GOAL: Clear understanding of disease process INSTRUCTIONS: Physician Discharge Instructions: -Follow-up with PCP in 1 to 2 weeks -Please call Dr. Guevara at [phone] if any questions regarding hospital stay -Please call nursing station at [phone] if any nursing or medication questions -Return to the emergency room if symptoms worsen Diet: ADA, low sodium Activity: Fall precautions Home Health: [facility] Home Health P:[phone] F:[phone] Primary Care Appointment (patient must attend appointment in order for home health services to be initiated): DON - HARRISON Schaffer [address], [place] [address] 09/30/23 at 3pm Diet: Low sodium Activity: Fall precautions Followup: Ernie Montero DO [ACTIVE - CAN ADMIT] - Michelle Segura NP [Primary Care Provider] - Michael Newman MD [ACTIVE - CAN ADMIT] - Zain Whitfield JR DPM [ASSOCIATE-ACTIVE - CAN ADMIT] - Sara Yo MD [OUTSIDE PHYSICIAN] - Mariana Noel MD [OUTSIDE PHYSICIAN] - Time spent managing pt's care (in minutes): 55
[2023-09-26] MEDS: BUMETANIDE 1 MG TABLET PO SCH (18:03)
--- NOTE | 2023-09-26 21:23 | P.PN ---
Date of Service: 09/26/23 Vital Signs Temp Pulse Resp BP Pulse Ox 97 F 83 18 114/71 99 09/26/23 20:00 09/26/23 20:00 09/26/23 20:00 09/26/23 20:00 09/26/23 20:00 Medications Hydrocodone Bitart/Acetaminophen (Hydrocodone/Apap 7.5/325 Mg Tab) 1 tab PO Q6H PRN PRN Reason: Pain scale 5-7 (Moderate) Last Admin: 09/26/23 17:38 Dose: 1 tab Albuterol Sulfate (Albuterol 2.5 Mg/3 Ml Neb Mare) 2.5 mg NEB [id number] HALEY Last Admin: 09/26/23 19:12 Dose: 2.5 mg Arformoterol Tartrate (Arformoterol Tartrate 15 Mcg/2 Ml Vial.Neb) 15 mcg NEB BIDRESP [facility] Last Admin: 09/26/23 19:12 Dose: 15 mcg Atorvastatin Calcium (Atorvastatin 20 Mg Tab) 20 mg PO BEDTIME [facility] Last Admin: 09/26/23 21:00 Dose: 20 mg Bumetanide (Bumetanide 1 Mg Tablet) 1 mg PO BIDAC HALEY Last Admin: 09/26/23 18:03 Dose: 1 mg Bumetanide (Bumetanide 1 Mg Tablet) 1 mg PO 1X ONE Stop: 09/27/23 11:01 Carvedilol (Carvedilol 3.125 Mg Tab) 3.125 mg PO BID 6AM 6PM [facility] Last Admin: 09/26/23 17:38 Dose: 3.125 mg Collagenase (Collagenase 30 Gm Ointment) 1 appl TOP DAILY [facility] Last Admin: 09/26/23 08:42 Dose: 1 appl Doxycycline Hyclate 100 mg/ (Sodium Chloride) 100 mls @ 100 mls/hr IVPB Q12HR HALEY; Protocol Last Admin: 09/26/23 21:00 Dose: 100 mls Dextrose (Dextrose 10% Water Iv Soln.) 125 mls @ 0 mls/hr IV PRN PRN; Protocol PRN Reason: HYPOGLYCEMIA Methylprednisolone Sodium Succinate (Methylprednisolone 125 Mg Inj) 60 mg IV Q12H [facility] Last Admin: 09/26/23 17:37 Dose: 60 mg Tamsulosin HCl (Tamsulosin 0.4 Mg Sr Cap) 0.4 mg PO DAILY [facility] Last Admin: 09/26/23 08:41 Dose: 0.4 mg Microbiology Results 09/21/23 15:02 Wound - Right Lower Leg Gram Stain - Final 09/21/23 15:02 Wound - Right Lower Leg Culture & Sensitivity - Final Staphylococcus Haemolyticus Assessment/ Plan: Nephrology No chest pain No dyspnea Reports decreased urine output No acute events overnight Vitals, medications, blood work and imaging reviewed in the chart General: In no apparent distress, Oriented x3, Cooperative HEENT: Atraumatic Neck: Supple Respiratory: Diminished Cardiovascular: Regular rate/rhythm, Edema Gastrointestinal: Soft and benign, Distended Musculoskeletal: No clubbing, No contractures RLE wound Integumentary: No rashes, No cyanosis Neurological: Normal speech Laboratory Data (last 24 hrs) 09/21/23 09/21/23 09/21/23 14:54 14:54 14:54 WBC 5.60 Hgb 12.4 L Hct 37.4 L Plt Count 164 PT 58.5 H INR 5.59 APTT 81.3 H Sodium 128 L Potassium 6.2 H* BUN 59 H Creatinine 3.75 H Glucose 102 Total Bilirubin 0.5 AST 46 H ALT 24 Alkaline Phosphatase 69 Imagings Data: EXAM DESCRIPTION: CT - Tib Fib Right Wo Cont - 09/21/2023 5:25 pm CLINICAL HISTORY: r/o fb/gas COMPARISON: No comparisons FINDINGS: No fracture of the right tibia or fibula. No radiopaque foreign body identified. Soft tissue laceration with underlying subcutaneous hematoma arising at about the level of the mid Juan and angulated superiorly and laterally. Peripheral vascular calcifications are seen. No fractures identified. Skin thickening is present. IMPRESSION: No fracture or radio opaque foreign body identified. Nonspecific lower extremity edema with soft tissue wound and small subcutaneous hematoma at the anterolateral aspect of the leg. No abscess identified. EXAM DESCRIPTION: RAD - Chest Pa And Lat (2 Views) - 09/22/2023 4:48 pm CLINICAL HISTORY: CHF/ SANDRA to assess volume status COMPARISON: Chest Single View dated 07/25/2023; Chest Single View dated 07/29/2020 ; Chest Pa And Lat (2 Views) dated 05/10/2020; Chest Single View dated 08/31/2018 FINDINGS: Lines: None. Lungs: No evidence of edema or pneumonia. Pleural: No significant pleural effusions or pneumothorax. Cardiac: Similar size and configuration. Mediastinum: Within normal limits. Bones: No acute fractures. Sternotomy . Other: None IMPRESSION: No acute cardiopulmonary disease. Conclusions/Impression: Stage I VALENTIN likely multifactorial including ibuprofen and bactrim complicated by hypovolemia CKD IIIb -No NSAIDs Hyponatremia, resolved Hyperkalemia -Lokelma X2 HTN with CKD/ CHF -Continue Entresto -Continue Coreg AUSTEN -CPAP qhs Systolic CHF, chronic -Continue Entresto -Daily weight -Start Bumex BID -Metolazone X1 Hypoalbuminemia -Consider Nepro Anemia in chronic illness -Monitor H&H RLE Wound -Surgical debridement 09-24-23 -Continue abx -Wound care as ordered Case reviewed with hospitalist team
[2023-09-27 07:42] LABS: Albumin 3.3 g/dL (3.4-5.0); Anion Gap 7.7 mEq/L (5.0-15.0); Phosphorus 4.3 mg/dL (2.5-4.9); Potassium 4.7 mEq/L (3.5-5.1); Uric Acid 6.2 mg/dL (3.5-7.2)
--- NOTE | 2023-09-27 10:19 | P.PN ---
Date of Service: 09/27/23 Subjective Continues with fluid volume overload, plan to diurese patient adjusting diuretics with nephrology, patient request home health at discharge Review of Systems Per HPI Physical Examination - Vital Signs Reviewed - Physical Exam General: Oriented x 3, obese, HEENT: Atraumatic, Normocephalic Neck: JVD not distended, No Thyromegaly Respiratory: Normal air movement, chronic Cardiovascular: Normal pulses, lower extremity edema, Capillary refill: <2 Seconds Gastrointestinal: Other (Obese) Musculoskeletal: No clubbing, No swelling Integumentary: Other (Right leg send dressing clean dry and intact) Assessment And Plan Assessment and Plan Puncture wound with failed outpatient therapy with mechanical heart valve Right foot wound Right lower extremity edema CT wound r/o fb (neg CT except edema) Blood cultures Wound cultures gram-positive cocci in clusters, 3+ Staphylococcus on IV vancomycin, doxycycline CRP/CPK Consult Dr. Newman Acute on chronic heart failure, Cardiology eval for preop clearance for i debridement completed Hepatitis C/blood thinners for mechanical valve (porcine and then mechanical) Chronic anticoagulation monitor and trend platelets and INR Tinea unguium Dr. Whitfield consulted for podiatry HLD Simvastatin COPD with tobacco abuse Nebs recommend cessation hx of pseudo-gout monitor and trend calcium Disposition Home uses cane, patient request outpatient wound care
--- NOTE | 2023-09-27 10:40 | P.PN ---
Nephrology (S) Weight has been climbing, remains fluid overloaded, remains on O2, reports some increase in UOP on Metolazone but accurate UOP monitoring not being maintained Vitals, medications, blood work and imaging reviewed in the chart General: Appears chronically ill but NAD HEENT: Atraumatic, LFNC present Neck: Supple Respiratory: Diminished at bases Cardiovascular: NOn tachy, mostly regular,2-3+ edema of the LE b/l Gastrointestinal: Mod distention, slightly firm, obese Musculoskeletal: Rt lower penn dressed Neurological: Normal speech, awake, alert, non focal Imagings Data: EXAM DESCRIPTION: RAD - Chest Pa And Lat (2 Views) - 09/22/2023 4:48 pm CLINICAL HISTORY: CHF/ SANDRA to assess volume status COMPARISON: Chest Single View dated 07/25/2023; Chest Single View dated 07/29/2020; Chest Pa And Lat (2 Views) dated 05/10/2020; Chest Single View dated 08/31/2018 FINDINGS: Lines: None. Lungs: No evidence of edema or pneumonia. Pleural: No significant pleural effusions or pneumothorax. Cardiac: Similar size and configuration. Mediastinum: Within normal limits. Bones: No acute fractures. Sternotomy . Other: None IMPRESSION: No acute cardiopulmonary disease. Conclusions/Impression: Stage I VALENTIN on underling CKD Stage IIIb/IV, multifactorial -Cr level has downward trended closer to levels earlier in the year but cont to monitor closely with diuretic escalation Hyperkalemia -In the setting of above, cont to monitor, will add the potent thiazide diuretic Metolazone on a scheduled basis Systolic CHF, acute on chronic. Fluid overload -Continue Entresto and titrate dose (back to) max if tolerated since renal function improved since admission -Escalate diuretics -Monitor weights, hold discharge as weight and BNP trending up Hyponatremia -On admission, resolved but monitor closely on Metolazone
--- NOTE | 2023-09-27 10:47 | PN ---
Date of Progress Note: 09/27/2023 Status post debridement of the right leg ulcer. The surgical site is intact. Vital signs stable. F rom the surgical standpoint, continue dressing changes. Follow up in my office or the [facility] Center on Saturday here at [facility]. On Saturday, we can see him at [facility]. From there, we also recommend him to see his vascular doctors for complete checkup and his circulation, not only arterial, but venous. VANI/KEITH Voice ID: [id number] Report ID: [id number]
[2023-09-27] MEDS: BUMETANIDE 1 MG TABLET PO ONE (12:03)
[2023-09-27] MEDS: METOLAZONE 5 MG TABLET PO SCH (12:03)
[2023-09-27] MEDS: FUROSEMIDE 20 MG/ 2ML VIAL IV ONE (17:29)
[2023-09-27] MEDS: SACUBITRIL/VALSARTAN 49/51 MG TAB PO SCH (20:41)
[2023-09-28 07:33] LABS: Absolute Lymphocytes (CBC) 0.2 K/uL (0.7-4.9); Absolute Monocytes 0.4 K/uL (0.1-1.3); Basophils % 0.1 % (0-1.3); Hematocrit 36.7 % (39.6-49.0); Hemoglobin 12.2 g/dL (13.6-17.9); MCH 32.8 pg (27.0-35.0); MCHC 33.3 g/dL (32.0-36.0); MCV 98.7 fL (80-100); MPV 8.3 fL (7.6-11.3); Monocytes % 2.8 % (3.3-12.3); Neutrophils % 96.1 % (41.7-73.7); Platelets 211 thou/uL (152-406); RBC Red Blood Cell Count 3.72 M/uL (4.33-5.43); Red Cell Distribution Width 14.8 % (12.1-15.2)
[2023-09-28 07:44] LABS: Anion Gap 8.6 mEq/L (5.0-15.0); Potassium 4.6 mEq/L (3.5-5.1)
[2023-09-28 11:03] LABS: Blood Morphology Comment NOT SEEN (NOT SEEN); Platelet Estimate ADEQ; White Blood Cell Scan OK (OK)
[2023-09-28] MEDS: HYDROCODONE/APAP 7.5/325 MG TAB PO PRN (14:50)
--- NOTE | 2023-09-28 15:13 | P.PN ---
Nephrology (S) UOP improved with Metolazone addition but exam still shows hypervolemia, he is ambulating short distances, no increase in dyspnea Vitals, medications, blood work and imaging reviewed in the chart General: Appears chronically ill but NAD HEENT: Atraumatic, LFNC present Neck: Supple Respiratory: Diminished at bases, non tachypnec Cardiovascular: NOn tachy, mostly regular,2-3+ edema of the LE b/l Gastrointestinal: Mod distention, slightly firm, obese Musculoskeletal: Rt lower penn dressed Neurological: Normal speech, awake, alert, non focal Imagings Data: EXAM DESCRIPTION: RAD - Chest Pa And Lat (2 Views) - 09/22/2023 4:48 pm CLINICAL HISTORY: CHF/ SANDRA to assess volume status COMPARISON: Chest Single View dated 07/25/2023; Chest Single View dated 07/29/2020; Chest Pa And Lat (2 Views) dated 05/10/2020; Chest Single View dated 08/31/2018 FINDINGS: Lines: None. Lungs: No evidence of edema or pneumonia. Pleural: No significant pleural effusions or pneumothorax. Cardiac: Similar size and configuration. Mediastinum: Within normal limits. Bones: No acute fractures. Sternotomy . Other: None IMPRESSION: No acute cardiopulmonary disease. Conclusions/Impression: Stage I VALENTIN on underling CKD Stage IIIb/IV, multifactorial -Cr level has downward some and trended closer to levels earlier in the year but cont to monitor closely with diuretic escalation Hyperkalemia -In the setting of above, cont to monitor, did add the potent thiazide diuretic Metolazone on a scheduled basis. K level better. Will avoid Spironolactone currently but may add as an OP with combined cation exchanger use to help control K levels. Systolic CHF, acute on chronic. Fluid overload -Continue Entresto and titrate dose (back to) max if tolerated since renal function improved since admission -Escalate diuretics -Monitor weights, held discharge as weight and BNP trending up. Will need another 1-2 days with the changes made to cont to ensure he has made enough progress prior to discharge Hyponatremia -On admission, resolved but monitor closely on Metolazone
[2023-09-28] MEDS: BUMETANIDE 1 MG TABLET PO SCH (16:49)
[2023-09-28 17:21] VITALS: BMI 43.7
[2023-09-28] MEDS: DOXYCYCLINE 100 MG CAP PO SCH (21:02)
[2023-09-29 06:21] LABS: Absolute Lymphocytes (CBC) 0.4 K/uL (0.7-4.9); Absolute Monocytes 0.9 K/uL (0.1-1.3); Absolute Neutrophil 10.6 K/uL (1.8-8.0); Eosinophils % 0.4 % (0-4.4); Hematocrit 36.9 % (39.6-49.0); Hemoglobin 12.3 g/dL (13.6-17.9); Lymphocytes % 3.4 % (15.3-44.8); MCH 32.8 pg (27.0-35.0); MCHC 33.3 g/dL (32.0-36.0); MCV 98.4 fL (80-100); MPV 8.8 fL (7.6-11.3); Monocytes % 7.7 % (3.3-12.3); Neutrophils % 88.5 % (41.7-73.7); Platelets 200 thou/uL (152-406); RBC Red Blood Cell Count 3.75 M/uL (4.33-5.43); Red Cell Distribution Width 14.7 % (12.1-15.2)
[2023-09-29 06:36] LABS: Anion Gap 5.4 mEq/L (5.0-15.0); Potassium 4.4 mEq/L (3.5-5.1)
[2023-09-29 09:09] VITALS: TEMP 97.4
[2023-09-29 13:02] VITALS: BP 107/60
--- NOTE | 2023-09-29 13:16 | P.PN ---
Nephrology (S) UOP improved with Metolazone addition but exam still shows hypervolemia, he is ambulating short distances, no increase in dyspnea Vitals, medications, blood work and imaging reviewed in the chart General: Appears chronically ill but NAD HEENT: Atraumatic, LFNC present Neck: Supple Respiratory: Diminished at bases, non tachypnec Cardiovascular: NOn tachy, mostly regular, 2-3+ edema of the LE b/l Gastrointestinal: Mod distention, slightly firm, obese Musculoskeletal: Rt lower penn dressed Neurological: Normal speech, awake, alert, non focal Imagings Data: EXAM DESCRIPTION: RAD - Chest Pa And Lat (2 Views) - 09/22/2023 4:48 pm CLINICAL HISTORY: CHF/ SANDRA to assess volume status COMPARISON: Chest Single View dated 07/25/2023; Chest Single View dated 07/29/2020; Chest Pa And Lat (2 Views) dated 05/10/2020; Chest Single View dated 08/31/2018 FINDINGS: Lines: None. Lungs: No evidence of edema or pneumonia. Pleural: No significant pleural effusions or pneumothorax. Cardiac: Similar size and configuration. Mediastinum: Within normal limits. Bones: No acute fractures. Sternotomy . Other: None IMPRESSION: No acute cardiopulmonary disease. Conclusions/Impression: Stage I VALENTIN on underling CKD Stage IIIb/IV, multifactorial -Cr level has downward some and trended closer to levels earlier in the year but cont to monitor closely with diuretic escalation, azotemia worse Hyperkalemia -In the setting of above, cont to monitor, did add the potent thiazide diuretic Metolazone on a scheduled basis. K level better. Will avoid Spironolactone currently but may add as an OP with combined cation exchanger use to help control K levels. Systolic CHF, acute on chronic. Fluid overload -Continue Entresto and titrate dose (back to) max if tolerated since renal function improved since admission -Escalated diuretics -Monitor weights, held discharge as weight and BNP trending up. Diuresing reasonably, but unclear why weights have not improved -Remains at high risk for re-admission, needs to get plugged in with a HF clinic Hyponatremia -On admission, resolved but monitor closely on Metolazone
[2023-09-29 16:17] VITALS: O2SAT 95
[2023-09-29] MEDS ORDERED: SACUBITRIL/VALSARTAN 49/51 MG TAB PO SCH (21:00)
[2023-09-30] MEDS ORDERED: METOLAZONE 5 MG TABLET PO SCH (09:00)
== END 2023-09-29 15:45 | disposition home health service (06) | DRG 264 ==
LOC: ER 13:23 → ERHOLD 16:33 → 3RD-ICU 18:10 → 4TH 09-22 18:29
PROVIDERS: ADMIT Hospitalist; ATTEND Hospitalist
PROC: 5A09557 Assistance with Respiratory Ventilation, Greater than 96 Consecutive Hours, Continuous Positive Airway Pressure (ICD-10-PCS; 2023-09-21)
PROC: 0JBN0ZZ Excision of Right Lower Leg Subcutaneous Tissue and Fascia, Open Approach (ICD-10-PCS; principal; 2023-09-24 11:00)
PROC: 0HBRXZZ Excision of Toe Nail, External Approach (ICD-10-PCS; 2023-09-25)
DX: I96 Gangrene, not elsewhere classified (principal); I50.23 Acute on chronic systolic (congestive) heart failure; E87.1 Hypo-osmolality and hyponatremia; L03.115 Cellulitis of right lower limb; N17.9 Acute kidney failure, unspecified; I13.0 Hypertensive heart and chronic kidney disease with heart failure and stage 1 through stage 4 chronic kidney disease, or unspecified chronic kidney disease; N18.4 Chronic kidney disease, stage 4 (severe); S81.831A Puncture wound without foreign body, right lower leg, initial encounter; D63.1 Anemia in chronic kidney disease; E87.5 Hyperkalemia; S81.811A Laceration without foreign body, right lower leg, initial encounter; E78.5 Hyperlipidemia, unspecified; E66.9 Obesity, unspecified; E86.0 Dehydration; I83.018 Varicose veins of right lower extremity with ulcer other part of lower leg; G47.33 Obstructive sleep apnea (adult) (pediatric); J44.9 Chronic obstructive pulmonary disease, unspecified; E88.09 Other disorders of plasma-protein metabolism, not elsewhere classified; B35.1 Tinea unguium; B95.8 Unspecified staphylococcus as the cause of diseases classified elsewhere; B19.20 Unspecified viral hepatitis C without hepatic coma; F17.210 Nicotine dependence, cigarettes, uncomplicated; Z23 Encounter for immunization; Z95.2 Presence of prosthetic heart valve; Z68.35 Body mass index [BMI] 35.0-35.9, adult; Z79.01 Long term (current) use of anticoagulants; Z79.02 Long term (current) use of antithrombotics/antiplatelets; Z79.52 Long term (current) use of systemic steroids; Z79.899 Other long term (current) drug therapy
CPT/HCPCS: 36415; 71045; 71046; 73700; 80048; 80053; 80069; 80202; 81001; 82330; 82550; 83036; 83605; 83735; 83880; 84100; 84550; 85025; 85610; 85730; 86140; 87040; 87070; 87075; 87077; 87186; 87205; 88304; 93005; 93306; 94640; 94660; 94760; 96372; 96374; 96375; 99285; J0171; J0612; J0692; J1100; J1940; J2001; J2250; J2704; J2919; J3010; J3430; J3590; J7030; J7040; J7050; J7120; J7605; J7613; J7644

== ENCOUNTER 2023-10-17 13:00 | Emergency (ER) | payer OTHER ==
[2023-10-17] MEDS ORDERED: NA CHLORIDE 0.9% 500 ML ONE (13:42)
[2023-10-17] MEDS ORDERED: ACETAMINOPHEN 500 MG TAB ONE (13:45)
[2023-10-17 13:49] LABS: Absolute Basophils 0.1 K/uL (0-0.5); Absolute Eosinophils 0.2 K/uL (0-0.5); Absolute Lymphocytes (CBC) 0.5 K/uL (0.7-4.9); Absolute Monocytes 0.5 K/uL (0.1-1.3); Absolute Neutrophil 5.8 K/uL (1.8-8.0); Basophils % 0.8 % (0-1.3); Eosinophils % 2.7 % (0-4.4); Hematocrit 39.7 % (39.6-49.0); Hemoglobin 12.9 g/dL (13.6-17.9); MCH 31.6 pg (27.0-35.0); MCHC 32.5 g/dL (32.0-36.0); MCV 97.4 fL (80-100); MPV 9.4 fL (7.6-11.3); Monocytes % 6.9 % (3.3-12.3); Neutrophils % 82.6 % (41.7-73.7); Platelets 201 thou/uL (152-406); RBC Red Blood Cell Count 4.08 M/uL (4.33-5.43); Red Cell Distribution Width 15.2 % (12.1-15.2)
[2023-10-17 13:57] LABS: PT Prothrombin Time 15.4 SECONDS (9.4-12.5); PTT, Activated Partial Thromb 36.9 SECONDS (24.3-36.9); Protime INR 1.41
[2023-10-17] MEDS ORDERED: FENTANYL CITR 100 MCG/2 ML ONE ×2 (13:58→14:21)
[2023-10-17 14:08] LABS: Albumin 3.1 g/dL (3.4-5.0); Albumin/Globulin Ratio 0.7 (1.1-1.8); Anion Gap 12.9 mEq/L (5.0-15.0); Bilirubin Total 0.8 mg/dL (0.2-1.0); Globulin 4.4 g/dL (2.3-3.5); Potassium 3.9 mEq/L (3.5-5.1); Protein, Total 7.5 g/dL (6.4-8.2)
--- NOTE | 2023-10-17 14:10 | RAD REPORT ---
EXAM DESCRIPTION: RAD - Tib Fib Right - 10/17/2023 2:02 pm CLINICAL HISTORY: PAIN COMPARISON: Tib Fib Right dated 09/13/2023 FINDINGS/IMPRESSION: No acute fracture. No malalignment. Chondrocalcinosis in the medial and lateral compartment.
[2023-10-17 15:48] LABS: Specific Gravity 1.009 (1.005-1.030); Sqamous Epithelial None Seen /HPF (None Seen); Urine Bacteria None Seen /HPF (<20); Urine Bilirubin NEGATIVE (Negative); Urine Blood Negative (Negative); Urine Clarity Clear (Clear); Urine Color Colorless (Yellow); Urine Culture Reflex Order NOT NEEDED; Urine Glucose TRACE (Negative); Urine Ketones NEGATIVE (Negative); Urine Microscopic Reflex YN ORDER UMIC; Urine Nitrite NEGATIVE (Negative); Urine Protein TRACE (Negative); Urine RBC <5 /HPF (None Seen); Urine Urobilinogen Normal (Normal); Urine WBC <5 /HPF (<5)
--- NOTE | 2023-10-17 16:39 | RAD REPORT ---
EXAM DESCRIPTION: US - Extremity Venous Uni Ltd - 10/17/2023 4:27 pm CLINICAL HISTORY: Wound, leg pain COMPARISON: None. TECHNIQUE: Real-time sonographic evaluation of the right lower extremity deep venous system was perf ormed. FINDINGS: Normal compressibility, flow augmentation, phasic flow and spontaneous flow is identified in the right lower extremity deep venous system. No intraluminal filling defects seen. IMPRESSION: No DVT in the right lower extremity.
[2023-10-17] MEDS ORDERED: HYDROCODONE/APAP 10/325 TAB ONE (16:45)
[2023-10-17] MEDS ORDERED: GABAPENTIN 300 MG CAP ONE (16:45)
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
[2023-10-17 17:44] VITALS: TEMP 97
[2023-10-17 17:57] VITALS: BP 107/79; O2SAT 94
--- NOTE | 2023-10-20 10:34 | EKG ---
Test Date: 2023-10-17 Test Time: 13:52:23 [employer]: [employer] MEASUREMENT RESULTS: Intervals: Rate: 94 MI: 162 QRSD: 116 QT: 382 QTc: 477 [place]: P: 92 MI: 162 QRS: -30 T: 161 INTERPRETIVE STATEMENTS: Sinus rhythm with premature supraventricular complexes and fusion complexes Left axis deviation Septal infarct, age undetermined Abnormal ECG Compared to ECG 09/24/2023 09:37:50 Fusion complex(es) now present Left-axis deviation now present Myocardial infarct finding now present Aberrant conduction of supraventricular beat(s) no longer present Left bundle-branch block no longer present T-wave abnormality no longer present Possible ischemia no longer present Electronically Signed On 10-20-23 10:31:58 CDT by Román Escobar
== END 2023-10-17 17:26 | disposition home or self-care (01) ==
LOC: ER 13:00
DX: S81.811A Laceration without foreign body, right lower leg, initial encounter (principal)
CPT/HCPCS: 96365; 96361; 93005; 87040 ×2; 85025; 81001; 36415; 85610; 83605; 85730; 80053; 73590; 93971; 96375; 99285; J3010 ×2; J2800; J7040

== ENCOUNTER 2023-11-29 10:05 | Emergency (ER) | payer OTHER ==
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
--- NOTE | 2023-11-29 11:25 | ER ---
Nurse's Notes [facility] Name: Nixon Gamboa Age: 63 yrs Sex: Male : 1960 Arrival Date: 11/29/2023 Time: 10:05 Bed 11 Private MD: Diagnosis: Puncture wound left leg Presentation: 11/28 10:32 Chief complaint: Left leg laceration 2 days ago, continues to bleed. Pressure dressing hb in place. Takes Coumadin. Coronavirus screen: At this time, the client does not indicate any symptoms associated with coronavirus-19. Ebola Screen: No symptoms or risks identified at this time. Complicating Factors: There are no complicating factors for this patient. Initial Sepsis Screen: Does the patient meet any 2 criteria? No. Patient's initial sepsis screen is negative. Does the patient have a suspected source of infection? No. Patient's initial sepsis screen is negative. Risk Assessment: Do you want to hurt yourself or someone else? Patient reports no desire to harm self or others. Onset of symptoms was November 27, 2023. 10:32 Method Of Arrival: Ambulatory hb 10:32 Acuity: JUAQUIN 3 hb Historical: - Allergies: 10:33 No Known Allergies; hb - PMHx: 10:33 CHF; Diverticulitis; Hyperlipidemia; Hepatitis C; artificial valve in heart; hb Hypertension; Sleep Apnea; - PSHx: 10:33 bowel; open heart; hb - Immunization history:: Adult Immunizations up to date. - Infectious Disease History:: Denies. - Social history:: Smoking status: Patient denies any tobacco usage or history of. Screenin:48 [facility] ED Fall Risk Assessment (Adult) History of falling in the last 3 months, le1 including since admission No falls in past 3 months (0 pts) Confusion or Disorientation No (0 pts) Intoxicated or Sedated No (0 pts) Impaired Gait No (0 pts) Mobility Assist Device Used No (0 pt) Altered Elimination No (0 pt) Score/Fall Risk Level 0 - 2 = Low Risk Oriented to surroundings, Maintained a safe environment, Educated pt \T\ family on fall prevention, incl call for assistance when getting out of bed, Assessed \T\ reinforced patient's understanding of fall precautions, Hourly rounding (assess needs \T\ fall precautionary measures) done. Abuse screen: Denies threats or abuse. Nutritional screening: No deficits noted. Tuberculosis screening: No symptoms or risk factors identified. Assessment: 10:46 General: Appears in no apparent distress. Behavior is calm, cooperative. Pain: Denies le1 pain. Neuro: No deficits noted. Cardiovascular: No deficits noted. Respiratory: No deficits noted. Musculoskeletal: No deficits noted. Injury Description: Puncture sustained to left leg is Patient states he got poked in by a stick on Saturday was sustained Saturday. 10:48 Injury Description: Laceration is. le1 Vital Signs: 10:32 BP 130 / 87; Pulse 88; Resp 18; Temp 97.4; Pulse Ox 96% on R/A; Weight 102.06 kg; hb Height 5 ft. 7 in. ; 11:02 BP 130 / 87; Pulse 87; Resp 16; Temp 97.8; Pulse Ox 94% on R/A; Pain 0/10; le1 10:32 Body Mass Index 35.24 (102.06 kg, 170.18 cm) hb 11:02 Pain Scale: Adult le1 ED Course: 10:09 Patient arrived in ED. mg5 10:22 Bob Davis DO is Attending Physician. ms3 10:33 Triage completed. hb 10:34 Arm band placed on. hb 10:38 Nishant Lynn, ALEJANDRA is Primary Nurse. le1 10:49 Provided Education on: Informed patient to use call light for assitance. le1 10:49 Patient has correct armband on for positive identification. Bed in low position. Call le1 light in reach. Side rails up X 1. 11:30 No provider procedures requiring assistance completed. le1 11:31 Patient did not have IV access during this emergency room visit. le1 Administered Medications: No medications were administered Medication: 10:50 VIS not applicable for this client. le1 Outcome: 11:24 Discharge ordered by . ms3 11:30 Discharged to home ambulatory, le1 11:30 Condition: improved 11:30 Discharge instructions given to patient, Instructed on discharge instructions, follow up and referral plans. Demonstrated understanding of instructions, follow-up care, 11:31 Patient left the ED. le1 Signatures: Irish Stack RN RN Bob Davis DO DO ms3 Nadira Hicks 5 Nishant Lynn RN RN le1 Corrections: (The following items were deleted from the chart) 10:38 10:32 102.06 kg; Height 5 ft. 7 in.; BMI: 35.2; hb hb
[2023-11-29 11:36] VITALS: BP 130/87
[2023-11-29 11:37] VITALS: TEMP 97.8; O2SAT 94
== END 2023-11-29 11:31 | disposition home or self-care (01) ==
LOC: ER 10:05
DX: S81.832A Puncture wound without foreign body, left lower leg, initial encounter (principal); Z79.01 Long term (current) use of anticoagulants
CPT/HCPCS: 99283